=== PATIENT | male | born 1975 | race Caucasian/White ===

== ENCOUNTER → 2018-01-19 16:05 | Outpatient (CLI) | payer BC, SELFPAY | PROVIDERS: PCP Internal Medicine; Visit Provider Internal Medicine | DX: R68.89 Other general symptoms and signs (principal); J11.1 Influenza due to unidentified influenza virus with other respiratory manifestations | CPT/HCPCS: 87275; 87276 ==

== ENCOUNTER → 2019-12-28 15:01 | Outpatient (CLI) | payer BC, SELFPAY ==
--- NOTE | 2019-12-28 15:04 | CT_ITS ---
PROCEDURE: CT ABDOMEN PELVIS WO CON CLINICAL INDICATION: RENAL COLIC, RT FLANK PAIN COMPARISON: ABDPELO CT abdomen pelvis wo con from 10/31/2018 TECHNIQUE: Axial images obtained with sagittal and coronal reformats. All CT scans at the facility use one or more dose reduction, viz: automated exposure control, ma/kV adjustment per patient size (including targeted exams where dose is matched to indication, i.e. head), or iterative reconstruction technique. FINDINGS: LOWER THORAX: No acute finding. There are 2 faint nodular opacities in the left lung base at 3 mm each. The these are not significantly changed. ABDOMEN & PELVIS: There is a subtle 6 mm hypodensity in the right hepatic lobe nonspecific and not significantly changed. Gallbladder, spleen, adrenal glands, and pancreas have an unremarkable appearance. There are nonobstructing bilateral renal calculi. A cluster of stones measuring up to 7 mm is noted in the lower polar region of the left kidney and stones measuring up to 4 mm in the upper pole of the right kidney with multiple bilateral upper and lower pole renal calculi noted. No hydronephrosis. No ureteral calculi. Scattered small nodes are present in the celiac region. There is a small umbilical hernia which contains fat. No evidence of appendicitis or diverticulitis. No intestinal obstruction or free air. No acute bony finding. IMPRESSION: 1. Nonobstructing bilateral renal calculi. No ureteral calculi. 2. Other nonacute findings as described above Dictated by: Augusto Mccord MD 12/29/2019 12:19 Electronically signed by Augusto Mccord MD in [place] 12/29/2019 12:19
== END ==
PROVIDERS: PCP Internal Medicine; Visit Provider Internal Medicine
DX: N23 Unspecified renal colic (principal); R10.9 Unspecified abdominal pain
CPT/HCPCS: 74176

== ENCOUNTER → 2020-01-19 15:15 | Outpatient (CLI) | payer BC, SELFPAY ==
--- NOTE | 2020-01-19 15:18 | XR_ITS ---
PROCEDURE: XR KUB CLINICAL INDICATION: kidney stone COMPARISON: No exams were available for comparison FINDINGS: Gas pattern-The bowel gas pattern is unremarkable. No obvious obstruction. Calcifications-there are hyperdensities projecting over both renal beds consistent with nonobstructing calculi. Largest projects over lower pole of the left kidney and is approximately 8 millimeters. No organomegaly or abnormal soft tissue densities are apparent. Bones-No acute bony anomalies evident. There is degenerative disc disease L3-4. IMPRESSION: Bilateral nephrolithiasis. Dictated by: Luiz Davalos 01/19/2020 15:52 Electronically signed by Luiz Davalos in [place] 01/19/2020 15:52
== END ==
PROVIDERS: PCP Internal Medicine; Visit Provider Urology
DX: N20.0 Calculus of kidney (principal)
CPT/HCPCS: 74018

== ENCOUNTER 2020-05-22 18:08 | Emergency (ER) | payer BC, SELFPAY ==
[2020-05-22 18:09] VITALS: BP 153/98; PULSE 74; RESP 16; TEMP 37.1; O2SAT 16
--- NOTE | 2020-05-22 18:38 | HMH.EDABDPAI ---
ED Disposition Clinical Impression: Nephrolithiasis Disposition: Home, Self-Care Condition on Discharge: Good Instructions: DI for Acute Abdomen Prescriptions: Amlodipine Besylate [Amlodipine 10mg Tab] 10 mg PO DAILY #30 tab Transmission Status: Pending to [facility] Hydrocodone/Acetaminophen [Hydrocodone-Acetamin 10-300 mg] 1 each PO QID PRN 3 Days #12 tab PRN Reason: Breakthru Moderate Pain Prescription Printed Referrals: Anatoliy Evans [Primary Care Provider] - - Critical Care Critical Care Time: No Attestation: On 05/22/20, the high probability of a clinically significant, sudden or life threatening deterioration of the following system(s) required my full and direct attention, intervention and personal management. The time I documented below is in addition to time spent performing reported procedures but includes the following listed in this critical care notation. Medical Decision Making - Medical Records Medical records reviewed: Yes: I reviewed the patient's medical records. - Galileo Inquiry Pt receiving controlled substance: No Vital Signs: 05/22/20 18:09 Temperature 98.7 F Temperature Source Oral Pulse Rate [Left Radial] 74 Respiratory Rate 16 Blood Pressure [Right Arm] 153/98 H Blood Pressure Mean [Right Arm] 116 Blood Pressure Position [Right Arm] Sitting 02 Sat by Pulse Oximetry 16 L Oxygen Delivery Method Room Air - Lab Data Lab results reviewed: Yes: I reviewed the patient's lab results. Lab Results 05/22/20 18:20: WBC 8.9, RBC 4.65, Hgb 15.9, Hct 46.3, MCV 99.5 H, MCH 34.1 H, MCHC 34.3, RDW 12.8, Plt Count 192, MPV 9.2, Neut % (Auto) 53.5, Lymph % (Auto) 36.4, [place] % (Auto) 4.2, Eos % (Auto) 5.1, Baso % (Auto) 0.8, Neut # (Auto) 4.7, Lymph # (Auto) 3.2, [place] # (Auto) 0.4, Eos # (Auto) 0.5 H, Baso # (Auto) 0.1 05/22/20 18:20: Sodium 138, Potassium 4.3, Chloride 104, Carbon Dioxide 26, Anion Gap 12.3, BUN 12, Creatinine 1.10, Estimated Creat Clear 99, Estimated GFR 73, Est GFR ( Amer) 88, Glucose 161 H, Calcium 9.2, Total Bilirubin 0.5, AST 26, ALT 29, Alkaline Phosphatase 67, Total Protein 7.0, Albumin 4.1, Globulin 2.9, Albumin/Globulin Ratio 1.4 Result diagrams: 05/22/20 18:20 05/22/20 18:20 Orders (Tests/Meds): ED MEDICATIONS Generic Name Dose Route Start Last Admin Trade Name Freq PRN Reason Stop Dose Admin Sodium Chloride 1,000 mls @ 999 mls/hr 05/22/20 18:45 05/22/20 18:43 Sod Chlor 0.9% 1000ml Bag IV 05/22/20 19:45 999 mls/hr .Q1H1M BONNIE Administration Discontinued Medications Generic Name Dose Route Start Last Admin Trade Name Freq PRN Reason Stop Dose Admin Hydromorphone HCl 1 mg 05/22/20 18:41 05/22/20 18:25 Dilaudid 2mg/Ml Syringe IV 05/22/20 18:42 1 mg ONCE ONE Administration Ketorolac Tromethamine 30 mg 05/22/20 18:41 05/22/20 18:25 Toradol 30mg/Ml Vial IV 05/22/20 18:42 30 mg ONCE ONE Administration Ondansetron HCl 4 mg 05/22/20 18:41 05/22/20 18:25 Zofran 4mg/2ml Vial IV 05/22/20 18:42 4 mg ONCE ONE Administration ORDERS Category Date Time Status CT abdomen pelvis wo con Stat Cat Scan 05/22/20 18:40 Taken Urinalysis and Microscopic Stat Lab 05/22/20 18:40 Ordered Abdominal Pain HPI - General Chief Complaint: Abdominal Pain Stated Complaint: Possible Kidney stones Time Seen by Provider: 05/22/20 18:08 Source of Information: Patient - History of Present Illness MD complaint: flank pain Onset (ago): hour(s) Consistency: constant Location: LLQ, L flank Severity: severe Severity scale (1-10): 10 Quality: sharp Radiation: suprapubic Migration to: L flank Relieving factors: nothing Exacerbating factors: nothing Context: other (History of kidney stones straight kidney stones) - Related Data Home Medications Medication Instructions Recorded Confirmed Tamsulosin HCl [Flomax 0.4mg 0.4 mg PO BID 01/22/20 01/22/20 capsule] Previous Rx's Medicatio
--- NOTE | 2020-05-22 18:40 | CT_ITS ---
PROCEDURE: CT ABDOMEN PELVIS WO CON CLINICAL INDICATION: pain r/o stone COMPARISON: CT ABDOMEN PELVIS WO CON from 01/22/2020 TECHNIQUE: Axial images obtained with sagittal and coronal reformats. All CT scans at the facility use one or more dose reduction, viz: automated exposure control, ma/kV adjustment per patient size (including targeted exams where dose is matched to indication, i.e. head), or iterative reconstruction technique. FINDINGS: CT scan of the abdomen without contrast Lung bases are clear. There are few splenic and hepatic calcifications. The pancreas, adrenal glands, aorta, small and large bowel, appendix, soft tissues and the structures are unremarkable. Right kidney is remarkable for scattered punctate nonobstructive calcifications. There are few nonobstructing calculi throughout the left renal parenchyma of which largest is located within the lower pole measuring 8 millimeters. There is a 3 millimeter partially obstructive proximal left ureteral calculus with secondary mild caliectasis. CT scan of the pelvis without contrast: Sigmoid diverticulosis is noted. Prostate, center vesicles, bladder, soft tissues and bony structures are unremarkable.. IMPRESSION: Nonobstructive bilateral nephrocalcinosis, partially obstructive proximal left ureteral calculus measuring 3 millimeters Dictated by: Ulysses Romo 05/23/2020 09:06 Electronically signed by Ulysses Romo in [place] 05/23/2020 09:06
[2020-05-22 18:44] LABS: Basophils # 0.1 K/mm3 (0-0.2); Basophils % 0.8 % (0.1-2.0); Eosinophils # 0.5 K/mm3 (0.0-0.4); Eosinophils % 5.1 % (0.1-12.0); Hematocrit 46.3 % (42.0-52.0); Hemoglobin 15.9 g/dL (14.1-18.0); Lymphocytes # 3.2 K/mm3 (0.7-4.5); Lymphocytes % 36.4 % (10-50); Mean Corpuscular HGB Conc 34.3 g/dL (31.8-35.4); Mean Corpuscular Hemoglobin 34.1 pg (27.0-31.2); Mean Corpuscular Volume 99.5 fl (80-94); Mean Platelet Volume 9.2 fl (7.4-10.4); Monocytes # 0.4 K/mm3 (0.1-1.0); Monocytes % 4.2 % (1.7-9.3); Neutrophils # 4.7 K/mm3 (1.8-7.8); Neutrophils % 53.5 % (37.0-80.0); Platelet Count 192 K/mm3 (142-424); Red Blood Count 4.65 M/mm3 (4.60-6.20); Red Cell Distribution Width 12.8 % (11.5-17.5); White Blood Count 8.9 K/mm3 (4.8-10.8)
[2020-05-22 18:50] LABS: Chloride 104 mmol/L (98-107); Potassium 4.3 mmoL/L (3.5-5.1); Sodium 138 mmol/L (136-145)
[2020-05-22 18:52] LABS: Blood Urea Nitrogen 12 mg/dl (9-20); Creatinine Clearance Estimated 99 mL/min (50-200); Estimated Glomerular Filt Rate 73 ml/min (>60); GFR (African American) 88 ML/MIN (>60)
[2020-05-22 18:53] LABS: Alanine Aminotransferase 29 U/L (12-78); Albumin Level 4.1 g/dl (3.5-5.0); Albumin/Globulin Ratio 1.4 (1.1-1.8); Alkaline Phosphatase 67 U/L (38-126); Anion Gap 12.3 mEq/L (5-15); Aspartate Amino Transferase 26 U/L (17-59); Bilirubin,Total 0.5 mg/dl (0.2-1.3); Calcium 9.2 mg/dl (8.4-10.2); Carbon Dioxide 26 mmol/L (22.0-30.0); Globulin 2.9 g/dL (1.3-3.2); Glucose 161 mg/dl (74-100)
[2020-05-22 19:24] VITALS: BP 138/87; PULSE 57; RESP 18; O2SAT 98
[2020-05-22 20:04] VITALS: BP 130/72; PULSE 65; RESP 18; TEMP 36.8; O2SAT 98
== END 2020-05-22 20:07 | disposition home or self-care (01) ==
PROVIDERS: Emergency Provider Family Medicine; PCP Internal Medicine
DX: N20.0 Calculus of kidney (principal); J45.909 Unspecified asthma, uncomplicated; Z87.442 Personal history of urinary calculi; Z79.899 Other long term (current) drug therapy
CPT/HCPCS: 74176; 80053; 85025; 96365; 96375; 99283; J2405

== ENCOUNTER → 2020-05-31 11:17 | Outpatient (CLI) | payer BC, SELFPAY ==
--- NOTE | 2020-05-31 11:19 | XR_ITS ---
PROCEDURE: XR KUB CLINICAL INDICATION: kidney stone COMPARISON: CT ABDOMEN PELVIS WO CON from 05/22/2020 FINDINGS: There is bilateral nephrolithiasis. Multiple stones are present bilaterally measuring up to 7 mm in the lower pole on the left. The stones on the right are all measure approximately 1-2 mm. There are multiple pelvic calcifications which were possibly due to phleboliths. One cannot exclude the possibility of ureteral calculi. The IMPRESSION: Bilateral nephrolithiasis Dictated by: Augusto Mccord MD 05/31/2020 15:29 Electronically signed by Augusto Mccord MD in [place] 05/31/2020 15:29
== END ==
PROVIDERS: PCP Internal Medicine; Visit Provider Urology
DX: N20.0 Calculus of kidney (principal)
CPT/HCPCS: 74018

== ENCOUNTER 2020-06-02 07:36 | Emergency (ER) | payer BC, SELFPAY ==
[2020-06-02 07:36] VITALS: BP 149/63; PULSE 73; RESP 22; TEMP 36.6; O2SAT 98; BMI 25.8; BMI 26.5
[2020-06-02 08:05] LABS: Basophils # 0.1 K/mm3 (0-0.2); Basophils % 0.7 % (0.1-2.0); Eosinophils # 0.5 K/mm3 (0.0-0.4); Eosinophils % 4.4 % (0.1-12.0); Hematocrit 43.5 % (42.0-52.0); Hemoglobin 15.8 g/dL (14.1-18.0); Lymphocytes # 4.7 K/mm3 (0.7-4.5); Lymphocytes % 45.3 % (10-50); Mean Corpuscular HGB Conc 36.3 g/dL (31.8-35.4); Mean Corpuscular Hemoglobin 34.1 pg (27.0-31.2); Mean Corpuscular Volume 93.8 fl (80-94); Mean Platelet Volume 9.1 fl (7.4-10.4); Monocytes # 0.6 K/mm3 (0.1-1.0); Monocytes % 5.5 % (1.7-9.3); Neutrophils # 4.6 K/mm3 (1.8-7.8); Neutrophils % 44.1 % (37.0-80.0); Platelet Count 229 K/mm3 (142-424); Red Blood Count 4.64 M/mm3 (4.60-6.20); Red Cell Distribution Width 12.7 % (11.5-17.5); White Blood Count 10.3 K/mm3 (4.8-10.8)
[2020-06-02 08:06] LABS: Chloride 108 mmol/L (98-107); Potassium 4.3 mmoL/L (3.5-5.1); Sodium 139 mmol/L (136-145)
[2020-06-02 08:08] LABS: Blood Urea Nitrogen 20 mg/dl (9-20); Creatinine Clearance Estimated 102 mL/min (50-200); Estimated Glomerular Filt Rate 73 ml/min (>60); GFR (African American) 88 ML/MIN (>60)
[2020-06-02 08:09] LABS: Alanine Aminotransferase 24 U/L (12-78); Albumin Level 3.8 g/dl (3.5-5.0); Albumin/Globulin Ratio 1.3 (1.1-1.8); Alkaline Phosphatase 72 U/L (38-126); Anion Gap 10.3 mEq/L (5-15); Aspartate Amino Transferase 24 U/L (17-59); Bilirubin,Total 0.4 mg/dl (0.2-1.3); Calcium 8.8 mg/dl (8.4-10.2); Carbon Dioxide 25 mmol/L (22.0-30.0); Glucose 108 mg/dl (74-100); Total Protein,Serum 6.8 g/dl (6.3-8.2)
--- NOTE | 2020-06-02 08:28 | CT_ITS ---
PROCEDURE: CT ABDOMEN PELVIS WO CON CLINICAL INDICATION: r/o stone Left flank pain COMPARISON: CT ABDOMEN PELVIS WO CON from 05/22/2020 TECHNIQUE: Axial images obtained with sagittal and coronal reformats. All CT scans at the facility use one or more dose reduction, viz: automated exposure control, ma/kV adjustment per patient size (including targeted exams where dose is matched to indication, i.e. head), or iterative reconstruction technique. FINDINGS: LOWER THORAX: No acute finding ABDOMEN & PELVIS: The liver, gallbladder, spleen, adrenal glands, and pancreas have an unremarkable appearance. There are bilateral renal calculi present measuring up to 7 mm in the lower pole on the left. There is a 4 mm stone at the left ureterovesical junction with mild left hydronephrosis and hydroureter. No evidence of appendicitis. No intestinal obstruction or free air. There is a tiny umbilical hernia which contains fat. Degenerative changes lumbar spine. IMPRESSION: 1. 4 mm left ureterovesical junction stone with mild left-sided obstructive uropathy. 2. Bilateral nephrolithiasis Dictated by: Augusto Mccord MD 06/02/2020 09:16 Electronically signed by Augusto Mccord MD in [place] 06/02/2020 09:16
[2020-06-02 08:33] VITALS: BP 138/84; PULSE 68; RESP 16; O2SAT 98
--- NOTE | 2020-06-02 08:57 | PC.NURSE ---
Pt returned from rad
[2020-06-02 09:18] LABS: Appearance,Urine CLEAR (Clear); Bilirubin,Urine Negative (Negative); Blood, Urine 3+ (Negative); Color,Urine YELLOW (Yellow); Glucose,Urine (UA) Negative (Negative); Ketones,Urine Negative (Negative); Leukocyte Esterase,Urine Negative (Negative); Microscopic, Urine URINE MICROSCOPIC (MICROSCOPIC); Nitrate,Urine Negative (Negative); PH,Urine 5.5 (5.0-8.5); Protein,Urine Negative (Negative); Specific Gravity, Urine >= 1.030 (1.005-1.030); Urobilinogen,Urine 0.2 EU/dl (0.2)
[2020-06-02 09:23] LABS: RBC,Urine 20-50 #/hpf (0-3)
--- NOTE | 2020-06-02 10:08 | HMH.EDGENADL ---
ED Disposition Clinical Impression: Right ureteral calculus Disposition: Home, Self-Care Condition on Discharge: Good Instructions: DI for Acute Pain -- Adult Prescriptions: Oxycodone HCl/Acetaminophen [Percocet 10-325 mg Tablet] 1 tab PO Q6H PRN 3 Days #12 tab PRN Reason: Breakthru Severe Pain Prescription Printed Referrals: Anatoliy Evans [Primary Care Provider] - - Critical Care Critical Care Time: No Attestation: On 06/02/20, the high probability of a clinically significant, sudden or life threatening deterioration of the following system(s) required my full and direct attention, intervention and personal management. The time I documented below is in addition to time spent performing reported procedures but includes the following listed in this critical care notation. Medical Decision Making - Medical Records Medical records reviewed: Yes: I reviewed the patient's medical records. - Galileo Inquiry Pt receiving controlled substance: No Vital Signs: 06/02/20 07:36 06/02/20 08:33 Temperature 97.8 F Temperature Source Oral Pulse Rate [Left Radial] 73 68 Respiratory Rate 22 16 Blood Pressure [Right Arm] 149/63 H 138/84 Blood Pressure Mean [Right Arm] 91 102 Blood Pressure Position [Right Arm] Sitting Sitting 02 Sat by Pulse Oximetry 98 98 Oxygen Delivery Method Room Air - Lab Data Lab results reviewed: Yes: I reviewed the patient's lab results. Lab Results 06/02/20 07:45: WBC 10.3, RBC 4.64, Hgb 15.8, Hct 43.5, MCV 93.8, MCH 34.1 H, MCHC 36.3 H, RDW 12.7, Plt Count 229, MPV 9.1, Neut % (Auto) 44.1, Lymph % (Auto) 45.3, [place] % (Auto) 5.5, Eos % (Auto) 4.4, Baso % (Auto) 0.7, Neut # (Auto) 4.6, Lymph # (Auto) 4.7 H, [place] # (Auto) 0.6, Eos # (Auto) 0.5 H, Baso # (Auto) 0.1 06/02/20 07:45: Sodium 139, Potassium 4.3, Chloride 108 H, Carbon Dioxide 25, Anion Gap 10.3, BUN 20, Creatinine 1.10, Estimated Creat Clear 102, Estimated GFR 73, Est GFR ( Amer) 88, Glucose 108 H, Calcium 8.8, Total Bilirubin 0.4, AST 24, ALT 24, Alkaline Phosphatase 72, Total Protein 6.8, Albumin 3.8, Globulin 3.0, Albumin/Globulin Ratio 1.3 06/02/20 08:05: Urine Color Yellow, Urine Appearance Clear, Urine pH 5.5, Ur Specific [place] >= 1.030, Urine Protein Negative, Urine Glucose (UA) Negative, Urine Ketones Negative, Urine Blood 3+, Urine Nitrate Negative, Urine Bilirubin Negative, Urine Urobilinogen 0.2, Ur Leukocyte Esterase Negative, Urine RBC 20-50, Urine WBC 3-5, Ur Squamous Epith Cells 10-20, Urine Bacteria None Result diagrams: 06/02/20 07:45 06/02/20 07:45 Orders (Tests/Meds): ED MEDICATIONS Generic Name Dose Route Start Last Admin Trade Name Freq PRN Reason Stop Dose Admin Tamsulosin HCl 0.4 mg 06/02/20 21:00 06/02/20 09:00 Flomax 0.4mg Capsule PO 07/02/20 20:59 0.4 mg HS BONNIE Administration Discontinued Medications Generic Name Dose Route Start Last Admin Trade Name Freq PRN Reason Stop Dose Admin Hydromorphone HCl 1 mg 06/02/20 07:54 06/02/20 07:50 Dilaudid 2mg/Ml Syringe IV 06/02/20 07:55 1 mg ONCE ONE Administration Hydromorphone HCl 1 mg 06/02/20 09:00 06/02/20 09:00 Dilaudid 2mg/Ml Syringe IV 06/02/20 09:01 1 mg ONCE ONE Administration Sodium Chloride 1,000 mls @ 999 mls/hr 06/02/20 08:00 06/02/20 07:50 Sod Chlor 0.9% 1000ml Bag IV 06/02/20 09:00 999 mls/hr .Q1H1M BONNIE Administration Ketorolac Tromethamine 30 mg 06/02/20 07:53 06/02/20 07:50 Toradol 30mg/Ml Vial IV 06/02/20 07:54 30 mg ONCE ONE Administration Ondansetron HCl 4 mg 06/02/20 07:53 06/02/20 07:50 Zofran 4mg/2ml Vial IV 06/02/20 07:54 4 mg ONCE ONE Administration - CT Data CT Scan: Abdomen, Pelvis Time Received: 09:[address] Reviewed: Yes: I have viewed the radiologist's interpretation Preliminary Findings: Abnormal (Patient has a nonobstructing stone with mild hydronephrosis in the right ureter) General Adult HPI - General Chief complaint:
--- NOTE | 2020-06-02 10:31 | PC.NURSE ---
pt calling to drive home
[2020-06-02 10:40] VITALS: BP 140/88; PULSE 78; RESP 16; TEMP 36.6; O2SAT 98
== END 2020-06-02 10:43 | disposition home or self-care (01) ==
PROVIDERS: Family Medicine; Emergency Provider Emergency Medicine; PCP Internal Medicine
DX: N20.1 Calculus of ureter (principal); J45.909 Unspecified asthma, uncomplicated; F17.210 Nicotine dependence, cigarettes, uncomplicated
CPT/HCPCS: 74176; 80053; 81001; 85025; 96365; 96375; 96376; 99283; J2405

== ENCOUNTER → 2020-06-05 16:01 | Outpatient (CLI) | payer BC, SELFPAY ==
[2020-06-23 18:26] LABS: Specimen Type NOT PROVIDED
[2020-06-23 18:27] LABS: Composition SEE BELOW:; Size 3X3 mm
[2020-06-23 18:28] LABS: Photo TO FOLLOW
== END ==
PROVIDERS: Visit Provider Urology
DX: Z87.442 Personal history of urinary calculi (principal)
CPT/HCPCS: 82370

== ENCOUNTER 2021-03-14 12:38 | Emergency (ER) | payer BC, SELFPAY ==
[2021-03-14 12:38] VITALS: BP 147/94; PULSE 84; RESP 20; TEMP 36.5; O2SAT 98; BMI 26.5
[2021-03-14 12:54] LABS: Microscopic, Urine URINE MICROSCOPIC (MICROSCOPIC)
[2021-03-14 13:03] LABS: Appearance,Urine CLEAR (Clear); Bilirubin,Urine Negative (Negative); Blood, Urine 2+ (Negative); Color,Urine YELLOW (Yellow); Glucose,Urine (UA) Negative (Negative); Ketones,Urine Negative (Negative); Leukocyte Esterase,Urine Negative (Negative); Nitrate,Urine Negative (Negative); Protein,Urine TRACE (Negative); Specific Gravity, Urine >= 1.030 (1.005-1.030); Urobilinogen,Urine 0.2 EU/dl (0.2)
[2021-03-14 13:10] VITALS: BMI 26.5
[2021-03-14 13:13] LABS: Chloride 109 mmol/L (98-107)
[2021-03-14 13:14] VITALS: BP 142/79; PULSE 76; O2SAT 97
[2021-03-14 13:14] LABS: Potassium 4.1 mmoL/L (3.5-5.1); Sodium 139 mmol/L (136-145)
[2021-03-14 13:17] LABS: Anion Gap 10.1 mEq/L (5-15); Blood Urea Nitrogen 18 mg/dl (9-20); Calcium 9.6 mg/dl (8.4-10.2); Carbon Dioxide 24 mmol/L (22.0-30.0); Creatinine Clearance Estimated 111 mL/min (50-200); Estimated Glomerular Filt Rate 81 ml/min (>60); GFR (African American) 98 ML/MIN (>60); Glucose 108 mg/dl (74-100)
--- NOTE | 2021-03-14 13:26 | HMH.EDGENADL ---
ED Disposition Clinical Impression: Kidney stone Disposition: Home, Self-Care Condition on Discharge: Good Instructions: Kidney Stones -- Adult Prescriptions: Ketorolac Tromethamine [Toradol 10mg tablet] 10 mg PO Q6HP PRN 5 Days #20 tab MDD 40mg/day PRN Reason: Mild Pain Transmission Status: Pending to [facility] Ondansetron [Zofran 4mg ODT] 4 mg PO TIDP PRN #15 tab PRN Reason: Nausea Transmission Status: Pending to [facility] Referrals: Anatoliy Evans [Primary Care Provider] - - Critical Care Critical Care Time: No Attestation: On 03/14/21, the high probability of a clinically significant, sudden or life threatening deterioration of the following system(s) required my full and direct attention, intervention and personal management. The time I documented below is in addition to time spent performing reported procedures but includes the following listed in this critical care notation. Medical Decision Making - Galileo Inquiry Pt receiving controlled substance: No - Lab Data Lab Results 03/14/21 12:45: Urine Color Yellow, Urine Appearance Clear, Urine pH 6.0, Ur Specific [place] >= 1.030, Urine Protein Trace, Urine Glucose (UA) Negative, Urine Ketones Negative, Urine Blood 2+, Urine Nitrate Negative, Urine Bilirubin Negative, Urine Urobilinogen 0.2, Ur Leukocyte Esterase Negative, Urine RBC 5-10, Urine WBC 3-5, Ur Squamous Epith Cells 3-5, Urine Bacteria None 03/14/21 12:56: Sodium 139, Potassium 4.1, Chloride 109 H, Carbon Dioxide 24, Anion Gap 10.1, BUN 18, Creatinine 1.00, Estimated Creat Clear 111, Estimated GFR 81, Est GFR ( Amer) 98, Glucose 108 H, Calcium 9.6 Result diagrams: 03/14/21 12:56 Orders (Tests/Meds): ED MEDICATIONS Generic Name Dose Route Start Last Admin Trade Name Freq PRN Reason Stop Dose Admin Sodium Chloride 1,000 mls @ 999 mls/hr 03/14/21 13:00 03/14/21 13:09 Sod Chlor 0.9% 1000ml Bag IV 03/14/21 14:00 999 mls/hr .Q1H1M BONNIE Administration Discontinued Medications Generic Name Dose Route Start Last Admin Trade Name Freq PRN Reason Stop Dose Admin Ketorolac Tromethamine 30 mg 03/14/21 12:48 03/14/21 13:09 Ketorolac 30mg/Ml Vial IV 03/14/21 12:49 30 mg ONCE ONE Administration Morphine Sulfate 4 mg 03/14/21 12:48 03/14/21 13:09 Morphine 4mg/Ml Syringe IV 03/14/21 12:49 4 mg ONCE ONE Administration Ondansetron HCl 4 mg 03/14/21 12:48 03/14/21 13:02 Ondansetron 4mg Odt SL 03/14/21 12:49 Not Given ONCE ONE Ondansetron HCl 4 mg 03/14/21 13:11 03/14/21 13:12 Ondansetron 4mg/2ml Vial IV 03/14/21 13:12 4 mg ONCE ONE Administration Medical Decision Narrative: Patient presented with sudden onset severe right-sided pain consistent with kidney stone. History and exam consistent with kidney stone. I doubt AAA aortic dissection or other emergent issue. Given IV fluids and pain medicine and he was feeling much better. Bedside ultrasound confirmed mild hydronephrosis. Creatinine otherwise normal and no evidence of urinary tract infection. Pain was improved and able to be discharged with return precautions General Adult HPI - General Chief complaint: Abdominal Pain Stated complaint: possible kidney stone Time Seen by Provider: 03/14/21 12:40 - History of Present Illness HPI narrative: Presents with sudden onset right-sided abdominal pain radiating to right flank and right groin he says that he has had about 60 kidney stones and this feels like 1. The pain is sharp and severe in nature, colicky in nature. No fever no chills no dysuria no hematuria. Onset (ago): hour(s) (1) Severity: severe Quality: stabbing Consistency: intermittent - Related Data Home Medications Medication Instructions Recorded Confirmed Tamsulosin HCl [Flomax 0.4mg 0.4 mg PO BID 01/22/20 06/05/20 capsule] Previous Rx's Medication Instructions Recorded Tramadol HCl [Ultram 50mg 50 mg
[2021-03-14 13:30] VITALS: BP 129/78; PULSE 61; O2SAT 97
[2021-03-14 14:00] VITALS: BP 125/75; PULSE 71; O2SAT 98
[2021-03-14 14:31] VITALS: BP 137/90; PULSE 70; O2SAT 99
[2021-03-14 15:04] VITALS: BP 136/74; PULSE 78; RESP 16; TEMP 36.6; O2SAT 98
== END 2021-03-14 15:07 | disposition home or self-care (01) ==
PROVIDERS: Emergency Provider Emergency Medicine; PCP Internal Medicine
DX: N20.0 Calculus of kidney (principal); J45.909 Unspecified asthma, uncomplicated; F17.210 Nicotine dependence, cigarettes, uncomplicated
CPT/HCPCS: 80048; 81001; 96365; 96375; 99282; J2405

== ENCOUNTER 2021-10-02 11:01 | Emergency (ER) | payer BC, SELFPAY ==
[2021-10-02 11:02] VITALS: BP 133/93; PULSE 71; RESP 16; TEMP 36.6; O2SAT 100; BMI 25.8
[2021-10-02 11:10] VITALS: BP 133/93; PULSE 69; O2SAT 98
--- NOTE | 2021-10-02 11:17 | CT_ITS ---
PROCEDURE: CT ABDOMEN PELVIS WO CON CLINICAL INDICATION: R flank pain COMPARISON: CT CT ABDOMEN PELVIS WO CON from 06/02/2020 TECHNIQUE: Axial images obtained with sagittal and coronal reformats. All CT scans at the facility use one or more dose reduction, viz: automated exposure control, ma/kV adjustment per patient size (including targeted exams where dose is matched to indication, i.e. head), or iterative reconstruction technique. FINDINGS: LOWER THORAX: No acute finding. Stable small nodular opacities in the left lung base. ABDOMEN & PELVIS: There are least 3 small hepatic hypodensities in the right hepatic lobe. These are 7 mm or less and nonspecific possibly due to small cysts. The spleen, adrenal glands, and pancreas have an unremarkable appearance. No radiopaque gallstones apparent. There are numerous bilateral renal calculi measuring up to 3 mm on the right and 15 by 5 mm in the lower pole on the left. No hydronephrosis. No ureteral calculi apparent. No intestinal obstruction or free air. No evidence of appendicitis or diverticulitis. Nondistended fluid-filled loops of small bowel are present. There are few small mesenteric lymph nodes. There is minimal ectasia of the infrarenal portion of the abdominal aorta at 1.9 cm. There is a small umbilical hernia containing fat. There is a small right inguinal hernia containing fat. Small nodes are present in the inguinal region on both sides. There is grade 1 spondylitic spondylolisthesis of L5 on S1 with degenerative disc disease at that level. IMPRESSION: 1. No acute abdominal or pelvic findings. 2. Nonobstructing bilateral renal calculi. 3. Other nonacute findings as described above. Dictated by: Augusto Mccord MD 10/02/2021 12:17 Augusto Mccord MD in [place] 10/02/2021 12:17
[2021-10-02 11:31] LABS: Microscopic, Urine URINE MICROSCOPIC (MICROSCOPIC)
[2021-10-02 11:33] LABS: Basophils # 0.1 K/mm3 (0-0.2); Basophils % 0.8 % (0.1-2.0); Eosinophils # 0.3 K/mm3 (0.0-0.4); Eosinophils % 3.3 % (0.1-12.0); Hematocrit 46.1 % (42.0-52.0); Hemoglobin 15.5 g/dL (14.1-18.0); Lymphocytes # 2.5 K/mm3 (0.7-4.5); Lymphocytes % 30.9 % (10-50); Mean Corpuscular HGB Conc 33.7 g/dL (31.8-35.4); Mean Corpuscular Hemoglobin 33.1 pg (27.0-31.2); Mean Corpuscular Volume 98.2 fl (80-94); Mean Platelet Volume 9.6 fl (7.4-10.4); Monocytes # 0.4 K/mm3 (0.1-1.0); Monocytes % 4.7 % (1.7-9.3); Neutrophils # 4.8 K/mm3 (1.8-7.8); Neutrophils % 60.4 % (37.0-80.0); Platelet Count 202 K/mm3 (142-424); Red Blood Count 4.69 M/mm3 (4.60-6.20); Red Cell Distribution Width 12.4 % (11.5-17.5)
[2021-10-02 11:33] LABS: Appearance,Urine CLEAR (Clear); Bilirubin,Urine Negative (Negative); Blood, Urine Negative (Negative); Color,Urine YELLOW (Yellow); Glucose,Urine (UA) Negative (Negative); Ketones,Urine Negative (Negative); Leukocyte Esterase,Urine Negative (Negative); Nitrate,Urine Negative (Negative); PH,Urine 5.5 (5.0-8.5); Protein,Urine Negative (Negative); Specific Gravity, Urine >= 1.030 (1.005-1.030); Urobilinogen,Urine 0.2 EU/dl (0.2)
[2021-10-02 11:40] LABS: Chloride 107 mmol/L (98-107); Potassium 4.5 mmoL/L (3.5-5.1); Sodium 142 mmol/L (136-145)
[2021-10-02 11:43] LABS: Alanine Aminotransferase 25 U/L (12-78); Albumin Level 4.3 g/dl (3.5-5.0); Albumin/Globulin Ratio 1.3 (1.1-1.8); Alkaline Phosphatase 79 U/L (38-126); Anion Gap 12.5 mEq/L (5-15); Aspartate Amino Transferase 29 U/L (17-59); Bilirubin,Total 0.2 mg/dl (0.2-1.3); Blood Urea Nitrogen 12 mg/dl (9-20); Carbon Dioxide 27 mmol/L (22.0-30.0); Creatinine Clearance Estimated 120 mL/min (50-200); Estimated Glomerular Filt Rate 91 ml/min (>60); GFR (African American) 110 ML/MIN (>60); Globulin 3.3 g/dL (1.3-3.2); Total Protein,Serum 7.6 g/dl (6.3-8.2)
[2021-10-02 11:44] LABS: Calcium 9.4 mg/dl (8.4-10.2); Glucose 100 mg/dl (74-100)
--- NOTE | 2021-10-02 11:51 | PC.NURSE ---
pt in CT
--- NOTE | 2021-10-02 12:33 | PC.NURSE ---
pt laying on stretcher, resting, states no needs at this time.
[2021-10-02 12:34] VITALS: BP 119/75; PULSE 63; O2SAT 100
[2021-10-02 12:45] VITALS: BP 112/76; PULSE 59; O2SAT 99
--- NOTE | 2021-10-02 12:59 | HMH.EDGENADL ---
ED Disposition Clinical Impression: Right flank pain, Nephrolithiasis Disposition: Home, Self-Care Condition on Discharge: Good Instructions: DI for Kidney Stones Additional Instructions: Follow-up with Dr. New if symptoms return. Referrals: Anatoliy Evans [Primary Care Provider] - - Critical Care Critical Care Time: No Attestation: On 10/02/21, the high probability of a clinically significant, sudden or life threatening deterioration of the following system(s) required my full and direct attention, intervention and personal management. The time I documented below is in addition to time spent performing reported procedures but includes the following listed in this critical care notation. Medical Decision Making - Galileo Inquiry Pt receiving controlled substance: No Vital Signs: 10/02/21 11:02 Temperature 97.9 F Temperature Source Oral Pulse Rate [Right Radial] 71 Respiratory Rate 16 Blood Pressure [Right Arm] 133/93 H Blood Pressure Mean [Right Arm] 106 Blood Pressure Source [Right Arm] Automatic Cuff Blood Pressure Position [Right Arm] Sitting 02 Sat by Pulse Oximetry 100 Oxygen Delivery Method Room Air - Lab Data Lab Results 10/02/21 11:11: Urine Color Yellow, Urine Appearance Clear, Urine pH 5.5, Ur Specific [place] >= 1.030, Urine Protein Negative, Urine Glucose (UA) Negative, Urine Ketones Negative, Urine Blood Negative, Urine Nitrate Negative, Urine Bilirubin Negative, Urine Urobilinogen 0.2, Ur Leukocyte Esterase Negative, Urine RBC None, Urine WBC 3-5, Ur Squamous Epith Cells 3-5, Urine Bacteria None 10/02/21 11:24: WBC 8.0, RBC 4.69, Hgb 15.5, Hct 46.1, MCV 98.2 H, MCH 33.1 H, MCHC 33.7, RDW 12.4, Plt Count 202, MPV 9.6, Neut % (Auto) 60.4, Lymph % (Auto) 30.9, [place] % (Auto) 4.7, Eos % (Auto) 3.3, Baso % (Auto) 0.8, Neut # (Auto) 4.8, Lymph # (Auto) 2.5, [place] # (Auto) 0.4, Eos # (Auto) 0.3, Baso # (Auto) 0.1 10/02/21 11:24: Sodium 142, Potassium 4.5, Chloride 107, Carbon Dioxide 27, Anion Gap 12.5, BUN 12, Creatinine 0.90, Estimated Creat Clear 120, Estimated GFR 91, Est GFR ( Amer) 110, Glucose 100, Calcium 9.4, Total Bilirubin 0.2, AST 29, ALT 25, Alkaline Phosphatase 79, Total Protein 7.6, Albumin 4.3, Globulin 3.3 H, Albumin/Globulin Ratio 1.3 Result diagrams: 10/02/21 11:24 10/02/21 11:24 - CT Data CT Scan: Abdomen, Pelvis Time Received: 13:[address] Reviewed: Yes: I have viewed the radiologist's interpretation Findings Narrative: PROCEDURE: CT ABDOMEN PELVIS WO CON CLINICAL INDICATION: R flank pain COMPARISON: CT CT ABDOMEN PELVIS WO CON from 06/02/2020 TECHNIQUE: Axial images obtained with sagittal and coronal reformats. All CT scans at the facility use one or more dose reduction, viz: automated exposure control, ma/kV adjustment per patient size (including targeted exams where dose is matched to indication, i.e. head), or iterative reconstruction technique. FINDINGS: LOWER THORAX: No acute finding. Stable small nodular opacities in the left lung base. ABDOMEN & PELVIS: There are least 3 small hepatic hypodensities in the right hepatic lobe. These are 7 mm or less and nonspecific possibly due to small cysts. The spleen, adrenal glands, and pancreas have an unremarkable appearance. No radiopaque gallstones apparent. There are numerous bilateral renal calculi measuring up to 3 mm on the right and 15 by 5 mm in the lower pole on the left. No hydronephrosis. No ureteral calculi apparent. No intestinal obstruction or free air. No evidence of appendicitis or diverticulitis. Nondistended fluid-filled loops of small bowel are present. There are few small mesenteric lymph nodes. There is minimal ectasia of the infrarenal portion of the abdominal aorta at 1.9 cm. There is a small umbilical hernia containing fat. There is a small right inguinal hernia containing fat. Small nodes are present in the inguinal region on both sides. There i
[2021-10-02 13:13] VITALS: BP 112/76; PULSE 63; RESP 16; TEMP 36.7; O2SAT 100
== END 2021-10-02 13:18 | disposition home or self-care (01) ==
PROVIDERS: Emergency Provider Emergency Medicine; PCP Internal Medicine
DX: N20.0 Calculus of kidney (principal)
CPT/HCPCS: 74176; 80053; 81001; 85025; 99283

== ENCOUNTER → 2022-01-01 10:06 | Outpatient (CLI) | payer BC, SELFPAY ==
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
== END ==
LOC: RAD 10:08
PROVIDERS: PCP Internal Medicine; Visit Provider Internal Medicine
DX: M54.2 Cervicalgia (principal); V89.2XXA Person injured in unspecified motor-vehicle accident, traffic, initial encounter
CPT/HCPCS: 72050

== ENCOUNTER → 2022-02-11 15:27 | Outpatient (CLI) | payer BC, SELFPAY ==
--- NOTE | 2022-02-11 15:33 | XR_ITS ---
FINAL REPORT CLINICAL HISTORY: RIGHT HIP PAIN x 2 weeks..no trauma FINDINGS: Right hip with pelvis Three views were obtained. There is no acute fracture or dislocation. There is mild degenerative change of the right hip. There is no acute soft tissue abnormality. IMPRESSION: Mild right hip degenerative change. Reviewed, Interpreted and Dictated by Kenji Olivo III, MD Transcribed by Rich Pandya Authenticated by Kenji Olivo III, MD on 02/11/2022 04:55:06 PM [facility]
== END ==
LOC: RAD 15:28
PROVIDERS: PCP Internal Medicine; Visit Provider Internal Medicine
DX: M25.551 Pain in right hip (principal)
CPT/HCPCS: 73502

== ENCOUNTER → 2022-03-21 09:52 | Outpatient (CLI) | payer BC, SELFPAY ==
--- NOTE | 2022-03-21 09:56 | MR_ITS ---
FINAL REPORT CLINICAL HISTORY: rt hip pain x's 2 months. nki. pt states he is off work with his shoulders. has had back pain and is now having trouble walking. pain in hip joint and radiates down leg. COMPARISON: Plain film dated February 11, 2022 FINDINGS: Multiplanar MR imaging of the right hip was performed without contrast. There is no evidence of fracture or dislocation. There is avascular necrosis in the superior right femoral head measuring 2.9 cm transversely. There is mild flattening of the right femoral head. There is bone marrow edema in the femoral head and neck. There is avascular necrosis of the femoral head measuring 4.4 cm transversely. There is labral degeneration with an anterior superior tear. A moderate right hip joint effusion is seen. The tendons are intact. The musculature is intact. No soft tissue mass or cyst is identified. IMPRESSION: Avascular necrosis of the bilateral femoral heads. Bone marrow edema in the right femoral head neck. Right labral degeneration within anterior superior tear. Moderate right hip joint effusion. Reviewed, Interpreted and Dictated by Kenji Olivo III, MD Transcribed by Rich Pandya Authenticated by Kenji Olivo III, MD on 03/21/2022 01:14:[address] [facility]
== END ==
LOC: RAD 09:53
PROVIDERS: PCP Internal Medicine; Visit Provider Orthopaedic Surgery
DX: M25.551 Pain in right hip (principal)
CPT/HCPCS: 73721

== ENCOUNTER 2022-04-16 14:00 | Outpatient (RCR) | payer BC, SELFPAY ==
--- NOTE | 2022-03-12 15:39 | HMH.PTOPEV ---
PT Outpatient Evaluation Rehab PT Outpatient Evaluation Start: 03/12/22 15:04 Freq: Status: Active Protocol: Document 03/12/22 15:05 LOYDGUSTABO (Rec: 03/12/22 15:39 ERNESTINA [id number]) Electronically Signed By Reynaldo Chan PT 03/12/22 15:05 Outpatient Therapy Subjective History Subjective History This is the initial Physical Therapy evaluation for Cordell Armando. Pt is a 46 y/o male referred to PT for R hip pain. Pt is currently being seen for B RTC issues. Pt reports R hip pain began ~2-3 months ago w/ insidious onset. Pt does states he has had intermittent hip painsince high school, but pain would usually only last for a week then go away. Pt states now that when he walks he can have shooting pain into R thigh and sometimes down south to ankle. Pt does not report any burning, tingling, electricity like pain or numbness or tingling. Chief Complaint Pain,Stiff Symptom Type Throb,Sharp,Shooting Symptoms Relieved By Nothing Symptoms Aggravated By Standing,Physical Activity, Walking Prior Functional Limitations None Current Functional Limitations Housework,Driving,Sleeping, Standing,Sitting,Squatting, Recreation Activity,Walking, Stairs Symptom Description Constant but Variable Level of pain today (0-10) 3 Pain scale - at its best (0-10) 3 Pain scale - at its worst (0-10) 7 Hip/Knee Eval Gait Observation General Gait Pattern Observation Antalgic Gait Assistive Device Assistive Devices Straight Cane Palpation Tenderness right Knee Palpation Finding None/Normal Hip Palpation Findings Tenderness MMT Hip Flexion Strength Grade 4- Good- Hip Abduction Strength Grade 4- Good- Hip Adduction Strength Grade 4- Good- Hip External Rotation Strength Grade 4 Good Hip Internal Rotation Strength Grade 4 Good Knee Strength Reason Not Measured WFL ROM Hip Flexion w/Knee Flexed Active Range 45 w/ pain of Motion (degrees) Hip Flexion w/Knee Flexed Passive Range 90 w/ pain of Motion (degrees) Hip Flexion w/Knee Extended Passive 90 Range of Motion (degrees)
== END 2022-04-16 14:05 | disposition home or self-care (01) ==
LOC: PT 14:00
PROVIDERS: PCP Internal Medicine; Visit Provider Orthopaedic Surgery
DX: M25.551 Pain in right hip (principal)
CPT/HCPCS: 97110; 97163

== ENCOUNTER → 2022-05-05 15:38 | Outpatient (CLI) | payer BC, SELFPAY ==
[2022-05-05 16:34] LABS: Basophils # 0.2 K/mm3 (0-0.2); Basophils % 1.5 % (0.1-2.0); Eosinophils # 0.2 K/mm3 (0.0-0.4); Eosinophils % 1.6 % (0.1-12.0); Hemoglobin 16.7 g/dL (14.1-18.0); Lymphocytes # 2.7 K/mm3 (0.7-4.5); Lymphocytes % 27.4 % (10-50); Mean Corpuscular HGB Conc 34.1 g/dL (31.8-35.4); Mean Corpuscular Hemoglobin 32.9 pg (27.0-31.2); Mean Corpuscular Volume 96.4 fl (80-94); Mean Platelet Volume 8.6 fl (7.4-10.4); Monocytes # 0.6 K/mm3 (0.1-1.0); Neutrophils # 6.2 K/mm3 (1.8-7.8); Neutrophils % 63.5 % (37.0-80.0); Platelet Count 227 K/mm3 (142-424); Red Blood Count 5.09 M/mm3 (4.60-6.20); White Blood Count 9.8 K/mm3 (4.8-10.8)
[2022-05-05 16:43] LABS: Alanine Aminotransferase 32 U/L (12-78); Albumin Level 4.4 g/dl (3.5-5.0); Albumin/Globulin Ratio 1.2 (1.1-1.8); Alkaline Phosphatase 99 U/L (38-126); Anion Gap 9.4 mEq/L (5-15); Aspartate Amino Transferase 29 U/L (17-59); Bilirubin,Total 0.3 mg/dl (0.2-1.3); Blood Urea Nitrogen 13 mg/dl (9-20); Calcium 9.8 mg/dl (8.4-10.2); Carbon Dioxide 27 mmol/L (22.0-30.0); Chloride 106 mmol/L (98-107); Estimated Glomerular Filt Rate 80 ml/min (>60); GFR (African American) 97 ML/MIN (>60); Globulin 3.6 g/dL (1.3-3.2); Glucose 96 mg/dl (74-100); Potassium 4.4 mmoL/L (3.5-5.1); Sodium 138 mmol/L (136-145)
[2022-05-05 18:05] LABS: Erythrocyte Sedimentation Rate 13 mm/hr (0-15)
[2022-05-11 15:10] LABS: Lyme B. burgdorferi PCR Blood Negative (Negative)
== END ==
PROVIDERS: PCP Internal Medicine; Visit Provider Internal Medicine
DX: Z11.8 Encounter for screening for other infectious and parasitic diseases (principal)
CPT/HCPCS: 36415; 80053; 85025; 85651; 87476

== ENCOUNTER 2022-05-28 10:00 | Outpatient (RCR) | payer OTHER, SELFPAY | END 2022-05-28 10:05 | disposition home or self-care (01) | LOC: PT 10:00 | PROVIDERS: PCP Internal Medicine; Visit Provider Orthopaedic Surgery | DX: M25.511 Pain in right shoulder (principal); M25.512 Pain in left shoulder; M75.102 Unspecified rotator cuff tear or rupture of left shoulder, not specified as traumatic; M75.101 Unspecified rotator cuff tear or rupture of right shoulder, not specified as traumatic | CPT/HCPCS: 97010; 97014; 97110; 97163; 97164; G0283 ==

== ENCOUNTER → 2022-07-14 13:31 | Outpatient (CLI) | payer BC, SELFPAY ==
[2022-07-20 16:11] LABS: Lyme B. burgdorferi PCR Blood Negative (Negative)
== END ==
PROVIDERS: PCP Internal Medicine; Visit Provider Internal Medicine
DX: T63.481A Toxic effect of venom of other arthropod, accidental (unintentional), initial encounter (principal)
CPT/HCPCS: 87476

== ENCOUNTER 2022-10-04 04:12 | Emergency (ER) | payer BC, SELFPAY ==
[2022-10-04 04:13] VITALS: BP 183/99; PULSE 99; RESP 23; TEMP 36.9; O2SAT 98; BMI 25.8
--- NOTE | 2022-10-04 04:39 | CT_ITS ---
PROCEDURE INFORMATION: Exam: CT Abdomen And Pelvis Without Contrast Exam date and time: 10/04/2022 4:44 AM Age: 46 years old Clinical indication: Abdominal pain; Flank; Left; Additional info: Flank pain left side , HX of kidney stones TECHNIQUE: Imaging protocol: Computed tomography of the abdomen and pelvis without contrast. Radiation optimization: All CT scans at this facility use at least one of these dose optimization techniques: automated exposure control; mA and/or kV adjustment per patient size (includes targeted exams where dose is matched to clinical indication); or iterative reconstruction. COMPARISON: CT ABDOMEN PELVIS WO CON 10/02/2021 11:51 AM FINDINGS: Liver: Subcentimeter low-density lesions in the liver are too small to characterize, though statistically benign. Calcified hepatic granulomas. Gallbladder and bile ducts: Normal. No calcified stones. No ductal dilation. Pancreas: Normal. No ductal dilation. Spleen: Calcified splenic granulomas. Adrenal glands: Normal. No mass. Kidneys and ureters: Numerous small nonobstructing renal calculi identified measuring up to 3 mm on the right and 5 mm on the left. Mild left hydronephrosis secondary to a 1 cm calculus at the left UPJ. Stomach and bowel: Unremarkable. No obstruction. No mucosal thickening. Appendix: No evidence of appendicitis. Intraperitoneal space: Unremarkable. No free air. No significant fluid collection. Vasculature: Unremarkable. No abdominal aortic aneurysm. Lymph nodes: Unremarkable. No enlarged lymph nodes. Urinary bladder: Unremarkable as visualized. Reproductive: Unremarkable as visualized. Bones/joints: Right total hip arthroplasty. 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 Soft tissues: Unremarkable. IMPRESSION: Mild left hydronephrosis secondary to a 1 cm calculus at the left UPJ.
--- NOTE | 2022-10-04 04:44 | PC.NURSE ---
Order for toradol changed from IM to IV, dosing changed from 30mg to 15mg per MD order.
[2022-10-04 04:46] LABS: Microscopic, Urine URINE MICROSCOPIC (MICROSCOPIC)
--- NOTE | 2022-10-04 04:47 | PC.NURSE ---
pt going to scan at this time
[2022-10-04 04:48] LABS: Basophils # 0.2 K/mm3 (0-0.2); Basophils % 2.9 % (0.1-2.0); Eosinophils # 0.3 K/mm3 (0.0-0.4); Eosinophils % 3.3 % (0.1-12.0); Hemoglobin 15.1 g/dL (14.1-18.0); Lymphocytes # 4.7 K/mm3 (0.7-4.5); Lymphocytes % 61.2 % (10-50); Mean Corpuscular HGB Conc 32.2 g/dL (31.8-35.4); Mean Corpuscular Hemoglobin 30.9 pg (27.0-31.2); Mean Corpuscular Volume 95.9 fl (80-94); Mean Platelet Volume 9.5 fl (7.4-10.4); Monocytes # 0.4 K/mm3 (0.1-1.0); Monocytes % 5.6 % (1.7-9.3); Neutrophils # 2.1 K/mm3 (1.8-7.8); Platelet Count 210 K/mm3 (142-424); Red Cell Distribution Width 13.6 % (11.5-17.5); White Blood Count 7.7 K/mm3 (4.8-10.8)
[2022-10-04 04:48] LABS: Appearance,Urine SL CLOUDY (Clear); Bilirubin,Urine Negative (Negative); Blood, Urine 3+ (Negative); Color,Urine YELLOW (Yellow); Glucose,Urine (UA) Negative (Negative); Ketones,Urine Negative (Negative); Leukocyte Esterase,Urine Negative (Negative); Nitrate,Urine Negative (Negative); Protein,Urine Negative (Negative); Specific Gravity, Urine 1.025 (1.005-1.030); Urobilinogen,Urine 0.2 EU/dl (0.2)
[2022-10-04 04:49] LABS: Chloride 104 mmol/L (98-107); Potassium 4.3 mmoL/L (3.5-5.1); Sodium 142 mmol/L (136-145)
[2022-10-04 04:52] LABS: RBC,Urine 50-100 #/hpf (0-3)
[2022-10-04 04:52] LABS: Anion Gap 13.3 mEq/L (5-15); Blood Urea Nitrogen 10 mg/dl (9-20); Carbon Dioxide 29 mmol/L (22.0-30.0); Creatinine Clearance Estimated 118 mL/min (50-200); Estimated Glomerular Filt Rate 91 ml/min (>60); GFR (African American) 110 ML/MIN (>60); MANUAL DIFFERENTIAL MANUAL DIFFERENTIAL (MANUAL DIFF)
[2022-10-04 04:53] LABS: Calcium 9.3 mg/dl (8.4-10.2); Glucose 94 mg/dl (74-100)
--- NOTE | 2022-10-04 04:55 | PC.NURSE ---
pt back from scan at this time
[2022-10-04 04:58] LABS: Eosinophils % 1 % (0-3); Lymphocytes % 66 % (10-50); Monocytes % 5 % (2-9); Neutrophils % 26 % (42-76); Platelet Estimate Normal; RBC Morphology Normal; Total Cells Counted 100
--- NOTE | 2022-10-04 05:14 | HMH.EDGENADL ---
Discharge Plan Disposition Patient Disposition: Xfer Short-Term Hosp Condition: Fair Chief Complaint: PAIN Prescriptions Prescriptions: No Action tramadol 50 mg tablet 50 mg PO Q6 PRN (Reason: Breakthru Severe Pain) Qty: 30 0RF tamsulosin 0.4 MG capsule 0.4 mg PO BID amlodipine 10 MG tablet 10 mg PO DAILY Qty: 30 0RF ketorolac 10 MG tablet 10 mg PO Q6HP MDD 40mg/day PRN (Reason: Mild Pain) 5 Days Qty: 20 0RF Rx Instructions: Therapy initiated with IV/IM dose Referrals Follow up/Referrals: Anatoliy Evans MD [Primary Care Provider] - See instructions Clinical Impressions Clinical Impression: Calcium ureterolithiasis, Hydronephrosis, Intractable pain Discharge ED Provider: [facility] General Adult HPI General Chief complaint: PAIN Stated complaint: Pain left side & private area,nausea Time Seen by Provider: 10/04/22 04:33 Mode of Arrival: Family Vehicle Source of Information: Patient Limitations: No Limitations Description of Symptoms (Recalled from ER Triage Doc. by RN): Pt c/o L flank pain that radiates to his penis. States it awoke him from his sleep this early am. He reports a hx of kidney stones but states I usually pass them no problem . Pt also c/o nausea and vomting. Pt is restless and rocking on & off the bed. He denies any gross hematuria or urinary retention. History of Present Illness HPI narrative: 46yo M with past medical history of kidney stones presents to the emergency department secondary to left flank pain. Pain radiates to his groin. Symptoms began approximately 30 minutes prior to arrival and woke him from sleep. Reports having to have kidney stones removed secondary to inability to pass spontaneously in the past. Reports being in his usual state of health prior to being woken up in pain. No recent fever, nausea/vomiting/diarrhea. Nothing improves his pain prior to arrival. Related Data Home Medications Medication Instructions Recorded Confirmed tamsulosin 0.4 mg capsule 0.4 mg PO BID renal calculi 01/22/20 04/02/22 Previous Rx's Medication Instructions Recorded amlodipine 10 mg tablet 10 mg PO DAILY #30 tabs 05/22/20 ketorolac 10 mg tablet 10 mg PO Q6HP PRN Mild Pain 5 days 03/14/21 #20 tabs tramadol 50 mg tablet 50 mg PO Q6 PRN Breakthru Severe 04/02/22 Pain #30 tabs Allergies Allergy/AdvReac Type Severity Reaction Status Date / Time No Known Allergies Allergy Verified 04/02/22 13:27 PFSH PFSH Social History Smoking Status: Current every day smoker tobacco type: cigarettes packs per day: 0 alcohol intake: current substance use type: denies use current occupational status: other Travel in the last 8 weeks: None household members: other housing: other caffeine: No ROS Obtained: Yes Systems reviewed as appropriate & no additional complaints except as documented 10 point ROS negative except as above Genitourinary Male Genitourinary: Reports as per HPI Physical Exam General General appearance: alert and in no apparent distress Head Head exam: atraumatic Eye Eye exam: Present normal appearance and PERRL Chest Chest inspection: Present normal inspection and symmetric chest wall rise Respiratory Respiratory exam: Present normal lung sounds bilaterally and respiratory distress Cardiovascular Cardiovascular exam: Present regular rate and normal rhythm Abdominal Exam Abdominal exam: Present soft exam: Present other (Left CVAT) Back Exam Back exam: Present CVA tenderness (L) Neurological Exam Neurological exam: Present alert and oriented X3 Psychiatric Psychiatric exam: Present normal affect and normal mood Skin Skin exam: Present warm, dry and intact Medical Decision Making Medical Records Medical records reviewed: Yes I reviewed the patient's medical records. MR Comment: Prior CT scan Galileo Inquiry Pt receiving controlled substance: No Vital Signs:
--- NOTE | 2022-10-04 05:33 | PC.NURSE ---
ER Dr speaking with Dr Swan at this time pt is accepted to the [facility] at this time
--- NOTE | 2022-10-04 05:55 | PC.NURSE ---
Called [facility] for transport to at this time
[2022-10-04 06:19] VITALS: BP 140/82; PULSE 85; RESP 17; TEMP 36.8; O2SAT 98
== END 2022-10-04 06:20 | disposition short-term general hospital (02) ==
PROVIDERS: Emergency Provider Family Medicine; PCP Internal Medicine
DX: N13.2 Hydronephrosis with renal and ureteral calculous obstruction
CPT/HCPCS: 74176; 80048; 81001; 85007; 85025; 96374; 96375; 96376; 99284; J2405

== ENCOUNTER 2022-10-05 23:18 | Emergency (ER) | payer BC, SELFPAY ==
[2022-10-05 23:19] VITALS: BP 155/98; PULSE 103; RESP 22; TEMP 36.8; O2SAT 98; BMI 25.8
--- NOTE | 2022-10-05 23:59 | PC.NURSE ---
Patients requested MD see patient due to patients pain level. MD notified.
--- NOTE | 2022-10-06 00:27 | HMH.EDGENADL ---
Discharge Plan Disposition Patient Disposition: Home, Self-Care Condition: Good Chief Complaint: Abdominal Pain Prescriptions Prescriptions: No Action phenazopyridine [Pyridium] 100 mg Tablet 100 mg PO TID PRN (Reason: ureteral stent pain) oxycodone 5 mg tablet 5 mg PO Q4-6H PRN (Reason: post op hip pain) tamsulosin 0.4 MG capsule 0.4 mg PO BID Referrals Follow up/Referrals: Anatoliy Evans MD [Primary Care Provider] - See instructions Clinical Impressions Clinical Impression: Renal colic on left side Instructions Patient Instructions: DI for Acute Abdominal Pain Discharge ED Provider: [facility] General Adult HPI General Chief complaint: Abdominal Pain Stated complaint: Pain from kidney stone Time Seen by Provider: 10/05/22 23:36 Mode of Arrival: Family Vehicle Source of Information: Patient and Significant Other Limitations: No Limitations Description of Symptoms (Recalled from ER Triage Doc. by RN): Pt c/o L flank and radiating pain following his lithotripsy and stent placement to L ureter @ on 10/04. States he was d/c @ 1900 last night and has been having pain since. He was d/c with flomax and pyridium and reports these meds aren't working so I took 2 old pain pills from my hip surgery, I think hydronorco but it hasn't helped at all and I just can't take it anymore . He reports the stent has a string attached that he was instructed to pull out on Thursday (10/07). History of Present Illness HPI narrative: 46yo M presents to the emergency department secondary to pain from ureteral stent placement. Was evaluated in this emergency department on Thursday night and transferred to the [facility] for urologic intervention. States pain is now worse than when he had the kidney stone. Denies fever. States he was told to remove his stent on Thursday at home and there was no need for follow-up. Discharged home with Pyridium and Flomax. Related Data Home Medications Medication Instructions Recorded Confirmed tamsulosin 0.4 mg capsule 0.4 mg PO BID renal calculi 01/22/20 10/06/22 oxycodone 5 mg tablet 5 mg PO Q4-6H PRN post op hip pain 10/06/22 10/06/22 phenazopyridine 100 mg tablet 100 mg PO TID PRN ureteral stent 10/06/22 10/06/22 (Pyridium) pain Allergies Allergy/AdvReac Type Severity Reaction Status Date / Time No Known Allergies Allergy Verified 04/02/22 13:27 PFSH PFS Social History Smoking Status: Current every day smoker tobacco type: cigarettes packs per day: 0 alcohol intake: current substance use type: denies use current occupational status: other Travel in the last 8 weeks: None household members: other housing: other caffeine: No ROS Obtained: Yes Systems reviewed as appropriate & no additional complaints except as documented Physical Exam General General appearance: alert Comment: Acutely uncomfortable Head Head exam: atraumatic Eye Eye exam: Present normal appearance and PERRL Neck Neck exam: Present normal inspection and trachea midline Chest Chest inspection: Present normal inspection and symmetric chest wall rise Respiratory Respiratory exam: Present normal lung sounds bilaterally Cardiovascular Cardiovascular exam: Present regular rate Abdominal Exam Abdominal exam: Present soft and tenderness (Left-sided); Absent distention Extremities Exam Extremities exam: Present normal capillary refill; Absent tenderness or edema Neurological Exam Neurological exam: Present alert, oriented X3 and CN II-XII intact Psychiatric Psychiatric exam: Present normal affect and normal mood Skin Skin exam: Present warm and dry Medical Decision Making Galileo Inquiry Pt receiving controlled substance: No Vital Signs: 10/05/22 23:19 Temperature 98.2 F Temperature Source Oral Pulse Rate [Right] 103 H Respiratory Rate 22 Blood Pressure [Right Arm] 155/98 H Blood Pressure Mean [Right A
[2022-10-06 01:20] VITALS: BP 138/79; PULSE 75; RESP 19; TEMP 36.7; O2SAT 97
== END 2022-10-06 01:40 | disposition home or self-care (01) ==
PROVIDERS: Emergency Provider Family Medicine; PCP Internal Medicine
DX: R10.32 Left lower quadrant pain (principal); M25.559 Pain in unspecified hip; F17.210 Nicotine dependence, cigarettes, uncomplicated; Z79.1 Long term (current) use of non-steroidal anti-inflammatories (NSAID); Z79.899 Other long term (current) drug therapy; Z87.442 Personal history of urinary calculi
CPT/HCPCS: 96374; 96375; 99284; J2405

== ENCOUNTER 2022-10-07 07:49 | Emergency (ER) | payer BC, SELFPAY ==
[2022-10-07 07:49] VITALS: BP 147/90; PULSE 110; RESP 20; TEMP 36.3; O2SAT 100; BMI 25.8
--- NOTE | 2022-10-07 08:00 | PC.NURSE ---
DR. VALENZUELA AT BEDSIDE FOR EVALUATION
--- NOTE | 2022-10-07 08:02 | CT_ITS ---
FINAL REPORT TECHNIQUE: Axial images through the abdomen and pelvis were performed without contrast. This study was performed with techniques to keep radiation doses as low as reasonably achievable, (ALARA). Individualized dose reduction techniques using automated exposure control or adjustment of mA and/or kV according to the patient's size were employed. CLINICAL HISTORY: left flank pain, h/o stones FINDINGS: ABDOMEN: The lung bases are clear. The heart size is normal. Limited images of the liver are unremarkable. The spleen is normal. No adrenal mass is identified. The aorta is normal in caliber. There is no significant free fluid or adenopathy. There are multiple bilateral nonobstructing kidney stones. There is mild left hydronephrosis. The previously identified stone at the left UPJ is no longer identified. There is moderate left hydroureter to the level of the left UVJ. No definite stone is identified. There is stranding along the course of the left ureter. PELVIS: The appendix is not identified. The urinary bladder is unremarkable. There is no significant free fluid or adenopathy. There is streak artifact from right hip arthroplasty. There are bilateral pars defects at the L5 level. IMPRESSION: Moderate hydronephrosis and hydroureter to the level of the left UVJ which may be related to a recently passed stone. Multiple bilateral nonobstructing kidney stones. Reviewed, Interpreted and Dictated by Houston Coffey MD Transcribed by Guerline Jimenez Authenticated and [facility]
--- NOTE | 2022-10-07 08:05 | HMH.EDUROGM ---
Discharge Plan Disposition Patient Disposition: Home, Self-Care Condition: Good Prescriptions Prescriptions: New oxycodone-acetaminophen [Percocet] 5-325 mg tablet 1 tab PO Q6H PRN (Reason: pain) Qty: 10 0RF ondansetron 4 mg tablet,disintegrating 4 mg PO Q8H PRN (Reason: nausea and vomiting) 3 Days Qty: 10 0RF cefdinir 300 mg capsule 300 mg PO BID 10 Days Qty: 20 0RF No Action phenazopyridine [Pyridium] 100 mg Tablet 100 mg PO TID PRN (Reason: ureteral stent pain) oxycodone 5 mg tablet 5 mg PO Q4-6H PRN (Reason: post op hip pain) tamsulosin 0.4 MG capsule 0.4 mg PO BID Referrals Follow up/Referrals: Anatoliy Evans MD [Primary Care Provider] - See instructions Activity Restrictions/Add. Instructions Additional Instructions/Restrictions: Follow up Urology, return to ER for worse Clinical Impressions Clinical Impression: Renal colic on left side, Urinary tract infection Instructions Patient Instructions: DI for Urinary Tract Infection (UTI), DI for Urinary Tract Infection in Children Discharge ED Provider: Raj Hoover Male Urogenital HPI General Chief complaint: Urogenital-Male Stated complaint: possibly kidney stones Time Seen by Provider: 10/07/22 08:10 Mode of Arrival: Ambulatory Limitations: No Limitations Description of Symptoms (Recalled from ER Triage Doc. by RN): PT WITH C/O LEFT FLANK AND GROIN PAIN. HX OF KIDNEY STONES, RECENTLY TREATED WITH SURGERY AND STENT PLACEMENT. PT REMOVED STENT THIS AM, REPORTS MORE PAIN. History of Present Illness HPI Narrative: left flank pain, sim to prior stone, recent litho/stent/w/removal, worse today Onset (ago): hour(s) Duration: constant Quality: aching Relieving factors: none Exacerbating factors: none Reports nausea/vomiting; Denies urinary retention or fever Related Data Home Medications Medication Instructions Recorded Confirmed tamsulosin 0.4 mg capsule 0.4 mg PO BID renal calculi 01/22/20 10/06/22 oxycodone 5 mg tablet 5 mg PO Q4-6H PRN post op hip pain 10/06/22 10/06/22 phenazopyridine 100 mg tablet 100 mg PO TID PRN ureteral stent 10/06/22 10/06/22 (Pyridium) pain Previous Rx's Medication Instructions Recorded cefdinir 300 mg capsule 300 mg PO BID 10 days #20 caps 10/07/22 ondansetron 4 mg disintegrating 4 mg PO Q8H PRN nausea and 10/07/22 tablet vomiting 3 days #10 tabs oxycodone-acetaminophen 5 mg-325 1 tab PO Q6H PRN pain #10 tabs 10/07/22 mg tablet (Percocet) Allergies Allergy/AdvReac Type Severity Reaction Status Date / Time No Known Allergies Allergy Verified 04/02/22 13:27 PFSH PFS Medical History (Updated 10/07/22 @ 09:41 by Raj Hoover MD) Kidney stones Family History (Updated 10/07/22 @ 08:20 by Sandy Manzano RN) Other No significant family history Social History (Updated 10/07/22 @ 08:20 by Sandy Manzano RN) Smoking Status: Never smoker alcohol intake: current substance use type: denies use current occupational status: other Travel in the last 8 weeks: None household members: other housing: other caffeine: No ROS Obtained: Yes All systems reviewed & no additional complaints except as documented Physical Exam General General appearance: alert and in no apparent distress Respiratory Respiratory exam: Absent respiratory distress, wheezes or stridor Cardiovascular Cardiovascular exam: Present normal rhythm and normal heart sounds; Absent irregular rhythm Abdominal Exam Abdominal exam: Present soft; Absent tenderness or guarding Back Exam Back exam: Present normal inspection; Absent tenderness, CVA tenderness (R), CVA tenderness (L) or vertebral tenderness Neurological Exam Neurological exam: Present alert, oriented X3 and CN II-XII intact Skin Skin exam: Present warm, intact and normal color Medical Decision Making Galileo Inquiry Pt receiving controlled substance: Yes Galileo was queried for this patient: Yes Risks and
[2022-10-07 08:08] LABS: Microscopic, Urine URINE MICROSCOPIC (MICROSCOPIC)
[2022-10-07 08:12] LABS: Basophils # 0.1 K/mm3 (0-0.2); Eosinophils # 0.2 K/mm3 (0.0-0.4); Eosinophils % 1.5 % (0.1-12.0); Hematocrit 45.8 % (42.0-52.0); Hemoglobin 15.4 g/dL (14.1-18.0); Lymphocytes # 3.5 K/mm3 (0.7-4.5); Lymphocytes % 29.7 % (10-50); Mean Corpuscular HGB Conc 33.6 g/dL (31.8-35.4); Mean Corpuscular Hemoglobin 31.6 pg (27.0-31.2); Mean Corpuscular Volume 94.2 fl (80-94); Mean Platelet Volume 8.9 fl (7.4-10.4); Monocytes # 0.6 K/mm3 (0.1-1.0); Monocytes % 4.9 % (1.7-9.3); Neutrophils # 7.4 K/mm3 (1.8-7.8); Neutrophils % 62.9 % (37.0-80.0); Platelet Count 304 K/mm3 (142-424); Red Blood Count 4.87 M/mm3 (4.60-6.20); Red Cell Distribution Width 13.5 % (11.5-17.5); White Blood Count 11.8 K/mm3 (4.8-10.8)
--- NOTE | 2022-10-07 08:13 | PC.NURSE ---
PT MEDICATED PER EMAR AT THIS TIME
[2022-10-07 08:18] LABS: Appearance,Urine TURBID (Clear); Blood, Urine 3+ (Negative); Chloride 104 mmol/L (98-107); Color,Urine RED (Yellow); Glucose,Urine (UA) Negative (Negative); Ketones,Urine 1+ (Negative); Leukocyte Esterase,Urine 2+ (Negative); Nitrate,Urine POSITIVE (Negative); PH,Urine 6.5 (5.0-8.5); Potassium 4.4 mmoL/L (3.5-5.1); Protein,Urine 3+ (Negative); Sodium 143 mmol/L (136-145); Specific Gravity, Urine 1.025 (1.005-1.030)
--- NOTE | 2022-10-07 08:20 | PC.NURSE ---
PT TO CT AT THIS TIME VIA WC
[2022-10-07 08:21] LABS: Alanine Aminotransferase 25 U/L (12-78); Albumin Level 4.3 g/dl (3.5-5.0); Albumin/Globulin Ratio 1.3 (1.1-1.8); Alkaline Phosphatase 110 U/L (38-126); Anion Gap 13.4 mEq/L (5-15); Aspartate Amino Transferase 28 U/L (17-59); Bilirubin,Total 0.7 mg/dl (0.2-1.3); Bilirubin,Urine Negative (Negative); Blood Urea Nitrogen 12 mg/dl (9-20); Calcium 9.7 mg/dl (8.4-10.2); Carbon Dioxide 30 mmol/L (22.0-30.0); Creatinine Clearance Estimated 118 mL/min (50-200); Estimated Glomerular Filt Rate 91 ml/min (>60); GFR (African American) 110 ML/MIN (>60); Globulin 3.2 g/dL (1.3-3.2); Glucose 108 mg/dl (74-100); Total Protein,Serum 7.5 g/dl (6.3-8.2)
--- NOTE | 2022-10-07 08:26 | PC.NURSE ---
PT RETURNED FROM CT
[2022-10-07 08:27] LABS: Bacteria,Urine 1+ /lpf; RBC,Urine 20-50 #/hpf (0-3); Squamous Epithelial Cell,Urine Occasional #/hpf (0-5)
--- NOTE | 2022-10-07 08:39 | PC.NURSE ---
pt requesting pain medication, order received. pt medicated per emar
[2022-10-07 08:57] VITALS: BP 136/89; PULSE 85; RESP 18; O2SAT 98
--- NOTE | 2022-10-07 09:32 | PC.NURSE ---
dr. perla at bedside discussing poc with pt
[2022-10-07 09:52] VITALS: BP 120/69; PULSE 75; RESP 17; TEMP 36.6; O2SAT 98
== END 2022-10-07 09:55 | disposition home or self-care (01) ==
PROVIDERS: Emergency Provider Emergency Medicine; PCP Internal Medicine
DX: N39.0 Urinary tract infection, site not specified (principal); R11.2 Nausea with vomiting, unspecified; F17.210 Nicotine dependence, cigarettes, uncomplicated; Z79.51 Long term (current) use of inhaled steroids; Z79.899 Other long term (current) drug therapy; Z87.442 Personal history of urinary calculi
CPT/HCPCS: 74176; 80053; 81001; 85025; 87086; 96374; 96375; 99285; J2405

== ENCOUNTER 2022-10-08 09:52 | Emergency (ER) | payer BC, SELFPAY ==
[2022-10-08] VITALS (13 sets, daily range): BP systolic 117–188; BP diastolic 77–112; PULSE 62–94; RESP 16–20; TEMP 36.6; O2SAT 92–98; BMI 25.8
--- NOTE | 2022-10-08 10:14 | CT_ITS ---
FINAL REPORT TECHNIQUE: Axial images through the abdomen and pelvis were performed without contrast. This study was performed with techniques to keep radiation doses as low as reasonably achievable, (ALARA). Individualized dose reduction techniques using automated exposure control or adjustment of mA and/or kV according to the patient's size were employed. CLINICAL HISTORY: L flank pain FINDINGS: Abdomen: The lung bases are clear. The liver parenchyma is homogeneous. The gallbladder is present. There are small calcified granulomas in the spleen. The pancreas and adrenals are unremarkable. There are a multitude of nonobstructing bilateral renal stones. There is moderate left hydronephrosis and hydroureter. Pelvis: There is a large, 6 mm, obstructing stone at the left UVJ. The appendix is not visualized. There is no pelvic mass or inflammation. There is streak artifact from right hip arthroplasty. IMPRESSION: Obstructing 6 mm left UVJ stone with moderate left hydronephrosis. Nonobstructing bilateral renal stones. Reviewed, Interpreted and Dictated by Houston Coffey MD Transcribed by Rich Pandya Authenticated and . [facility]
--- NOTE | 2022-10-08 10:29 | HMH.EDGENADL ---
Discharge Plan Disposition Patient Disposition: Xfer Short-Term Hosp Condition: Fair Prescriptions Prescriptions: No Action phenazopyridine [Pyridium] 100 mg Tablet 100 mg PO TID PRN (Reason: ureteral stent pain) oxycodone 5 mg tablet 5 mg PO Q4-6H PRN (Reason: post op hip pain) oxycodone-acetaminophen [Percocet] 5-325 mg tablet 1 tab PO Q6H PRN (Reason: pain) Qty: 10 0RF ondansetron 4 mg tablet,disintegrating 4 mg PO Q8H PRN (Reason: nausea and vomiting) 3 Days Qty: 10 0RF cefdinir 300 mg capsule 300 mg PO BID 10 Days Qty: 20 0RF tamsulosin 0.4 MG capsule 0.4 mg PO BID Referrals Follow up/Referrals: Anatoliy Evans MD [Primary Care Provider] - See instructions Stand Alone Forms Stand Alone Forms: Transfer Record - ED Discharge ED Provider: Shanti Skinner General Adult HPI General Chief complaint: PAIN Stated complaint: Lower back and pelvic pain Time Seen by Provider: 10/08/22 10:02 Mode of Arrival: Ambulatory Source of Information: Patient Limitations: No Limitations Description of Symptoms (Recalled from ER Triage Doc. by RN): Pt c/o L flank pain radiating around to L lower abd and into testicles. Pt reports pain woke him up at approx 7 am this morning. Pt reports when he got up this morning he urinated without difficulty. Pt reports has tried takin his pain medication this morning but states has vomited it back up more than one this morning. Pt reports hx of recent renal stent r/t kidney stone. Pt reports stent was placed at . History of Present Illness HPI narrative: This patient is a 46-year-old male well-known to the emergency department with a history of recurrent kidney stones presented to the emergency department for evaluation of left flank pain radiating down to his left groin. He states that he feels just like a kidney stone. He woke up at 7:00 this morning with the symptoms. He is still able to urinate. He denies any fevers, chills, or other concerns. He does admit to vomiting. He rates his pain as severe and constant. Nothing makes it better or worse. He tried taking narcotic pain medications at home that were prescribed to him, however he states he was not able to keep them down. No other concerns noted at this time. Related Data Home Medications Medication Instructions Recorded Confirmed tamsulosin 0.4 mg capsule 0.4 mg PO BID renal calculi 01/22/20 10/06/22 oxycodone 5 mg tablet 5 mg PO Q4-6H PRN post op hip pain 10/06/22 10/06/22 phenazopyridine 100 mg tablet 100 mg PO TID PRN ureteral stent 10/06/22 10/06/22 (Pyridium) pain Previous Rx's Medication Instructions Recorded cefdinir 300 mg capsule 300 mg PO BID 10 days #20 caps 10/07/22 ondansetron 4 mg disintegrating 4 mg PO Q8H PRN nausea and 10/07/22 tablet vomiting 3 days #10 tabs oxycodone-acetaminophen 5 mg-325 1 tab PO Q6H PRN pain #10 tabs 10/07/22 mg tablet (Percocet) Allergies Allergy/AdvReac Type Severity Reaction Status Date / Time No Known Allergies Allergy Verified 04/02/22 13:27 [facility] Medical History Kidney stones Family History Other No significant family history Social History Smoking Status: Current every day smoker tobacco type: cigarettes packs per day: 0 alcohol intake: current substance use type: denies use current occupational status: other Travel in the last 8 weeks: None household members: other housing: other caffeine: No ROS Obtained: Yes All systems reviewed & no additional complaints except as documented 14 point review of systems obtained and negative except as mentioned in HPI. Physical Exam General General appearance: alert Comment: Audibly groaning and pacing around the room and pain. Head Head exam: atraumatic and normocephalic Eye Eye exam: Present katherine
[2022-10-08 10:44] LABS: Basophils # 0.1 K/mm3 (0-0.2); Basophils % 0.9 % (0.1-2.0); Eosinophils # 0.3 K/mm3 (0.0-0.4); Eosinophils % 2.3 % (0.1-12.0); Hematocrit 45.2 % (42.0-52.0); Hemoglobin 15.1 g/dL (14.1-18.0); Lymphocytes # 2.1 K/mm3 (0.7-4.5); Lymphocytes % 19.4 % (10-50); Mean Corpuscular HGB Conc 33.3 g/dL (31.8-35.4); Mean Corpuscular Hemoglobin 31.4 pg (27.0-31.2); Mean Corpuscular Volume 94.4 fl (80-94); Monocytes # 0.5 K/mm3 (0.1-1.0); Monocytes % 4.6 % (1.7-9.3); Neutrophils # 7.9 K/mm3 (1.8-7.8); Neutrophils % 72.8 % (37.0-80.0); Platelet Count 322 K/mm3 (142-424); Red Blood Count 4.79 M/mm3 (4.60-6.20); Red Cell Distribution Width 13.5 % (11.5-17.5); White Blood Count 10.8 K/mm3 (4.8-10.8)
--- NOTE | 2022-10-08 10:48 | PC.NURSE ---
PT RETURNED FROM CT
[2022-10-08 10:54] LABS: Alanine Aminotransferase 21 U/L (12-78); Albumin Level 4.3 g/dl (3.5-5.0); Albumin/Globulin Ratio 1.3 (1.1-1.8); Alkaline Phosphatase 118 U/L (38-126); Aspartate Amino Transferase 27 U/L (17-59); Bilirubin,Total 0.6 mg/dl (0.2-1.3); Blood Urea Nitrogen 14 mg/dl (9-20); Calcium 9.6 mg/dl (8.4-10.2); Carbon Dioxide 23 mmol/L (22.0-30.0); Chloride 108 mmol/L (98-107); Creatinine Clearance Estimated 97 mL/min (50-200); Estimated Glomerular Filt Rate 72 ml/min (>60); GFR (African American) 87 ML/MIN (>60); Globulin 3.2 g/dL (1.3-3.2); Glucose 143 mg/dl (74-100); Sodium 140 mmol/L (136-145); Total Protein,Serum 7.5 g/dl (6.3-8.2)
--- NOTE | 2022-10-08 11:01 | PC.NURSE ---
pt provided with urinal for sample
--- NOTE | 2022-10-08 11:02 | PC.NURSE ---
MD aware of pt BP. pt standing and will not sit for BP.
--- NOTE | 2022-10-08 11:30 | PC.NURSE ---
ER MD is aware, pt requesting additional pain medication. No new orders obtained from ER MD at this time.
[2022-10-08 11:33] LABS: Microscopic, Urine URINE MICROSCOPIC (MICROSCOPIC)
[2022-10-08 11:35] LABS: Appearance,Urine TURBID (Clear); Blood, Urine 3+ (Negative); Color,Urine DK YELLOW (Yellow); Glucose,Urine (UA) Negative (Negative); Ketones,Urine Negative (Negative); Leukocyte Esterase,Urine 1+ (Negative); Nitrate,Urine Negative (Negative); PH,Urine 5.5 (5.0-8.5); Protein,Urine 1+ (Negative); Specific Gravity, Urine >= 1.030 (1.005-1.030); Urobilinogen,Urine 0.2 EU/dl (0.2)
[2022-10-08 11:43] LABS: Bilirubin,Urine Negative (Negative)
[2022-10-08 11:50] LABS: Bacteria,Urine Trace /lpf; Squamous Epithelial Cell,Urine Occasional #/hpf (0-5)
--- NOTE | 2022-10-08 12:09 | PC.NURSE ---
called for the ER doctor to speak with someone about an obstructed kidney stone left side of 6mm
--- NOTE | 2022-10-08 12:09 | PC.NURSE ---
spoke with [facility] urology. states they will call back to ed
--- NOTE | 2022-10-08 12:30 | PC.NURSE ---
[facility] called back and spoke with the ER doctor and ended up refusing this pt.
--- NOTE | 2022-10-08 12:48 | PC.NURSE ---
called and talked to [facility] about pt. they did not have urology today called [facility] to speak with urology about pt. had urologist paged and called back and spoke with ER doctor and accepted and we needed to send a face sheet
--- NOTE | 2022-10-08 12:50 | PC.NURSE ---
PT ACCEPTED BY DR. NYE AT [facility], DR. BARNES AT BEDSIDE TO UPDATE PT ON POC
[2022-10-08 13:06] LABS: Coronavirus 19, PCR Not Detected (NotDetected); Influenza A, PCR Not Detected (NotDetected); Influenza B, PCR Not Detected (NotDetected)
--- NOTE | 2022-10-08 13:09 | PC.NURSE ---
waiting pulmonary nurse practitioner back from [facility] for unit assignment
--- NOTE | 2022-10-08 13:19 | PC.NURSE ---
updated pt on POC, pt states no needs at this time
--- NOTE | 2022-10-08 13:43 | PC.NURSE ---
spoke with cristian who states we are awaiting bed and would call with bed assignment when ready
--- NOTE | 2022-10-08 15:24 | PC.NURSE ---
contacted [facility] to check on status of bed assignment. States pt is assigned to room 125 on a med surg unit number for report is [phone]
--- NOTE | 2022-10-08 15:31 | PC.NURSE ---
report called to Jacquelin Hooks RN at [facility] at this time
--- NOTE | 2022-10-08 15:33 | PC.NURSE ---
notified [facility] transport
== END 2022-10-08 16:32 | disposition short-term general hospital (02) ==
PROVIDERS: Emergency Provider Emergency Medicine; PCP Internal Medicine
DX: N20.0 Calculus of kidney (principal)
CPT/HCPCS: 74176; 80053; 81001; 85025; 87086; 96365; 96375; 96376; 99284; C9803; J2405; U0003; U0005

== ENCOUNTER 2022-10-15 16:30 | Outpatient (RCR) | payer BC, SELFPAY | END 2022-10-15 16:35 | disposition home or self-care (01) | LOC: PT 16:30 | PROVIDERS: PCP Internal Medicine; Visit Provider Orthopaedic Surgery | DX: M25.551 Pain in right hip (principal); Z96.641 Presence of right artificial hip joint | CPT/HCPCS: 97010; 97014; 97110; 97112; 97140; 97163; 97164; G0283 ==

== ENCOUNTER → 2023-02-27 14:57 | Outpatient (CLI) | payer BC, SELFPAY ==
--- NOTE | 2023-02-27 15:01 | CT_ITS ---
FINAL REPORT TECHNIQUE: Thin section axial images were obtained from the lung bases to the pubic symphysis without IV contrast. Coronal reconstruction images were obtained from the axial data. Exam was performed using dose reduction technique. CLINICAL HISTORY: RT FLANK PAIN COMPARISON: 10/08/2022 FINDINGS: There is at stable subpleural less than 5 mm left lower lobe nodule seen on image 10. There are bilateral nonobstructing renal stones. There is an obstructing right UPJ stone measuring 3 mm with mild hydronephrosis. The previously seen distal left ureteral stone is not present on this study. The gallbladder is present. The remaining unenhanced solid abdominal organs are unremarkable. There is no evidence of small bowel obstruction. The appendix is normal. GI tract is without acute abnormality. There is no lymphadenopathy or ascites. No acute osseous abnormality is identified. IMPRESSION: Obstructing 3 mm right UPJ stone with mild hydronephrosis. Bilateral nonobstructing renal stones. Reviewed, Interpreted and Dictated by Kierra Callejas MD Transcribed by Juhi Brooke Authenticated and . [facility]
== END ==
PROVIDERS: PCP Internal Medicine; Visit Provider Internal Medicine
DX: R10.9 Unspecified abdominal pain (principal)
CPT/HCPCS: 74176

== ENCOUNTER 2023-02-27 20:43 | Emergency (ER) | payer BC, SELFPAY ==
[2023-02-27 20:47] VITALS: BP 142/89; PULSE 95; RESP 19; TEMP 36.7; O2SAT 99; BMI 25.8
[2023-02-27 21:01] LABS: Basophils # 0.2 K/mm3 (0-0.2); Basophils % 1.6 % (0.1-2.0); Eosinophils # 0.3 K/mm3 (0.0-0.4); Eosinophils % 2.5 % (0.1-12.0); Hemoglobin 15.5 g/dL (14.1-18.0); Lymphocytes % 42.4 % (10-50); Mean Corpuscular HGB Conc 32.3 g/dL (31.8-35.4); Mean Corpuscular Hemoglobin 31.3 pg (27.0-31.2); Mean Corpuscular Volume 96.9 fl (80-94); Mean Platelet Volume 9.4 fl (7.4-10.4); Monocytes # 0.7 K/mm3 (0.1-1.0); Monocytes % 6.1 % (1.7-9.3); Neutrophils # 5.5 K/mm3 (1.8-7.8); Neutrophils % 47.4 % (37.0-80.0); Platelet Count 307 K/mm3 (142-424); Red Blood Count 4.95 M/mm3 (4.60-6.20); Red Cell Distribution Width 13.1 % (11.5-17.5); White Blood Count 11.7 K/mm3 (4.8-10.8)
[2023-02-27 21:09] LABS: Chloride 108 mmol/L (98-107); Potassium 4.4 mmoL/L (3.5-5.1); Sodium 142 mmol/L (136-145)
[2023-02-27 21:11] LABS: Blood Urea Nitrogen 16 mg/dl (9-20)
[2023-02-27 21:12] LABS: Alanine Aminotransferase 34 U/L (12-78); Albumin Level 4.5 g/dl (3.5-5.0); Albumin/Globulin Ratio 1.4 (1.1-1.8); Alkaline Phosphatase 84 U/L (38-126); Anion Gap 12.4 mEq/L (5-15); Aspartate Amino Transferase 30 U/L (17-59); Bilirubin,Total 0.5 mg/dl (0.2-1.3); Calcium 9.5 mg/dl (8.4-10.2); Carbon Dioxide 26 mmol/L (22.0-30.0); Creatinine Clearance Estimated 96 mL/min (50-200); Estimated Glomerular Filt Rate 72 ml/min (>60); GFR (African American) 87 ML/MIN (>60); Globulin 3.2 g/dL (1.3-3.2); Glucose 105 mg/dl (74-100); Total Protein,Serum 7.7 g/dl (6.3-8.2)
--- NOTE | 2023-02-27 21:18 | HMH.EDUROGM ---
Discharge Plan Disposition Patient Disposition: Home, Self-Care Chief Complaint: Abdominal Pain Prescriptions Prescriptions: No Action phenazopyridine [Pyridium] 100 mg Tablet 100 mg PO TID PRN (Reason: ureteral stent pain) oxycodone-acetaminophen [Percocet] 5-325 mg tablet 1 tab PO Q6H PRN (Reason: pain) Qty: 10 0RF ondansetron 4 mg tablet,disintegrating 4 mg PO Q8H PRN (Reason: nausea and vomiting) 3 Days Qty: 10 0RF tamsulosin 0.4 MG capsule 0.4 mg PO BID Referrals Follow up/Referrals: Anatoliy Evans MD [Primary Care Provider] - See instructions Clinical Impressions Clinical Impression: Right ureteral calculus Instructions Patient Instructions: DI for Acute Abdominal Pain Discharge ED Provider: Ramses Roberts Urogenital HPI General Chief complaint: Abdominal Pain Stated complaint: possible kidney sriobnnes Time Seen by Provider: 02/27/23 21:19 Mode of Arrival: Family Vehicle Source of Information: Patient Limitations: No Limitations Description of Symptoms (Recalled from ER Triage Doc. by RN): 47 yo male presents with cc of right side flank pain similar to previous pain he has had when he's had renal calculi in the past. Onset of pain was earlier this date. Voiding, but slight discomfort. n/v/d History of Present Illness HPI Narrative: 47-year-old white Latin male presents with renal colic on the right side. He apparently had a CT earlier today that identified a stone on the right side. Reporting that the pain had been about 5 out of 10 most of the day but it intensified and he was unable to stand it at home. He was seen by his primary care provider earlier who prescribed Flomax which he has not had a chance to take as yet. The patient reports that he has not had numerous stones in his past medical history. He reports no known medical allergies. Related Data Home Medications Medication Instructions Recorded Confirmed tamsulosin 0.4 mg capsule 0.4 mg PO BID renal calculi 01/22/20 02/27/23 phenazopyridine 100 mg tablet 100 mg PO TID PRN ureteral stent 10/06/22 02/27/23 (Pyridium) pain Previous Rx's Medication Instructions Recorded ondansetron 4 mg disintegrating 4 mg PO Q8H PRN nausea and 10/07/22 tablet vomiting 3 days #10 tabs oxycodone-acetaminophen 5 mg-325 1 tab PO Q6H PRN pain #10 tabs 10/07/22 mg tablet (Percocet) Allergies Allergy/AdvReac Type Severity Reaction Status Date / Time No Known Allergies Allergy Verified 04/02/22 13:27 [facility] Disclaimer: The information contained in this section may have been updated after the patient was seen, as this information can be updated by other users. Medical History Kidney stones Family History Other No significant family history Social History Smoking Status: Unknown if ever smoked alcohol intake: current substance use type: denies use current occupational status: other Travel in the last 8 weeks: None household members: other housing: other caffeine: No ROS Obtained: Yes All systems reviewed & no additional complaints except as documented Physical Exam Narrative Physical exam: 47-year-old white male appearing stated age in moderate distress holding his right side and in constant movement with the pain. Normocephalic atraumatic. Pupils equal round reactive to light. Chest is clear to auscultation Heart regular rate and rhythm. He has right upper quadrant and right CVA tenderness to palpation and percussion. Extremities without cyanosis clubbing or edema. Neurologically he is intact. General General appearance: alert and in distress Respiratory Respiratory exam: Present normal lung sounds bilaterally Cardiovascular Cardiovascular exam: Present regular rate Abdominal Exam Abdominal exam: Present tenderne
[2023-02-27 21:51] VITALS: BP 132/74; PULSE 78; O2SAT 98
[2023-02-27 22:01] VITALS: BP 120/69; PULSE 91; O2SAT 97
[2023-02-27 22:30] VITALS: BP 117/81; PULSE 70; O2SAT 96
[2023-02-27 22:50] LABS: Microscopic, Urine URINE MICROSCOPIC (MICROSCOPIC)
[2023-02-27 22:56] LABS: Appearance,Urine CLEAR (Clear); Blood, Urine 3+ (Negative); Color,Urine YELLOW (Yellow); Glucose,Urine (UA) Negative (Negative); Ketones,Urine TRACE (Negative); Leukocyte Esterase,Urine Negative (Negative); Nitrate,Urine Negative (Negative); PH,Urine 5.5 (5.0-8.5); Protein,Urine Negative (Negative); Specific Gravity, Urine >= 1.030 (1.005-1.030); Urobilinogen,Urine 0.2 EU/dl (0.2)
[2023-02-27 23:00] LABS: Bilirubin,Urine 1+ (Negative)
[2023-02-27 23:11] LABS: RBC,Urine 20-50 #/hpf (0-3); WBC,Urine Occasional #/hpf (0-3)
[2023-02-27 23:20] VITALS: BP 141/70; PULSE 79; RESP 19; TEMP 36.8; O2SAT 98
== END 2023-02-27 23:22 | disposition home or self-care (01) ==
PROVIDERS: Emergency Provider Emergency Medicine; PCP Internal Medicine
DX: N20.1 Calculus of ureter (principal)
CPT/HCPCS: 80053; 81001; 85025; 96360; 96374; 96375; 99284; J2405

== ENCOUNTER 2023-07-23 15:27 | Emergency (ER) | payer BC, SELFPAY ==
[2023-07-23 15:28] VITALS: BP 140/78; PULSE 82; RESP 19; TEMP 36.8; O2SAT 98; BMI 25.8
--- NOTE | 2023-07-23 15:57 | CT_ITS ---
PROCEDURE INFORMATION: Exam: CT Abdomen And Pelvis Without Contrast Exam date and time: 07/23/2023 4:14 PM Age: 47 years old Clinical indication: Abdominal pain; Flank; Right; Prior surgery; Surgery date: 6+ months; Surgery type: Kidney stones; Additional info: R flank, multiple prior stones TECHNIQUE: Imaging protocol: Computed tomography of the abdomen and pelvis without contrast. Radiation optimization: All CT scans at this facility use at least one of these dose optimization techniques: automated exposure control; mA and/or kV adjustment per patient size (includes targeted exams where dose is matched to clinical indication); or iterative reconstruction. REPORTING DATA: Count of CT and Cardiac NM exams in prior 12 months: This patient has received 4 known [address]s and 0 known cardiac nuclear medicine studies in the 12 months prior to the current study. COMPARISON: CT ABDOMEN PELVIS WO CON 02/27/2023 3:01 PM FINDINGS: Coronary arteries: There is mild coronary atherosclerotic disease/calcification. Liver: There are calcifications in the liver which most likely reflect calcified granulomas. Gallbladder and bile ducts: Normal. No calcified stones. No ductal dilation. Pancreas: Normal. No ductal dilation. Spleen: There are multiple calcifications in the spleen most likely reflects small granulomas. Adrenal glands: Normal. No mass. Kidneys and ureters: There is mild right hydroureteronephrosis extending to the proximal ureter where there is a 6 mm calculus (image 60 series 3).. Stomach and bowel: Unremarkable. No obstruction. No mucosal thickening. Appendix: No evidence of appendicitis. Intraperitoneal space: Unremarkable. No free air. No significant fluid collection. Vasculature: There is atherosclerotic disease of the visualized aorta and its major branch vessels. Lymph nodes: Unremarkable. No enlarged lymph nodes. Urinary bladder: Unremarkable as visualized. Reproductive: Unremarkable as visualized. Bones/joints: Status post right total hip arthroplasty with associated streak artifact which limits evaluation of the pelvis. There is diffuse degenerative disease of the visualized osseous structures. Soft tissues: Unremarkable. IMPRESSION: There is mild right hydroureteronephrosis extending to the proximal ureter where there is a 6 mm calculus (image 60 series 3)..
--- NOTE | 2023-07-23 15:58 | HMH.EDGENADL ---
Discharge Plan Disposition Patient Disposition: Home, Self-Care Prescriptions Prescriptions: New ondansetron 4 mg tablet,disintegrating 4 mg PO Q8H 3 Days Qty: 9 0RF tamsulosin 0.4 mg capsule 0.4 mg PO DAILY Qty: 10 0RF oxycodone 5 mg tablet 5 mg PO TID PRN (Reason: pain) Qty: 12 0RF Rx Instructions: Pain refractory to Tylenol and ibuprofen No Action gabapentin 300 mg capsule 300 mg PO BID ketoconazole 2 % cream 1 applic topical DAILY PRN Referrals Follow up/Referrals: Anatoliy Evans MD [Primary Care Provider] - See instructions Activity Restrictions/Add. Instructions Additional Instructions/Restrictions: At this time is felt you are safe to be discharged home. New or worsening symptoms please do not hesitate to return the emergency department. Please take medications as prescribed. For pain control please take Tylenol 1000 mg every 6 hours, ibuprofen 800 mg every 6 hours. For breakthrough pain control please take your oxycodone as prescribed. Please call and schedule an appoint with urology as soon as you are able. Clinical Impressions Clinical Impression: Calculus, ureteral Discharge ED Provider: Dell Renteria General Adult HPI General Chief complaint: PAIN Stated complaint: back pain Time Seen by Provider: 07/23/23 15:51 History of Present Illness HPI narrative: Patient is a 47-year-old male with past medical history of multiple previous kidney stones, some of which requiring lithotripsy and stenting who presents emergency department for evaluation of right flank pain. Onset was acute, right-sided radiating to his groin from his back. Patient states this is consistent with all previous kidney stones. There is associated dysuria. Pain is severe in intensity. No other acute complaints at this time. Related Data Home Medications Medication Instructions Recorded Confirmed gabapentin 300 mg capsule 300 mg PO BID 07/23/23 07/23/23 ketoconazole 2 % topical cream 1 applic topical DAILY PRN 07/23/23 07/23/23 Previous Rx's Medication Instructions Recorded ondansetron 4 mg disintegrating 4 mg PO Q8H 3 days #9 tabs 07/23/23 tablet oxycodone 5 mg tablet 5 mg PO TID PRN pain #12 tabs 07/23/23 tamsulosin 0.4 mg capsule 0.4 mg PO DAILY #10 caps 07/23/23 Allergies Allergy/AdvReac Type Severity Reaction Status Date / Time No Known Allergies Allergy Verified 07/23/23 15:02 [facility] Disclaimer: The information contained in this section may have been updated after the patient was seen, as this information can be updated by other users. Medical History (Updated 07/23/23 @ 17:27 by Dell Renteria MD) Kidney stones Surgical History (Updated 07/23/23 @ 15:05 by Holly Ornelas LPN) S/P hip replacement Family History (Updated 07/23/23 @ 15:06 by Holly Ornelas LPN) Mother Hypertension Kidney stone Father Hypertension Other No significant family history Social History (Updated 07/23/23 @ 15:07 by Holly Ornelas LPN) Smoking Status: Current every day smoker tobacco type: cigarettes packs per day: 0 years smoked: 30 alcohol intake: current substance use type: denies use current occupational status: employed and other Travel in the last 8 weeks: None household members: other housing: other caffeine: No ROS Obtained: Yes Systems reviewed as appropriate & no additional complaints except as documented Physical Exam General General appearance: alert and in distress Head Head exam: atraumatic and normocephalic Eye Eye exam: Present PERRL and EOMI ENT ENT exam: Present mucous membranes moist Neck Neck exam: Present normal inspection Chest Chest inspection: Present normal inspection and symmetric chest wall rise Respiratory Respiratory exam: Present normal lung sounds bilaterally; Absent respiratory distress Cardiovascular Cardiovascular exam: Present regular rate and normal rhythm Abdominal Ex
[2023-07-23 16:09] LABS: Basophils # 0.1 K/mm3 (0-0.2); Basophils % 0.8 % (0.1-2.0); Eosinophils # 0.4 K/mm3 (0.0-0.4); Eosinophils % 3.9 % (0.1-12.0); Hematocrit 50.3 % (42.0-52.0); Hemoglobin 16.4 g/dL (14.1-18.0); Mean Corpuscular HGB Conc 32.6 g/dL (31.8-35.4); Mean Corpuscular Hemoglobin 32.1 pg (27.0-31.2); Mean Corpuscular Volume 98.3 fl (80-94); Mean Platelet Volume 9.5 fl (7.4-10.4); Monocytes # 0.6 K/mm3 (0.1-1.0); Monocytes % 5.6 % (1.7-9.3); Neutrophils # 5.9 K/mm3 (1.8-7.8); Neutrophils % 53.6 % (37.0-80.0); Platelet Count 229 K/mm3 (142-424); Red Blood Count 5.11 M/mm3 (4.60-6.20); Red Cell Distribution Width 12.9 % (11.5-17.5)
[2023-07-23 16:17] LABS: Microscopic, Urine URINE MICROSCOPIC (MICROSCOPIC)
[2023-07-23 16:19] VITALS: BMI 25.8
[2023-07-23 16:19] LABS: Chloride 106 mmol/L (98-107); Sodium 142 mmol/L (136-145)
[2023-07-23 16:20] LABS: Potassium 4.5 mmoL/L (3.5-5.1)
[2023-07-23 16:21] LABS: Appearance,Urine CLEAR (Clear); Bilirubin,Urine Negative (Negative); Blood, Urine 2+ (Negative); Color,Urine YELLOW (Yellow); Glucose,Urine (UA) TRACE (Negative); Ketones,Urine Negative (Negative); Leukocyte Esterase,Urine Negative (Negative); Nitrate,Urine Negative (Negative); PH,Urine 5.5 (5.0-8.5); Protein,Urine TRACE (Negative); Specific Gravity, Urine >= 1.030 (1.005-1.030); Urobilinogen,Urine 0.2 EU/dl (0.2)
[2023-07-23 16:22] LABS: Alanine Aminotransferase 40 U/L (12-78); Albumin Level 4.3 g/dl (3.5-5.0); Albumin/Globulin Ratio 1.2 (1.1-1.8); Alkaline Phosphatase 84 U/L (38-126); Anion Gap 14.5 mEq/L (5-15); Aspartate Amino Transferase 32 U/L (17-59); Bilirubin,Total 0.4 mg/dl (0.2-1.3); Blood Urea Nitrogen 13 mg/dl (9-20); Calcium 9.9 mg/dl (8.4-10.2); Carbon Dioxide 26 mmol/L (22.0-30.0); Creatinine Clearance Estimated 88 mL/min (50-200); Estimated Glomerular Filt Rate 65 ml/min (>60); GFR (African American) 79 ML/MIN (>60); Globulin 3.7 g/dL (1.3-3.2); Glucose 103 mg/dl (74-100)
[2023-07-23 16:35] LABS: Squamous Epithelial Cell,Urine Occasional #/hpf (0-5); WBC,Urine Occasional #/hpf (0-3)
[2023-07-23 17:34] VITALS: BP 138/78; PULSE 78; RESP 18; TEMP 36.8; O2SAT 98
== END 2023-07-23 17:41 | disposition home or self-care (01) ==
PROVIDERS: Emergency Provider Emergency Medicine; PCP Internal Medicine
DX: N13.0 Hydronephrosis with ureteropelvic junction obstruction (principal); R10.31 Right lower quadrant pain; F17.210 Nicotine dependence, cigarettes, uncomplicated
CPT/HCPCS: 74176; 80053; 81001; 85025; 96361; 96374; 96375; 99284; J2405

== ENCOUNTER 2023-07-23 22:20 | Emergency (ER) | payer BC, SELFPAY ==
[2023-07-23 22:32] VITALS: BP 133/90; PULSE 69; RESP 18; TEMP 36.5; O2SAT 98; BMI 25.8
--- NOTE | 2023-07-23 22:53 | PC.NURSE ---
pt is in pain bent over bed let nurses no of pts situation,call light at bs
--- NOTE | 2023-07-23 22:55 | PC.NURSE ---
discussed presentation and plan of care with dr toro. no new orders at this time
[2023-07-23 23:01] VITALS: BP 132/98; PULSE 66; RESP 18; O2SAT 98
--- NOTE | 2023-07-23 23:29 | HMH.EDGENADL ---
Discharge Plan Disposition Patient Disposition: Home, Self-Care Condition: Fair Prescriptions Prescriptions: No Action gabapentin 300 mg capsule 300 mg PO BID ketoconazole 2 % cream 1 applic topical DAILY PRN ondansetron 4 mg tablet,disintegrating 4 mg PO Q8H 3 Days Qty: 9 0RF tamsulosin 0.4 mg capsule 0.4 mg PO DAILY Qty: 10 0RF oxycodone 5 mg tablet 5 mg PO TID PRN (Reason: pain) Qty: 12 0RF Rx Instructions: Pain refractory to Tylenol and ibuprofen Referrals Follow up/Referrals: Anatoliy Evans MD [Primary Care Provider] - See instructions Activity Restrictions/Add. Instructions Additional Instructions/Restrictions: Continue to take medications as prescribed as needed for pain. Please follow-up with urology. Please return to the emergency department if you develop any new or worsening symptoms or become concerned for your health. Clinical Impressions Clinical Impression: Calculus, ureteral, Renal colic on right side Instructions Patient Instructions: DI for Acute Abdominal Pain Discharge ED Provider: Dilan Becker Adult [facility] General Chief complaint: Abdominal Pain Stated complaint: lower right side pain Time Seen by Provider: 07/23/23 23:22 Mode of Arrival: Family Vehicle Source of Information: Patient Limitations: No Limitations Description of Symptoms (Recalled from ER Triage Doc. by RN): 47 YO MALE PRESENTS WITH CC OF CONTINUED RIGHT FLANK PAIN RADIATING INTO STOMACH DESPITE TAKING HIS PRESCRIBED MEDS AT 8&9PM ORDERED. STATES HE TOOK ZOFRAN AT 7PM, 1 OXYCODONE AT 8, 1 OXYCODONE @ 9 AND 1 FLOMAX AT 9. states he is continuing to have urine History of Present Illness HPI narrative: 47-year-old male history of innumerable prior kidney stones presents with uncontrolled pain and nausea at home. Patient was seen in the ED earlier today and was noted to have a 6 mm proximal right ureteral stone with mild hydronephrosis without evidence of urinary infection. Patient was given medications with improvement in symptoms and was discharged with plan for trial of passage. He reports that he went home and had worsening symptoms and so returned. He does not currently have a urologist. He has had to have lithotripsy and stents in the past. Related Data Home Medications Medication Instructions Recorded Confirmed gabapentin 300 mg capsule 300 mg PO BID 07/23/23 07/23/23 ketoconazole 2 % topical cream 1 applic topical DAILY PRN 07/23/23 07/23/23 Previous Rx's Medication Instructions Recorded ondansetron 4 mg disintegrating 4 mg PO Q8H 3 days #9 tabs 07/23/23 tablet oxycodone 5 mg tablet 5 mg PO TID PRN pain #12 tabs 07/23/23 tamsulosin 0.4 mg capsule 0.4 mg PO DAILY #10 caps 07/23/23 Allergies Allergy/AdvReac Type Severity Reaction Status Date / Time No Known Allergies Allergy Verified 07/23/23 15:02 [facility] Disclaimer: The information contained in this section may have been updated after the patient was seen, as this information can be updated by other users. Medical History (Updated 07/24/23 @ 00:30 by Dilan Becker MD) Kidney stones Surgical History (Updated 07/23/23 @ 15:05 by Holly Ornelas LPN) S/P hip replacement Family History (Updated 07/23/23 @ 15:06 by Holly Ornelas LPN) Mother Hypertension Kidney stone Father Hypertension Other No significant family history Social History (Updated 07/23/23 @ 15:07 by Holly Ornelas LPN) Smoking Status: Unknown if ever smoked years smoked: 30 alcohol intake: current substance use type: denies use current occupational status: employed and other Travel in the last 8 weeks: None household members: other housing: other caffeine: No ROS Obtained: Yes All systems reviewed & no additional complaints except as documented Physical Exam General General appearance: alert and in distress Head Head exam: atraumatic and normocephalic Eye Ey
[2023-07-24 00:52] VITALS: BP 121/74; PULSE 64; RESP 18; TEMP 36.5; O2SAT 98
== END 2023-07-24 00:52 | disposition home or self-care (01) ==
PROVIDERS: Emergency Provider Emergency Medicine; PCP Internal Medicine
DX: N13.0 Hydronephrosis with ureteropelvic junction obstruction (principal)
CPT/HCPCS: 96361; 96374; 96375; 99284

== ENCOUNTER 2023-10-14 15:00 | Outpatient (RCR) | payer BC, SELFPAY | END 2023-10-14 16:10 | disposition home or self-care (01) | LOC: PT 15:00 | PROVIDERS: PCP Internal Medicine; Visit Provider Physician Assistant | DX: M51.36 Other intervertebral disc degeneration, lumbar region (principal); M48.061 Spinal stenosis, lumbar region without neurogenic claudication | CPT/HCPCS: 97010; 97014; 97110; 97163; 97164; 97530; G0283 ==

== ENCOUNTER 2024-01-06 22:26 | Emergency (ER) | payer BC, SELFPAY ==
[2024-01-06 22:35] VITALS: BP 155/114; PULSE 85; RESP 19; TEMP -5.5; TEMP 22; O2SAT 100; BMI 25.8
--- NOTE | 2024-01-06 22:37 | PC.NURSE ---
Urine sent at this time.
--- NOTE | 2024-01-06 22:47 | CT_ITS ---
PROCEDURE INFORMATION: Exam: CT Abdomen And Pelvis Without Contrast Exam date and time: 01/06/2024 10:56 PM Age: 48 years old Clinical indication: Abdominal pain; Additional info: Right flank pain TECHNIQUE: Imaging protocol: Computed tomography of the abdomen and pelvis without contrast. Radiation optimization: All CT scans at this facility use at least one of these dose optimization techniques: automated exposure control; mA and/or kV adjustment per patient size (includes targeted exams where dose is matched to clinical indication); or iterative reconstruction. COMPARISON: 1. CT ABDOMEN PELVIS WO CON 07/23/2023 4:[address] ABDOMEN PELVIS WO CON 02/27/2023 3:[address] ABDOMEN PELVIS WO CON 10/08/2022 11:36 AM FINDINGS: Liver: There are calcifications in the liver which most likely reflect calcified granulomas. Gallbladder and bile ducts: Normal. Pancreas: Normal. Spleen: There are multiple calcifications in the spleen most likely reflects small granulomas. Adrenal glands: The adrenal glands appear normal. Kidneys and ureters: Mild right hydroureteronephrosis extending to a 4 mm proximal ureteral calculus (image 59 series 3). There are nonobstructing bilateral intrarenal calculi. Stomach and bowel: The stomach, small bowel, and colon are well-distended and show no evidence of wall thickening, masses, or obstruction. Appendix: No evidence of appendicitis. Intraperitoneal space: Unremarkable. Vasculature: The abdominal aorta and its major branches appear normal without evidence of aneurysm or stenosis. There are pelvic phleboliths. Lymph nodes: No lymphadenopathy. Urinary bladder: Unremarkable as visualized. Reproductive: Unremarkable. Bones/joints: Status post right total hip arthroplasty with associated streak artifact which limits evaluation of the pelvis. Soft tissues: Unremarkable. IMPRESSION: Mild right hydroureteronephrosis extending to a 4 mm proximal ureteral calculus (image 59 series 3).
--- NOTE | 2024-01-06 22:48 | ED_ITS ---
Discharge Plan Disposition Patient Disposition: Home, Self-Care Prescriptions Prescriptions: New ondansetron HCl 4 mg tablet 4 mg PO Q8H PRN (Reason: nausea and vomiting) 5 Days Qty: 30 0RF tamsulosin 0.4 mg capsule 0.4 mg PO DAILY Qty: 30 0RF No Action gabapentin 300 mg capsule 300 mg PO BID ketoconazole 2 % cream 1 applic topical DAILY PRN ondansetron 4 mg tablet,disintegrating 4 mg PO Q8H 3 Days Qty: 9 0RF tamsulosin 0.4 mg capsule 0.4 mg PO DAILY Qty: 10 0RF oxycodone 5 mg tablet 5 mg PO TID PRN (Reason: pain) Qty: 12 0RF Rx Instructions: Pain refractory to Tylenol and ibuprofen Referrals Follow up/Referrals: Anatoliy Evans MD [Primary Care Provider] - See instructions Activity Restrictions/Add. Instructions Additional Instructions/Restrictions: Please follow-up with your primary care provider and with your urologist. Your kidney stone still has a ways to go, but it is small enough that it should pass on its own. Please return to the emergency department if you develop any new or worsening symptoms or become concerned for your health. I sent in a prescription for Flomax and for nausea medication. Please take this in addition to your pain medications at home. Clinical Impressions Clinical Impression: Calcium ureterolithiasis, Right flank pain Discharge ED Provider: Adonis Cage General Adult HPI <Adonis Cage MD - Last Filed: 01/06/24 22:49> General Chief complaint: PAIN Stated complaint: pos.Kidney Stone Time Seen by Provider: 01/06/24 22:43 Mode of Arrival: Family Vehicle Source of Information: Patient Limitations: No Limitations Description of Symptoms (Recalled from ER Triage Doc. 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 PMH: multiple renal calculi diagnosis, nephrolithiasis (multi). Last saw Dr Ortiz. Rates pain 03/09. Accompanied by sensitive testicles. Mild nausea with pain. History of Present Illness HPI narrative: Patient is a 48-year-old male has a history of multiple kidney stones in the past requiring lithotripsy and stents presents today with recurrent symptoms that he feels are similar to a kidney stone. Stated that this began earlier today several hours ago was initially 7 out of 10 has improved little bit to 4 out of 10 located in the right flank. Radiates down into his testicle. No fevers or chills or any other symptoms of an infection. Denies any symptoms out of the ordinary. Related Data Home Medications Medication Instructions Recorded Confirmed gabapentin 300 mg capsule 300 mg PO BID 07/23/23 07/23/23 ketoconazole 2 % topical cream 1 applic topical DAILY PRN 07/23/23 07/23/23 Previous Rx's Medication Instructions Recorded ondansetron 4 mg disintegrating 4 mg PO Q8H 3 days #9 tabs 07/23/23 tablet oxycodone 5 mg tablet 5 mg PO TID PRN pain #12 tabs 07/23/23 tamsulosin 0.4 mg capsule 0.4 mg PO DAILY #10 caps 07/23/23 ondansetron HCl 4 mg tablet 4 mg PO Q8H PRN nausea and 01/06/24 vomiting 5 days #30 tabs tamsulosin 0.4 mg capsule 0.4 mg PO DAILY #30 caps 01/06/24 Allergies Allergy/AdvReac Type Severity Reaction Status Date / Time No Known Allergies Allergy Verified 07/23/23 15:02 [facility] <Adonis Cage MD - Last Filed: 01/06/24 22:49> PFS Disclaimer: The information contained in this section may have been updated after the patient was seen, as this information can be updated by other users. Medical History (Updated 01/06/24 @ 23:30 by Dilan Becker MD) Kidney stones Surgical History (Updated 07/23/23 @ 15:05 by Holly Ornelas LPN) S/P hip replacement Family History (Updated 07/23/23 @ 15:06 by Holly Ornelas LPN) Mother Hypertension Kidney stone Father Hypertension Other No significant family history Social History (Updated 07/23/23 @ 15:07 by Holly Ornelas LPN) Smoking Status: Unknown if ever smoked years smoked: 30 alcohol intake: current substance use type: denies use current occupational status: employed and other Travel in the last 8 weeks: None household members: other housing: other caffeine: No <Adonis Cage MD - Last Filed: 01/06/24 22:49> ROS Obtained: Yes All systems reviewed & no additional complaints except as documented Physical Exam <Adonis Cage MD - Last Filed: 01/06/24 22:49> General General appearance: alert Respiratory Respiratory exam: Present normal lung sounds bilaterally Cardiovascular Cardiovascular exam: Present regular rate Abdominal Exam Abdominal exam: Present soft; Absent distention or tenderness Back Exam Back exam: Absent CVA tenderness (R) or CVA tenderness (L) Neurological Exam Neurological exam: Present alert and oriented X3 Medical Decision Making <Adonis Cage MD - Last Filed: 01/06/24 22:49> [place] Inquiry Pt receiving controlled substance: No Vital Signs: 01/06/24 22:35 Temperature 22 F L Temperature Source Oral Pulse Rate [Right Brachial] 85 Respiratory Rate 19 Blood Pressure [Right Arm] 155/114 H Blood Pressure Mean [Right Arm] 127 Blood Pressure Source [Right Arm] Automatic Cuff Blood Pressure Position [Right Arm] Sitting 02 Sat by Pulse Oximetry 100 Oxygen Delivery Method Room Air Lab Data Lab Results 01/06/24 22:35: WBC 12.1 H, RBC 4.92, Hgb 16.3, Hct 48.0, MCV 97.5 H, MCH 33.0 H , MCHC 33.9, RDW 12.8, Plt Count 203, MPV 9.1, Neut % (Auto) 49.0, Lymph % (Auto) 40.7, [place] % (Auto) 5.0, Eos % (Auto) 3.8, Baso % (Auto) 1.5, Neut # (Auto) 5.9, Lymph # (Auto) 4.9 H, [place] # (Auto) 0.6, Eos # (Auto) 0.5 H, Baso # (Auto) 0.2, Sodium 138, Potassium 4.2, Chloride 107, Carbon Dioxide 28, Anion Gap 7.2, BUN 18, Creatinine 1.30 H, Estimated Creat Clear 80, Estimated GFR 59, Est GFR ( Amer) 71, Glucose 82, Calcium 9.1, Total Bilirubin 0.4, AST 38, ALT 41, Alkaline Phosphatase 81, Total Protein 7.4, Albumin 4.3, Globulin 3.1, Albumin/Globulin Ratio 1.4, Urine Color Dark yellow, Urine Appearance Cloudy, Urine pH 5.5, Ur Specific [place] >= 1.030, Urine Protein Trace, Urine Glucose (UA) Negative, Urine Ketones Trace, Urine Blood 3+, Urine Nitrate Negative, Urine Bilirubin 1+ A, Urine Urobilinogen 1.0, Ur Leukocyte Esterase Negative, Urine RBC 10-20, Urine WBC None, Ur Squamous Epith Cells Occasional, Urine Bacteria None 01/06/24 22:35 01/06/24 22:35 Orders (Tests/Meds): ED MEDICATIONS Generic Name Dose Route Start Last Admin Trade Name Freq PRN Reason Stop Dose Admin Lactated Ringer's 1,000 mls @ 999 mls/hr 01/06/24 23:00 01/06/24 22:55 Lactated Ringer's 1000 Ml Bag IV 01/07/24 00:00 999 mls/hr .Q1H1M BONNIE Administration Discontinued Medications Generic Name Dose Route Start Last Admin Trade Name Freq PRN Reason Stop Dose Admin Morphine Sulfate 4 mg 01/06/24 22:47 01/06/24 22:55 Morphine 4mg/Ml Syringe IV 01/06/24 22:48 4 mg ONCE ONE Administration Ondansetron HCl 4 mg 01/06/24 22:47 01/06/24 22:55 Ondansetron 4mg/2ml Vial IV 01/06/24 22:48 4 mg ONCE ONE Administration ORDERS Category Date Time Status CT abdomen pelvis wo con Stat Cat Scan 01/06/24 22:47 Completed CBC w/Auto Diff [Complete Blood Count Auto Diff] Stat Lab 01/06/24 22:35 Completed CMP [Comprehensive Metabolic Panel] Stat Lab 01/06/24 22:35 Completed UA [Urinalysis and Microscopic] Stat Lab 01/06/24 22:35 Completed Medical Decision Narrative: Patient is a 48-year-old male presenting today with right flank pain. Differential includes nephrolithiasis with hydronephrosis, pyelonephritis, AAA, gastroenteritis etc. Will get a noncontrasted CT scan to further evaluate this. IV fluids Toradol morphine Zofran have been administered will reassess. Care will be transitioned to Dr. Becker at 11 PM. <Dilan Becker MD - Last Filed: 01/06/24 23:33> Vital Signs: 01/06/24 22:35 Temperature 22 F L Temperature Source Oral Pulse Rate [Right Brachial] 85 Respiratory Rate 19 Blood Pressure [Right Arm] 155/114 H Blood Pressure Mean [Right Arm] 127 Blood Pressure Source [Right Arm] Automatic Cuff Blood Pressure Position [Right Arm] Sitting 02 Sat by Pulse Oximetry 100 Oxygen Delivery Method Room Air Lab Data Lab Results 01/06/24 22:35: WBC 12.1 H, RBC 4.92, Hgb 16.3, Hct 48.0, MCV 97.5 H, MCH 33.0 H , MCHC 33.9, RDW 12.8, Plt Count 203, MPV 9.1, Neut % (Auto) 49.0, Lymph % (Auto) 40.7, [place] % (Auto) 5.0, Eos % (Auto) 3.8, Baso % (Auto) 1.5, Neut # (Auto) 5.9, Lymph # (Auto) 4.9 H, [place] # (Auto) 0.6, Eos # (Auto) 0.5 H, Baso # (Auto) 0.2, Sodium 138, Potassium 4.2, Chloride 107, Carbon Dioxide 28, Anion Gap 7.2, BUN 18, Creatinine 1.30 H, Estimated Creat Clear 80, Estimated GFR 59, Est GFR ( Amer) 71, Glucose 82, Calcium 9.1, Total Bilirubin 0.4, AST 38, ALT 41, Alkaline Phosphatase 81, Total Protein 7.4, Albumin 4.3, Globulin 3.1, Albumin/Globulin Ratio 1.4, Urine Color Dark yellow, Urine Appearance Cloudy, U rine pH 5.5, Ur Specific [place] >= 1.030, Urine Protein Trace, Urine Glucose (UA) Negative, Urine Ketones Trace, Urine Blood 3+, Urine Nitrate Negative, Urine Bilirubin 1+ A, Urine Urobilinogen 1.0, Ur Leukocyte Esterase Negative, Urine RBC 10-20, Urine WBC None, Ur Squamous Epith Cells Occasional, Urine Bacteria None Orders (Tests/Meds): ED MEDICATIONS Generic Name Dose Route Start Last Admin Trade Name Freq PRN Reason Stop Dose Admin Lactated Ringer's 1,000 mls @ 999 mls/hr 01/06/24 23:00 01/06/24 22:55 Lactated Ringer's 1000 Ml Bag IV 01/07/24 00:00 999 mls/hr .Q1H1M BONNIE Administration Discontinued Medications Generic Name Dose Route Start Last Admin Trade Name Freq PRN Reason Stop Dose Admin Morphine Sulfate 4 mg 01/06/24 22:47 01/06/24 22:55 Morphine 4mg/Ml Syringe IV 01/06/24 22:48 4 mg ONCE ONE Administration Ondansetron HCl 4 mg 01/06/24 22:47 01/06/24 22:55 Ondansetron 4mg/2ml Vial IV 01/06/24 22:48 4 mg ONCE ONE Administration ORDERS Category Date Time Status CT abdomen pelvis wo con Stat Cat Scan 01/06/24 22:47 Completed CBC w/Auto Diff [Complete Blood Count Auto Diff] Stat Lab 01/06/24 22:35 Completed CMP [Comprehensive Metabolic Panel] Stat Lab 01/06/24 22:35 Completed UA [Urinalysis and Microscopic] Stat Lab 01/06/24 22:35 Completed Medical Decision Narrative: Patient is a 48-year-old male presenting today with right flank pain. Differential includes nephrolithiasis with hydronephrosis, pyelonephritis, AAA, gastroenteritis etc. Will get a noncontrasted CT scan to further evaluate this. IV fluids Toradol morphine Zofran have been administered will reassess. Care will be transitioned to Dr. Becker at 11 PM. Eugenio GOLDEN: I assumed care of the patient at the time of handoff from the prior provider. On my interpretation of labs, his creatinine is 1.3, minimally up from prior. Urine shows no evidence of infection, does show microscopic hematuria. On my interpretation of his CT imaging, he has a small approximate 4 mm right-sided proximal ureteral stone with mild right-sided hydronephrosis. I had extensive discussion with patient regarding his presentation. He has had numerous kidney stones. Patient reports he thinks this 1 will pass on its own. He has a urolo gist and can call to schedule follow-up as needed. I informed him of his rising creatinine and instructed him to talk to his PCP. I sent a prescription for tamsulosin and Zofran. He has pain medications at home. Patient discharged in stable condition. Return precautions given. Critical Care <Adonis Cage MD - Last Filed: 01/06/24 22:49> Critical Care Time Critical Care Time: No
[2024-01-06 22:53] LABS: Microscopic, Urine URINE MICROSCOPIC (MICROSCOPIC)
[2024-01-06 22:54] LABS: Basophils # 0.2 K/mm3 (0-0.2); Basophils % 1.5 % (0.1-2.0); Eosinophils # 0.5 K/mm3 (0.0-0.4); Eosinophils % 3.8 % (0.1-12.0); Hemoglobin 16.3 g/dL (14.1-18.0); Lymphocytes # 4.9 K/mm3 (0.7-4.5); Lymphocytes % 40.7 % (10-50); Mean Corpuscular HGB Conc 33.9 g/dL (31.8-35.4); Mean Corpuscular Volume 97.5 fl (80-94); Mean Platelet Volume 9.1 fl (7.4-10.4); Monocytes # 0.6 K/mm3 (0.1-1.0); Neutrophils # 5.9 K/mm3 (1.8-7.8); Platelet Count 203 K/mm3 (142-424); Red Blood Count 4.92 M/mm3 (4.60-6.20); Red Cell Distribution Width 12.8 % (11.5-17.5); White Blood Count 12.1 K/mm3 (4.8-10.8)
[2024-01-06] MEDS: ONDANSETRON 4MG/2ML VIAL 4 MG IV (22:55)
[2024-01-06] MEDS: MORPHINE 4MG/ML SYRINGE 4 MG IV (22:55)
[2024-01-06] MEDS: LACTATED RINGERS 1000ML 1,000 ML 999 ML IV (22:55)
[2024-01-06 22:56] LABS: Blood, Urine 3+ (Negative); Chloride 107 mmol/L (98-107); Glucose,Urine (UA) Negative (Negative); Ketones,Urine TRACE (Negative); Leukocyte Esterase,Urine Negative (Negative); Nitrate,Urine Negative (Negative); PH,Urine 5.5 (5.0-8.5); Potassium 4.2 mmoL/L (3.5-5.1); Protein,Urine TRACE (Negative); Sodium 138 mmol/L (136-145); Specific Gravity, Urine >= 1.030 (1.005-1.030)
--- NOTE | 2024-01-06 22:56 | PC.NURSE ---
Patient transported to radiology.
[2024-01-06 22:58] LABS: Blood Urea Nitrogen 18 mg/dl (9-20); Creatinine Clearance Estimated 80 mL/min (50-200); Estimated Glomerular Filt Rate 59 ml/min (>60); GFR (African American) 71 ML/MIN (>60)
[2024-01-06 22:59] LABS: Alanine Aminotransferase 41 U/L (12-78); Albumin Level 4.3 g/dl (3.5-5.0); Albumin/Globulin Ratio 1.4 (1.1-1.8); Alkaline Phosphatase 81 U/L (38-126); Anion Gap 7.2 mEq/L (5-15); Aspartate Amino Transferase 38 U/L (17-59); Bilirubin,Total 0.4 mg/dl (0.2-1.3); Bilirubin,Urine 1+ (Negative); Calcium 9.1 mg/dl (8.4-10.2); Carbon Dioxide 28 mmol/L (22.0-30.0); Color,Urine Dark Yellow (Yellow); Globulin 3.1 g/dL (1.3-3.2); Glucose 82 mg/dl (74-100); Total Protein,Serum 7.4 g/dl (6.3-8.2)
[2024-01-06 23:00] LABS: Appearance,Urine Cloudy (Clear)
[2024-01-06 23:11] LABS: Squamous Epithelial Cell,Urine Occasional #/hpf (0-5)
[2024-01-06 23:31] VITALS: BP 145/95; PULSE 62; RESP 19; TEMP 36.8; O2SAT 98
== END 2024-01-06 23:38 | disposition home or self-care (01) ==
PROVIDERS: Emergency Provider Student in an Organized Health Care Education/Training Program; PCP Internal Medicine
DX: N13.2 Hydronephrosis with renal and ureteral calculous obstruction (principal); R10.9 Unspecified abdominal pain; R10.2 Pelvic and perineal pain; R11.0 Nausea
CPT/HCPCS: 74176; 80053; 81001; 85025; 96361; 96374; 96375; 99285; J2405

== ENCOUNTER 2024-02-10 15:25 | Emergency (ER) | payer BC, SELFPAY ==
[2024-02-10 15:32] VITALS: BP 150/105; PULSE 80; RESP 18; TEMP 36.8; O2SAT 98; BMI 25.8
--- NOTE | 2024-02-10 16:16 | PC.NURSE ---
blood work sent to lab. pt back out to lobby to wait on bed assignment.
[2024-02-10 16:30] LABS: Microscopic, Urine URINE MICROSCOPIC (MICROSCOPIC)
[2024-02-10 16:41] LABS: Basophils # 0.2 K/mm3 (0-0.2); Basophils % 1.6 % (0.1-2.0); Eosinophils # 0.5 K/mm3 (0.0-0.4); Hematocrit 47.3 % (42.0-52.0); Hemoglobin 15.7 g/dL (14.1-18.0); Lymphocytes % 39.7 % (10-50); Mean Corpuscular HGB Conc 33.3 g/dL (31.8-35.4); Mean Corpuscular Hemoglobin 33.9 pg (27.0-31.2); Mean Corpuscular Volume 101.9 fl (80-94); Mean Platelet Volume 9.7 fl (7.4-10.4); Monocytes # 0.6 K/mm3 (0.1-1.0); Monocytes % 5.8 % (1.7-9.3); Neutrophils # 4.8 K/mm3 (1.8-7.8); Neutrophils % 47.8 % (37.0-80.0); Platelet Count 198 K/mm3 (142-424); Red Blood Count 4.65 M/mm3 (4.60-6.20); Red Cell Distribution Width 13.1 % (11.5-17.5)
[2024-02-10 16:42] LABS: Alanine Aminotransferase 43 U/L (12-78); Albumin Level 4.4 g/dl (3.5-5.0); Albumin/Globulin Ratio 1.6 (1.1-1.8); Alkaline Phosphatase 84 U/L (38-126); Anion Gap 11.2 mEq/L (5-15); Aspartate Amino Transferase 36 U/L (17-59); Bilirubin,Total 0.3 mg/dl (0.2-1.3); Blood Urea Nitrogen 14 mg/dl (9-20); Calcium 9.2 mg/dl (8.4-10.2); Carbon Dioxide 26 mmol/L (22.0-30.0); Chloride 107 mmol/L (98-107); Creatinine Clearance Estimated 95 mL/min (50-200); Estimated Glomerular Filt Rate 71 ml/min (>60); GFR (African American) 86 ML/MIN (>60); Globulin 2.8 g/dL (1.3-3.2); Glucose 114 mg/dl (74-100); Lipase 111 U/L (23-300); Potassium 4.2 mmoL/L (3.5-5.1); Sodium 140 mmol/L (136-145); Total Protein,Serum 7.2 g/dl (6.3-8.2)
[2024-02-10 16:44] LABS: Appearance,Urine CLEAR (Clear); Blood, Urine Negative (Negative); Color,Urine YELLOW (Yellow); Glucose,Urine (UA) Negative (Negative); Ketones,Urine Negative (Negative); Leukocyte Esterase,Urine Negative (Negative); Nitrate,Urine Negative (Negative); PH,Urine 5.5 (5.0-8.5); Protein,Urine Negative (Negative); Specific Gravity, Urine >= 1.030 (1.005-1.030); Urobilinogen,Urine 0.2 EU/dl (0.2)
[2024-02-10 16:56] LABS: Bilirubin,Urine 1+ (Negative)
[2024-02-10 16:59] LABS: RBC,Urine Occasional #/hpf (0-3)
--- NOTE | 2024-02-10 17:40 | CT_ITS ---
PROCEDURE INFORMATION: Exam: CT Abdomen And Pelvis With Contrast Exam date and time: 02/10/2024 6:11 PM Age: 48 years old Clinical indication: Abdominal pain; Localized; Right lower quadrant (rlq); Additional info: Rlq abd pain TECHNIQUE: Imaging protocol: Computed tomography of the abdomen and pelvis with contrast. Radiation optimization: All CT scans at this facility use at least one of these dose optimization techniques: automated exposure control; mA and/or kV adjustment per patient size (includes targeted exams where dose is matched to clinical indication); or iterative reconstruction. Contrast material: ISOVUE; Contrast volume: 75 ml; Contrast route: IV; COMPARISON: CT ABDOMEN PELVIS WO CON 01/06/2024 10:56 PM FINDINGS: Liver: Suspected hepatic steatosis. No mass. Gallbladder and bile ducts: Contracted gallbladder. No calcified stones. No ductal dilation. Pancreas: Normal. No ductal dilation. Spleen: Punctate scattered calcifications. No splenomegaly. Adrenal glands: Normal. No mass. Kidneys and ureters: Bilateral nonobstructing nephrolithiasis with the largest stone measuring 3 mm. No hydronephrosis. Stomach and bowel: Fecalized terminal ileum. No obstruction. No mucosal thickening. Appendix: No evidence of appendicitis. Intraperitoneal space: Unremarkable. No free air. No significant fluid collection. Vasculature: Moderate atherosclerosis. No abdominal aortic aneurysm. Lymph nodes: Unremarkable. No enlarged lymph nodes. Urinary bladder: Unremarkable as visualized. Reproductive: Unremarkable as visualized. Bones/joints: Right hip arthroplasty. Degenerative changes. Stable grade 1 anterolisthesis L5 on S1, on the basis of bilateral L5 pars defects. No acute fracture. Soft tissues: Small yvzyb-[id number]-left fat containing inguinal hernias. IMPRESSION: 1. No acute findings. No evidence of acute appendicitis. 2. Bilateral nonobstructing nephrolithiasis. 3. Fecalized terminal ileum suggestive of delayed transit.
--- NOTE | 2024-02-10 17:42 | HMH.EDGENADL ---
Discharge Plan Disposition Patient Disposition: Home, Self-Care Chief Complaint: Abdominal Pain Prescriptions Prescriptions: No Action gabapentin 300 mg capsule 300 mg PO BID ketoconazole 2 % cream 1 applic topical DAILY PRN ondansetron 4 mg tablet,disintegrating 4 mg PO Q8H 3 Days Qty: 9 0RF tamsulosin 0.4 mg capsule 0.4 mg PO DAILY Qty: 10 0RF oxycodone 5 mg tablet 5 mg PO TID PRN (Reason: pain) Qty: 12 0RF Rx Instructions: Pain refractory to Tylenol and ibuprofen ondansetron HCl 4 mg tablet 4 mg PO Q8H PRN (Reason: nausea and vomiting) 5 Days Qty: 30 0RF tamsulosin 0.4 mg capsule 0.4 mg PO DAILY Qty: 30 0RF Referrals Follow up/Referrals: Anatoliy Evans MD [Primary Care Provider] - See instructions Activity Restrictions/Add. Instructions Additional Instructions/Restrictions: No emergent medical condition today to identify pain or cause of your right lower quadrant abdominal pain. There is a significant amount of stool in the right lower quadrant which may be the cause of your symptoms I recommend you take MiraLAX half a cap twice a day and escalate the dose as needed to have soft bowel movements daily and then stay on this dose for a few weeks. Return with any significant worsening to the emergency department or you may follow-up with primary care doctor. Clinical Impressions Clinical Impression: Abdominal pain, RLQ Instructions Patient Instructions: DI for Acute Abdominal Pain Discharge ED Provider: Adonis Cage General Adult HPI General Chief complaint: Abdominal Pain Stated complaint: pain in back and abdomin Time Seen by Provider: 02/10/24 17:36 Mode of Arrival: Ambulatory Source of Information: Patient Limitations: No Limitations Description of Symptoms (Recalled from ER Triage Doc. by RN): pt presents to ED c/o RLQ pain x 4 days that radiates to his low back. denies fever or n/v/d. reports hx of kidney stones. History of Present Illness HPI narrative: Patient is a 48-year-old male presented with right lower quadrant abdominal pain over the last several days worsening this point. Has a history of kidney stones but states it feels little bit different than kidney symptoms at the past. No fevers or chills. States that the right lower quadrant pain occasionally will radiate into his right testicle but there is no mass that he has felt and is no constant pain radiating into his right testicle. Right now he has no testicle pain. Still has appendix. No blood in his urine from historical standpoint Related Data Home Medications Medication Instructions Recorded Confirmed gabapentin 300 mg capsule 300 mg PO BID 07/23/23 07/23/23 ketoconazole 2 % topical cream 1 applic topical DAILY PRN 07/23/23 07/23/23 Previous Rx's Medication Instructions Recorded ondansetron 4 mg disintegrating 4 mg PO Q8H 3 days #9 tabs 07/23/23 tablet oxycodone 5 mg tablet 5 mg PO TID PRN pain #12 tabs 07/23/23 tamsulosin 0.4 mg capsule 0.4 mg PO DAILY #10 caps 07/23/23 ondansetron HCl 4 mg tablet 4 mg PO Q8H PRN nausea and 01/06/24 vomiting 5 days #30 tabs tamsulosin 0.4 mg capsule 0.4 mg PO DAILY #30 caps 01/06/24 Allergies Allergy/AdvReac Type Severity Reaction Status Date / Time No Known Allergies Allergy Verified 07/23/23 15:02 [facility] Disclaimer: The information contained in this section may have been updated after the patient was seen, as this information can be updated by other users. Medical History (Updated 02/10/24 @ 17:44 by Adonis Cage MD) Kidney stones Surgical History (Updated 07/23/23 @ 15:05 by Holly Ornelas LPN) S/P hip replacement Family History (Updated 07/23/23 @ 15:06 by Holly Ornelas LPN) Mother Hypertension Kidney stone Father Hypertension Other No significant family history Social History (Updated 07/23/23 @ 15:07 by Holly Ornelas LPN) Smoking Status: Current every day smoker tobacco type: cigarettes packs per day: 0 years smoked: 30 alcohol intake: current substance use type: denies use current occupational status: employed and other Travel in the last 8 weeks: None household members: other housing: other caffeine: No ROS Obtained: Yes All systems reviewed & no additional complaints except as documented Physical Exam General General appearance: alert Respiratory Respiratory exam: Present normal lung sounds bilaterally Cardiovascular Cardiovascular exam: Present regular rate Abdominal Exam Abdominal exam: Present soft and tenderness (Right lower quadrant tenderness palpation no rebound or guarding); Absent distention Neurological Exam Neurological exam: Present alert and oriented X3 Medical Decision Making [place] Inquiry Pt receiving controlled substance: No Vital Signs: 02/10/24 15:32 Temperature 98.3 F Temperature Source Oral Pulse Rate [Right Radial] 80 Respiratory Rate 18 Blood Pressure [Right Arm] 150/105 H Blood Pressure Mean [Right Arm] 120 Blood Pressure Source [Right Arm] Automatic Cuff Blood Pressure Position [Right Arm] Sitting 02 Sat by Pulse Oximetry 98 Oxygen Delivery Method Room Air Lab Data Lab results reviewed: Yes I reviewed the patient's lab results. Lab Results 02/10/24 16:13: WBC 10.0, RBC 4.65, Hgb 15.7, Hct 47.3, MCV 101.9 H, MCH 33.9 H, MCHC 33.3, RDW 13.1, Plt Count 198, MPV 9.7, Neut % (Auto) 47.8, Lymph % (Auto) 39.7, [place] % (Auto) 5.8, Eos % (Auto) 5.0, Baso % (Auto) 1.6, Neut # (Auto) 4.8, Lymph # (Auto) 4.0, [place] # (Auto) 0.6, Eos # (Auto) 0.5 H, Baso # (Auto) 0.2, Sodium 140, Potassium 4.2, Chloride 107, Carbon Dioxide 26, Anion Gap 11.2, BUN 14, Creatinine 1.10, Estimated Creat Clear 95, Estimated GFR 71, Est GFR ( Amer) 86, Glucose 114 H, Calcium 9.2, Total Bilirubin 0.3, AST 36, ALT 43, Alkaline Phosphatase 84, Total Protein 7.2, Albumin 4.4, Globulin 2.8, Albumin/Globulin Ratio 1.6, Lipase 111 02/10/24 16:17: Urine Color Yellow, Urine Appearance Clear, Urine pH 5.5, Ur Specific [place] >= 1.030, Urine Protein Negative, Urine Glucose (UA) Negative, Urine Ketones Negative, Urine Blood Negative, Urine Nitrate Negative, Urine Bilirubin 1+ A, Urine Urobilinogen 0.2, Ur Leukocyte Esterase Negative, Urine RBC Occasional, Urine WBC None, Ur Squamous Epith Cells None, Urine Bacteria None 02/10/24 16:13 02/10/24 16:13 Orders (Tests/Meds): ED MEDICATIONS Generic Name Dose Route Start Last Admin Trade Name Freq PRN Reason Stop Dose Admin Lactated Ringer's 1,000 mls @ 999 mls/hr 02/10/24 17:45 02/10/24 17:49 Lactated Ringer's 1000 Ml Bag IV 02/10/24 18:45 999 mls/hr .Q1H1M BONNIE Administration Sodium Chloride 10 ml 02/10/24 17:49 Sodium Chloride 0.9% 10ml Flush Syringe IV 03/11/24 17:48 NEEDED PRN Maintain IV Site Sodium Chloride 10 ml 02/10/24 18:19 02/10/24 18:20 Sodium Chloride 0.9% 10ml Syr (Rad Only) IV 03/11/24 18:18 10 ml NEEDED PRN Administration Maintain IV Site Discontinued Medications Generic Name Dose Route Start Last Admin Trade Name Freq PRN Reason Stop Dose Admin Iopamidol 75 ml 02/10/24 18:19 02/10/24 18:21 Iopamidol-370 (76%);100ml Bottle IV 02/10/24 18:20 75 ml ONCE ONE Administration Ketorolac Tromethamine 15 mg 02/10/24 17:40 02/10/24 17:49 Ketorolac 30mg/Ml Vial IV 02/10/24 17:41 15 mg ONCE ONE Administration Ondansetron HCl 4 mg 02/10/24 17:40 02/10/24 17:50 Ondansetron 4mg/2ml Vial IV 02/10/24 17:41 4 mg ONCE ONE Administration ORDERS Category Date Time Status CT abdomen pelvis w con Stat Cat Scan 02/10/24 17:40 Completed Complete Blood Count Auto Diff Stat Lab 02/10/24 16:13 Completed Comprehensive Metabolic Panel Stat Lab 02/10/24 16:13 Completed Lipase Stat Lab 02/10/24 16:13 Completed UA [Urinalysis and Microscopic] Stat Lab 02/10/24 16:17 Completed Medical Decision Narrative: 48-year-old with right lower quadrant abdominal pain differential includes appendicitis mesenteric adenitis bowel obstruction terminal ileitis kidney stone etc. Urinalysis was performed which I personally interpreted which shows no hematuria. Unlikely to be kidney stone at this point but we will get a contrasted CT scan particular to rule out appendicitis as stated above. Toradol Zofran and IV fluids have been administered will reassess. Reassessment 6:45 PM patient feeling better and has benign abdominal exam. CT scan performed to person interpreted shows no acute emergency there is fecalization of the terminal ileum in the right lower quadrant which may be the cause of his symptoms has been advised to take a stool softener for the next several weeks to see if this improves her symptoms. Specifically no evidence of any kidney stones that are obstructing appendicitis etc. No inflammatory condition identified. Return precautions emphasized he will follow-up with primary care doctor as needed. Critical Care Critical Care Time Critical Care Time: No
[2024-02-10] MEDS: KETOROLAC 30MG/ML VIAL 15 MG IV (17:49)
[2024-02-10] MEDS: LACTATED RINGERS 1000ML 1,000 ML 999 ML IV (17:49)
[2024-02-10] MEDS: ONDANSETRON 4MG/2ML VIAL 4 MG IV (17:50)
[2024-02-10] MEDS: SODIUM CHLORIDE 0.9% 10ML SYR (RAD ONLY) 10 ML IV (18:20)
[2024-02-10] MEDS: IOPAMIDOL-370 (76%);100ML BOTTLE 75 ML IV (18:21)
[2024-02-10 18:50] VITALS: BP 118/72; PULSE 78; RESP 18; TEMP 36.2; O2SAT 99
== END 2024-02-10 18:52 | disposition home or self-care (01) ==
PROVIDERS: Emergency Provider Student in an Organized Health Care Education/Training Program; PCP Internal Medicine
DX: R10.31 Right lower quadrant pain (principal); M54.50 Low back pain, unspecified; F17.210 Nicotine dependence, cigarettes, uncomplicated
CPT/HCPCS: 74177; 80053; 81001; 83690; 85025; 96361; 96374; 96375; 99285; J2405; Q9967

== ENCOUNTER 2024-07-07 05:21 | Emergency (ER) | payer BC, SELFPAY ==
[2024-07-07] VITALS (10 sets, daily range): BP systolic 116–168; BP diastolic 78–103; PULSE 59–90; RESP 16–19; TEMP 36.7; O2SAT 95–98; BMI 26.5
--- NOTE | 2024-07-07 05:38 | CT_ITS ---
FINAL REPORT TECHNIQUE: After the administration of intravenous contrast, axial images were obtained through the abdomen and pelvis by computed tomography. This study was performed with technique to keep radiation doses as low as reasonably achievable, (ALARA). Individualized dose reduction techniques using automated exposure control or adjustment of the MA and/or KV according to the patient's size were employed. CLINICAL HISTORY: R flank and RLQ pain, hx stones COMPARISON: 02/10/2024 FINDINGS: Abdomen: The lung bases are clear. There is mild fatty infiltration of the liver. A less than 1 cm cyst is seen in the posterior liver dome. There is mild, nonspecific gallbladder wall thickening. The spleen is unremarkable. The adrenals are normal. The pancreas is unremarkable. The kidneys enhance appropriately. There are small bilateral, nonobstructing renal stones measuring up to 4 mm. The aorta is normal in caliber. There is no free fluid or adenopathy. A small umbilical hernia is present containing fat. Pelvis: Patient is status post right hip arthroplasty. There are small inguinal hernias containing fat bilaterally. The appendix is normal. The urinary bladder is unremarkable. There is no free fluid or adenopathy. There are bilateral L5 pars defects. IMPRESSION: Bilateral, nonobstructing renal stones without hydronephrosis. Mild, nonspecific gallbladder wall thickening. Reviewed, Interpreted and Dictated by Kenji Olivo III, MD Transcribed by Micki Hathaway Authenticated and [facility]
--- NOTE | 2024-07-07 05:44 | HMH.EDGENADL ---
Discharge Plan Disposition Patient Disposition: Home, Self-Care Chief Complaint: Abdominal Pain Prescriptions Prescriptions: No Action ketoconazole 2 % cream 1 applic topical DAILY PRN promethazine 12.5 mg tablet 12.5 mg PO Q4-6H PRN (Reason: nausea and vomiting) Qty: 20 0RF tamsulosin 0.4 mg capsule 0.4 mg PO DAILY Qty: 30 2RF hydrocodone-acetaminophen 5-325 mg tablet 1 tab PO Q6H PRN (Reason: pain) Qty: 12 0RF tamsulosin 0.4 mg capsule 0.4 mg PO DAILY Qty: 10 0RF ondansetron HCl 4 mg tablet 4 mg PO Q8H PRN (Reason: nausea and vomiting) 5 Days Qty: 30 0RF Referrals Follow up/Referrals: Anatoliy Evans MD [Primary Care Provider] - See instructions Activity Restrictions/Add. Instructions Additional Instructions/Restrictions: Call your family doctor to establish care for this visit to the emergency department and schedule follow-up within 48 hours to ensure improvement. If you have any worsening of your condition or any other concerning signs or symptoms, return to the emergency department or your primary care doctor for further evaluation. Clinical Impressions Clinical Impression: Right flank pain Instructions Patient Instructions: DI for Acute Abdominal Pain Print Language Print Language: Frisian Discharge ED Provider: Jim White General Adult HPI <Ry Magana MD - Last Filed: 07/07/24 07:21> General Chief complaint: Abdominal Pain Stated complaint: pain lower R abd, vomiting, migraine Time Seen by Provider: 07/07/24 05:27 Mode of Arrival: Ambulatory Source of Information: Patient Limitations: No Limitations Description of Symptoms (Recalled from ER Triage Doc. by RN): Patient ambulatory to ED with complaints of rigt flank pain x 3-4 days, with n/v occuring this AM. He states that he has chronic hx of kidney stones, and that this specific pain feels like a kidnet stone. Denies fevers or blood in urine at this time. History of Present Illness HPI narrative: 48-year-old male with a history of multiple kidney stones including lithotripsy and stone removal presents to the ER for complaints of right flank pain for the last 3 to 4 days. Patient states his pain worsened and he had nausea and vomiting this morning. He also had a headache this morning which he thinks may have contributed to the nausea and vomiting. Patient states he takes a lot of ibuprofen and has also been taking occasional hydrocodone which was previously prescribed to him for kidney stones. Patient states his pain feels similar to kidney stone, but he is also having right lower quadrant pain, he commented about being worried about his appendix. Patient states he has had pain in that area before previously with an obstructed stone. Patient reportedly has seen Dr. Ortiz for urology in the past. He does report dysuria. No hematuria. He denies fevers, chest pain, shortness of breath, or other associated symptoms. Related Data Home Medications ?Medication ?Instructions ?Recorded ?Confirmed ketoconazole 2 % topical cream 1 applic topical DAILY PRN 07/23/23 06/08/24 Previous Rx's ?Medication ?Instructions ?Recorded tamsulosin 0.4 mg capsule 0.4 mg PO DAILY #10 caps 07/23/23 ondansetron HCl 4 mg tablet 4 mg PO Q8H PRN nausea and 01/06/24 vomiting 5 days #30 tabs hydrocodone 5 mg-acetaminophen 325 1 tab PO Q6H PRN pain #12 tabs 06/08/24 mg tablet promethazine 12.5 mg tablet 12.5 mg PO Q4-6H PRN nausea and 06/08/24 vomiting #20 tabs tamsulosin 0.4 mg capsule 0.4 mg PO DAILY #30 caps 06/08/24 Allergies Allergy/AdvReac Type Severity Reaction Status Date / Time No Known Allergies Allergy Verified 06/08/24 13:26 [facility] <Ry Magana MD - Last Filed: 07/07/24 07:21> [facility] Disclaimer: The information contained in this section may have been updated after the patient was seen, as this information can be updated by other users. Medical History Kidney stones Surgical History S/P hip replacement right Family History Mother Hypertension Kidney stone Father Hypertension Other No significant family history Social History Smoking Status: Current every day smoker tobacco type: cigarettes packs per day: 0 years smoked: 30 alcohol intake: current alcohol intake frequency: a few times a month substance use type: denies use current occupational status: employed and other Travel in the last 8 weeks: None household members: other housing: other caffeine: No <Ry Magana MD - Last Filed: 07/07/24 07:21> ROS Obtained: Yes All systems reviewed & no additional complaints except as documented Constitutional Constitutional: Denies chills, Denies fever(s), Denies headache(s) and Denies weakness Eyes Eyes: Denies change in vision ENT Ears, Nose, Mouth, and Throat: Denies dizziness, Denies headache(s), Denies nasal congestion and Denies sore throat Cardiovascular Cardiovascular: Denies chest pain, Denies dyspnea and Denies leg edema Respiratory Respiratory: Denies cough and Denies dyspnea Gastrointestinal Gastrointestingal: Reports abdominal pain, nausea and vomiting; Denies constipation or diarrhea Genitourinary Male Genitourinary: Denies difficulty urinating, Reports flank pain and Reports other (Reports dysuria, no hematuria) Musculoskeletal Musculoskeletal: Denies arthralgias, Denies myalgias, Denies numbness and Denies tingling Integumentary/Breasts Skin/Breast: Denies change in pigmentation Neurologic Neurologic: Denies dizziness, Denies headache(s), Denies numbness, Denies tingling and Denies weakness Physical Exam <Ry Magana MD - Last Filed: 07/07/24 07:21> General General appearance: alert and in no apparent distress Head Head exam: atraumatic and normocephalic Eye Eye exam: Present PERRL and EOMI ENT ENT exam: Present mucous membranes moist Neck Neck exam: Present normal inspection and full ROM Chest Chest inspection: Present symmetric chest wall rise Respiratory Respiratory exam: Present normal lung sounds bilaterally; Absent respiratory distress, wheezes or stridor Cardiovascular Cardiovascular exam: Present regular rate and normal rhythm Abdominal Exam Abdominal exam: Present soft and tenderness (Mild right lower quadrant); Absent distention, guarding or rebound Extremities Exam Extremities exam: Present full ROM Back Exam Back exam: Present CVA tenderness (R); Absent CVA tenderness (L) Neurological Exam Neurological exam: Present alert and oriented X3; Absent motor sensory deficit Psychiatric Psychiatric exam: Present normal affect and normal mood Skin Skin exam: Present warm and dry Medical Decision Making <Ry Magana MD - Last Filed: 07/07/24 07:21> Medical Records Medical records reviewed: Yes I reviewed the patient's medical records. MR Comment: Patient has been seen in our ER multiple times, most commonly for kidney stones, renal colic. Most recent urology note within our system is from [address] New for left ureteral calculus. [place] Inquiry Pt receiving controlled substance: No Vital Signs: 07/07/24 05:23 07/07/24 05:26 07/07/24 05:31 Temperature 98.1 F Temperature Source Oral Pulse Rate 90 80 Pulse Rate [Right] 83 Respiratory Rate 19 Blood Pressure 168/91 H 165/103 H Blood Pressure [Right Arm] 168/91 H Blood Pressure Mean [Right Arm] 116 Blood Pressure Source [Right Arm] Automatic Cuff Blood Pressure Position [Right Arm] Sitting 02 Sat by Pulse Oximetry 96 98 96 Oxygen Delivery Method Room Air 07/07/24 06:00 07/07/24 07:00 07/07/24 07:30 Temperature Temperature Source Pulse Rate 71 75 67 Pulse Rate [Right] Respiratory Rate Blood Pressure 116/78 142/94 H 132/92 H Blood Pressure [Right Arm] Blood Pressure Mean [Right Arm] Blood Pressure Source [Right Arm] Blood Pressure Position [Right Arm] 02 Sat by Pulse Oximetry 96 97 95 Oxygen Delivery Method 07/07/24 08:00 07/07/24 08:30 Temperature Temperature Source Pulse Rate 72 66 Pulse Rate [Right] Respiratory Rate Blood Pressure 129/90 126/95 H Blood Pressure [Right Arm] Blood Pressure Mean [Right Arm] Blood Pressure Source [Right Arm] Blood Pressure Position [Right Arm] 02 Sat by Pulse Oximetry 95 96 Oxygen Delivery Method Lab Data Lab Results 07/07/24 05:30: PT 10.0 L, INR 0.88 L 07/07/24 05:50: WBC 7.8, RBC 4.50 L, Hgb 14.8, Hct 44.7, MCV 99.3 H, MCH 32.9 H, MCHC 33.2, RDW 13.7, Plt Count 193, MPV 8.8, Neut % (Auto) 58.2, Lymph % (Auto) 31.0, Mason % (Auto) 4.8, Eos % (Auto) 4.7, Baso % (Auto) 1.2, Neut # (Auto) 4.5, Lymph # (Auto) 2.4, Mason # (Auto) 0.4, Eos # (Auto) 0.4, Baso # (Auto) 0.1, Sodium 138, Potassium 4.0, Chloride 113 H, Carbon Dioxide 23, Anion Gap 6.0, BUN 13, Creatinine 1.00, Estimated Creat Clear 107, Estimated GFR 80, Est GFR ( Amer) 97, Glucose 131 H, Calcium 8.3 L, Total Bilirubin 0.4, AST 30, ALT 43, Alkaline Phosphatase 78, Total Protein 6.4, Albumin 3.7, Globulin 2.7, Albumin/Globulin Ratio 1.4 07/07/24 06:13: Urine Color Yellow, Urine Appearance Clear, Urine pH 5.5, Ur Specific [place] >= 1.030, Urine Protein Negative, Urine Glucose (UA) Negative, Urine Ketones Negative, Urine Blood Negative, Urine Nitrate Negative, Urine Bilirubin Negative, Urine Urobilinogen 0.2, Ur Leukocyte Esterase Negative, Urine RBC Occasional, Urine WBC Occasional, Ur Squamous Epith Cells None, Urine Bacteria Trace, Urine Mucus 1+ 07/07/24 05:50 07/07/24 05:50 Orders (Tests/Meds): ED MEDICATIONS Discontinued Medications Generic Name Dose Route Start Last Admin Trade Name Minq PRN Reason Stop Dose Admin Acetaminophen 1,000 mg 07/07/24 06:48 07/07/24 06:50 Acetaminophen 500mg Tab PO 07/07/24 06:49 1,000 mg ONCE ONE Administration Lactated Ringer's 1,000 mls @ 999 mls/hr 07/07/24 05:38 07/07/24 05:49 Lactated Ringer's 1000 Ml Bag IV 07/07/24 06:38 999 mls/hr .Q1H1M ONE Administration Ibuprofen 600 mg 07/07/24 06:53 07/07/24 06:57 Ibuprofen 600 Mg Tablet PO 07/07/24 06:54 600 mg ONCE ONE Administration Iopamidol 75 ml 07/07/24 06:35 07/07/24 06:35 Iopamidol-370 (76%);100ml Bottle IV 07/07/24 06:36 75 ml ONCE ONE Administration Morphine Sulfate 4 mg 07/07/24 05:38 07/07/24 05:50 Morphine 4mg/Ml Syringe IV 07/07/24 05:39 4 mg ONCE ONE Administration Ondansetron HCl 4 mg 07/07/24 05:38 07/07/24 05:49 Ondansetron 4mg/2ml Vial IV 07/07/24 05:39 4 mg ONCE ONE Administration Sodium Chloride 10 ml 07/07/24 06:35 07/07/24 06:35 Sodium Chloride 0.9% 10ml Syr (Rad Only) IV 07/07/24 06:36 10 ml ONCE ONE Administration ORDERS Category Date Time Status CT abdomen pelvis w con Stat Cat Scan 07/07/24 05:38 Completed CBC w/Auto Diff [Complete Blood Count Auto Diff] Stat Lab 07/07/24 05:50 Completed CMP [Comprehensive Metabolic Panel] Stat Lab 07/07/24 05:50 Completed PT INR [Prothrombin Time INR] Stat Lab 07/07/24 05:30 Completed Urinalysis and Microscopic Stat Lab 07/07/24 06:13 Completed Medical Decision Narrative: In summary, this 48-year-old male presents to the emergency department today with right flank pain, right lower quadrant pain, dysuria, no hematuria. Comorbidities of current condition include history of multiple kidney and ureteral stones which increased risk of recurrence. On initial evaluation patient is hemodynamically stable, afebrile, tenderness to palpation of the right lower quadrant without rebound or guarding, right CVA tenderness present. Differential diagnosis includes but is not limited to nephrolithiasis, ureterolithiasis, hydronephrosis, kidney dysfunction, urinary tract infection, renal abscess, appendicitis, mesenteric adenitis. Based on these concerns, I ordered serum labs, urine studies, CT abdomen pelvis. Patient is receiving IV fluids, morphine, Zofran. Labs personally reviewed demonstrate no leukocytosis or anemia, good kidney function, UA negative for findings of infection, trace red blood cells present. CT abdomen pelvis personally interpreted does not demonstrate obvious hydronephrosis or large obstructing stone on my personal interpretation, final radiology read pending. On reassessment, patient continues to be stable but did request Tylenol, ibuprofen which has been administered. Patient handed off to Dr. White for continued management. <Jim White MD - Last Filed: 07/07/24 09:46> Vital Signs: 07/07/24 05:23 07/07/24 05:26 07/07/24 05:31 Temperature 98.1 F Temperature Source Oral Pulse Rate 90 80 Pulse Rate [Right] 83 Respiratory Rate 19 Blood Pressure 168/91 H 165/103 H Blood Pressure [Right Arm] 168/91 H Blood Pressure Mean [Right Arm] 116 Blood Pressure Source [Right Arm] Automatic Cuff Blood Pressure Position [Right Arm] Sitting 02 Sat by Pulse Oximetry 96 98 96 Oxygen Delivery Method Room Air 07/07/24 06:00 07/07/24 07:00 07/07/24 07:30 Temperature Temperature Source Pulse Rate 71 75 67 Pulse Rate [Right] Respiratory Rate Blood Pressure 116/78 142/94 H 132/92 H Blood Pressure [Right Arm] Blood Pressure Mean [Right Arm] Blood Pressure Source [Right Arm] Blood Pressure Position [Right Arm] 02 Sat by Pulse Oximetry 96 97 95 Oxygen Delivery Method 07/07/24 08:00 07/07/24 08:30 Temperature Temperature Source Pulse Rate 72 66 Pulse Rate [Right] Respiratory Rate Blood Pressure 129/90 126/95 H Blood Pressure [Right Arm] Blood Pressure Mean [Right Arm] Blood Pressure Source [Right Arm] Blood Pressure Position [Right Arm] 02 Sat by Pulse Oximetry 95 96 Oxygen Delivery Method Lab Data Lab Results 07/07/24 05:30: PT 10.0 L, INR 0.88 L 07/07/24 05:50: WBC 7.8, RBC 4.50 L, Hgb 14.8, Hct 44.7, MCV 99.3 H, MCH 32.9 H, MCHC 33.2, RDW 13.7, Plt Count 193, MPV 8.8, Neut % (Auto) 58.2, Lymph % (Auto) 31.0, Mason % (Auto) 4.8, Eos % (Auto) 4.7, Baso % (Auto) 1.2, Neut # (Auto) 4.5, Lymph # (Auto) 2.4, Mason # (Auto) 0.4, Eos # (Auto) 0.4, Baso # (Auto) 0.1, Sodium 138, Potassium 4.0, Chloride 113 H, Carbon Dioxide 23, Anion Gap 6.0, BUN 13, Creatinine 1.00, Estimated Creat Clear 107, Estimated GFR 80, Est GFR ( Amer) 97, Glucose 131 H, Calcium 8.3 L, Total Bilirubin 0.4, AST 30, ALT 43, Alkaline Phosphatase 78, Total Protein 6.4, Albumin 3.7, Globulin 2.7, Albumin/Globulin Ratio 1.4 07/07/24 06:13: Urine Color Yellow, Urine Appearance Clear, Urine pH 5.5, Ur Specific [place] >= 1.030, Urine Protein Negative, Urine Glucose (UA) Negative, Urine Ketones Negative, Urine Blood Negative, Urine Nitrate Negative, Urine Bilirubin Negative, Urine Urobilinogen 0.2, Ur Leukocyte Esterase Negative, Urine RBC Occasional, Urine WBC Occasional, Ur Squamous Epith Cells None, Urine Bacteria Trace, Urine Mucus 1+ Orders (Tests/Meds): ED MEDICATIONS Discontinued Medications Generic Name Dose Route Start Last Admin Trade Name Freq PRN Reason Stop Dose Admin Acetaminophen 1,000 mg 07/07/24 06:48 07/07/24 06:50 Acetaminophen 500mg Tab PO 07/07/24 06:49 1,000 mg ONCE ONE Administration Lactated Ringer's 1,000 mls @ 999 mls/hr 07/07/24 05:38 07/07/24 05:49 Lactated Ringer's 1000 Ml Bag IV 07/07/24 06:38 999 mls/hr .Q1H1M ONE Administration Ibuprofen 600 mg 07/07/24 06:53 07/07/24 06:57 Ibuprofen 600 Mg Tablet PO 07/07/24 06:54 600 mg ONCE ONE Administration Iopamidol 75 ml 07/07/24 06:35 07/07/24 06:35 Iopamidol-370 (76%);100ml Bottle IV 07/07/24 06:36 75 ml ONCE ONE Administration Morphine Sulfate 4 mg 07/07/24 05:38 07/07/24 05:50 Morphine 4mg/Ml Syringe IV 07/07/24 05:39 4 mg ONCE ONE Administration Ondansetron HCl 4 mg 07/07/24 05:38 07/07/24 05:49 Ondansetron 4mg/2ml Vial IV 07/07/24 05:39 4 mg ONCE ONE Administration Sodium Chloride 10 ml 07/07/24 06:35 07/07/24 06:35 Sodium Chloride 0.9% 10ml Syr (Rad Only) IV 07/07/24 06:36 10 ml ONCE ONE Administration ORDERS Category Date Time Status CT abdomen pelvis w con Stat Cat Scan 07/07/24 05:38 Completed CBC w/Auto Diff [Complete Blood Count Auto Diff] Stat Lab 07/07/24 05:50 Completed CMP [Comprehensive Metabolic Panel] Stat Lab 07/07/24 05:50 Completed PT INR [Prothrombin Time INR] Stat Lab 07/07/24 05:30 Completed Urinalysis and Microscopic Stat Lab 07/07/24 06:13 Completed Medical Decision Narrative: In summary, this 48-year-old male presents to the emergency department today with right flank pain, right lower quadrant pain, dysuria, no hematuria. Comorbidities of current condition include history of multiple kidney and ureteral stones which increased risk of recurrence. On initial evaluation patient is hemodynamically stable, afebrile, tenderness to palpation of the right lower quadrant without rebound or guarding, right CVA tenderness present. Differential diagnosis includes but is not limited to nephrolithiasis, ureterolithiasis, hydronephrosis, kidney dysfunction, urinary tract infection, renal abscess, appendicitis, mesenteric adenitis. Based on these concerns, I ordered serum labs, urine studies, CT abdomen pelvis. Patient is receiving IV fluids, morphine, Zofran. Labs personally reviewed demonstrate no leukocytosis or anemia, good kidney function, UA negative for findings of infection, trace red blood cells present. CT abdomen pelvis personally interpreted does not demonstrate obvious hydronephrosis or large obstructing stone on my personal interpretation, final radiology read pending. On reassessment, patient continues to be stable but did request Tylenol, ibuprofen which has been administered. Patient handed off to Dr. White for continued management. Christopher: I assumed primary responsibility for this patient after signout from previous physician. Independent interpretation of workup demonstrates no leukocytosis, normal CBC. Coags normal. Chemistry nonactionable, LFTs normal. Kidney function also normal, notably. UA without concern for UTI, no blood, nitrates, leukocyte Estrace, but trace squamous cells and bacteria. CT abdomen pelvis independently interpreted as well and demonstrates no acute intra-abdominal abnormality. On reevaluation, patient states that his headache and his pain are much better improved, no longer nauseated, feeling better.. Because patient at baseline without signs or symptoms of clinical decompensation, deemed appropriate for discharge. Results were relayed to patient who voiced understanding and were agreeable to outpatient management and follow up. I discussed my clinical impression with patient and answered all questions. At this time, the evidence for any other entities in the differential is insufficient to warrant any further testing or ED observation. This was explained as well. Advisory was given that persistent or worsening symptoms require further evaluation. I confirmed the understanding of this discussion. Critical Care <Ry Magana MD - Last Filed: 07/07/24 07:21> Critical Care Time Critical Care Time: No
[2024-07-07] MEDS: ONDANSETRON 4MG/2ML VIAL 4 MG IV (05:49)
[2024-07-07] MEDS: LACTATED RINGERS 1000ML 1,000 ML 999 ML IV (05:49)
[2024-07-07] MEDS: MORPHINE 4MG/ML SYRINGE 4 MG IV (05:50)
[2024-07-07 05:58] LABS: Basophils # 0.1 K/mm3 (0-0.2); Basophils % 1.2 % (0.1-2.0); Eosinophils # 0.4 K/mm3 (0.0-0.4); Eosinophils % 4.7 % (0.1-12.0); Hematocrit 44.7 % (42.0-52.0); Hemoglobin 14.8 g/dL (14.1-18.0); Lymphocytes # 2.4 K/mm3 (0.7-4.5); Mean Corpuscular HGB Conc 33.2 g/dL (31.8-35.4); Mean Corpuscular Hemoglobin 32.9 pg (27.0-31.2); Mean Corpuscular Volume 99.3 fl (80-94); Mean Platelet Volume 8.8 fl (7.4-10.4); Monocytes # 0.4 K/mm3 (0.1-1.0); Monocytes % 4.8 % (1.7-9.3); Neutrophils # 4.5 K/mm3 (1.8-7.8); Neutrophils % 58.2 % (37.0-80.0); Platelet Count 193 K/mm3 (142-424); Red Cell Distribution Width 13.7 % (11.5-17.5); White Blood Count 7.8 K/mm3 (4.8-10.8)
[2024-07-07 06:02] LABS: INR 0.88 (0.9-1.1)
[2024-07-07 06:07] LABS: Albumin Level 3.7 g/dl (3.5-5.0); Chloride 113 mmol/L (98-107); Sodium 138 mmol/L (136-145)
[2024-07-07 06:10] LABS: Alanine Aminotransferase 43 U/L (12-78); Albumin/Globulin Ratio 1.4 (1.1-1.8); Alkaline Phosphatase 78 U/L (38-126); Aspartate Amino Transferase 30 U/L (17-59); Bilirubin,Total 0.4 mg/dl (0.2-1.3); Blood Urea Nitrogen 13 mg/dl (9-20); Calcium 8.3 mg/dl (8.4-10.2); Carbon Dioxide 23 mmol/L (22.0-30.0); Creatinine Clearance Estimated 107 mL/min (50-200); Estimated Glomerular Filt Rate 80 ml/min (>60); GFR (African American) 97 ML/MIN (>60); Globulin 2.7 g/dL (1.3-3.2); Glucose 131 mg/dl (74-100); Total Protein,Serum 6.4 g/dl (6.3-8.2)
--- NOTE | 2024-07-07 06:12 | PC.NURSE ---
urine collected and sent to lab
[2024-07-07 06:14] LABS: Microscopic, Urine URINE MICROSCOPIC (MICROSCOPIC)
[2024-07-07 06:21] LABS: Appearance,Urine CLEAR (Clear); Bilirubin,Urine Negative (Negative); Blood, Urine Negative (Negative); Color,Urine YELLOW (Yellow); Glucose,Urine (UA) Negative (Negative); Ketones,Urine Negative (Negative); Leukocyte Esterase,Urine Negative (Negative); Nitrate,Urine Negative (Negative); PH,Urine 5.5 (5.0-8.5); Protein,Urine Negative (Negative); Specific Gravity, Urine >= 1.030 (1.005-1.030); Urobilinogen,Urine 0.2 EU/dl (0.2)
--- NOTE | 2024-07-07 06:31 | PC.NURSE ---
pt to CT
[2024-07-07] MEDS: SODIUM CHLORIDE 0.9% 10ML SYR (RAD ONLY) 10 ML IV (06:35)
[2024-07-07] MEDS: IOPAMIDOL-370 (76%);100ML BOTTLE 75 ML IV (06:35)
--- NOTE | 2024-07-07 06:37 | PC.NURSE ---
back from radiology
[2024-07-07] MEDS: ACETAMINOPHEN 500MG TAB 1000 MG PO (06:50)
[2024-07-07 06:55] LABS: Bacteria,Urine Trace /lpf; Mucus,Urine 1+ /lpf; RBC,Urine Occasional #/hpf (0-3); WBC,Urine Occasional #/hpf (0-3)
[2024-07-07] MEDS: IBUPROFEN 600 MG TABLET PO (06:57)
--- NOTE | 2024-07-07 07:12 | PC.NURSE ---
Santy Glasgow rounded on pt. No complaints or needs voiced. Call light within reach
--- NOTE | 2024-07-07 08:00 | PC.NURSE ---
rounded on pt, pt sleeping at this time
--- NOTE | 2024-07-07 09:48 | PC.NURSE ---
Rounded on pt. PT advised he was Confused about results Dr. cartagena back to bedside to update pt
== END 2024-07-07 10:01 | disposition home or self-care (01) ==
PROVIDERS: Emergency Medicine; Emergency Provider Emergency Medicine; PCP Internal Medicine
DX: R10.31 Right lower quadrant pain (principal); M54.59 Other low back pain; R11.2 Nausea with vomiting, unspecified; F17.210 Nicotine dependence, cigarettes, uncomplicated; Z87.442 Personal history of urinary calculi
CPT/HCPCS: 74177; 80053; 81001; 85025; 85610; 96361; 96374; 96375; 99285; J2270; J2405; J7120; Q9967

== ENCOUNTER 2024-07-16 14:25 | Emergency (ER) | payer BC, SELFPAY ==
[2024-07-16 14:33] VITALS: BP 156/116; PULSE 72; RESP 20; TEMP 37; O2SAT 99; BMI 26.5
--- NOTE | 2024-07-16 14:35 | HMH.EDGENADL ---
Discharge Plan Disposition Patient Disposition: Home, Self-Care Condition: Good Prescriptions Prescriptions: New ketorolac 10 mg tablet 10 mg PO Q8H 5 Days Qty: 15 0RF ondansetron 4 mg tablet,disintegrating 4 mg PO Q8H PRN (Reason: nausea and vomiting) 5 Days Qty: 14 0RF oxycodone 5 mg tablet 5 mg PO Q8H PRN (Reason: pain) Qty: 5 0RF tamsulosin 0.4 mg capsule 0.4 mg PO HS Qty: 14 0RF Discontinued tamsulosin 0.4 mg capsule 0.4 mg PO DAILY Qty: 30 2RF hydrocodone-acetaminophen 5-325 mg tablet 1 tab PO Q6H PRN (Reason: pain) Qty: 12 0RF tamsulosin 0.4 mg capsule 0.4 mg PO DAILY Qty: 10 0RF ondansetron HCl 4 mg tablet 4 mg PO Q8H PRN (Reason: nausea and vomiting) 5 Days Qty: 30 0RF No Action ketoconazole 2 % cream 1 applic topical DAILY PRN promethazine 12.5 mg tablet 12.5 mg PO Q4-6H PRN (Reason: nausea and vomiting) Qty: 20 0RF prednisone 20 mg tablet 40 mg PO DAILY 5 Days Qty: 10 0RF Referrals Follow up/Referrals: Anatoliy Evans MD [Primary Care Provider] - See instructions Activity Restrictions/Add. Instructions Additional Instructions/Restrictions: I have prescribed pain, nausea medication, Flomax for what I suspect at this time is pain due to kidney stone. Please follow-up with your primary care doctor. Please return with any new or worsening symptoms. Clinical Impressions Clinical Impression: Renal colic on right side Instructions Patient Instructions: DI for Kidney Stones Print Language Print Language: Hungarian Discharge ED Provider: Carlos Eduardo Phan General Adult HPI General Chief complaint: Urogenital-Male Stated complaint: abd pain side pain Time Seen by Provider: 07/16/24 14:34 History of Present Illness HPI narrative: The patient presents with a chief complaint of kidney stone issues, having passed approximately 130 stones in the past. He reports experiencing right flank pain throughout the day, which he suspects might have moved to the bladder. The patient denies any fevers or chills and states that the pain has not been severe enough to cause nausea. In the past, the patient's kidney stones have measured about 2-3 millimeters in size, with typically four to six stones present in each kidney. The patient has been under significant stress recently due to his parents' declining health and believes this may be contributing to the increased frequency of passing stones. He has a history of depression, which occurred nine years ago and lasted for six months. Please note that above description of symptoms, in this electronic medical record under categorization of recalled from ER triage doctor by RN are reflective of an initial nursing assessment, however, is not reflective of my full history and physical exam that was personally taken and clarified. Consequentially, this preceding description of symptoms, which may include the patient's categorized chief complaint in the EMR, do not reflect my personal clinical impression, and the ultimate description of history of present illness and patient stated complaints should be deferred to this section of the note. Unless stated otherwise or congruent with this section of the note, additional signs, symptoms, or incongruence should be interpreted as inaccurate with my clinical impression. Related Data Home Medications ?Medication ?Instructions ?Recorded ?Confirmed ketoconazole 2 % topical cream 1 applic topical DAILY PRN 07/23/23 06/08/24 Previous Rx's ?Medication ?Instructions ?Recorded promethazine 12.5 mg tablet 12.5 mg PO Q4-6H PRN nausea and 06/08/24 vomiting #20 tabs prednisone 20 mg tablet 40 mg (2 x 20 mg) PO DAILY 5 days 07/07/24 #10 tabs ketorolac 10 mg tablet 10 mg PO Q8H 5 days #15 tabs 07/16/24 ondansetron 4 mg disintegrating 4 mg PO Q8H PRN nausea and 07/16/24 tablet vomiting 5 days #14 tabs oxycodone 5 mg tablet 5 mg PO Q8H PRN pain #5 tabs 07/16/24 tamsulosin 0.4 mg capsule 0.4 mg PO HS #14 caps 07/16/24 Allergies Allergy/AdvReac Type Severity Reaction Status Date / Time No Known Allergies Allergy Verified 06/08/24 13:26 [facility] Disclaimer: The information contained in this section may have been updated after the patient was seen, as this information can be updated by other users. Medical History Kidney stones Surgical History S/P hip replacement right Family History Mother Hypertension Kidney stone Father Hypertension Other No significant family history Social History Smoking Status: Current every day smoker tobacco type: cigarettes packs per day: 0 years smoked: 30 alcohol intake: current alcohol intake frequency: a few times a month substance use type: denies use current occupational status: employed and other Travel in the last 8 weeks: None household members: other housing: other caffeine: No ROS Obtained: Yes other As per HPI Physical Exam General General appearance: alert and in no apparent distress Head Head exam: atraumatic and normocephalic Eye Eye exam: Present normal appearance Neck Neck exam: Present normal inspection Chest Chest inspection: Present normal inspection and symmetric chest wall rise Respiratory Respiratory exam: Present normal lung sounds bilaterally; Absent respiratory distress Cardiovascular Cardiovascular exam: Present regular rate and normal rhythm Abdominal Exam Abdominal exam: Present soft Comment: Right CVA tenderness to percussion. No abdominal tenderness to palpation. Neurological Exam Neurological exam: Present alert and oriented X3 Psychiatric Psychiatric exam: Present normal affect and normal mood Skin Skin exam: Present warm and dry Medical Decision Making Medical Records Medical records reviewed: Yes I reviewed the patient's medical records. [employer] Inquiry Pt receiving controlled substance: No Vital Signs: 07/16/24 14:33 07/16/24 15:00 07/16/24 15:22 Temperature 98.6 F Temperature Source Oral Pulse Rate 93 H 65 Pulse Rate [Left Radial] 72 Respiratory Rate 20 Blood Pressure 172/122 H 173/119 H Blood Pressure [Right Arm] 156/116 H Blood Pressure Mean [Right Arm] 129 02 Sat by Pulse Oximetry 99 99 97 Oxygen Delivery Method Room Air 07/16/24 15:43 Temperature 98.6 F Temperature Source Pulse Rate 63 Pulse Rate [Left Radial] Respiratory Rate 16 Blood Pressure 156/97 H Blood Pressure [Right Arm] Blood Pressure Mean [Right Arm] 02 Sat by Pulse Oximetry Oxygen Delivery Method Room Air Lab Data Lab Results 07/16/24 14:35: WBC 10.0, RBC 4.98, Hgb 16.6, Hct 50.8, MCV 102.1 H, MCH 33.3 H, MCHC 32.6, RDW 13.4, Plt Count 231, MPV 8.7, Neut % (Auto) 56.9, Lymph % (Auto) 33.1, Mclennan % (Auto) 5.5, Eos % (Auto) 3.5, Baso % (Auto) 1.0, Neut # (Auto) 5.7, Lymph # (Auto) 3.3, Mclennan # (Auto) 0.6, Eos # (Auto) 0.4, Baso # (Auto) 0.1, Sodium 141, Potassium 4.6, Chloride 111 H, Carbon Dioxide 22, Anion Gap 12.6, BUN 13, Creatinine 1.20, Estimated Creat Clear 89, Estimated GFR 65, Est GFR ( Amer) 78, Glucose 98, Calcium 9.2, Total Bilirubin 0.6, AST 26, ALT 38, Alkaline Phosphatase 82, Total Protein 7.9, Albumin 4.5, Globulin 3.4 H, Albumin/Globulin Ratio 1.3 07/16/24 14:54: Urine Color Yellow, Urine Appearance Clear, Urine pH 6.0, Ur Specific [place] >= 1.030, Urine Protein Negative, Urine Glucose (UA) Negative, Urine Ketones Negative, Urine Blood Negative, Urine Nitrate Negative, Urine Bilirubin Negative, Urine Urobilinogen 0.2, Ur Leukocyte Esterase Negative, Urine RBC None, Urine WBC Occasional, Ur Squamous Epith Cells Occasional, Urine Bacteria Trace 07/16/24 14:35 07/16/24 14:35 Orders (Tests/Meds): ED MEDICATIONS Discontinued Medications Generic Name Dose Route Start Last Admin Trade Name Freq PRN Reason Stop Dose Admin Lactated Ringer's 1,000 mls @ 999 mls/hr 07/16/24 14:48 07/16/24 14:54 Lactated Ringer's 1000 Ml Bag IV 07/16/24 15:48 999 mls/hr .Q1H1M ONE Administration Ketorolac Tromethamine 15 mg 07/16/24 14:48 07/16/24 14:54 Ketorolac 30mg/Ml Vial IV 07/16/24 14:49 15 mg ONCE ONE Administration Morphine Sulfate 4 mg 07/16/24 14:48 07/16/24 14:54 Morphine 4mg/Ml Syringe IV 07/16/24 14:49 4 mg ONCE ONE Administration Ondansetron HCl 4 mg 07/16/24 14:48 07/16/24 14:55 Ondansetron 4mg/2ml Vial IV 07/16/24 14:49 4 mg ONCE ONE Administration ORDERS Category Date Time Status CBC w/Auto Diff [Complete Blood Count Auto Diff] Stat Lab 07/16/24 14:35 Completed CMP [Comprehensive Metabolic Panel] Stat Lab 07/16/24 14:35 Completed Urinalysis and Microscopic Stat Lab 07/16/24 14:54 Completed Medical Decision Narrative: Patient with history and exam per above presenting for evaluation of right-sided flank pain, dysuria, with reported history of similar symptoms secondary to urolithiasis. Diagnoses considered include urolithiasis, acute kidney injury, pyelonephritis, ED workup and treatment included: ED MEDICATIONS Generic Name Dose Route Start Last Admin Trade Name Freq PRN Reason Stop Dose Admin Lactated Ringer's 1,000 mls @ 999 mls/hr 07/16/24 14:48 07/16/24 14:54 Lactated Ringer's 1000 Ml Bag IV 07/16/24 15:48 999 mls/hr .Q1H1M ONE Administration Discontinued Medications Generic Name Dose Route Start Last Admin Trade Name Freq PRN Reason Stop Dose Admin Ketorolac Tromethamine 15 mg 07/16/24 14:48 07/16/24 14:54 Ketorolac 30mg/Ml Vial IV 07/16/24 14:49 15 mg ONCE ONE Administration Morphine Sulfate 4 mg 07/16/24 14:48 07/16/24 14:54 Morphine 4mg/Ml Syringe IV 07/16/24 14:49 4 mg ONCE ONE Administration Ondansetron HCl 4 mg 07/16/24 14:48 07/16/24 14:55 Ondansetron 4mg/2ml Vial IV 07/16/24 14:49 4 mg ONCE ONE Administration ORDERS Category Date Time Status CBC w/Auto Diff [Complete Blood Count Auto Diff] Stat Lab 07/16/24 14:35 Completed CMP [Comprehensive Metabolic Panel] Stat Lab 07/16/24 14:35 Completed Urinalysis and Microscopic Stat Lab 07/16/24 14:54 Completed [id number] ultrasound performed revealing no evidence of hydronephrosis. Labs were independently interpreted by me, significant for no acute findings My clinical impression at this time is most consistent with urolithiasis, low likelihood of hydronephrosis or acute complication. I discussed my clinical impression with patient and answered all questions. At this time, the evidence for any other entities in the differential is insufficient to warrant any further testing or ED observation. This was explained to the patient. The patient was advised that persistent or worsening symptoms require further evaluation. I confirmed the patient's understanding of this discussion. Critical Care Critical Care Time Critical Care Time: No
[2024-07-16] MEDS: MORPHINE 4MG/ML SYRINGE 4 MG IV (14:54)
[2024-07-16] MEDS: KETOROLAC 30MG/ML VIAL 15 MG IV (14:54)
[2024-07-16] MEDS: LACTATED RINGERS 1000ML 1,000 ML 999 ML IV (14:54)
[2024-07-16] MEDS: ONDANSETRON 4MG/2ML VIAL 4 MG IV (14:55)
[2024-07-16 14:56] LABS: Microscopic, Urine URINE MICROSCOPIC (MICROSCOPIC)
[2024-07-16 14:58] LABS: Appearance,Urine CLEAR (Clear); Bilirubin,Urine Negative (Negative); Blood, Urine Negative (Negative); Color,Urine YELLOW (Yellow); Glucose,Urine (UA) Negative (Negative); Ketones,Urine Negative (Negative); Leukocyte Esterase,Urine Negative (Negative); Nitrate,Urine Negative (Negative); Protein,Urine Negative (Negative); Specific Gravity, Urine >= 1.030 (1.005-1.030); Urobilinogen,Urine 0.2 EU/dl (0.2)
[2024-07-16 15:00] VITALS: BP 172/122; PULSE 93; O2SAT 99
[2024-07-16 15:03] LABS: Albumin Level 4.5 g/dl (3.5-5.0); Chloride 111 mmol/L (98-107); Sodium 141 mmol/L (136-145)
[2024-07-16 15:04] LABS: Potassium 4.6 mmoL/L (3.5-5.1)
[2024-07-16 15:06] LABS: Bacteria,Urine Trace /lpf; Squamous Epithelial Cell,Urine Occasional #/hpf (0-5); WBC,Urine Occasional #/hpf (0-3)
[2024-07-16 15:06] LABS: Alanine Aminotransferase 38 U/L (12-78); Albumin/Globulin Ratio 1.3 (1.1-1.8); Anion Gap 12.6 mEq/L (5-15); Aspartate Amino Transferase 26 U/L (17-59); Basophils # 0.1 K/mm3 (0-0.2); Blood Urea Nitrogen 13 mg/dl (9-20); Carbon Dioxide 22 mmol/L (22.0-30.0); Creatinine Clearance Estimated 89 mL/min (50-200); Eosinophils # 0.4 K/mm3 (0.0-0.4); Eosinophils % 3.5 % (0.1-12.0); Estimated Glomerular Filt Rate 65 ml/min (>60); GFR (African American) 78 ML/MIN (>60); Globulin 3.4 g/dL (1.3-3.2); Hematocrit 50.8 % (42.0-52.0); Hemoglobin 16.6 g/dL (14.1-18.0); Lymphocytes # 3.3 K/mm3 (0.7-4.5); Lymphocytes % 33.1 % (10-50); Mean Corpuscular HGB Conc 32.6 g/dL (31.8-35.4); Mean Corpuscular Hemoglobin 33.3 pg (27.0-31.2); Mean Corpuscular Volume 102.1 fl (80-94); Mean Platelet Volume 8.7 fl (7.4-10.4); Monocytes # 0.6 K/mm3 (0.1-1.0); Monocytes % 5.5 % (1.7-9.3); Neutrophils # 5.7 K/mm3 (1.8-7.8); Neutrophils % 56.9 % (37.0-80.0); Platelet Count 231 K/mm3 (142-424); Red Blood Count 4.98 M/mm3 (4.60-6.20); Red Cell Distribution Width 13.4 % (11.5-17.5); Total Protein,Serum 7.9 g/dl (6.3-8.2)
[2024-07-16 15:07] LABS: Alkaline Phosphatase 82 U/L (38-126); Bilirubin,Total 0.6 mg/dl (0.2-1.3); Calcium 9.2 mg/dl (8.4-10.2); Glucose 98 mg/dl (74-100)
[2024-07-16 15:22] VITALS: BP 173/119; PULSE 65; O2SAT 97
[2024-07-16 15:43] VITALS: BP 156/97; PULSE 63; RESP 16; TEMP 37; O2SAT 97
== END 2024-07-16 15:44 | disposition home or self-care (01) ==
PROVIDERS: Emergency Provider Emergency Medicine; PCP Internal Medicine
DX: N23 Unspecified renal colic (principal); M54.59 Other low back pain; Z87.442 Personal history of urinary calculi
CPT/HCPCS: 80053; 81001; 85025; 96361; 96374; 96375; 99284; J1885; J2270; J2405; J7120

== ENCOUNTER 2025-02-13 23:59 | Inpatient (IN) | payer BC, SELFPAY ==
[2025-02-14] VITALS (33 sets, daily range): BP systolic 109–158; BP diastolic 69–106; PULSE 66–110; RESP 14–29; TEMP 36.5–37.1; O2SAT 93–99; BMI 26.5; BMI 28.0
--- NOTE | 2025-02-14 00:04 | ECG_ITS ---
APPROVED REPORT Exam: Resting ECG HR:77 bpm ECG Measurements Heart Rate 77 AXES MA 162 P 78 QRSd 97 QRS 78 QT 366 T 64 QTc 398 Conclusion STEMI ABNORMAL ECG UNCONFIRMED REPORT Electronically signed by : LEIGHANN KNIGHT, 02/14/2025 07:01:36
[2025-02-14] MEDS: NITROGLYCERIN 0.4MG SL TABLET 0.4 MG SL (00:15)
--- NOTE | 2025-02-14 00:15 | ED_ITS ---
Discharge Plan Disposition Patient Disposition: Admitted Clinical Impressions Clinical Impression: Cardiac arrest with ventricular fibrillation ST elevation (STEMI) myocardial infarction Qualifiers: Involved coronary artery: unspecified coronary artery Qualified Code(s): I21.3 - ST elevation (STEMI) myocardial infarction of unspecified site Discharge ED Provider: Dilan Becker General Adult HPI General Chief complaint: Chest Pain Stated complaint: high bp, chest, arm pain Time Seen by Provider: 02/14/25 00:05 History of Present Illness HPI narrative: 49-year-old male with history of kidney stones presents for chest pain. He initially presented just asking for his blood pressure to be checked. He eventually decided to check in and be evaluated. He reports the chest pain started about an hour prior to arrival. Centrally located, both arms and back. He reports he also did a lot of heavy lifting earlier today so he thought it could be from his exercise. Reports his pain is a 7 out of 10. Related Data Previous Rx's ?Medication ?Instructions ?Recorded ondansetron 4 mg disintegrating 4 mg PO Q8H PRN nausea and 07/16/24 tablet vomiting 5 days #14 tabs tamsulosin 0.4 mg capsule 0.4 mg PO HS #14 caps 07/16/24 oxycodone 5 mg tablet 5 mg PO Q6H PRN pain #14 tabs 07/18/24 Allergies Allergy/AdvReac Type Severity Reaction Status Date / Time No Known Allergies Allergy Verified 07/18/24 12:08 [facility] Disclaimer: The information contained in this section may have been updated after the patient was seen, as this information can be updated by other users. Medical History Kidney stones Surgical History S/P hip replacement right Family History Mother Hypertension Kidney stone Father Hypertension Other No significant family history Social History Smoking Status: Current every day smoker tobacco type: cigarettes packs per day: 0 years smoked: 30 alcohol intake: current alcohol intake frequency: a few times a month substance use type: denies use current occupational status: employed and other Travel in the last 8 weeks: None household members: other housing: other caffeine: No Other Medical History Have you received the Flu Vaccine for this season: No Have you received the Pneumonia Vaccine: No ROS Obtained: Yes All systems reviewed & no additional complaints except as documented Physical Exam General General appearance: alert and in distress Head Head exam: atraumatic and normocephalic Eye Eye exam: Present normal appearance, PERRL and EOMI ENT ENT exam: Present normal oropharynx and normal external ear exam Neck Neck exam: Present normal inspection and full ROM Chest Chest inspection: Present normal inspection and symmetric chest wall rise; Absent tenderness Respiratory Respiratory exam: Present normal lung sounds bilaterally; Absent respiratory distress Cardiovascular Cardiovascular exam: Present regular rate and normal rhythm Abdominal Exam Abdominal exam: Present soft; Absent distention, tenderness or guarding Extremities Exam Extremities exam: Present normal inspection; Absent edema or joint swelling Back Exam Back exam: Present normal inspection; Absent tenderness Neurological Exam Neurological exam: Present alert and oriented X3; Absent motor sensory deficit Psychiatric Psychiatric exam: Present normal affect and normal mood Skin Skin exam: Present warm, dry and normal color Lymphatic Lymphatic Findings: no adenopathy Medical Decision Making Medical Records Medical records reviewed: Yes I reviewed the patient's medical records. Screening: Per USPSTF and CDC recommendations, given the prevalence of disease in our region, it is our hospital?s policy to screen for HIV and viral Hepatitis for all patients aged 18 and over and those with ongoing risk factors. Galileo Inquiry Pt receiving controlled substance: No Galileo was queried for this patient: No Vital Signs: 02/14/25 00:13 02/14/25 00:14 02/14/25 00:15 Temperature Temperature Source Pulse Rate 82 104 H 95 H Pulse Rate [Radial] Respiratory Rate 29 H 20 22 Blood Pressure 139/94 H Blood Pressure [Right Arm] Blood Pressure Mean [Right Arm] Blood Pressure Position [Right Arm] 02 Sat by Pulse Oximetry 98 97 97 Oxygen Delivery Method Oxygen Flow Rate (LPM) 02/14/25 00:20 02/14/25 00:25 02/14/25 00:33 Temperature 98.1 F Temperature Source Oral Pulse Rate 66 Pulse Rate [Radial] 83 Respiratory Rate 19 20 25 H Blood Pressure 137/79 Blood Pressure [Right Arm] 143/106 H Blood Pressure Mean [Right Arm] 118 Blood Pressure Position [Right Arm] Sitting 02 Sat by Pulse Oximetry 99 99 Oxygen Delivery Method Room Air Oxygen Flow Rate (LPM) 02/14/25 01:02 Temperature Temperature Source Pulse Rate Pulse Rate [Radial] Respiratory Rate Blood Pressure Blood Pressure [Right Arm] Blood Pressure Mean [Right Arm] Blood Pressure Position [Right Arm] 02 Sat by Pulse Oximetry Oxygen Delivery Method Oxygen Flow Rate (LPM) 3 Lab Data Lab results reviewed: Yes I reviewed the patient's lab results. Lab Results 02/14/25 00:10: WBC 16.0 H, RBC 4.92, Hgb 16.1, Hct 45.2, MCV 91.9, MCH 32.7 H, MCHC 35.6 H, RDW 12.1, Plt Count 202, MPV 11.6 H, Neut % (Auto) 43.8, Lymph % (Auto) 45.9, Haskell % (Auto) 6.1, Eos % (Auto) 3.0, Baso % (Auto) 0.9, Neut # (Auto) 7.0, Lymph # (Auto) 7.3 H, Haskell # (Auto) 1.0, Eos # (Auto) 0.5 H, Baso # (Auto) 0.1, Total Counted 100, Neutrophils % (Manual) 46, Lymphocytes % (Manual) 49, Monocytes % (Manual) 2, Eosinophils % (Manual) 2, Basophils % (Manual) 1.0, Platelet Estimate Normal, Stomatocytes 1+, D-Dimer 0.34, Sodium 137, Potassium 3.8, Chloride 109 H, Carbon Dioxide 22, Anion Gap 9.8, BUN 10, Creatinine 1.00, Estimated Creat Clear 106, Estimated GFR 79, Est GFR ( Amer) 96, Glucose 106 H, Calcium 9.6, Total Bilirubin 0.3, AST 41, ALT 37, Alkaline Phosphatase 82, Troponin I < 0.01, Total Protein 7.4, Albumin 4.6, Globulin 2.8, Albumin/Globulin Ratio 1.6 02/14/25 01:12: WBC 12.6 H, RBC 4.71, Hgb 15.3, Hct 45.0, MCV 95.5 H, MCH 32.5 H , MCHC 34.0, RDW 12.1, Plt Count 172, MPV 11.7 H, Neut % (Auto) 45.8, Lymph % (Auto) 45.6, Haskell % (Auto) 3.8, Eos % (Auto) 3.5, Baso % (Auto) 0.8, Neut # (Auto) 5.8, Lymph # (Auto) 5.8 H, Haskell # (Auto) 0.5, Eos # (Auto) 0.4, Baso # (Auto) 0.1, Sodium 138, Potassium 3.1 L, Chloride 108 H, Carbon Dioxide 20 L, Anion Gap 13.1, BUN 10, Creatinine 1.10, Estimated Creat Clear 96, Estimated GFR 71, Est GFR ( Amer) 86, Glucose 162 H D, Calcium 8.9 02/14/25 01:12 02/14/25 01:12 Orders (Tests/Meds): ED MEDICATIONS Generic Name Dose Route Start Last Admin Trade Name Freq PRN Reason Stop Dose Admin Hydrocodone Bitart/Acetaminophen 1 tab 02/14/25 02:15 02/14/25 02:20 Hydrocodone 10mg/Apap 325mg Tab PO 02/14/25 02:16 1 tab ONCE ONE Administration Aspirin 81 mg 02/14/25 09:00 Aspirin Ec 81mg Tablet PO 03/16/25 08:59 DAILY BONNIE Atorvastatin Calcium 40 mg 02/14/25 21:00 Atorvastatin 40mg Tablet PO 03/16/25 20:59 HS BONNIE Fentanyl Citrate 50 mcg 02/14/25 01:02 02/14/25 02:01 Fentanyl 100mcg/2ml Vial IV 02/14/25 13:02 100 mcg Q3MINP PRN Administration Sedation Fentanyl Citrate 25 mcg 02/14/25 01:02 Fentanyl 100mcg/2ml Vial IV 02/14/25 13:02 Q3MINP PRN Sedation Flumazenil 0.2 mg 02/14/25 01:02 Flumazenil 0.1mg/Ml 5ml Vial IV 02/14/25 13:02 NEEDED PRN Sedation Heparin Sodium (Porcine) 10,000 unit 02/14/25 01:02 Heparin 1,000 Units/Ml 10ml Vial (Factory [facility]) IV 02/14/25 05:02 NEEDED PRN Emergency Box Breast Buffer Hydralazine HCl 20 mg 02/14/25 01:02 Hydralazine 20mg/Ml Vial IV 02/14/25 05:02 ONCE PRN sbp>160 Nitroglycerin/Dextrose 250 mls @ 1.5 mls/hr 02/14/25 00:30 02/14/25 00:37 Nitroglycerin 50mg/250ml D5w IV 03/16/25 00:29 15 mcg/min .Q24H BONNIE 4.5 mls/hr Titration Protocol 5 MCG/MIN Adenosine 180 mg/ Sodium 90 mls @ 453.141 mls/hr 02/14/25 01:02 Chloride IV 02/14/25 05:02 ONCE PRN fractional flow reserve 180 MCG/KG/MIN Adenosine 90 mg/ Sodium 90 mls @ 906.282 mls/hr 02/14/25 01:02 Chloride IV 02/14/25 05:02 ONCE PRN fractional flow reserve 180 MCG/KG/MIN Sodium Chloride 1,000 mls @ 25 mls/hr 02/14/25 01:15 02/14/25 02:02 Sod Chloride 0.9% 500ml Bag IV 02/15/25 01:02 25 mls/hr .Q25H BONNIE Administration Iopamidol 130 ml 02/14/25 02:09 02/14/25 02:10 Iopamidol-370 (76%);100ml Bottle IV 02/14/25 02:10 130 ml ONCE ONE Administration Labetalol HCl 20 mg 02/14/25 01:02 Labetalol 20mg/4ml Syringe IV 02/14/25 05:02 ONCE PRN sbp>160 Midazolam HCl 1 mg 02/14/25 01:02 Midazolam 2mg/2ml Vial IV 02/14/25 13:02 Q3MINP PRN Sedation Midazolam HCl 1 mg 02/14/25 01:02 02/14/25 02:01 Midazolam Hcl 1mg/Ml 5ml Vial IV 02/14/25 13:02 5 mg Q3MINP PRN Administration Sedation Miscellaneous 1 each 02/14/25 01:02 Consider Pt For Dual Antiplatelet Therapy At Discharge-Stent NOTAPPLIC 03/16/25 01:01 NEEDED PRN Reminder for s/p stent Miscellaneous 1 each 02/14/25 02:05 Consider Pt For Dual Antiplatelet Therapy At Discharge-Stent NOTAPPLIC 03/16/25 02:04 NEEDED PRN Reminder for s/p stent Morphine Sulfate 2 mg 02/14/25 02:04 Morphine 2mg/Ml Syringe IV 03/16/25 02:03 Q2HP PRN Severe Pain (7-10) Naloxone HCl 0.4 mg 02/14/25 01:02 Naloxone 0.4mg/Ml Vial IV 02/14/25 13:02 Q5MINP PRN Decreased Respirations Nitroglycerin 0.4 mg 02/14/25 00:14 02/14/25 00:15 Nitroglycerin 0.4mg Sl Tablet SL 02/15/25 00:14 0.4 mg Q5MINP PRN Administration Chest Pain Nitroglycerin 800 mcg 02/14/25 01:02 02/14/25 02:02 Nitroglycerin 800mcg/8ml Syr (Factory Expert) IA 02/14/25 05:02 800 mcg NEEDED PRN Administration Emergency Box Breast Buffer Nitroglycerin 0.4 mg 02/14/25 01:02 Nitroglycerin 0.4mg Sl Tablet SL 03/16/25 01:01 Q5MINP PRN Chest Pain Nitroglycerin 0.4 mg 02/14/25 02:05 Nitroglycerin 0.4mg Sl Tablet SL 03/16/25 02:04 Q5MINP PRN Chest Pain Ondansetron HCl 4 mg 02/14/25 02:04 Ondansetron 4mg/2ml Vial IV 03/16/25 02:03 Q6HP PRN Nausea Pantoprazole Sodium 40 mg 02/14/25 21:00 Pantoprazole 40mg Tablet PO 03/16/25 20:59 HS BNONIE Protamine Sulfate 50 mg 02/14/25 01:02 Protamine Sulfate 50mg/5ml Vial (Factory [facility]) IV 02/14/25 05:02 ONCE PRN act>200 Ticagrelor 90 mg 02/14/25 09:00 Ticagrelor 90mg Tablet PO 03/16/25 08:59 BID BONNIE Discontinued Medications Generic Name Dose Route Start Last Admin Trade Name Freq PRN Reason Stop Dose Admin Aspirin 324 mg 02/14/25 00:14 02/14/25 00:18 Aspirin 81mg Chewable Tablet PO 02/14/25 00:15 324 mg ONCE ONE Administration Diphenhydramine HCl 50 mg 02/14/25 01:02 02/14/25 02:03 Diphenhydramine 50mg/Ml Vial IV 02/14/25 01:03 50 mg ONCE ONE Administration Enoxaparin Sodium 85 mg 02/14/25 00:30 02/14/25 01:23 Enoxaparin 100mg/Ml Syringe 1 mg/kg (85 mg) 03/16/25 00:29 Not Given SUBCUT Q12H BONNIE Epinephrine HCl 1 mg 02/14/25 00:37 02/14/25 00:37 Epinephrine 0.1 Mg/Ml 10ml Syringe (Crash Cart) IV 02/14/25 00:38 1 mg ONCE ONE Administration Heparin Sodium (Porcine) 8,400 unit 02/14/25 00:58 02/14/25 01:02 Heparin Sodium 5,000 Unit/Ml Vial 100 unit/kg (8400 unit) 02/14/25 00:59 8,400 unit IV Administration ONCE ONE Heparin Sodium/Sodium Chloride 3,000 unit 02/14/25 01:02 02/14/25 02:03 Heparin 1,000 Units/500ml Ns (Factory Expert) IV 02/14/25 01:03 3,000 unit ONCE ONE Administration Amiodarone HCl 300 mg/ Sodium 31 mls @ 200 mls/hr 02/14/25 00:40 02/14/25 00:40 Chloride IV 02/14/25 00:49 200 mls/hr ONCE ONE Administration Lidocaine HCl 20 ml 02/14/25 01:02 02/14/25 02:01 Lidocaine 1% 10ml Mdv IJ 02/14/25 01:03 10 ml ONCE ONE Administration Lidocaine HCl 20 ml 02/14/25 01:02 Lidocaine 1% 5ml Pf Vial IJ 02/14/25 01:03 ONCE ONE Ticagrelor 180 mg 02/14/25 00:58 02/14/25 01:01 Ticagrelor 90mg Tablet PO 02/14/25 00:59 180 mg ONCE ONE Administration Verapamil HCl 2.5 mg 02/14/25 01:02 02/14/25 02:02 Verapamil 2.5mg/Ml 2ml Vial IV 02/14/25 01:03 2.5 mg ONCE ONE Administration ORDERS Category Date Time Status CXR --portable [XR chest portable] Stat Exams 02/14/25 00:50 Completed Basic Metabolic Panel AMLAB Lab 02/14/25 06:00 Ordered Basic Metabolic Panel Stat Lab 02/14/25 01:12 Completed Complete Blood Count Auto Diff AMLAB Lab 02/14/25 06:00 Ordered Complete Blood Count Auto Diff Stat Lab 02/14/25 00:10 Completed Complete Blood Count Auto Diff Stat Lab 02/14/25 01:12 Completed Comprehensive Metabolic Panel Stat Lab 02/14/25 00:10 Completed D-Dimer Routine Lab 02/14/25 00:10 Completed Troponin I Q3H Lab 02/14/25 03:15 Ordered Troponin I Q3H Lab 02/14/25 06:15 Ordered Troponin I Stat Lab 02/14/25 00:10 Completed ECG Request NEEDED Y 02/14/25 01:15 Ordered ECG Data Tracing #1: I reviewed this ECG and interpreted as documented below: sinus rhythm. ST elevations in lead V5 and V6 ECG initial impression date: 02/14/25 ECG initial impression time: 00:10 Tracing #2: I reviewed this ECG and interpreted as documented below: sinus rhythm. Previously noted ST elevations in V5 and V6 are significantly improved. These are dynamic changes in the setting of improvement in chest pain ECG initial impression date: 02/14/25 ECG initial impression time: 00:16 Tracing #3: I reviewed this ECG and interpreted as documented below: Sinus rhythm, inverted P waves, ST depressions in lead V3, V4 and V5 ECG initial impression date: 02/14/25 ECG initial impression time: 00:46 HEART Score History (anamnesis): Highly suspicious ECG: Significant ST-deviation Age: 45-65 years Risk factors: 1-2 risk factors Troponin: </= normal limit HEART Score: 6 Medical Decision Narrative: 49-year-old male with no reported cardiac history presents for chest pain starting 1 hour prior to arrival, radiated to the back, bilateral arms. History was obtained via interactive discussion with patient. On arrival, patient is afebrile, mildly hypertensive, moving all extremities spontaneously. Full physical exam performed and significant for uncomfortable appearing gentleman. Differential includes but is not limited to ACS, PE, musculoskeletal chest pain, acute aortic syndrome Initial EKG shows borderline ST elevation in V5 and elevation in V6. ST segment morphology is concave. He was given aspirin and nitro and his chest pain went from a 7/10 to 2/10. Repeat EKG taken a few minutes after the first EKG showed dynamic changes with improvement/resolution of ST elevation. I called and immediately spoke with our cash applications associate Dr. Maza who reviewed the EKGs. He recommends patient placed on a nitro drip, administering Lovenox and attempting to get the patient chest pain-free given improvement on EKG. Nitro drip was started and Lovenox was being prepared when patient's rhythm degenerated into ventricular fibrillation and loss of pulse. Chest compressions were initiated. Patient was defibrillated, given amio and epi. ROSC was obtained after 6 minutes with patient being alert and oriented. Repeat EKG shows ST depressions in lead V3 4 and 5, previously seen elevations are no longer present. I called and spoke with Dr. Maza who is going to take the patient to the [facility]. Patient was given Brilinta and heparin. The patient never received Lovenox. Chest x-ray was obtained and independently interpreted by me which shows no pneumothorax or opacity. Laboratories all returned after patient was already in the [facility]. On my independent interpretation, patient has mild leukocytosis, initial troponin is undetectably low, patient has mild hypokalemia. Given patient history, exam and workup, patient's presentation most likely represents STEMI with subsequent V-fib cardiac arrest. Patient was admitted to the [facility]. Procedures Risk/Benefits of Procedure(s) Were Explained: Yes Critical Care Critical Care Time Critical Care Time: Yes (Cardiac) Attestation: On 02/13/25, the high probability of a clinically significant, sudden or life threatening deterioration of the following system(s) required my full and direct attention, intervention and personal management. The time I documented below is in addition to time spent performing reported procedures but includes the following listed in this critical care notation. Total Time Total Critical Care Time: 65
--- NOTE | 2025-02-14 00:16 | ECG_ITS ---
APPROVED REPORT Exam: Resting ECG HR:79 bpm ECG Measurements Heart Rate 79 AXES TX 164 P 75 QRSd 95 QRS 78 QT 366 T 71 QTc 400 Conclusion SINUS RHYTHM WITH SINUS ARRHYTHMIA MODERATE ST DEPRESSION [0.05+ mV ST DEPRESSION] ABNORMAL ECG UNCONFIRMED REPORT ST elevation V6 Electronically signed by : LEIGHANN KNIGHT, 02/14/2025 06:59:34
[2025-02-14] MEDS: ASPIRIN 81MG CHEWABLE TABLET 324 MG PO (00:18)
[2025-02-14 00:22] LABS: Basophils # 0.1 K/mm3 (0-0.2); Basophils % 0.9 % (0.1-2.0); Eosinophils # 0.5 K/mm3 (0.0-0.4); Hematocrit 45.2 % (42.0-52.0); Hemoglobin 16.1 g/dL (14.1-18.0); Lymphocytes # 7.3 K/mm3 (0.7-4.5); Lymphocytes % 45.9 % (10-50); Mean Corpuscular HGB Conc 35.6 g/dL (31.8-35.4); Mean Corpuscular Hemoglobin 32.7 pg (27.0-31.2); Mean Corpuscular Volume 91.9 fl (80-94); Mean Platelet Volume 11.6 fl (7.4-10.4); Monocytes % 6.1 % (1.7-9.3); Neutrophils % 43.8 % (37.0-80.0); Platelet Count 202 K/mm3 (142-424); Red Blood Count 4.92 M/mm3 (4.60-6.20); Red Cell Distribution Width 12.1 % (11.5-17.5)
[2025-02-14] MEDS: NITROGLYCERIN IN 5 % DEXTROSE 250 ML 1.5 MG IV (00:26)
[2025-02-14 00:34] LABS: MANUAL DIFFERENTIAL MANUAL DIFFERENTIAL (MANUAL DIFF)
[2025-02-14] MEDS: EPINEPHrine 0.1 MG/ML 10ML SYRINGE (CRASH CART) 1 MG IV (00:37)
[2025-02-14 00:38] LABS: Albumin Level 4.6 g/dl (3.5-5.0); Chloride 109 mmol/L (98-107); Sodium 137 mmol/L (136-145)
[2025-02-14 00:39] LABS: Potassium 3.8 mmoL/L (3.5-5.1)
[2025-02-14] MEDS: AMIODARONE HCL IV (00:40)
[2025-02-14] MEDS: SODIUM CHLORIDE 0.9% IV (00:40)
[2025-02-14 00:41] LABS: Alanine Aminotransferase 37 U/L (12-78); Anion Gap 9.8 mEq/L (5-15); Aspartate Amino Transferase 41 U/L (17-59); Blood Urea Nitrogen 10 mg/dl (9-20); Carbon Dioxide 22 mmol/L (22.0-30.0); Creatinine Clearance Estimated 106 mL/min (50-200); Estimated Glomerular Filt Rate 79 ml/min (>60); GFR (African American) 96 ML/MIN (>60)
[2025-02-14 00:42] LABS: Albumin/Globulin Ratio 1.6 (1.1-1.8); Alkaline Phosphatase 82 U/L (38-126); Bilirubin,Total 0.3 mg/dl (0.2-1.3); Calcium 9.6 mg/dl (8.4-10.2); Globulin 2.8 g/dL (1.3-3.2); Glucose 106 mg/dl (74-100); Total Protein,Serum 7.4 g/dl (6.3-8.2)
--- NOTE | 2025-02-14 00:46 | ECG_ITS ---
APPROVED REPORT Exam: Resting ECG HR:89 bpm ECG Measurements Heart Rate 89 AXES IN 132 P -84 QRSd 81 QRS 66 QT 307 T 58 QTc 353 Conclusion JUNCTIONAL RHYTHM MODERATE ST DEPRESSION [0.05+ mV ST DEPRESSION] ABNORMAL ECG UNCONFIRMED REPORT Electronically signed by : LEIGHANN KNIGHT, 02/14/2025 06:58:26
--- NOTE | 2025-02-14 00:50 | XR_ITS ---
PROCEDURE INFORMATION: Exam: XR Chest Exam date and time: 02/14/2025 12:52 AM Age: 49 years old Clinical indication: Pain; Chest pressure; Additional info: Cp TECHNIQUE: Imaging protocol: Radiologic exam of the chest. Views: 1 view. COMPARISON: CR XR CHEST 2V 02/09/2020 12:16 PM FINDINGS: Lungs: Unremarkable. No consolidation. Pleural spaces: Unremarkable. No pleural effusion. No pneumothorax. Heart/Mediastinum: Unremarkable. No cardiomegaly. Bones/joints: Unremarkable. Other findings: Personal of right chest suboptimally evaluated secondary to overlying patchy. IMPRESSION: No acute findings.
[2025-02-14 00:54] LABS: Troponin I < 0.01 ng/ml (0.00-0.034)
[2025-02-14] MEDS: TICAGRELOR 90MG TABLET 180 MG PO (01:01)
--- NOTE | 2025-02-14 01:01 | IR_ITS ---
APPROVED REPORT Patient Location: Inpatient PROCEDURES Selective coronary angiogram Drug-eluting stent deployment in the proximal dominant right coronary artery Drug-eluting stent deployment to the first obtuse marginal artery off the circumflex artery INDICATION Acute inferolateral ST elevation myocardial infarction, Status postcardiac arrest, Coronary artery disease Informed consent was obtained prior to the procedure. COMPLICATIONS none Estimated Blood Loss: less than 10ml TECHNIQUE One percent lidocaine used to anesthetize the right anterior aspect of the wrist. The right radial artery was accessed via the Seldinger technique. A 6 [place] sheath was placed in the right radial artery. 2.5 mg of Verapamil, 800 mcg of nitroglycerin, 1mg Lidocaine were given through the arterial sheath. The 6 [place] JL 3 guide catheter was also used to perform selective coronary angiogram. Therapeutic heparin was administered in the emergency department and an additional 3000 units of heparin was administered in the Winter[place]. The guide catheter was used to intubate the right coronary artery followed by Choice PT extra-support wire. A 4 mm x 38 mm Frank frontier stent was deployed at 24 aristides reducing the severe stenosis to 0%. SONA-3 flow was present before and after the procedure. Following this the guide catheters placed in left main artery where a Choice PT extra-support wire was used to traverse the occlusion of the first obtuse marginal artery. A 2.5 x 22 mm [place] frontier stent was deployed at 24 aristides to reduce the 100% occlusion to 0%. SONA 0 flow was present down the obtuse marginal artery before the procedure with SONA-3 flow at the end of the procedure. At the end the procedure the apparatus was removed the sheath was removed hemostasis was achieved using TR banding patient was transferred to the postop putting in stable condition ANGIOGRAPHIC RESULTS The left main artery Normal The left anterior descending artery Has proximal and mid vessel 10 to 20% luminal irregularities The circumflex artery Is large and codominant and has proximal 30% stenosis with an occluded medium sized first obtuse marginal artery. There is an additional 40% stenosis distal to the first obtuse marginal artery and an additional 50% stenosis. The terminal obtuse marginal artery has additional proximal 40 and 50% stenosis The right coronary artery Is codominant and has a proximal concentric 80% stenosis with an additional mid vessel 30 to 40% stenosis distal 30 to 40% stenosis. The posterior descending artery has a mid vessel 60 to 70% stenosis The CASEY ventriculogram reveals Not performed The left ventricular end-diastolic pressure Not measured IMPRESSION Coronary artery disease as described above Successful stenting of a severely diseased right coronary artery severe disease reduced to 0% with 1 drug-eluting stent with persistent moderate to severe disease in a medium size posterior descending artery Successful stenting of an occluded first obtuse marginal artery 100% occlusion reduced to 0% with 1 drug-eluting stent Persistent moderate disease in the mid circumflex artery and terminal obtuse marginal artery as described above PLAN 1. Dual antiplatelet therapy 2. Cardiac rehabilitation 3. Avoidance of tobacco products 4. Supportive care 5. Telemetry for at least 48 hours 6. Echocardiogram in the morning 7. LDL less than 55 achieved with high intensity statin Electronically signed by : Anslemo Maza MD 02/14/2025 12:04:04
[2025-02-14] MEDS: HEPARIN SODIUM 5,000 UNIT/ML VIAL 8400 UNIT IV (01:02)
--- NOTE | 2025-02-14 01:12 | PC.NURSE ---
Dr. Becker was bedside doing a cardiac ultrasound. Pt went into VFib while Dr. Becker was bedside. CPR initiated immediately. Code Cart grabbed from Room 3 and pads placed. 0035 V-Fib Code initiated by Dr. Eugenio Murillo started compressions 0037- Pulse Check 0037- Epi administered 0037- Shock delivered Dr. Becker on compressions 003- Code Blue paged overhead Sandy on compressions 004 Amiodarone (300 mg) administered 004- Pulse return (ROSC) 004- moved to Room 3 0043- Adult Literacy Teacher activated 0046- EKG performed 0118- Pt to Adult Literacy Teacher w/ Zen (Harvest [employer]or) & Lidia RN (ER)
[2025-02-14 01:25] LABS: Basophils # 0.1 K/mm3 (0-0.2); Basophils % 0.8 % (0.1-2.0); Chloride 108 mmol/L (98-107); Eosinophils # 0.4 K/mm3 (0.0-0.4); Eosinophils % 3.5 % (0.1-12.0); Hemoglobin 15.3 g/dL (14.1-18.0); Lymphocytes # 5.8 K/mm3 (0.7-4.5); Lymphocytes % 45.6 % (10-50); Mean Corpuscular Hemoglobin 32.5 pg (27.0-31.2); Mean Corpuscular Volume 95.5 fl (80-94); Mean Platelet Volume 11.7 fl (7.4-10.4); Monocytes # 0.5 K/mm3 (0.1-1.0); Monocytes % 3.8 % (1.7-9.3); Neutrophils # 5.8 K/mm3 (1.8-7.8); Neutrophils % 45.8 % (37.0-80.0); Platelet Count 172 K/mm3 (142-424); Red Blood Count 4.71 M/mm3 (4.60-6.20); Red Cell Distribution Width 12.1 % (11.5-17.5); White Blood Count 12.6 K/mm3 (4.8-10.8)
[2025-02-14 01:26] LABS: Potassium 3.1 mmoL/L (3.5-5.1); Sodium 138 mmol/L (136-145)
[2025-02-14 01:27] LABS: Eosinophils % 2 % (0-3); Lymphocytes % 49 % (10-50); Monocytes % 2 % (2-9); Neutrophils % 46 % (42-76); Platelet Estimate Normal; Total Cells Counted 100
[2025-02-14 01:28] LABS: Stomatocytes 1+
[2025-02-14 01:29] LABS: Anion Gap 13.1 mEq/L (5-15); Blood Urea Nitrogen 10 mg/dl (9-20); Calcium 8.9 mg/dl (8.4-10.2); Carbon Dioxide 20 mmol/L (22.0-30.0); Creatinine Clearance Estimated 96 mL/min (50-200); Estimated Glomerular Filt Rate 71 ml/min (>60); GFR (African American) 86 ML/MIN (>60); Glucose 162 mg/dl (74-100)
[2025-02-14 01:37] LABS: D-Dimer 0.34 ug/mL (0.0-0.5)
[2025-02-14] MEDS: FENTANYL 100MCG/2ML VIAL 50 MCG IV (02:01)
[2025-02-14] MEDS: MIDAZOLAM HCL 1MG/ML 5ML VIAL 1 MG IV (02:01)
[2025-02-14] MEDS: LIDOCAINE 1% 10ML MDV 20 ML IJ (02:01)
[2025-02-14] MEDS: NITROGLYCERIN 800MCG/8ML SYR (CATH LAB) 800 MCG IA (02:02)
[2025-02-14] MEDS: VERAPAMIL 2.5MG/ML 2ML VIAL 2.5 MG IV (02:02)
[2025-02-14] MEDS: 0.9 % SODIUM CHLORIDE 500 ML 25 ML IV (02:02)
[2025-02-14] MEDS: HEPARIN 1,000 UNITS/500ML NS (CATH LAB) 3000 UNIT IV (02:03)
[2025-02-14] MEDS: diphenhydrAMINE 50MG/ML VIAL 50 MG IV (02:03)
[2025-02-14] MEDS: IOPAMIDOL-370 (76%);100ML BOTTLE 130 ML IV (02:10)
[2025-02-14] MEDS: HYDROCODONE 10MG/APAP 325MG TAB 1 TAB PO (02:20)
--- NOTE | 2025-02-14 02:30 | PC.NURSE ---
pt to ICU rm [phone] from medical lab director @ [phone]
[2025-02-14] MEDS: POTASSIUM CHLORIDE 20MEQ TAB 40 MEQ PO ×3 (04:14→10:33)
[2025-02-14 04:32] LABS: Troponin I 1.53 ng/ml (0.00-0.034)
--- NOTE | 2025-02-14 04:55 | PC.NURSE ---
Azam WHITE notified of critical troponin 1.53
--- NOTE | 2025-02-14 05:04 | PC.NURSE ---
offered patient pain medications r/t moaning when repositioning but states he doesn't want anything for pain at this time. patient denies chest pain similar to what brought him in the ED, but does acknowledge he has tenderness in his chest and shoulders from CPR. radial site has no drainage and 2+ pulses at all 4 limbs. RA. normotensive BP.
--- NOTE | 2025-02-14 05:06 | P.HP_ITS ---
<Statement entered by Cordell Finch MD - 02/14/25 18:14> Rounded on patient after nurse practitioner. Personally examined and interviewed patient. Agree with exam findings and care plan as documented. Discussed case with cardiology, continues to require inpatient management and observation for at least 48 hours. Will continue on telemetry. Can downgrade status this morning however. Repeat labs this morning showed white count of 14.8, likely reactive. Hemoglobin normal at 15.1. Kidney function normal with BUN 11, creatinine 1. No further arrhythmias overnight. Patient received 2 stents in his heart cath. Troponin was 4.88. Repeat CBC, CMP, magnesium ordered for the morning. Stable on room air. Continue dual antiplatelet therapy. Tolerating p.o. intake. Alert and oriented x 4. History of Present Illness *Admission Date: 02/14/25 *Reason for visit:: Myocardial infarction with cardiac arrest V-fib *History of present illness: This 49-year-old male long-term smoker. Began to have some chest pain today came to the emergency room feeling bad.. Per the emergency room doctors note 49-year-old male with history of kidney stones presents for chest pain. He initially presented just asking for his blood pressure to be checked. He eventually decided to check in and be evaluated. He reports the chest pain started about an hour prior to arrival. Centrally located, both arms and back. He reports he also did a lot of heavy lifting earlier today so he thought it could be from his exercise. Reports his pain is a 7 out of 10. ER note: While the patient was being worked up in the emergency room he went into V-fib. Was shocked once his CPR started patient's pulse returned. 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 Report I received he received 2 stents had an oblique that was totally blocked and a stenosis in the right main. Patient was stabilized and brought back to the ICU ER Note: .Patient was given Brilinta and heparin. The patient never received Lovenox. Chest x-ray was obtained and independently interpreted by me which shows no pneumothorax or opacity. Laboratories all returned after patient was already in the [facility]. On my independent interpretation, patient has mild leukocytosis, initial troponin is undetectably low, patient has mild hypokalemia. Presently patient is stable, we will continue to monitor overnight anticoagulation has been given in the [facility]. Awaiting electron beam photo mask maker return will then continue per his orders. Hopefully patient will be stable be able to transfer to floor. And when feeling secure to be able to instrument him going home starting cardiac rehabilitation. Extensive teaching done with both him and his of the need to both become non-smokers [facility] Disclaimer: The information contained in this section may have been updated after the patient was seen, as this information can be updated by other users. Medical History Kidney stones Surgical History S/P hip replacement Family History Mother Hypertension Kidney stone Father Hypertension Other No significant family history Social History Smoking Status: Current every day smoker tobacco type: cigarettes packs per day: 0 years smoked: 30 alcohol intake: current alcohol intake frequency: a few times a month substance use type: denies use current occupational status: employed and other Travel in the last 8 weeks: None household members: other housing: other caffeine: No Other Medical History Have you received the Flu Vaccine for this season: No Have you received the Pneumonia Vaccine: No Review of Systems Review of Systems Review of systems:: pertinent systems reviewed and negative unless documented below Constitutional Constitutional: Reports as per HPI and Reports body ache(s) Eyes Eyes: Reports as per HPI ENT Ears, Nose, Mouth, and Throat: Reports as per HPI *Cardiovascular Cardiovascular: Reports as per HPI, Reports chest pain and Reports dyspnea on exertion *Respiratory Respiratory: Reports as per HPI and Reports dyspnea on exertion *Gastrointestinal Gastrointestinal: Reports as per HPI Comments: Denies nausea or vomiting *Genitourinary Genitourinary: Reports as per HPI *Musculoskeletal Musculoskeletal: Reports as per HPI Integumentary/Breasts Skin/Breast: Reports as per HPI *Neurologic Neurologic: Reports as per HPI Psychiatric Psychiatric: Reports as per HPI Endocrine Endocrine: Reports as per HPI Hematologic/Lymphatic Hematologic/Lymphatic: Reports as per HPI Allergic/Immunologic Allergic/Immunologic: Reports as per HPI Meds Home Medications and Allergies Home Medications ?Medication ?Instructions ?Recorded ?Confirmed ?Type ondansetron 4 mg disintegrating 4 mg PO Q8H PRN nausea and 07/16/24 07/18/24 Rx tablet vomiting 5 days #14 tabs tamsulosin 0.4 mg capsule 0.4 mg PO HS #14 caps 07/16/24 07/18/24 Rx oxycodone 5 mg tablet 5 mg PO Q6H PRN pain #14 tabs 07/18/24 07/18/24 Rx New Prescriptions to Start Prescriptions: Allergies Allergy/AdvReac Type Severity Reaction Status Date / Time No Known Allergies Allergy Verified 07/18/24 12:08 Exam Data for Last 24 hours Vital signs and Labs for Last 24 Hours: Temp Pulse Resp BP Pulse Ox O2 Del Method O2 Flow Rate 98.2 F 98 H 16 128/79 95 Room Air 3 02/14/25 04:15 02/14/25 04:15 02/14/25 04:15 02/14/25 04:15 02/14/25 04:15 02/14/25 04:15 02/14/25 01:36 Laboratory Results - last 24 hr 02/14/25 00:10: WBC 16.0 H, RBC 4.92, Hgb 16.1, Hct 45.2, MCV 91.9, MCH 32.7 H, MCHC 35.6 H, RDW 12.1, Plt Count 202, MPV 11.6 H, Neut % (Auto) 43.8, Lymph % (Auto) 45.9, [place] % (Auto) 6.1, Eos % (Auto) 3.0, Baso % (Auto) 0.9, Neut # (Auto) 7.0, Lymph # (Auto) 7.3 H, [place] # (Auto) 1.0, Eos # (Auto) 0.5 H, Baso # (Auto) 0.1, Total Counted 100, Neutrophils % (Manual) 46, Lymphocytes % (Manual) 49, Monocytes % (Manual) 2, Eosinophils % (Manual) 2, Basophils % (Manual) 1.0, Platelet Estimate Normal, Stomatocytes 1+, D-Dimer 0.34, Sodium 137, Potassium 3.8, Chloride 109 H, Carbon Dioxide 22, Anion Gap 9.8, BUN 10, Creatinine 1.00, Estimated Creat Clear 106, Estimated GFR 79, Est GFR ( Amer) 96, Glucose 106 H, Calcium 9.6, Total Bilirubin 0.3, AST 41, ALT 37, Alkaline Phosphatase 82, Troponin I < 0.01, Total Protein 7.4, Albumin 4.6, Globulin 2.8, Albumin/Globulin Ratio 1.6 02/14/25 01:12: WBC 12.6 H, RBC 4.71, Hgb 15.3, Hct 45.0, MCV 95.5 H, MCH 32.5 H , MCHC 34.0, RDW 12.1, Plt Count 172, MPV 11.7 H, Neut % (Auto) 45.8, Lymph % (Auto) 45.6, [place] % (Auto) 3.8, Eos % (Auto) 3.5, Baso % (Auto) 0.8, Neut # (Auto) 5.8, Lymph # (Auto) 5.8 H, [place] # (Auto) 0.5, Eos # (Auto) 0.4, Baso # (Auto) 0.1, Sodium 138, Potassium 3.1 L, Chloride 108 H, Carbon Dioxide 20 L, Anion Gap 13.1, BUN 10, Creatinine 1.10, Estimated Creat Clear 96, Estimated GFR 71, Est GFR ( Amer) 86, Glucose 162 H D, Calcium 8.9 02/14/25 03:31: Troponin I 1.53 H I & O for Last 24 hours: Intake & Output 02/11/25 02/12/25 02/13/25 02/14/25 05:59 05:59 05:59 05:59 Intake Total 0.275 / 0.275 Balance 0.275 / 0.275 Weight 185 lb Radiology Reports for the Last 24 Hours: Chest x-ray no acute findings Constitutional Constitutional: severe distress, average body habitus and cooperative *Routine HEENT Exam Head: Present normocephalic and atraumatic Eye: Present EOMI and PERRL ENT: Present mucous membranes moist *Routine Neck Exam Neck: Present supple Routine Chest/Breast/Axilla Exam Comments: No signs of injury or pain *Routine Respiratory Exam Respiratory: Present CTA bilaterally, normal respiratory effort, able to speak in complete sentences and symmetric chest movement *Routine Cardiovascular Exam Cardiovascular: Present RRR, Normal S1 and Normal S2 Comments: Patient had minimal chest pain when going to [facility] *Routine Abdominal Exam Abdominal: Present soft and normoactive bowel sounds *Routine Rectal Exam Rectal:: deferred *Routine Genitalia Exam Genitalia:: deferred *Routine Extremities Exam Comments: No extremity abnormalities were found after the patient had coded paleness to both arms and legs that improved Routine Back/Spine/Pelvis Exam Back/Spine: Present full ROM Comments: No signs of back injury *Routine Skin Exam Skin: Present intact, pallor, warm and normal turgor *Routine Neurological Exam Neurological: Present alert, oriented X3, CN II-XII intact, vision grossly intact and hearing grossly intact Comments: Patient is relatively normal after coming back from the [facility] find no significant neurological deficits Routine Psychiatric Exam Psychiatric: Present normal affect, normal thought process, cooperative, good insight and good judgment Comments: In very good spirits actually making jokes after having all this done. H&P: Result Impressions Myocardial infarction with period of ventricular fib requiring defibrillation, Imaging and Cardiology [facility]: Additional comments: Report from [facility] 2 stents placed 1 in the right main 1 and a completely blocked obtuse artery, awaiting written report Assessment and Plan *Assessment and plan (1) Myocardial infarction complications: Status: Acute Category: Medical Code(s): I23.8 - Other current complications following acute myocardial infarction (2) Cardiac arrest with ventricular fibrillation: Status: Acute Category: Medical Code(s): I46.9 - Cardiac arrest, cause unspecified; I49.01 - Ventricular fibrillation (3) ST elevation (STEMI) myocardial infarction: Status: Acute Qualifiers: Involved coronary artery: unspecified coronary artery Qualified Code(s): I21.3 - ST elevation (STEMI) myocardial infarction of unspecified site Category: Medical Code(s): I21.3 - ST elevation (STEMI) myocardial infarction of unspecified site (4) Tobacco abuse: Status: Acute Category: Medical Code(s): Z72.0 - Tobacco use (5) CAD (coronary artery disease): Status: Acute Qualifiers: Coronary Disease-Associated Artery/Lesion type: unspecified vessel or lesion type [place] vs. transplanted heart: [place] heart Associated angina: with unstable angina Qualified Code(s): I25.110 - Atherosclerotic heart disease of [place] coronary artery with unstable angina pectoris Category: Medical Code(s): I25.10 - Atherosclerotic heart disease of [place] coronary artery without angina pectoris Plan 1. Patient has returned from the [facility]., Will be followed by cardiology in the morning presently being kept comfortable in the ICU monitored continuously. Will wait for cardiology's recommendations and orders to see when we can move the patient to the floor.. Would expect a period of cardiac rehabilitation
[2025-02-14 05:07] LABS: VBG Base Excess -3.9 mmol/L (-2.4-2.3); VBG HCO3 20.8 mmol/L (23-30); VBG Oxygen Saturation 97.3 % (50-70); VBG PCO2 33.5 mmol/L (35-51); VBG PH 7.41 mmol/L (7.31-7.41); VBG PO2 88.3 mmol/L (28-40); VBG Total CO2 21.8 mmol/L (23-27)
[2025-02-14 05:58] LABS: Basophils # 0.1 K/mm3 (0-0.2); Basophils % 0.3 % (0.1-2.0); Eosinophils % 0.1 % (0.1-12.0); Hematocrit 43.7 % (42.0-52.0); Hemoglobin 15.1 g/dL (14.1-18.0); Lymphocytes # 2.4 K/mm3 (0.7-4.5); Mean Corpuscular HGB Conc 34.6 g/dL (31.8-35.4); Mean Corpuscular Hemoglobin 32.1 pg (27.0-31.2); Mean Corpuscular Volume 92.8 fl (80-94); Mean Platelet Volume 11.6 fl (7.4-10.4); Monocytes # 1.2 K/mm3 (0.1-1.0); Neutrophils # 11.1 K/mm3 (1.8-7.8); Neutrophils % 75.2 % (37.0-80.0); Platelet Count 172 K/mm3 (142-424); Red Blood Count 4.71 M/mm3 (4.60-6.20); Red Cell Distribution Width 11.9 % (11.5-17.5); White Blood Count 14.8 K/mm3 (4.8-10.8)
[2025-02-14 06:38] LABS: Troponin I 4.88 ng/ml (0.00-0.034)
[2025-02-14 06:46] LABS: Alanine Aminotransferase 72 U/L (12-78); Albumin Level 4.2 g/dl (3.5-5.0); Albumin/Globulin Ratio 1.8 (1.1-1.8); Alkaline Phosphatase 66 U/L (38-126); Anion Gap 9.8 mEq/L (5-15); Aspartate Amino Transferase 79 U/L (17-59); Bilirubin,Total 0.6 mg/dl (0.2-1.3); Blood Urea Nitrogen 11 mg/dl (9-20); Calcium 9.3 mg/dl (8.4-10.2); Carbon Dioxide 22 mmol/L (22.0-30.0); Chloride 109 mmol/L (98-107); Chol/HDL Ratio 5.8 (1-3.5); Cholesterol 185 mg/dl (140-200); Creatinine Clearance Estimated 112 mL/min (50-200); Estimated Glomerular Filt Rate 79 ml/min (>60); GFR (African American) 96 ML/MIN (>60); Globulin 2.4 g/dL (1.3-3.2); Glucose 130 mg/dl (74-100); HDL Cholesterol 32 mg/dl (40-60); Magnesium 1.7 mg/dl (1.6-2.3); Potassium 4.8 mmoL/L (3.5-5.1); Sodium 136 mmol/L (136-145); Total Protein,Serum 6.6 g/dl (6.3-8.2); Triglycerides 302 mg/dl (30-150); VLDL Cholesterol 60 mg/dL (0-40)
--- NOTE | 2025-02-14 06:54 | ECG_ITS ---
APPROVED REPORT Exam: Resting ECG HR:81 bpm ECG Measurements Heart Rate 81 AXES WV 148 P 56 QRSd 86 QRS 54 QT 349 T 66 QTc 387 Conclusion SINUS RHYTHM NORMAL ECG UNCONFIRMED REPORT Electronically signed by : Ramsey Vizcaino MD 02/14/2025 08:54:47
[2025-02-14 06:57] LABS: Direct LDL Cholesterol 103.02 mg/dL (100-129)
[2025-02-14] MEDS: TICAGRELOR 90MG TABLET 90 MG PO ×2 (08:01→21:49)
[2025-02-14] MEDS: ASPIRIN EC 81MG TABLET 81 MG PO (08:01)
[2025-02-14 08:44] LABS: Hemoglobin A1C 5.7 % (4.0-6.0)
--- NOTE | 2025-02-14 08:59 | CA_ITS ---
APPROVED REPORT EXAM: Comprehensive 2D, Doppler, and color-flow Echocardiogram [employer] Operator: Ileana Roger CRT Ht: 5 ft 10 in Wt: 262lbs BSA: 2.34 BP: 128/79 mmHg Indications: Chest Pain, CAD, Hypertension/HDD, STEMI, SMOKER, Cardiac arrest w AF, stents 02/14/25 M-Mode Dimensions RVDd 2.01 cm (0.9-2.6) LA Diam 2.95 cm (1.9-4.0) LVDd 4.62 cm (3.5-5.7) LVDs 2.95 cm (3.5-5.7) IVSd 1.65 cm (0.6-1.1) PWd 0.87 cm (0.6-1.1) EF (Teich) 65.80% FS 36.10% EDV (Teich) 98.30 mL TAPSE 1.92 (<1.7) ESV (Teich) 33.60 mL LV Diastology E Decel Time 210 (160-240 msec) E/A Ratio 0.69 MED A' 8.70 cm/s LAT A' 12.40 cm/s Aortic Valve AI PHT 811.00 ms AO Peak GR. 9.20 mmHg Mitral Valve MV A Velocity 83.0 (40-130 cm/s) E/A Ratio 0.69 Pulmonary Valve PV Peak Velocity 143.0 (50-150 cm/s) Tricuspid Valve TR P. Velocity 241.00 cm/s RAP Estimate 10.00 mmHg RVSP 33.20 mmHg Left Ventricle The left ventricle is normal size. The left ventricular systolic function is normal. The left ventricular ejection fraction is within the normal range. There is increased LV wall thickness. There is normal LV segmental wall motion. The left ventricular diastolic function is normal. LVEF is 55%. Right Ventricle The right ventricle is normal size. The right ventricular systolic function is normal. Atria The left atrium size is normal. The right atrium size is normal. There is no Doppler evidence of interatrial shunt. Aortic Valve Aortic valve opens well. There is no aortic valvular stenosis. No aortic regurgitation is present. Mitral Valve The mitral valve is normal in structure. No evidence of mitral valve stenosis. Trace mitral regurgitation. Tricuspid Valve Tricuspid valve is grossly normal in structure and function. Trace tricuspid regurgitation. Pulmonic Valve The pulmonary valve is normal in structure. Trace pulmonic regurgitation. Great Vessels The aortic root is normal in size. IVC is normal in size and collapses >50% with inspiration. Pericardium There is no pericardial effusion. Other Information Study Quality: Adequate Conclusion Normal biventricular systolic function. No evidence of regional wall motion abnormalities. No significant valvular stenosis or regurgitation. Electronically signed by : Therese Hayden MD 02/14/2025 12:04:13
[2025-02-14] MEDS: METOPROLOL SUCCINATE XL 25MG TABLET 25 MG PO (10:32)
--- NOTE | 2025-02-14 13:50 | EXP.CARD.CON ---
History of Present Illness History of Present Illness Consult date: 02/14/25 Chief complaint: v-fib History of present illness: 49-year-old white male without known cardiovascular disease presented to the emergency room last night for blood pressure check. After returning from the bathroom patient reported feeling dizzy then had V-fib arrest. He had immediate CPR with chest compressions and defibrillation and was taken to the [facility] [facility] where he received stenting of his RCA and occluded first obtuse marginal artery. He has persistent disease in mid circumflex and PDA. Patient was transferred to the ICU in stable condition. This morning he reports mild chest soreness from chest compressions but otherwise feeling much better. 2D echo shows normal ejection fraction. He has not had any further ventricular ectopy noted on telemetry. [facility] Disclaimer: The information contained in this section may have been updated after the patient was seen, as this information can be updated by other users. Medical History Kidney stones Surgical History S/P hip replacement Family History Mother Hypertension Kidney stone Father Hypertension Other No significant family history Social History Smoking Status: Current every day smoker tobacco type: cigarettes packs per day: 0 years smoked: 30 alcohol intake: current alcohol intake frequency: a few times a month substance use type: denies use current occupational status: employed and other Travel in the last 8 weeks: None household members: other housing: other caffeine: No Review of Systems Constitutional Constitutional: Denies fatigue and Reports weakness Eyes Eyes: Denies loss of vision ENT Ears, Nose, Mouth, and Throat: Denies hearing loss *Cardiovascular Cardiovascular: Reports chest pain and Denies dyspnea *Respiratory Respiratory: Denies cough and Denies dyspnea *Gastrointestinal Gastrointestinal: Denies change in stool character, Denies nausea and Denies vomiting *Genitourinary Genitourinary: Denies difficulty urinating *Musculoskeletal Musculoskeletal: Denies muscle weakness Integumentary/Breasts Skin/Breast: Denies changing lesions *Neurologic Neurologic: Reports as per HPI, Denies loss of vision and Reports weakness Endocrine Endocrine: Denies fatigue Exam Data for Last 24 hours Vital signs and Labs for Last 24 Hours: Temp Pulse Resp BP Pulse Ox O2 Del Method O2 Flow Rate 98.6 F 81 19 158/86 H 96 Room Air 3 02/14/25 12:00 02/14/25 12:00 02/14/25 12:00 02/14/25 12:00 02/14/25 12:00 02/14/25 12:00 02/14/25 01:36 Laboratory Results - last 24 hr 02/14/25 00:10: WBC 16.0 H, RBC 4.92, Hgb 16.1, Hct 45.2, MCV 91.9, MCH 32.7 H, MCHC 35.6 H, RDW 12.1, Plt Count 202, MPV 11.6 H, Neut % (Auto) 43.8, Lymph % (Auto) 45.9, [place] % (Auto) 6.1, Eos % (Auto) 3.0, Baso % (Auto) 0.9, Neut # (Auto) 7.0, Lymph # (Auto) 7.3 H, [place] # (Auto) 1.0, Eos # (Auto) 0.5 H, Baso # (Auto) 0.1, Total Counted 100, Neutrophils % (Manual) 46, Lymphocytes % (Manual) 49, Monocytes % (Manual) 2, Eosinophils % (Manual) 2, Basophils % (Manual) 1.0, Platelet Estimate Normal, Stomatocytes 1+, D-Dimer 0.34, Sodium 137, Potassium 3.8, Chloride 109 H, Carbon Dioxide 22, Anion Gap 9.8, BUN 10, Creatinine 1.00, Estimated Creat Clear 106, Estimated GFR 79, Est GFR ( Amer) 96, Glucose 106 H, Calcium 9.6, Total Bilirubin 0.3, AST 41, ALT 37, Alkaline Phosphatase 82, Troponin I < 0.01, Total Protein 7.4, Albumin 4.6, Globulin 2.8, Albumin/Globulin Ratio 1.6 02/14/25 01:12: WBC 12.6 H, RBC 4.71, Hgb 15.3, Hct 45.0, MCV 95.5 H, MCH 32.5 H, MCHC 34.0, RDW 12.1, Plt Count 172, MPV 11.7 H, Neut % (Auto) 45.8, Lymph % (Auto) 45.6, [place] % (Auto) 3.8, Eos % (Auto) 3.5, Baso % (Auto) 0.8, Neut # (Auto) 5.8, Lymph # (Auto) 5.8 H, [place] # (Auto) 0.5, Eos # (Auto) 0.4, Baso # (Auto) 0.1, Sodium 138, Potassium 3.1 L, Chloride 108 H, Carbon Dioxide 20 L, Anion Gap 13.1, BUN 10, Creatinine 1.10, Estimated Creat Clear 96, Estimated GFR 71, Est GFR ( Amer) 86, Glucose 162 H D, Calcium 8.9 02/14/25 03:31: Troponin I 1.53 H 02/14/25 05:07: VBG pH 7.41, VBG pCO2 33.5 L, VBG pO2 88.3 H, VBG HCO3 20.8 L, VBG Total CO2 21.8 L, VBG O2 Saturation 97.3 H, VBG Base Excess -3.9 L, VBG Lactic Acid 2.0 02/14/25 05:35: WBC 14.8 H, RBC 4.71, Hgb 15.1, Hct 43.7, MCV 92.8, MCH 32.1 H, MCHC 34.6, RDW 11.9, Plt Count 172, MPV 11.6 H, Neut % (Auto) 75.2, Lymph % (Auto) 16.0, [place] % (Auto) 8.0, Eos % (Auto) 0.1, Baso % (Auto) 0.3, Neut # (Auto) 11.1 H, Lymph # (Auto) 2.4, [place] # (Auto) 1.2 H, Eos # (Auto) 0.0, Baso # (Auto) 0.1, Sodium 136, Potassium 4.8 D, Chloride 109 H, Carbon Dioxide 22, Anion Gap 9.8, BUN 11, Creatinine 1.00, Estimated Creat Clear 112, Estimated GFR 79, Est GFR ( Amer) 96, Glucose 130 H, Hemoglobin A1c 5.7, Calcium 9.3, Magnesium 1.7, Total Bilirubin 0.6, AST 79 H D, ALT 72 D, Alkaline Phosphatase 66, Troponin I 4.88 H, Total Protein 6.6, Albumin 4.2, Globulin 2.4, Albumin/Globulin Ratio 1.8, Triglycerides 302 H, Cholesterol 185, LDL Cholesterol Direct 103.02, VLDL Cholesterol 60 H, HDL Cholesterol 32 L, Cholesterol/HDL Ratio 5.8 H I & O for Last 24 hours: Intake & Output 02/11/25 02/12/25 02/13/25 02/14/25 23:59 23:59 23:59 23:59 Intake Total 730.275 / 730.275 Output Total 850 / 850 Balance -119.725 / -119.725 Weight 196 lb Constitutional Constitutional: no acute distress and cooperative *Routine HEENT Exam Eye: Present PERRL *Routine Respiratory Exam Respiratory: Present CTA bilaterally; Absent accessory muscle use, wheezes or crackles *Routine Cardiovascular Exam Cardiovascular: Present RRR, Normal S1 and Normal S2; Absent murmur, gallop or rubs Comments: Right radial cath site normal on inspection and palpation *Routine Abdominal Exam Abdominal: Present soft; Absent tenderness *Routine Extremities Exam Extremities: Present pulses intact; Absent cyanosis or edema *Routine Skin Exam Skin: Present intact; Absent erythema or wounds *Routine Neurological Exam Neurological: Present alert and oriented X3 Routine Psychiatric Exam Psychiatric: Present cooperative Meds Home Medications and Allergies Home Medications ?Medication ?Instructions ?Recorded ?Confirmed ?Type No Known Home Medications 02/14/25 02/14/25 History New Prescriptions to Start Prescriptions: Allergies Allergy/AdvReac Type Severity Reaction Status Date / Time No Known Allergies Allergy Verified 07/18/24 12:08 Assessment and Plan *Assessment and plan (1) ST elevation (STEMI) myocardial infarction: Status: Acute Qualifiers: Involved coronary artery: unspecified coronary artery Qualified Code(s): I21.3 - ST elevation (STEMI) myocardial infarction of unspecified site Category: Medical Code(s): I21.3 - ST elevation (STEMI) myocardial infarction of unspecified site (2) Cardiac arrest with ventricular fibrillation: Status: Acute Category: Medical Code(s): I46.9 - Cardiac arrest, cause unspecified; I49.01 - Ventricular fibrillation (3) Tobacco abuse: Status: Acute Category: Medical Code(s): Z72.0 - Tobacco use Plan Acute Inferolateral STEMI with V-fib arrest 02/14/25 - V-fib arrest in ED with immediate compressions/defibrillation - LHC - RCA and OM stented. Moderate persistant dz in LCX and PDA left to med management. - ECHO prelim - preserved EF - Cont DAPT, Statin, add BB - Cont telemetry monitoring for 48 hours - will request LifeVest x1 month Tob - recommend cessation Htn - add BB, ARB HLD - LDL 103 - add high dose statin
[2025-02-14] MEDS: IRBESARTAN 75MG TABLET 75 MG PO (15:14)
--- NOTE | 2025-02-14 17:32 | PC.NURSE ---
arrived to floor by bed from ICU
--- NOTE | 2025-02-14 17:47 | PC.NURSE ---
pt a&ox4. resting supine in bed. ambulated to br with standby assistance. threat monitoring analyst placed on the pt. tolerating ra with sats >90%. no needs at this time. call light within reach.
[2025-02-14] MEDS: PANTOPRAZOLE 40MG TABLET 40 MG PO (21:49)
[2025-02-14] MEDS: ATORVASTATIN 40MG TABLET 40 MG PO (21:49)
[2025-02-15] VITALS (7 sets, daily range): BP systolic 131–157; BP diastolic 74–96; PULSE 75–109; RESP 16–20; TEMP 36.7–37.8; O2SAT 96–98; BMI 26.8
--- NOTE | 2025-02-15 05:02 | PC.NURSE ---
V/s, ox4. No acute events to report. Plan of care ongoing.
[2025-02-15 07:00] LABS: Alanine Aminotransferase 63 U/L (12-78); Albumin Level 4.4 g/dl (3.5-5.0); Albumin/Globulin Ratio 1.5 (1.1-1.8); Alkaline Phosphatase 69 U/L (38-126); Anion Gap 10.6 mEq/L (5-15); Aspartate Amino Transferase 69 U/L (17-59); Bilirubin,Total 0.8 mg/dl (0.2-1.3); Blood Urea Nitrogen 14 mg/dl (9-20); Calcium 9.3 mg/dl (8.4-10.2); Carbon Dioxide 23 mmol/L (22.0-30.0); Chloride 107 mmol/L (98-107); Creatinine Clearance Estimated 98 mL/min (50-200); Estimated Glomerular Filt Rate 71 ml/min (>60); GFR (African American) 86 ML/MIN (>60); Globulin 2.9 g/dL (1.3-3.2); Glucose 107 mg/dl (74-100); Potassium 4.6 mmoL/L (3.5-5.1); Sodium 136 mmol/L (136-145); Total Protein,Serum 7.3 g/dl (6.3-8.2)
[2025-02-15 07:11] LABS: Basophils # 0.1 K/mm3 (0-0.2); Basophils % 0.6 % (0.1-2.0); Eosinophils # 0.4 K/mm3 (0.0-0.4); Eosinophils % 3.3 % (0.1-12.0); Hematocrit 47.9 % (42.0-52.0); Hemoglobin 16.6 g/dL (14.1-18.0); Lymphocytes # 3.9 K/mm3 (0.7-4.5); Lymphocytes % 34.4 % (10-50); Mean Corpuscular HGB Conc 34.7 g/dL (31.8-35.4); Mean Corpuscular Hemoglobin 32.1 pg (27.0-31.2); Mean Corpuscular Volume 92.6 fl (80-94); Mean Platelet Volume 11.7 fl (7.4-10.4); Monocytes # 0.9 K/mm3 (0.1-1.0); Monocytes % 7.9 % (1.7-9.3); Neutrophils # 6.1 K/mm3 (1.8-7.8); Neutrophils % 53.4 % (37.0-80.0); Platelet Count 187 K/mm3 (142-424); Red Blood Count 5.17 M/mm3 (4.60-6.20); Red Cell Distribution Width 12.1 % (11.5-17.5); White Blood Count 11.3 K/mm3 (4.8-10.8)
[2025-02-15] MEDS: TICAGRELOR 90MG TABLET 90 MG PO ×2 (09:00→20:21)
[2025-02-15] MEDS: ASPIRIN EC 81MG TABLET 81 MG PO (09:00)
[2025-02-15] MEDS: IRBESARTAN 75MG TABLET 75 MG PO (09:00)
[2025-02-15] MEDS: METOPROLOL SUCCINATE XL 25MG TABLET 25 MG PO (09:00)
[2025-02-15] MEDS: NICOTINE 21MG/24HR PATCH 21 MG TD (10:31)
--- NOTE | 2025-02-15 10:34 | P.PN_ITS ---
Subjective *Date: 02/15/25 *Time: 16:55 Interval history: No chest pain or events overnight. Stable on room air. Afebrile. Chest discomfort feeling somewhat better Medical Exam Vital signs and Labs for Last 24 Hours: Vital Signs Temp Pulse Pulse Resp BP BP Pulse Ox 02/15/25 09:00 02/15/25 08:00 109 H 97 02/15/25 08:00 90 02/15/25 08:00 98.1 F 107 H 18 140/85 96 02/15/25 06:08 02/15/25 05:00 02/15/25 04:00 75 02/15/25 03:00 02/15/25 01:00 02/15/25 00:00 80 02/15/25 00:00 100.0 F H 106 H 16 131/96 H 98 02/14/25 23:00 02/14/25 21:00 02/14/25 20:00 100 H 02/14/25 20:00 02/14/25 19:51 98.7 F 104 H 18 142/93 H 98 02/14/25 18:44 02/14/25 17:00 02/14/25 16:00 110 H 02/14/25 16:00 85 02/14/25 16:00 98.3 F 90 19 135/93 H 96 02/14/25 15:00 02/14/25 14:00 99 H 143/98 H 97 02/14/25 13:00 02/14/25 12:00 81 02/14/25 12:00 98.6 F 81 19 158/86 H 96 02/14/25 11:00 O2 Del Method 02/15/25 09:00 Room Air 02/15/25 08:00 Room Air 02/15/25 08:00 02/15/25 08:00 Room Air 02/15/25 06:08 Room Air 02/15/25 05:00 Room Air 02/15/25 04:00 02/15/25 03:00 Room Air 02/15/25 01:00 Room Air 02/15/25 00:00 02/15/25 00:00 Room Air 02/14/25 23:00 Room Air 02/14/25 21:00 Room Air 02/14/25 20:00 02/14/25 20:00 Room Air 02/14/25 19:51 Room Air 02/14/25 18:44 Room Air 02/14/25 17:00 Room Air 02/14/25 16:00 02/14/25 16:00 02/14/25 16:00 Room Air 02/14/25 15:00 Room Air 02/14/25 14:00 Room Air 02/14/25 13:00 Room Air 02/14/25 12:00 02/14/25 12:00 Room Air 02/14/25 11:00 Room Air Intake and Output 02/14/25 02/15/25 02/15/25 23:59 07:59 15:59 Intake Total 890 / 2040.275 0 / 480 480 / 480 Output Total 0 / 1225 0 / 0 Balance 890 / 815.275 0 / 480 480 / 480 Intake: Intake, Oral Amount 890 / 2030 0 / 480 480 / 480 Output: Output, Urine Amount 0 / 1225 0 / 0 Other: Number of Voids 2 1 Number of Unmeasured Voids 1 1 Weight 85.049 kg Patient Weight 02/15/25 23:59 Weight 85.049 kg Laboratory Results - last 24 hr 02/15/25 06:15: WBC 11.3 H, RBC 5.17, Hgb 16.6, Hct 47.9, MCV 92.6, MCH 32.1 H, MCHC 34.7, RDW 12.1, Plt Count 187, MPV 11.7 H, Neut % (Auto) 53.4, Lymph % (Auto) 34.4, [place] % (Auto) 7.9, Eos % (Auto) 3.3, Baso % (Auto) 0.6, Neut # (Auto) 6.1, Lymph # (Auto) 3.9, [place] # (Auto) 0.9, Eos # (Auto) 0.4, Baso # (Auto) 0.1, Sodium 136, Potassium 4.6, Chloride 107, Carbon Dioxide 23, Anion Gap 10.6, BUN 14 D, Creatinine 1.10, Estimated Creat Clear 98, Estimated GFR 71, Est GFR ( Amer) 86, Glucose 107 H, Calcium 9.3, Magnesium 2.0 D, Total Bilirubin 0.8, AST 69 H, ALT 63, Alkaline Phosphatase 69, Total Protein 7.3, Albumin 4.4, Globulin 2.9, Albumin/Globulin Ratio 1.5 I & O for Labs for Last 24 Hours: Intake & Output 02/12/25 02/13/25 02/14/25 02/15/25 23:59 23:59 23:59 23:59 Intake Total 2040.275 / 2040.275 480 / 480 Output Total 1225 / 1225 0 / 0 Balance 815.275 / 815.275 480 / 480 Weight 88.904 kg 85.049 kg Constitutional: Present no acute distress, average body habitus and cooperative Head: Present atraumatic and normocephalic ENT: Present normal exam Respiratory: Present normal respiratory effort; Absent rhonchi, stridor, wheezes or crackles Cardiac: Present Reg Rate and Rhythm Comment:: mild TTP in sternal region GI: Present soft and normal bowel sounds; Absent distention or tenderness Extremities: Present normal inspection and full ROM Skin: Present intact; Absent erythema Neuro: Present Grossly Intact, alert, awake, oriented x 3 and moves all extremities Assessment and Plan *Assessment and plan (1) Myocardial infarction complications: Status: Acute Category: Medical Code(s): I23.8 - Other current complications following acute myocardial infarction (2) Cardiac arrest with ventricular fibrillation: Status: Acute Category: Medical Code(s): I46.9 - Cardiac arrest, cause unspecified; I49.01 - Ventricular fibrillation (3) ST elevation (STEMI) myocardial infarction: Status: Acute Qualifiers: Involved coronary artery: unspecified coronary artery Qualified Code(s): I21.3 - ST elevation (STEMI) myocardial infarction of unspecified site Category: Medical Code(s): I21.3 - ST elevation (STEMI) myocardial infarction of unspecified site (4) Tobacco abuse: Status: Acute Category: Medical Code(s): Z72.0 - Tobacco use (5) CAD (coronary artery disease): Status: Acute Qualifiers: Associated angina: with unstable angina Coronary Disease-Associated Artery/Lesion type: unspecified vessel or lesion type [place] vs. transplanted heart: [place] heart Qualified Code(s): I25.110 - Atherosclerotic heart disease of [place] coronary artery with unstable angina pectoris Category: Medical Code(s): I25.10 - Atherosclerotic heart disease of [place] coronary artery without angina pectoris Plan 49-year-old male who presented with DE. Taken to the Construction Worker urgently, received 2 stents. Monitoring inpatient for 48 hours on telemetry. No events overnight. Continues to require inpatient management. Cardiology assisting with care. Problems addressed as follows CAD STEMI - Cardiology consulted, assisting with care. Discussed case today, continue statin, aspirin, Brilinta. Aspirin 81 mg daily, Brilinta 90 mg twice daily. Will continue metoprolol succinate 25 mg daily for tachycardia. Echo obtained, per review it appears normal with no wall motion abnormalities. Given his V-fib arrest however, will need LifeVest prior to discharge home. -Initiate irbesartan 75 mg daily for hypertension Tobacco use disorder: Encourage cessation. Nicotine patch during admission. Pantoprazole 40 mg nightly for GERD Congestion: Okay to use Afrin nose spray, Tylenol for fever Full code, anticipate discharge tomorrow.
--- NOTE | 2025-02-15 14:56 | P.PN_ITS ---
Subjective Subjective Date: 02/15/25 Time: 09:30 Interval history: No issues overnight. ST this morning 120s but he's been up walking around, thinks he is developing a kidney stone, and states he typically smokes 1ppd and not on nicotine here. Denies CP, SOA, palps - feeling good Exam Data for Last 24 hours Vital signs and Labs for Last 24 Hours: Temp Pulse Resp BP Pulse Ox O2 Del Method O2 Flow Rate 98.2 F 97 H 18 138/81 97 Room Air 3 02/15/25 11:56 02/15/25 11:56 02/15/25 11:56 02/15/25 11:56 02/15/25 11:56 02/15/25 13:00 02/14/25 01:36 Laboratory Results - last 24 hr 02/15/25 06:15: WBC 11.3 H, RBC 5.17, Hgb 16.6, Hct 47.9, MCV 92.6, MCH 32.1 H, MCHC 34.7, RDW 12.1, Plt Count 187, MPV 11.7 H, Neut % (Auto) 53.4, Lymph % (Auto) 34.4, [place] % (Auto) 7.9, Eos % (Auto) 3.3, Baso % (Auto) 0.6, Neut # (Au to) 6.1, Lymph # (Auto) 3.9, [place] # (Auto) 0.9, Eos # (Auto) 0.4, Baso # (Auto) 0.1, Sodium 136, Potassium 4.6, Chloride 107, Carbon Dioxide 23, Anion Gap 10.6, BUN 14 D, Creatinine 1.10, Estimated Creat Clear 98, Estimated GFR 71, Est GFR ( Amer) 86, Glucose 107 H, Calcium 9.3, Magnesium 2.0 D, Total Bilirubin 0.8, AST 69 H, ALT 63, Alkaline Phosphatase 69, Total Protein 7.3, Albumin 4.4, Globulin 2.9, Albumin/Globulin Ratio 1.5 I & O for Last 24 hours: Intake & Output 02/12/25 02/13/25 02/14/25 02/15/25 23:59 23:59 23:59 23:59 Intake Total 2040.275 / 2040.275 960 / 960 Output Total 1225 / 1225 0 / 0 Balance 815.275 / 815.275 960 / 960 Weight 196 lb 187 lb 8 oz Constitutional Constitutional: no acute distress and cooperative *Routine HEENT Exam Eye: Present PERRL *Routine Respiratory Exam Respiratory: Present CTA bilaterally; Absent accessory muscle use, wheezes or crackles *Routine Cardiovascular Exam Cardiovascular: Present RRR, Normal S1, Normal S2 and tachycardia; Absent murmur, gallop or rubs *Routine Abdominal Exam Abdominal: Present soft; Absent tenderness *Routine Extremities Exam Extremities: Present pulses intact; Absent cyanosis or edema *Routine Skin Exam Skin: Present intact; Absent erythema or wounds *Routine Neurological Exam Neurological: Present alert and oriented X3 Routine Psychiatric Exam Psychiatric: Present cooperative Progress Note: A&P Assessment and plan (1) Myocardial infarction complications: Status: Acute (2) Cardiac arrest with ventricular fibrillation: Status: Acute (3) ST elevation (STEMI) myocardial infarction: Status: Acute (4) Tobacco abuse: Status: Acute (5) CAD (coronary artery disease): Status: Acute Assessment and Plan Assessment and Plan for All Diagnoses:: Acute Inferolateral STEMI with V-fib arrest 02/14/25 - V-fib arrest in ED with immediate compressions/defibrillation - LHC - RCA and OM stented. Moderate persistant dz in LCX and PDA left to med management. - ECHO prelim - preserved EF - Cont DAPT, Statin, add BB - Cont telemetry monitoring for 48 hours - will request LifeVest x1 month Tob - recommend cessation Htn - add BB, ARB HLD - LDL 103 - add high dose statin Sinus Tachy - likely nicotine withdrawal - add transdermal nicotine - possible R-kidney stone per pt, declines analgesia - cont to monitor 02/15: CV stable, continue tele monitoring, hopeful for LifeVest placement and DC tomorrow.
[2025-02-15] MEDS: ACETAMINOPHEN 325MG TAB 650 MG PO (17:00)
[2025-02-15] MEDS: PANTOPRAZOLE 40MG TABLET 40 MG PO (20:21)
[2025-02-15] MEDS: ATORVASTATIN 40MG TABLET 40 MG PO (20:21)
[2025-02-15] MEDS: LIDOCAINE 5% TRANSDERMAL PATCH 1 EACH TP (21:42)
[2025-02-16] VITALS: PULSE 90
[2025-02-16 04:00] VITALS: PULSE 80; BMI 26.7
[2025-02-16 06:53] LABS: Basophils # 0.1 K/mm3 (0-0.2); Basophils % 0.7 % (0.1-2.0); Eosinophils # 0.4 K/mm3 (0.0-0.4); Eosinophils % 3.4 % (0.1-12.0); Hemoglobin 17.2 g/dL (14.1-18.0); Lymphocytes # 3.2 K/mm3 (0.7-4.5); Lymphocytes % 30.4 % (10-50); Mean Corpuscular HGB Conc 35.1 g/dL (31.8-35.4); Mean Corpuscular Hemoglobin 32.6 pg (27.0-31.2); Mean Platelet Volume 11.1 fl (7.4-10.4); Monocytes # 0.8 K/mm3 (0.1-1.0); Monocytes % 7.1 % (1.7-9.3); Neutrophils # 6.1 K/mm3 (1.8-7.8); Neutrophils % 58.1 % (37.0-80.0); Platelet Count 192 K/mm3 (142-424); Red Blood Count 5.27 M/mm3 (4.60-6.20); Red Cell Distribution Width 11.9 % (11.5-17.5); White Blood Count 10.5 K/mm3 (4.8-10.8)
[2025-02-16 07:12] LABS: Alanine Aminotransferase 49 U/L (12-78); Albumin Level 4.4 g/dl (3.5-5.0); Albumin/Globulin Ratio 1.5 (1.1-1.8); Alkaline Phosphatase 72 U/L (38-126); Anion Gap 11.5 mEq/L (5-15); Aspartate Amino Transferase 39 U/L (17-59); Bilirubin,Total 0.7 mg/dl (0.2-1.3); Blood Urea Nitrogen 21 mg/dl (9-20); Calcium 10.2 mg/dl (8.4-10.2); Carbon Dioxide 22 mmol/L (22.0-30.0); Chloride 108 mmol/L (98-107); Creatinine Clearance Estimated 107 mL/min (50-200); Estimated Glomerular Filt Rate 79 ml/min (>60); GFR (African American) 96 ML/MIN (>60); Glucose 110 mg/dl (74-100); Potassium 4.5 mmoL/L (3.5-5.1); Sodium 137 mmol/L (136-145); Total Protein,Serum 7.4 g/dl (6.3-8.2)
[2025-02-16 07:55] LABS: Magnesium 2.2 mg/dl (1.6-2.3)
[2025-02-16 08:00] VITALS: BP 120/93; PULSE 107; PULSE 95; RESP 18; TEMP 36.6; O2SAT 96
[2025-02-16] MEDS: ASPIRIN EC 81MG TABLET 81 MG PO (08:06)
[2025-02-16] MEDS: TICAGRELOR 90MG TABLET 90 MG PO (08:06)
[2025-02-16] MEDS: IRBESARTAN 75MG TABLET 75 MG PO (08:06)
[2025-02-16] MEDS: NICOTINE 21MG/24HR PATCH 21 MG TD (08:07)
[2025-02-16] MEDS: METOPROLOL SUCCINATE XL 25MG TABLET 25 MG PO (08:07)
--- NOTE | 2025-02-16 09:28 | P.DS_ITS ---
General Admission date:: 02/14/25 Discharge date: 02/16/25 HPI HPI HPI: This 49-year-old male long-term smoker. Began to have some chest pain today came to the emergency room feeling bad.. Per the emergency room doctors note 49-year-old male with history of kidney stones presents for chest pain. He initially presented just asking for his blood pressure to be checked. He eventually decided to check in and be evaluated. He reports the chest pain started about an hour prior to arrival. Centrally located, both arms and back. He reports he also did a lot of heavy lifting earlier today so he thought it could be from his exercise. Reports his pain is a 7 out of 10. ER note: While the patient was being worked up in the emergency room he went into V-fib. Was shocked once his CPR started patient's pulse returned. Emergency room physician was able to get a hold of our hand singer patient was taken to the Chief Solution Architect. Report I received he received 2 stents had an oblique that was totally blocked and a stenosis in the right main. Patient was stabilized and brought back to the ICU ER Note: .Patient was given Brilinta and heparin. The patient never received Lovenox. Chest x-ray was obtained and independently interpreted by me which shows no pneumothorax or opacity. Laboratories all returned after patient was already in the Chief Solution Architect. On my independent interpretation, patient has mild le ukocytosis, initial troponin is undetectably low, patient has mild hypokalemia. Presently patient is stable, we will continue to monitor overnight anticoagulation has been given in the Chief Solution Architect. Awaiting hand singer return will then continue per his orders. Hopefully patient will be stable be able to transfer to floor. And when feeling secure to be able to instrument him going home starting cardiac rehabilitation. Extensive teaching done with both him and his of the need to both become non-smokers Hospital Course Hospital Course Hospital Course: 49-year-old male who presented with MA and V-fib arrest. Underwent CPR with ROSC. Found to have STEMI. Taken to the Chief Solution Architect urgently, received 2 stents. Monitored for 48 hours on telemetry. No further events. Stable to discharge home with close outpatient follow-up. Cardiology assisting with care. Problems addressed as follows: CAD STEMI V-fib arrest -Patient presented in cardiac arrest. After CPR achieved ROSC. Taken to Chief Solution Architect was found to have 2 significant lesions. Stents were placed. Cardiology assisted with care during admission. Plan to continue statin, aspirin, Brilinta. Aspirin 81 mg daily, Brilinta 90 mg twice daily. Will continue metoprolol succinate 25 mg daily for tachycardia. Echo obtained, per review it appears normal with no wall motion abnormalities. Given his V-fib arrest however, recommended LifeVest. Insurance would not approve. Discharged home without LifeVest. Initiated on irbesartan 75 mg daily for hypertension. Tobacco use disorder: Encourage cessation. Nicotine patch during admission. Pantoprazole 40 mg nightly for GERD Congestion: Okay to use Afrin nose spray, Tylenol for fever Exam Data for Last 24 hours Vital signs and Labs for Last 24 Hours: Temp Pulse Resp BP Pulse Ox O2 Del Method O2 Flow Rate 98.1 F 80 17 146/74 H 96 Room Air 3 02/15/25 20:00 02/16/25 04:00 02/15/25 20:00 02/15/25 20:00 02/15/25 20:00 02/16/25 06:47 02/14/25 01:36 Laboratory Results - last 24 hr 02/16/25 06:15: WBC 10.5, RBC 5.27, Hgb 17.2, Hct 49.0, MCV 93.0, MCH 32.6 H, MCHC 35.1, RDW 11.9, Plt Count 192, MPV 11.1 H, Neut % (Auto) 58.1, Lymph % (Auto) 30.4, [place] % (Auto) 7.1, Eos % (Auto) 3.4, Baso % (Auto) 0.7, Neut # (Auto) 6.1, Lymph # (Auto) 3.2, [place] # (Auto) 0.8, Eos # (Auto) 0.4, Baso # (Auto) 0.1, Sodium 137, Potassium 4.5, Chloride 108 H, Carbon Dioxide 22, Anion Gap 11.5, BUN 21 H D, Creatinine 1.00, Estimated Creat Clear 107, Estimated GFR 79, Est GFR ( Amer) 96, Glucose 110 H, Calcium 10.2, Magnesium 2.2, Total Bilirubin 0.7, AST 39 D, ALT 49, Alkaline Phosphatase 72, Total Protein 7.4, Albumin 4.4, Globulin 3.0, Albumin/Globulin Ratio 1.5 I & O for Last 24 hours: Intake & Output 02/13/25 02/14/25 02/15/25 02/16/25 23:59 23:59 23:59 23:59 Intake Total 2040.275 / 2040.275 1440 / 1640 680 / 680 Output Total 1225 / 1225 0 / 0 Balance 815.275 / 596.593 6710 / 1640 680 / 680 Weight 88.904 kg 85.049 kg 84.731 kg Constitutional Constitutional: no acute distress *Routine HEENT Exam Head: Present normocephalic Eye: Present EOMI and PERRL ENT: Present mucous membranes moist *Routine Neck Exam Neck: Present supple; Absent lymphadenopathy *Routine Respiratory Exam Respiratory: Present CTA bilaterally; Absent rhonchi *Routine Cardiovascular Exam Cardiovascular: Present RRR *Routine Abdominal Exam Abdominal: Present soft and normoactive bowel sounds; Absent tenderness *Routine Rectal Exam Patient deferred: visual exam *Routine Exam Patient deferred: penile exam *Routine Extremities Exam Extremities: Absent cyanosis, clubbing or edema *Routine Skin Exam Skin: Present warm; Absent rash *Routine Neurological Exam Neurological: Present alert, oriented X3 and moving all extremities; Absent altered mental status Results Data Completed and Pending Labs on day of discharge: Labs from last 24 hours 02/16/25 06:15 WBC 10.5 RBC 5.27 Hgb 17.2 Hct 49.0 MCV 93.0 MCH 32.6 H MCHC 35.1 RDW 11.9 Plt Count 192 MPV 11.1 H Neut % (Auto) 58.1 Lymph % (Auto) 30.4 [place] % (Auto) 7.1 Eos % (Auto) 3.4 Baso % (Auto) 0.7 Neut # (Auto) 6.1 Lymph # (Auto) 3.2 [place] # (Auto) 0.8 Eos # (Auto) 0.4 Baso # (Auto) 0.1 Sodium 137 Potassium 4.5 Chloride 108 H Carbon Dioxide 22 Anion Gap 11.5 BUN 21 H D Creatinine 1.00 Estimated Creat Clear 107 Estimated GFR 79 Est GFR ( Amer) 96 Glucose 110 H Calcium 10.2 Magnesium 2.2 Total Bilirubin 0.7 AST 39 D ALT 49 Alkaline Phosphatase 72 Total Protein 7.4 Albumin 4.4 Globulin 3.0 Albumin/Globulin Ratio 1.5 DS: Diagnosis Discharge Diagnosis (1) Myocardial infarction complications: Status: Acute Code(s): I23.8 - Other current complications following acute myocardial infarction (2) Cardiac arrest with ventricular fibrillation: Status: Acute Code(s): I46.9 - Cardiac arrest, cause unspecified; I49.01 - Ventricular fibrillation (3) ST elevation (STEMI) myocardial infarction: Status: Acute Code(s): I21.3 - ST elevation (STEMI) myocardial infarction of unspecified site Qualifiers: Involved coronary artery: unspecified coronary artery Qualified Co de(s): I21.3 - ST elevation (STEMI) myocardial infarction of unspecified site (4) Tobacco abuse: Status: Acute Code(s): Z72.0 - Tobacco use (5) CAD (coronary artery disease): Status: Acute Code(s): I25.10 - Atherosclerotic heart disease of [place] coronary artery without angina pectoris Qualifiers: Associated angina: with unstable angina Coronary Disease-Associated Artery/Lesion type: unspecified vessel or lesion type [place] vs. transplanted heart: [place] heart Qualified Code(s): I25.110 - Atherosclerotic heart disease of [place] coronary artery with unstable angina pectoris Meds Home Medications and Allergies Home Medications ?Medication ?Instructions ?Recorded ?Confirmed ?Type aspirin 81 mg tablet,delayed 81 mg PO DAILY 30 days #30 tabs 02/16/25 Rx release atorvastatin 40 mg tablet 40 mg PO HS 30 days #30 tabs 02/16/25 Rx irbesartan 75 mg tablet 75 mg PO DAILY 30 days #30 tabs 02/16/25 Rx metoprolol succinate 25 mg 25 mg PO DAILY 30 days #30 tabs 02/16/25 Rx tablet,extended release 24 hr pantoprazole 40 mg tablet,delayed 40 mg PO HS 30 days #30 tabs 02/16/25 Rx release ticagrelor 90 mg tablet (Brilinta) 90 mg PO BID 30 days #60 tabs 02/16/25 Rx New Prescriptions to Start Prescriptions: aspirin Stef,Cordell atorvastatin Stef,C[place]ell irbesartan Stef,[place]ell metoprolol succinate Stef,C[place]ell pantoprazole Stef,Cordell ticagrelor [Brilinta] Cordell Finch Allergies Allergy/AdvReac Type Severity Reaction Status Date / Time No Known Allergies Allergy Verified 07/18/24 12:08 Discharge Plan Disposition Patient Disposition: Home, Self-Care Condition: Fair Discharge Order Discharge Orders: Discharge Order (Routine); Ordered 02/16/25 Ordered By: Cordell Finch Follow up Plan Follow up with: Duncan Morataya PA [Physician Paralegal] - 02/21/25 11:15 am Anatoliy Evans MD [Primary Care Provider] - 02/23/25 9:00 am Prescriptions/Medication Reconciliation: New atorvastatin 40 mg Tablet 40 mg PO HS 30 Days Qty: 30 0RF aspirin 81 mg Tablet,Delayed Release (Dr/Ec) 81 mg PO DAILY 30 Days Qty: 30 0RF pantoprazole 40 mg Tablet,Delayed Release (Dr/Ec) 40 mg PO HS 30 Days Qty: 30 0RF irbesartan 75 mg Tablet 75 mg PO DAILY 30 Days Qty: 30 0RF metoprolol succinate 25 mg Tablet Extended Release 24 Hr 25 mg PO DAILY 30 Days Qty: 30 0RF Brilinta 90 mg Tablet 90 mg PO BID 30 Days Qty: 60 0RF Other Ambulatory Orders: Complete Blood Count Auto Diff (Routine) Timeframe: 20250221 Facility: [facility] - Location: Laboratory Ordered By: Duncan Morataya Comprehensive Metabolic Panel (Routine) Timeframe: 20250221 Facility: [facility] - Location: Laboratory Ordered By: Duncan Morataya Problem Reconciliation Problems Reviewed?: Yes Patient Discharge Instructions ACTIVITY: Continue current activity DIET: continue same diet Patient Instructions: Heart Attack, Cardiac Catheterization, Surgical Site Infection, Cardiology Catheterization Patient / Family Discharge Instructions Print Language: Georgian Providers Primary Care Provider: Anatoliy Evans Admit Provider: Ramses Friedman Attending Provider: Ramses Friedman
--- NOTE | 2025-02-16 10:22 | PC.NURSE ---
pt being DC with all medications necessary for post stent placement. outpatient labs scheduled via [facility] for the pt's follow up. per Dr. Finch, no lifevest necessary for pt at this time.
--- NOTE | 2025-02-16 11:39 | P.PN_ITS ---
Subjective Subjective Date: 02/16/25 Time: 09:30 Interval history: No events overnight. Sinus tach improved with transdermal nicotine. Vital stable. LifeVest pending. Exam Data for Last 24 hours Vital signs and Labs for Last 24 Hours: Temp Pulse Resp BP Pulse Ox O2 Del Method O2 Flow Rate 97.9 F 95 H 18 120/93 H 96 Room Air 3 02/16/25 08:00 02/16/25 08:00 02/16/25 08:00 02/16/25 08:00 02/16/25 08:00 02/16/25 09:00 02/14/25 01:36 Laboratory Results - last 24 hr 02/16/25 06:15: WBC 10.5, RBC 5.27, Hgb 17.2, Hct 49.0, MCV 93.0, MCH 32.6 H, MCHC 35.1, RDW 11.9, Plt Count 192, MPV 11.1 H, Neut % (Auto) 58.1, Lymph % (Auto) 30.4, [place] % (Auto) 7.1, Eos % (Auto) 3.4, Baso % (Auto) 0.7, Neut # (Auto) 6.1, Lymph # (Auto) 3.2, [place] # (Auto) 0.8, Eos # (Auto) 0.4, Baso # (Auto) 0.1, Sodium 137, Potassium 4.5, Chloride 108 H, Carbon Dioxide 22, Anion Gap 11.5, BUN 21 H D, Creatinine 1.00, Estimated Creat Clear 107, Estimated GFR 79, Est GFR ( Amer) 96, Glucose 110 H, Calcium 10.2, Magnesium 2.2, Total Bilirubin 0.7, AST 39 D, ALT 49, Alkaline Phosphatase 72, Total Protein 7.4, Albumin 4.4, Globulin 3.0, Albumin/Globulin Ratio 1.5 I & O for Last 24 hours: Intake & Output 02/13/25 02/14/25 02/15/25 02/16/25 23:59 23:59 23:59 23:59 Intake Total 2040.275 / 2040.275 1440 / 1640 680 / 680 Output Total 1225 / 1225 0 / 0 Balance 815.275 / 637.907 3664 / 1640 680 / 680 Weight 196 lb 187 lb 8 oz 186 lb 12.8 oz Constitutional Constitutional: no acute distress and cooperative *Routine HEENT Exam Eye: Present PERRL *Routine Respiratory Exam Respiratory: Present CTA bilaterally; Absent accessory muscle use, wheezes or crackles *Routine Cardiovascular Exam Cardiovascular: Present RRR, Normal S1 and Normal S2; Absent murmur, gallop or rubs Comments: Right radial cath site normal on inspection and palpation *Routine Abdominal Exam Abdominal: Present soft; Absent tenderness *Routine Extremities Exam Extremities: Present pulses intact; Absent cyanosis or edema *Routine Skin Exam Skin: Present intact; Absent erythema or wounds *Routine Neurological Exam Neurological: Present alert and oriented X3 Routine Psychiatric Exam Psychiatric: Present cooperative Progress Note: A&P Assessment and plan (1) Myocardial infarction complications: Status: Acute (2) Cardiac arrest with ventricular fibrillation: Status: Acute (3) ST elevation (STEMI) myocardial infarction: Status: Acute (4) Tobacco abuse: Status: Acute (5) CAD (coronary artery disease): Status: Acute Assessment and Plan Assessment and Plan for All Diagnoses:: V-fib arrest with Acute Inferolateral STEMI 02/14/25 - V-fib arrest in ED with immediate compressions/defibrillation - [facility] following v-fib: RCA and OM stented. Moderate persistant dz in LCX and PDA left to med management. - ECHO shows preserved EF - Cont DAPT, Statin, BB, ARB - no further ectopy on telemetry x48h - will request LifeVest x1 month given presentation of v-fib arrest Tob - recommend cessation, pt agreeable and using nicotine transdermal Htn - cont BB, ARB - keep german BP log, goal 120s or less HLD - LDL 103 - cont high dose statin Sinus Tachy - likely nicotine withdrawal - add transdermal nicotine - possible R-kidney stone per pt, declines analgesia - cont to monitor - resolved with transdermal nicotine 02/16 CV Summary: CV Stable for DC Home after LifeVest placement. No lifting pushing or pulling with right wrist x 10 pounds for 5 days CV DC medication list: 1 aspirin 81 mg p.o. daily 2 Brilinta 90 mg 1 p.o. twice daily 3 atorvastatin 80 mg 1 p.o. nightly 4 Toprol-XL 25 mg 1 p.o. daily 5 irbesartan 75 mg 1 p.o. daily 6 transdermal nicotine taper patch starting at 21 mg CV FU: 1-2 weeks in our office Pt should remain off of work until follow up
--- NOTE | 2025-02-17 10:49 | SW/DCPLANNER ---
Spoke with patient on the phone. Patient stated that he is doing well. Patient stated that he was able to get his medicine picked up from [facility]. Patient stated that he is aware of his upcoming appointments. Patient stated that he is fxing to go and get fitted for his life vest. Patient stated that he has no concerns or questions at this time. Hazel Aguirre
== END 2025-02-16 10:45 | disposition home or self-care (01) | DRG 321 ==
LOC: ER 02-14 01:35 → ICU 02-14 01:53 → 2ND 02-14 16:11
PROVIDERS: Internal Medicine; Internal Medicine Adolescent Medicine; Nurse Practitioner Family; Admitting Provider Student in an Organized Health Care Education/Training Program; Emergency Provider Emergency Medicine; PCP Internal Medicine; Visit Provider Student in an Organized Health Care Education/Training Program
PROC: 027135Z Dilation of Coronary Artery, Two Arteries with Two Drug-eluting Intraluminal Devices, Percutaneous Approach (ICD-10-PCS; principal; 2025-02-14 01:00)
DX: I21.19 ST elevation (STEMI) myocardial infarction involving other coronary artery of inferior wall (principal); I46.2 Cardiac arrest due to underlying cardiac condition; I49.01 Ventricular fibrillation; I25.10 Atherosclerotic heart disease of native coronary artery without angina pectoris; F17.210 Nicotine dependence, cigarettes, uncomplicated; I10 Essential (primary) hypertension; I77.1 Stricture of artery; Z79.891 Long term (current) use of opiate analgesic; Z79.899 Other long term (current) drug therapy; E78.5 Hyperlipidemia, unspecified; Z87.442 Personal history of urinary calculi; Z84.1 Family history of disorders of kidney and ureter; Z82.49 Family history of ischemic heart disease and other diseases of the circulatory system; T65.224A Toxic effect of tobacco cigarettes, undetermined, initial encounter; R00.0 Tachycardia, unspecified; R09.81 Nasal congestion; K21.9 Gastro-esophageal reflux disease without esophagitis
CPT/HCPCS: 36415; 71045; 80048; 80053; 80061; 82803; 83036; 83735; 84484; 85007; 85025; 85378; 92929; 92941; 92950; 93005; 93306; 99152; 99153; 99291; C1725; C1760; C1769; C1874; C9601; C9606; J0171; J0282; J1200; J1644; J1650; J2250; J3010; Q9967

== ENCOUNTER 2025-02-21 10:30 | Outpatient (CLI) | payer BC, SELFPAY ==
[2025-02-21 11:01] LABS: Basophils # 0.1 K/mm3 (0-0.2); Basophils % 0.9 % (0.1-2.0); Eosinophils # 0.4 K/mm3 (0.0-0.4); Eosinophils % 3.9 % (0.1-12.0); Hematocrit 45.5 % (42.0-52.0); Hemoglobin 15.6 g/dL (14.1-18.0); Lymphocytes # 2.7 K/mm3 (0.7-4.5); Lymphocytes % 29.4 % (10-50); Mean Corpuscular HGB Conc 34.3 g/dL (31.8-35.4); Mean Corpuscular Hemoglobin 31.6 pg (27.0-31.2); Mean Corpuscular Volume 92.1 fl (80-94); Mean Platelet Volume 11.1 fl (7.4-10.4); Monocytes # 0.7 K/mm3 (0.1-1.0); Neutrophils # 5.2 K/mm3 (1.8-7.8); Neutrophils % 57.6 % (37.0-80.0); Platelet Count 211 K/mm3 (142-424); Red Blood Count 4.94 M/mm3 (4.60-6.20); Red Cell Distribution Width 11.8 % (11.5-17.5)
[2025-02-21 11:40] LABS: Alanine Aminotransferase 40 U/L (12-78); Albumin Level 4.6 g/dl (3.5-5.0); Albumin/Globulin Ratio 1.8 (1.1-1.8); Alkaline Phosphatase 72 U/L (38-126); Anion Gap 11.6 mEq/L (5-15); Aspartate Amino Transferase 28 U/L (17-59); Bilirubin,Total 0.8 mg/dl (0.2-1.3); Blood Urea Nitrogen 16 mg/dl (9-20); Calcium 9.9 mg/dl (8.4-10.2); Carbon Dioxide 26 mmol/L (22.0-30.0); Chloride 106 mmol/L (98-107); Estimated Glomerular Filt Rate 71 ml/min (>60); GFR (African American) 86 ML/MIN (>60); Globulin 2.5 g/dL (1.3-3.2); Glucose 102 mg/dl (74-100); Potassium 4.6 mmoL/L (3.5-5.1); Sodium 139 mmol/L (136-145); Total Protein,Serum 7.1 g/dl (6.3-8.2)
== END 2025-02-21 23:59 | disposition home or self-care (01) ==
LOC: LAB 10:32
PROVIDERS: PCP Internal Medicine; Visit Provider Physician Assistant
DX: I21.3 ST elevation (STEMI) myocardial infarction of unspecified site (principal); I46.2 Cardiac arrest due to underlying cardiac condition; E78.5 Hyperlipidemia, unspecified
CPT/HCPCS: 36415; 80053; 85025

== ENCOUNTER 2025-02-28 15:05 | Outpatient (RCR) | payer BC, SELFPAY | END 2025-05-18 10:00 | disposition home or self-care (01) | LOC: CR 15:05 | PROVIDERS: Visit Provider Physician Assistant | DX: I23.8 Other current complications following acute myocardial infarction (principal); I21.3 ST elevation (STEMI) myocardial infarction of unspecified site | CPT/HCPCS: 93798 ==

== ENCOUNTER 2025-03-27 07:05 | Outpatient (CLI) | payer BC, SELFPAY ==
--- NOTE | 2025-03-27 | US_ITS ---
FINAL REPORT TECHNIQUE: Ultrasound images of the kidneys were obtained. CLINICAL HISTORY: STONES -- LT SIDED BACK PAIN COMPARISON: None FINDINGS: RENAL ULTRASOUND Limited images of the liver parenchyma demonstrate normal echogenicity. The right kidney measures 11.5 cm in length. The left kidney measures 10.5 cm in length. The kidneys are of normal cortical echogenicity. No masses are identified. There are small hyperechoic foci in both kidneys probably due to small nonobstructing stones. There is questionable minimal left hydronephrosis. IMPRESSION: Small hyperechoic foci in both kidneys probably due to small nonobstructing stones. Questionable minimal left hydronephrosis. Reviewed, Interpreted and Dictated by Houston Coffey MD Transcribed by Ankita Mabry Authenticated and [facility]
--- NOTE | 2025-03-27 | US_ITS ---
FINAL REPORT CLINICAL HISTORY: .HX OF STONES FINDINGS: ULTRASOUND BLADDER WITH POST VOID RESIDUAL Bladder volumes were estimated based on 3 dimensional measurements, pre- and postvoid. Prevoid bladder volume: 115 mls Postvoid bladder volume: 10 mls Bilateral ureteral jets identified. No evidence of stones. IMPRESSION: Estimated bladder volumes as above with small postvoid residual . Reviewed, Interpreted and Dictated by Houston Coffey MD Transcribed by Juhi Brooke Authenticated and [facility]
--- OUTSIDE RECORDS SUMMARY | 2025-03-27 07:09 | XMS_ITS | Data Portability ---
Author Organization [place] [facility] Address [address] [facility] [address] [place] [address] Care Team Providers Care Pick Pulling Machine Tender Name Role Phone ANATOLIY KUO Primary Care Provider MAIKEL GRIMES Electrode Cleaner Assessment Encounter Date Assessment Date Assessment LastModified by Organization Details LastModified Time 11/25/2016 11/25/2016 Pt continues to lizeth rx well. Progression of scapular mm program shifting from isometric activation to CKC resisted motion. Noted gradual fatigue of periscapular mm but overall pt displays much improved scapular control and mm activation. Updates noted on flow sheet. Discussed possible RTW and participation in work conditioning. If the pt is to undergo work conditioning, I feel he is appropriate for RTW. If not, pt will need additional PT to address strength and endurance deficits. Will assess lizeth to rx next visit. Continue with POT progressing as lizeth. Pt to f/u with Dr. Cervantes 12/04/16. He is to stop by following this appt to discuss continuation of care and change in the POT [email or web address] Not available 11/25/2016 17:30:14 12/04/2016 12/04/2016 He will be directed towards work hardening, work conditioning, and physical therapy. He may return to work when he completes his work conditioning. CC: BYOM! Service Seven Sotomayor MD [id number] Not available 12/05/2016 12:57:17 06/24/2021 06/24/2021 Full use, follow-up as needed. At maximum medical improvement with no permanent partial impairment. [email or web address] Not available 06/24/2021 14:40:13 Plan of Treatment Reminders Order Date Submit Date Provider Last Modified By Organization Details Last Modified Time Details Appointments None recorded. Lab None recorded. Referral None recorded. Procedures None recorded. Surgeries None recorded. Imaging MRI, cervical spine, w/o contrast 2018 019 [email or web address] [facility] [place], [address] , [place], [address], 9 13:50:32 Medication Orders None recorded. Patient TargetsNo targets recorded. Patient Instructions Encounter Date Encounter Id Patient Instructions Last Modified By Organization Details Last Modified Time 12/04/2016 [id number] He has made a lot of progress. He has minimal low trap findings. He will be able to start and back into work conditioning and work hardening. [id number] Not available 12/05/2016 12:57:18 02/02/2019 [id number] work status report* [email or web address] Not available 02/09/2019 07:58:41 05/24/2021 [id number] I recommend he continue the DIP gutter splint and maintain motion at his MP and PIP joints. Continue yany-kke-osejyfs medicines as needed for pain. He is given work restrictions which are scanned into the chart. 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 He will follow-up in three weeks for repeat evaluation including x-rays out of the splint: AP, lateral, and oblique of the right ring finger. He is informed that the pain and swelling may persist for several weeks to a few months. [email or web address] Not available 05/24/2021 13:51:08 Reason for Referral None Reported. Results Created Date Observation Date Name Description Value Unit Range Abnormal Flag Note LastModifiedBy Organization Detail LastModifiedTime 03/03/2010/31/2018 CT, abdom en + pelvi s, w/o contr ast No observ ation record ed. [facility] [address], [place], [address], 03/03/2019 16:13:05 06/24/20 21 06/24/2021 XR, finge r(s) [facility] Vonnie me [address] [place] [address] Rebecca arevalo Name: SUBHA arevalo : 1974 Rebecca arevalo 8 Orderi ng Provid er: EDMUNDO ROMERO Y EXAM DATE: 2020 EXAM: XR RT FINGER (S) HISTOR Y: Follow up of fractu re. COMPAR SUKHWINDER: None FINDIN GS: There is a fractu re of the tuft of the distal phalan x of the right fourth finger . There is minima l displa cement . No other fractu re is seen. IMPRES MOISES: 1. There is a fractu re of the distal phalan x of the right fourth finger . Interp reted By: Woodrow lundberg MD Electr onical ly Signed By: Woodrow lundberg MD on 021 2:41 PM [id number] [facility] [place] [address] , [place], [address], 06/05/2022 03:50:21 Result Notes None recorded. Problems Name Problem SNOMED Code Status Onset Date Resolution Date Notes Provider Name and Address Organization Details Recorded Time Neck pain 01847849 Active 2015 From Automated Load;Provi olga lidia: Sathya Ng;Stat us: Active Not Available [facility] 6 09:31:19 Incoordin ation 094474479 Active 2015 From Automated Load;Provi olga lidia: Charleen Cervantes;Status : Active Not Available [facility] 7 06:08:12 Problem Notes None recorded. Procedures Surgical History Date Name Laterality Status Provider Name and Address Organization Details Recorded Time 6 PT Therapeutic Exercise completed PAMELA JAMES II, PT, DPT [address] [place], [address], [facility] 11/25/2016 13:40:12 6 PT Therapeutic Exercise completed PAMELA JAMES II, PT, DPT [address] [place], [address], [facility] 11/13/2016 13:40:59 Orthopedic Surgery completed Candi Divina [facility] 12/04/2016 14:16:09 [facility] 14:16:23 Imaging Results Imaging Date Name Status LastModified by Organiz ation Details LastModified Time 10/31/2018 CT, abdomen + pelvis, w/o contrast completed [place] [facility] [address], [place], [address], 03/03/2019 16:13:05 06/24/2021 XR, finger(s) completed [facility] [place] [address] , [place], [address], 06/05/2022 03:50:21 Procedure Notes None recorded. Medical Equipment None Reported. Allergies No known drug allergies Medications Name Sig Start Date Stop Date Status Note LastModified by Organization Details LastModified Time tramadol 50 mg tablet Take 1 tablet every 6 hours by oral route as needed. active Not Available Not Available No t Available ketorolac 10 mg tablet Take 1 tablet every 6 hours by oral route. active Not Available Not Available No t Available diflunisa l 500 mg tablet Two times a day 2015 active Duration: 20 days;Freq uency: bid;Medic ation Descripti on: diflunisa l; Dosage:1; Route:ora l; refills:2 ; Quantity: 40 tablet Not Available Not Available Not Available naproxen 500 mg tablet Take 1 tablet twice a day by oral route. active Not Available Not Available No t Available hydrocodo ne-acetam inophen 05/24 completed Medicatio n Descripti on: hydrocodo ne bitartrat e/acetami nophen; Route:ora l; refills:0 Not Available Not Available Not Available Aleve active Medicatio n Descripti on: naproxen; Route:ora l; refills:0 Not Available Not Available Not Available Vicks DayQuil 60 mg-30 mg-650 mg/30 mL oral solution active Medicatio n Descripti on: acetamino phen/dext romethorp peralta/PSE; Route:ora l; refills:0 Not Available Not Available Not Available Vitals Date Recorded Body height Body weight Body mass index (BMI) Provider Name and Address Organization Details Last Updated DateTime 12/04/2016 177.8 cm 13984.66 g 25.1 kg/m2 Candi Murcia [facility] 12/04/2016 14:14:41 Date Recorded Body height Body mass index (BMI) Body weight Systolic blood pressure Diastolic blood pressure Provider Name and Address Organization Details Last Updated DateTime 02/02/2019 177.8 cm 26.5 kg/m2 94636.59 g 156 mm[Hg] 88 mm[Hg] Nghia Du [facility] 9 15:56:07 Date Recorded Body height Body mass index (BMI) Body weight Provider Name and Address Organization Details Last Updated DateTime 05/24/2021 177.8 cm 26.5 kg/m2 99068.59 g Nona [facility] 05/24/2021 11:25:24 Date Recorded Body height Body mass index (BMI) Body weight Provider Name and Address Organization Details Last Updated DateTime 06/24/2021 177.8 cm 26.5 kg/m2 33722.59 g Nona [facility] 06/24/2021 14:34:13 Social History Question Answer Notes LastModified by Organizat ion Details LastModified Time Tobacco Smoking Status Current Every Day Smoker Candihaley Murcia [facility] 12/04/2016 14:16:01 What Was The Date Of Your Most Recent Tobacco Screening? 02/02/2019 Information n ot available 01/17/2020 Sex: Unknown Functional Status None recorded. Mental Status None recorded. Family History Relationship Description Onset Age of this Age Resolved Age Notes LastModified by Organization Details LastModified Time Unspecified Relation Asthma [email or web address] Not available 12/04/19 17 14:15:21 Unspecified Relation Coronary arterioscler osis [email or web address] Not available 2016 14:15:27 Unspecified Relation Migraine [email or web address] Not available 017 14:15:42 Unspecified Relation Arthritis [email or web address] Not available 2016 14:15:56 Son Diabetes mellitus [email or web address] Not available 2016 14:15:32 Medical History Condition Response Diabetes N Allergies/Hayfever Y Arthritis N Blood Thinners N Heart Conditions N Sleep Apnea N Anesthesia Complications N Asthma Y Pneumonia N Past Encounters Encounter ID Performer Location Encounter Start Date Encounter Closed Date Diagnosis/Indication Diagnosis SNOMED-CT Code Diagnosis ICD10 Code Diagnosis Note [id number] PAMELA JAMES II, PT, DPT PHYSICAL THERAPY / HAND THERAPY [facility] [place] [address] 11/12/2016 14:10:56 11/13/2016 16:47:25 Muscular incoordination 10055282 R27.8 Muscle weakness 86686722 M62.81 Pain of oulder region 96022106 M25.512 [id number] PAMELA JAMES II, PT, DPT PHYSICAL THERAPY / HAND THERAPY [facility] [place] [address] 11/25/2016 13:33:37 11/26/2016 08:25:23 Muscular incoordination 93208677 R27.8 Muscle weakness 52815935 M62.81 Pain of oulder region 86887788 M25.523 [id number] W MACHO CERVANTES MD [place] [address] 12/04/2016 14:06:22 12/04/2016 16:10:13 Scapulalgia 18851391 M89.8X1 [id number] BAO WEBSTER [place] [address] 02/02/2019 15:13:53 02/02/2019 16:21:09 Cervical radiculopathy 02474535 M54.12 Mr Armando has findings of acute exacerbati on of chronic cervical radiculopa thy. I recommend continued activity/w ork restrictio ns and MRI of the shoulder to evaluate for HNP. [id number] [place] [address] 05/24/2021 11:21:14 05/24/2021 11:55:19 Closed fracture of distal phalanx of finger 53787825 S62.664A Subungual hematoma 10232 9004 L60.8 right ring finger [id number] [facility] [place] [address] [place] [address] 06/24/2021 14:14:28 06/24/2021 14:40:29 Closed fracture of distal phalanx of finger 87231675 S62.664A Tuft fracture, 6 weeks out. Subungual hematoma 90779 9004 L60.8 right ring finger Health Concerns Section Related Observation LastModified by Organization Detai ls LastModified Time None Recorded Concern Status LastModified by Organization Details LastModified Time None Recorded Advance Directives Directive None Recorded Payers Encounter Date Sequence Insurance Name Policy Number Policy Ruelas Covered Member ID Ruelas Member ID Guarantor Name 11/25/2016 [facility] 12/04/2016 [facility] Jose Antonio Armando 02/02/2019 [facility] Jose Antonio Armando 05/24/2021 [facility] Jose Antonio Armando 06/24/2021 [facility] Jose Antonio Armando Notes Date Note Type Note Provider Name and Address Organization Details Recorded Time 11/25/2016 text/html Pt reports his shoulder has been doing well. Reports a mild inc in soreness with the holiday related activities but over all he feels he is doing well. Reports he continues to experience the aching type pain in the mid-scapular region. Reports no new complaints at this time. States his HEP is going well. PAMELA JAMES II, PT, DPT [address] [place], [address], [facility] 02/03/2017 12:37:49 12/04/2016 text/html He has been doin g very well in therapy. He has had improved strength and range of motion with minimal symptoms. Sanjay CERVANTES MD [address] [place], [address], [facility] 12/05/2016 13:49:49 02/02/2019 text/html Mr Armando presents today for evaluation of painful left shoulder. He has had chronic pain since August 2015. He reports pain in the neck, periscapular region and pain radiating down the arm. He denies anterolateral shoulder as area of discomfort. He denies weakness of the shoulder. He has had conservative treatment for his shoulder pain with prior treatment from Dr Cervantes. BAO WEBSTER MD [address] [place] [address], [phone], [facility] 02/06/2019 16:40:09 05/24/2021 text/html A 5-year-old whi te male who is here for evaluation of the right ring finger injury that happened on 05/13/2021. He was at work at [employer] and was using a wrench. 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 This caused immediate pain and swelling, as well as bruising. He had x-rays taken on 05/21/2021 which revealed a fracture. He was placed in a DIP gutter splint and referred here for additional evaluation and treatment. He denies previous similar injury. He reports pain as 4/10 with pain radiating into his forearm on the ulnar dorsal side of the hand and wrist. He is alternating between Toradol which she had at home, naproxen, ibuprofen, and Tylenol. I advised him to not take this three NSAIDs at the same time and he understands. Consult requested by: Workers Comp Primary Care Physician: Anatoliy Kuo Hand dominance: {{Right* Left ambid extrous}} Location: {{Right* Left Bilat eral}} {{RF# Hand Wrist El bow Other}} Pain level: {{0 1 2 3 4* 5 6 7 8 9 10}} /10 Date of injury:05/13/21 Duration: {{11# }} {{ day(s)* week(s) month(s) year(s)}} Recent Surgery: {{Yes No*}} Procedure: Date of surgery: Duration: {{ }} {{ day(s) week(s) m onth(s) year(s)}} In office procedure? {{Yes No*}} Previous upper extremity surgery? 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 {{Yes* No}} Is this injury associated with a Workers Compensation claim? {{Yes* No}} Patient arrived in: {{finger splint # cast splint surgi contreras dressing OTC brace}} Wad Lubricator Strength: right: left: Patient arrives after incident at work. He states that he was using a wrench and went to push the wrench down and missed the handle. Then slammed right RF down onto a piece of metal. He was seen by the doctors at [employer] for evaluation. JOSE ANTONIO GRIMALDO PA-C [address] [place] [address], [phone], [facility] 05/24/2021 15:03:21 06/24/2021 text/html Primary Care Physician: Anatoliy Kuo Hand dominance: {{Right* Left ambid extrous}} Location: {{Right* Left Bilat eral}} {{Hand Wrist Elbow Other RF#}} Pain level: {{0 1 2* 3 4 5 6 7 8 9 10}} /10 Date of injury:05/13/21 Duration: {{ 6#}} {{ day(s) week(s)* month(s) year(s)}} Recent Surgery: {{Yes No*}} Procedure: Date of surgery: Duration: {{}} {{ day(s) week(s) m onth(s) year(s)}} In office procedure? {{Yes No*}} Previous upper extremity surgery? 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 {{Yes* No}} Is this injury associated with a Workers Compensation claim? {{Yes* No}} Patient arrived in: {{cast splint surgi contreras dressing OTC brace}} Wad Lubricator Strength: right: left: Pt arrives for recheck of right RF. He states that he is doing alright, minimal pain. He states of more pain when he is in the splint. He states that his ROM is getting better. LAXMI DUMONT MD [address] [place] [address], [phone], [facility] 06/24/2021 14:40:24
--- OUTSIDE RECORDS SUMMARY | 2025-03-27 07:09 | XMS_ITS | Clinical Summary ---
Author Organization [facility] Address [address] [place] [address] Phone Care Team Providers Care Log Data Technician Name Role Phone Romulo GOLDEN, Tyler Loya Unavailable [phone] AYAAN GOLDEN, MARIE E Primary Care Provider [phone] Reason for Referral Date Encounter Description Provider Reason for Referral 06/21/24 Follow Up Brent Rivera MD Refe rral To Physician; Referral To Physician Reason for Visit and Chief Complaint The Chief Complaint is: s/p R KELSIE Problems Includes: Problems addressed during this encounter and other active Problems Current Visit Onset Date Resolved Date Provider Conditio n Status Lower Back Pain 08/12/2023 SUBHA SMITH PA-C Active Last Documented On 3 3:56PM ; [facility] Past Visits Onset Date Resolved Date Provider Condition Status Pain in the Left Hand Only 07/21/2023 Tyler Sebastian MD Active Last Documented On 3 4:02PM ; [facility] Joint Pain in the Right Hip 04/29/2022 Brent Rivera MD Active Last Documented On 2 8:32AM ; [facility] Joint Pain, Localized in Both Shoulders 01/04/2022 Mary Jasso PA-C Active Last Documented On 2 10:10AM ; [facility] Right Upper Back Pain Along Inner Edge of Shoulder Blade 08/11/2016 Seven Sotomayor MD Active Last Documented On 6 3:26PM ; [facility] Neck Pain 10/31/2015 Cricket Weber MD Active Last Documented On 5 1:03PM ; [facility] Plan of Treatment Instructions to patient Intervention and counseling on cessation of tobacco use Last Documented On 4 3:06PM ; [facility], [facility] Lose weight Last Documented On 4 3:06PM ; [facility] Assessments Includes: Assessments from this encounter Findings - Overweight - Last Documented On 06/24/2024 9:50AM ; [facility] 48 year old male status post right total hip arthroplasty performed on 06/23/2022. He appears well healed he has normal exam no pain with range of motion of his hip some light sensitivities over the skin but I have no restrictions on him he can return to work with full duties - Last Documented On 06/24/2024 9:50AM ; [facility] We did reinforce antibiotics prior to any dental procedures and 5 year follow up for routine x-rays - Last Documented On 06/24/2024 9:50AM ; [facility] Instructions Includes: Instructions from this encounter Instructions to patient Intervention and counseling on cessation of tobacco use Last Documented On 4 3:06PM ; [facility], [facility] Lose weight Last Documented On 4 3:06PM ; [facility] Medical Equipment - Implanted Devices Includes: Current Devices No Medical Equipment Recorded Medications Includes: Medications discussed during this encounter and other current Medications Current Medications (continue as prescribed) oxyCODONE HCl 5 MG Oral Tablet 07/18/2024 Provider: MARIE KUO MD Diagnosis: Last Documented On 4 3:07PM By Gail Piper ; [facility], [facility] Ondansetron 4 MG Oral Tablet Disintegrating 07/16/2024 Provider: Diagnosis: Last Documented On 4 3:07PM By Gail Piper ; [facility] Ketorolac Tromethamine 10 MG Oral Tablet 07/16/2024 Provider: Diagnosis: Last Documented On 4 3:07PM By Gail Piper ; [facility] HYDROcodone-Acetaminophen 5-325 MG Oral Tablet 023 Provider: MARIE KUO MD Diagnosis: Last Documented On 3 3:58PM By Stella Carrillo ; [facility], [facility] Cyclobenzaprine HCl 5 MG Oral Tablet 03/05/2022 Prov ider: MARIE KUO MD Diagnosis: Last Documented On 2 1:56PM By Sherice Gordon ; [facility], [facility] Tylenol 325 MG Oral Capsule 01/04/2022 Provider: Diagnosis: Last Documented On 2 10:24AM By Erin Duarte ; [facility] Past Medications on file Naproxen 500 MG Oral Tablet 03/11/2024 - 04/10/2024 Pr ovider: Tyler Sebastian MD Diagnosis: take one tablet twice a day prn following surger y Last Documented On 4 8:18AM By Dr. Sebastian ; [facility] Vitamin C 1000 MG Oral Tablet 03/11/2024 - 05/10/2024 Provider: Tyler mclaughlin MD Diagnosis: once a day take 1 tablet once daily post surgery Last Documented On 4 8:18AM By Dr. Sebastian ; [facility] Medrol 4 MG Oral Tablet Therapy Pack 01/21/2024 - 01/28/2024 Provider: Tyler mclaughlin MD Diagnosis: use as directed Last Documented On 4 2:41PM By Dr. Sebastian ; [facility] Gabapentin 300 MG Oral Capsule 06/29/2023 - 07/29/2023 Provider: Brent Nelson MD Diagnosis: 1 capsule, twice a day as needed Last Documented On 3 3:10PM By Brent Rivera ; [facility] Medications Administered Includes: Administered Medications from this encounter No Administered Medications Recorded Vital Signs Includes: Vital Signs from this encounter Vital Name 06/21/2024 03:37P Height (in) 70 Weight (lb) 191.8 Body Mass Index 27.5 Body Surface Area 2.1 Note: ab Last Documented: On 06/21/2024 3:37PM ; [facility], [facility] Results Includes: Results discussed during this encounter No Results Recorded For Specified Dates History of Present Illness Includes: History of Present Illness from this encounter HPI Subha Armando is a 48 year old male. - Allergy list reviewed - Problem list reviewed - Medication list reviewed - Medication list reviewed 10/17/22 - No previous treatment. - - Review of medications documented 48-year-old male status post a right total hip done in May of 2022 postoperatively he did seem to have some significant hypersensitivity about the right side of his thighs states it most that as gotten better and. He would like to return to work without restrictions they wanted to have a visit with us to discuss that Social History Description Last Updated Is a smoker 07/08/2022 Last Documented On 4 3:06PM ; [facility] Smoker 1 pack/day 07/08/2022 Last Documented On 4 3:06PM ; [facility] Alcohol use 01/14/2022 Last Documented On 4 3:06PM ; [facility] Caffeine use 01/14/2022 Last Documented On 4 3:06PM ; [facility] No recent change in diet 01/14/2022 Last Documented On 4 3:06PM ; [facility] Not exercising regularly 01/14/2022 Last Documented On 4 3:06PM ; [facility] Not using drugs 01/14/2022 Last Documented On 4 3:06PM ; [facility] Yes, current smoker. 01/14/2022 Last Documented On 4 3:06PM ; [facility] Current smoker 11/05/2015 Last Documented On 4 3:06PM ; [facility] No recent change in diet 11/05/2015 Last Documented On 4 3:06PM ; [facility] Smoking status : Current everyday smoker 11/05/2015 Last Documented On 4 3:06PM ; [facility] Tobacco use 11/05/2015 Last Documented On 4 3:06PM ; [facility] Procedures and Surgical History Includes: Procedures from this encounter Procedures Code Diagnosis Performing Provider Service Location Service Date PELVIS w/ 2-3 VIEW HIP (RIGHT) 18435 Unilateral primary osteoarthritis, right hip Brent Rivera MD [facility] 06/21/2024 Last Documented On 4 9:12AM ; [facility] intervention and 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 Last Documented On 4 3:06PM ; [facility] use of tobacco assessment performed 1000F Last Documented On 4 3:06PM ; [facility], [facility] review of medications documented 1160F Last Documented On 4 3:06PM ; [facility] follow-up visit in one month Last Documented On 4 3:06PM ; [facility] referral to physician Last Documented On 4 3:06PM ; [facility] referral to physician Last Documented On 4 3:06PM ; [facility] clinical consultation report Last Documented On 4 3:06PM ; [facility] Surgical History Last Updated History of History of Arthroscopy [facility] 201501/14/2022 Last Documented On 4 3:06PM ; [facility] Medical History Includes: Medical History addressed during this encounter Description Last Updated KIDNEY STONES 01/14/2022 Last Documented On 4 3:06PM ; [facility] History of asthma 01/14/2022 Last Documented On 4 3:06PM ; [facility] No recent immunization for flu 2 Last Documented On 4 3:06PM ; [facility] No recent immunization for pneumococcal pneumonia 01/14/2022 Last Documented On 4 3:06PM ; [facility] History of depression 11/05/2015 Last Documented On 4 3:06PM ; [facility] Family History Includes: Family History addressed during this encounter Description Last Updated Diabetes mellitus 01/31/2022 Last Documented On 4 3:06PM ; [facility] Family history of heart disease 02/01/20 Last Documented On 4 3:06PM ; [facility] Family history of rheumatoid arthritis 0 01/31/2022 Last Documented On 4 3:06PM ; [facility] No significant family history 01/14/2022 Last Documented On 4 3:06PM ; [facility] Maternal history of diabetes mellitus Last Documented On 4 3:06PM ; [facility] Maternal history of family history of he art disease 11/05/2015 Last Documented On 4 3:06PM ; [facility] Maternal history of rheumatoid arthritis 11/05/2015 Last Documented On 4 3:06PM ; [facility] Review of Systems Includes: Review of Systems from this encounter Systemic: Not feeling tired, no recent weight loss, and no recent weight gain. Head: No headache and no sinus pain. Eyes: No vision problems, no Cataracts, no Glasses/Contacts, and no Glaucoma. Otolaryngeal: No hearing loss and no tinnitus. Cardiovascular: No chest pain or discomfort, no palpitations, no Hypertension, and no High Cholesterol. Pulmonary: No daytime asthma symptoms and no chronic cough. No wheezing. Gastrointestinal: No heartburn and no abdominal pain. No Indigestion, no Peptic Ulcer, no GI Stomach Bleed, no Ulcers, and no Acid Reflux. Endocrine: No hot flashes, no muscle weakness, no Diabetes, no Hypothyroid, and no Hyperthyroid. Hematologic: No easy bleeding, no tendency for easy bruising, and no Anemia. Musculoskeletal: No Arthritis and no lower back pain. No soft tissue swelling and no localized joint pain. Neurological: No dizziness, no convulsions, and no numbness. Psychological: No anxiety, no emotional lability, no depression, and no insomnia. Not crying for no reason. Skin: No dry skin. No Ulcers, no Scars, and no rash. Allergic and Immunologic: No complaint of seasonal allergic reaction. Mental Status Includes: Mental Status from this encounter Description No anxiety Functional Status Includes: Functional Status from this encounter No Functional Status Recorded Physical Exam Includes: Physical Exam from this encounter Allergies Includes: Active Allergies No Known Allergies Encounters Encounter Provider Location Date Check-In Time Check-Out Time Diagnosis Follow Up Brent Rivera MD [facility] 4 2:59PM 4:05PM Overweight Insurance Includes: Active Insurance Policies Plan Name Member ID Group # Subscriber Relationship Effect amina Dates 1 - [facility] [id number] Subha Armando Self 11/30/2021 - Unknown Clinical Notes Includes: Clinical Notes from this encounter * Progress note Date Encounter Last Documented by 06/21/2024 Follow Up Last documented on 06/24/2024; 9:50 AM, Brent Rivera MD; [facility] Active Problems & Conditions - Joint Pain in the Right Hip - Joint Pain, Localized in Both Shoulders - Lower Back Pain - Neck Pain - Pain in the Left Hand Only - Right Upper Back Pain Along Inner Edge of Shoulder Blade Chief Complaint The Chief Complaint is: S/p R KELSIE. Referred Here Referred by self. History of Present Illness Subha Armando is a 48 year old male. - Allergy list reviewed - Problem list reviewed - Medication list reviewed - Medication list reviewed 10/17/22 - No previous treatment. - - Review of medications documented 48-year-old male status post a right total hip done in May of 2022 postoperatively he did seem to have some significant hypersensitivity about the right side of his thighs states it most that as gotten better and. He would like to return to work without restrictions they wanted to have a visit with us to discuss that Current Medication - Cyclobenzaprine HCl 5 MG Oral Tablet 10 days, 0 refills - HYDROcodone-Acetaminophen 5-325 MG Oral Tablet 10 days, 0 refills - Tylenol 325 MG Oral Capsule use as directed 0 days, 0 refills Past Medical/Surgical History Reported: Immunization History: No recent immunization for flu and not for pneumococcal pneumonia. Diagnoses: Asthma. Depression KIDNEY STONES. Surgical: - History of Arthroscopy LEFT SHOULDER 2016 Social History Yes, current smoker. Current diet: No recent change in diet. No recent change in diet. Caffeine use: Caffeine use. Tobacco use: Current smoker and smoker 1 pack/day. Is a smoker. Smoking status: Current everyday smoker. Alcohol: Alcohol use. Drug Use: Not using drugs. Habits: Not exercising regularly. Allergies - No Known Allergies Family History Heart disease No significant family history Diabetes mellitus Rheumatoid arthritis Maternal: Heart disease Diabetes mellitus Rheumatoid arthritis Review Of Systems Systemic: Not feeling tired, no recent weight loss, and no recent weight gain. Head: No headache and no sinus pain. Eyes: No vision problems, no Cataracts, no Glasses/Contacts, and no Glaucoma. Otolaryngeal: No hearing loss and no tinnitus. Cardiovascular: No chest pain or discomfort, no palpitations, no Hypertension, and no High Cholesterol. Pulmonary: No daytime asthma symptoms and no chronic cough. No wheezing. Gastrointestinal: No heartburn and no abdominal pain. No Indigestion, no Peptic Ulcer, no GI Stomach Bleed, no Ulcers, and no Acid Reflux. Endocrine: No hot flashes, no muscle weakness, no Diabetes, no Hypothyroid, and no Hyperthyroid. Hematologic: No easy bleeding, no tendency for easy bruising, and no Anemia. Musculoskeletal: No Arthritis and no lower back pain. No soft tissue swelling and no localized joint pain. Neurological: No dizziness, no convulsions, and no numbness. Psychological: No anxiety, no emotional lability, no depression, and no insomnia. Not crying for no reason. Skin: No dry skin. No Ulcers, no Scars, and no rash. Allergic and Immunologic: No complaint of seasonal allergic reaction. Physical Findings - Vitals taken 06/21/2024 03:37 pm ab Height 70 in Weight 191 lbs 12.8 oz Body Mass Index 27.5 kg/m2 Body Surface Area 2.1 m2 Right lower extremity: Incisions well-healed there is no signs of erythema and induration or infection pain-free range of motion of the hip Patient has 5 out of 5 motor strength in tib ant and gastroc sensory is intact to SPN TPN and tibial nerves a 2+ dorsalis pedis pulse No signs of DVT Tests X-rays performed today AP pelvis and AP lateral of the right hip show implant in good position no signs of loosening or osteolysis leg length and offset appear symmetric Assessment - Overweight 48 year old male status post right total hip arthroplasty performed on 06/23/2022. He appears well healed he has normal exam no pain with range of motion of his hip some light sensitivities over the skin but I have no restrictions on him he can return to work with full duties We did reinforce antibiotics prior to any dental procedures and 5 year follow up for routine x-rays Therapy - Clinical consultation report. - Intervention and counseling on cessation of tobacco use. - Follow-up visit in one month. - Referral to physician and to physician. Counseling/Education - Tobacco non-user - Use of tobacco assessment performed - Lose weight Notes This dictation was done with voice recognition software and may contain errors and omissions. Practice Management Use of tobacco assessment performed Review of medications documented. Care Team - MARIE KUO MD - MANAGER STRATEGIC
--- OUTSIDE RECORDS SUMMARY | 2025-03-27 07:09 | XMS_ITS ---
Care Plan - [facility], [facility] Created on: March 27, 2025 Tr Cordell : 1975 Sex: Male Author Organization [facility], [facility] Address [address] [place] [address] Phone Care Team Providers Care Cask Maker Name Role Phone Romulo GOLDEN, Tyler Loya Unavailable [phone] AYAAN GOLDEN, MARIE Mario Primary Care Provider [phone]
--- OUTSIDE RECORDS SUMMARY | 2025-03-27 07:09 | XMS_ITS | Clinical Summary ---
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 Phone Romulo GOLDEN, Tyler Loya Unavailable [phone] AYAAN GOLDEN, MARIE E Primary Care Provider [phone] Reason for Visit and Chief Complaint The Chief Complaint is: left hand pain Problems Includes: Problems addressed during this encounter and other active Problems Current Visit Onset Date Resolved Date Provider Conditio n Status Lower Back Pain 08/12/2023 SUBHA SMITH PA-C Active Last Documented On 3 3:56PM ; [facility] Past Visits Onset Date Resolved Date Provider Condition Status Pain in the Left Hand Only 07/21/2023 Tyler Sebastian MD Active Last Documented On 3 4:02PM ; [facility] Joint Pain in the Right Hip 04/29/2022 Brent Rivera MD Active Last Documented On 2 8:32AM ; [facility] Joint Pain, Localized in Both Shoulders 01/04/2022 Mary Jasso PA-C Active Last Documented On 2 10:10AM ; [facility] Right Upper Back Pain Along Inner Edge of Shoulder Blade 08/11/2016 Seven Sotomayor MD Active Last Documented On 6 3:26PM ; [facility] Neck Pain 10/31/2015 Cricket Weber MD Active Last Documented On 5 1:03PM ; [facility] Plan of Treatment 1. He will continue with daily scar massage until it's been 6 months from the day of surgery. 2. 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 3. He may use his left hand for all regular activity with no restrictions. 4. He is released from our care to follow up as needed. - Last Documented On 04/12/2024 3:47PM ; [facility] Instructions to patient Intervention and counseling on cessation of tobacco use Last Documented On 4 3:37PM ; [facility] Intervention and counseling on cessation of tobacco use Last Documented On 4 3:37PM ; [facility] Lose weight Last Documented On 4 3:37PM ; [facility] Assessments Includes: Assessments from this encounter Findings - Overweight - Last Documented On 04/12/2024 3:47PM ; [facility] s/p release left trigger thumb and release left long trigger finger - Last Documented On 04/12/2024 3:47PM ; [facility] Instructions Includes: Instructions from this encounter Instructions to patient Intervention and counseling on cessation of tobacco use Last Documented On 4 3:37PM ; [facility] Intervention and counseling on cessation of tobacco use Last Documented On 4 3:37PM ; [facility] Lose weight Last Documented On 4 3:37PM ; [facility] Medical Equipment - Implanted Devices Includes: Current Devices No Medical Equipment Recorded Medications Includes: Medications discussed during this encounter and other current Medications Current Medications (continue as prescribed) oxyCODONE HCl 5 MG Oral Tablet 07/18/2024 Provider: MARIE KUO MD Diagnosis: Last Documented On 4 3:07PM By Gail Piper ; [facility] Ondansetron 4 MG Oral Tablet Disintegrating 07/16/2024 Provider: Diagnosis: Last Documented On 4 3:07PM By Gail Piper ; [facility] Ketorolac Tromethamine 10 MG Oral Tablet 07/16/2024 Provider: Diagnosis: Last Documented On 4 3:07PM By Gail Piper ; [facility] HYDROcodone-Acetaminophen 5-325 MG Oral Tablet 023 Provider: MARIE KUO MD Diagnosis: Last Documented On 3 3:58PM By Stella Carrillo ; [facility] Cyclobenzaprine HCl 5 MG Oral Tablet 03/05/2022 Prov ider: MARIE KUO MD Diagnosis: Last Documented On 2 1:56PM By Sherice Gordon ; [facility] Tylenol 325 MG Oral Capsule 01/04/2022 Provider: Diagnosis: Last Documented On 2 10:24AM By Erin Duarte ; [facility] Past Medications on file Naproxen 500 MG Oral Tablet 03/11/2024 - 04/10/2024 Pr ovider: Tyler Sebastian MD Diagnosis: take one tablet twice a day prn following surger y Last Documented On 4 8:18AM By Dr. Sebastian ; [facility] Vitamin C 1000 MG Oral Tablet 03/11/2024 - 05/10/2024 Provider: Tyler mclaughlin MD Diagnosis: once a day take 1 tablet once daily post surgery Last Documented On 4 8:18AM By Dr. Sebastian ; [facility] Medrol 4 MG Oral Tablet Therapy Pack 01/21/2024 - 01/28/2024 Provider: Tyler mclaughlin MD Diagnosis: use as directed Last Documented On 4 2:41PM By Dr. Sebastian ; [facility] Gabapentin 300 MG Oral Capsule 06/29/2023 - 07/29/2023 Provider: Brent Nelson MD Diagnosis: 1 capsule, twice a day as needed Last Documented On 3 3:10PM By Brent Rivera ; [facility] Medications Administered Includes: Administered Medications from this encounter No Administered Medications Recorded Vital Signs Includes: Vital Signs from this encounter Vital Name 04/12/2024 03:37P Height (in) 70 Weight (lb) 180 Body Mass Index 25.8 Body Surface Area 2 Note: [facility] Last Documented: On 04/12/2024 3:37PM ; [facility] Results Includes: Results discussed during this encounter No Results Recorded For Specified Dates History of Present Illness Includes: History of Present Illness from this encounter HENRIQUE Armando is a 48 year old male. - Allergy list reviewed - Problem list reviewed - Medication list reviewed - - Review of medications documented Patient is a approximately one month status post release left trigger thumb and left long trigger finger. He is doing well overall and has no complaints. He denies any triggering since surgery. Social History Description Last Updated Is a smoker 07/08/2022 Last Documented On 4 3:36PM ; [facility] Smoker 1 pack/day 07/08/2022 Last Documented On 4 3:36PM ; [facility] Alcohol use 01/14/2022 Last Documented On 4 3:36PM ; [facility] Caffeine use 01/14/2022 Last Documented On 4 3:36PM ; [facility] No recent change in diet 01/14/2022 Last Documented On 4 3:36PM ; [facility] Not exercising regularly 01/14/2022 Last Documented On 4 3:36PM ; [facility] Not using drugs 01/14/2022 Last Documented On 4 3:36PM ; [facility] Yes, current smoker. 01/14/2022 Last Documented On 4 3:36PM ; [facility] Current smoker 11/05/2015 Last Documented On 4 3:36PM ; [facility] No recent change in diet 11/05/2015 Last Documented On 4 3:36PM ; [facility] Smoking status : Current everyday smoker 11/05/2015 Last Documented On 4 3:36PM ; [facility] Tobacco use 11/05/2015 Last Documented On 4 3:36PM ; [facility] Procedures and Surgical History Includes: Procedures from this encounter Procedures Code Diagnosis Performing Provider Service L ocation Service Date intervention and counseling on cessation of tobacco use 4000F Last Documented On 4 3:37PM ; [facility] use of tobacco assessment performed 1000F Last Documented On 4 3:37PM ; [facility] review of medications documented 1160F Last Documented On 4 3:37PM ; [facility] Surgical History Last Updated History of History of Arthroscopy LEFT Louise MURPHY 2016 01/14/2022 Last Documented On 4 3:36PM ; [facility] Medical History Includes: Medical History addressed during this encounter Description Last Updated KIDNEY STONES 01/14/2022 Last Documented On 4 3:36PM ; [facility] History of asthma 01/14/2022 Last Documented On 4 3:36PM ; [facility] No recent immunization for flu 2 Last Documented On 4 3:36PM ; [facility] No recent immunization for pneumococcal pneumonia 01/14/2022 Last Documented On 4 3:36PM ; [facility] History of depression 11/05/2015 Last Documented On 4 3:36PM ; [facility] Family History Includes: Family History addressed during this encounter Description Last Updated Diabetes mellitus 01/31/2022 Last Documented On 4 3:36PM ; [facility] Family history of heart disease 02/01/20 22 Last Documented On 4 3:36PM ; [facility] Family history of rheumatoid arthritis 0 01/31/2022 Last Documented On 4 3:36PM ; [facility] No significant family history 01/14/2022 Last Documented On 4 3:36PM ; [facility] Maternal history of diabetes mellitus Last Documented On 4 3:36PM ; [facility] Maternal history of family history of he art disease 11/05/2015 Last Documented On 4 3:36PM ; [facility] Maternal history of rheumatoid arthritis 11/05/2015 Last Documented On 4 3:36PM ; [facility] Review of Systems Includes: Review of Systems [...] Immunologic: No complaint of seasonal allergic reaction. Reviewed 04/12/24 Mental Status Includes: Mental Status from this encounter Description No anxiety Functional Status Includes: Functional Status from this encounter No Functional Status Recorded Physical Exam Includes: Physical Exam from this encounter Allergies Includes: Active Allergies No Known Allergies Encounters Encounter Provider Location Date Check-In Time Check-Out Time Diagnosis Post Op Daniella Brown APRN [facility] 4 3:26PM 3:44PM Overweight Insurance Includes: Active Insurance Policies Plan Name Member ID Group # Subscriber Relationship Effect amina Dates 1 - [facility] [id number] Subha Armando Self 11/30/2021 - Unknown Clinical Notes Includes: Clinical Notes from this encounter * Progress note Date Encounter Last Documented by 04/12/2024 Post Op Last documented on 04/12/2024; 3:47 PM, Daniella Brown APRN; [facility] Active Problems & Conditions - Joint Pain in the Right Hip - Joint Pain, Localized in Both Shoulders - Lower Back Pain - Neck Pain - Pain in the Left Hand Only - Right Upper Back Pain Along Inner Edge of Shoulder Blade Chief Complaint The Chief Complaint is: Left hand pain. Referred Here Referred by JOCELIN. History of Present Illness Subha Armando is a 48 year old male. - Allergy list reviewed - Problem list reviewed - Medication list reviewed - - Review of medications documented Patient is a approximately one month status post release left trigger thumb and left long trigger finger. He is doing well overall and has no complaints. He denies any triggering since surgery. Current Medication - Cyclobenzaprine HCl 5 MG Oral Tablet 10 days, 0 refills - HYDROcodone-Acetaminophen 5-325 MG Oral Tablet 10 days, 0 refills - Tylenol 325 MG Oral Capsule use as directed 0 days, 0 refills - Vitamin C 1000 MG Oral Tablet once a day take 1 tablet once daily post surgery, 60 days, 0 refills Past Medical/Surgical History Reported: [...] Immunologic: No complaint of seasonal allergic reaction. Reviewed 04/12/24 Physical Findings - Vitals taken 04/12/2024 03:37 pm kn Height 70 in Weight 180 lbs Body Mass Index 25.8 kg/m2 Body Surface Area 2 m2 The patient is awake alert oriented in time place and person. Is in no acute distress. Has normal mood and affect. Is neatly dressed. Has normal gait and station. Pupils are equal and react to light normally. Eyes move normally. Mucous membranes are moist. The patient has no trouble with speech. The patient is afebrile. On exam, the left hand is pink and warm with brisk cap refill. The scars in his palm are maturing nicely. He is able to make a tight fist. There is no crepitus or triggering. Assessment - Overweight s/p release left trigger thumb and release left long trigger finger Therapy - Intervention and counseling on cessation of tobacco use. Counseling/Education - Tobacco use - Use of tobacco assessment performed - Intervention and counseling on cessation of tobacco use - Lose weight Plan 1. He will continue with daily scar massage until it's been 6 months from the day of surgery. 2. 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 3. He may use his left hand for all regular activity with no restrictions. 4. He is released from our care to follow up as needed. Notes This dictation was done with voice recognition software and may contain errors and omissions. Practice Management Use of tobacco assessment performed Review of medications documented. Care Team - MARIE KUO MD - PRINTING TABLE WORKER
--- OUTSIDE RECORDS SUMMARY | 2025-03-27 07:09 | XMS_ITS | Data Portability ---
Author Organization [facility] [place] Address [address] [place] [address] Care Team Providers Care Picking Table Worker Name Role Phone MARIE KUO Primary Care Provider [phone] Assessment No assessment recorded. Plan of Treatment Reminders Order Date Submit Date Provider Last Modified By Organization Details Last Modified Time Details Appointments None record ed. Lab None record ed. Referral None record ed. Procedures None record ed. Surgeries None record ed. Imaging None record ed. Medication Orders None record ed. Patient TargetsNo targets recorded. Patient InstructionsNo instructions recorded. Reason for Referral None Reported. Results Created Date Observation Date Name Description Value Unit Range Abnormal Flag Note LastModifiedBy Organization Detail LastModifiedTime 07/24/2007/23/2023 CT, abdom en + pelvi s, w/o contr ast No observ ation record ed. [email or web address] [address] [place], [address], 07/27/2023 09:26:15 Result Notes None recorded. Procedures Surgical History Date Name Laterality Status Provider Name and Address Organization Details Recorded Time total replacement of hip completed Paige Cason [facility] [place] 07/28/2023 13:30:46 ureterorenoscopy with fragmentation and removal of calculus of kidney completed Paige Cason [facility] [place] 07/28/2023 13:31:11 arthroscopic repair of rotator cuff completed Paige Cason [facility] [place] 07/28/2023 13:31:25 Imaging Results Imaging Date Name Status LastModified by Organiz ation Details LastModified Time 07/23/2023 CT, abdomen + pelvis, w/o contrast completed [email or web address] [address] [place], [address], 07/27/2023 09:26:15 Procedure Notes None recorded. Medical Equipment None Reported. Allergies No known drug allergies Medications Name Sig Start Date Stop Date Status Note LastModified by Organization Details LastModified Time amoxicillin 500 mg capsule active Not Available Not Available Not Available hydrocodone 5 mg-acetamino phen 325 mg tablet active Not Available Not Available Not Available ondansetron HCl 4 mg tablet active Not Available Not Available Not Available tramadol 50 mg tablet TAKE 1 TABLET BY MOUTH EVERY 6 HOURS NEEDED FOR BREAKTHROUG H SEVERE PAIN active Not Available Not Available No t Available oxycodone-ac etaminophen 5 mg-325 mg tablet active Not Available Not Available Not Available tamsulosin 0.4 mg capsule active Not Available Not Available Not Available phenazopyrid ine 100 mg tablet active Not Available Not Available Not Available cephalexin 500 mg capsule active Not Available Not Available Not Available gabapentin 300 mg capsule active Not Available Not Available Not Available lisinopril 5 mg tablet active Not Available Not Available No t Available oxycodone 30 mg tablet active Not Available Not Available No t Available ketoconazole 2 % topical cream active Not Available Not Available Not Available ondansetron 4 mg disintegrati ng tablet active Not Available Not Available No t Available cefdinir 300 mg capsule active Not Available Not Available N ot Available oxycodone 5 mg tablet active Not Available Not Available No t Available Vitals Date Recorded Body height Body mass index (BMI) Body weight Body temperature Provider Name and Address Organization Details Last Updated DateTime 07/28/2023 177.8 cm 25.8 kg/m2 44182.63 g 97 [degF] Paige Hurst [facility] [place] 07/28/2023 13:24:32 Social History Question Answer Notes LastModified by Organizat ion Details LastModified Time Tobacco Smoking Status Current Every Day Sm[facility] [place] 07/28/2023 13:24:40 Do You Have An Advance Directive? No [email or web address] Information not available 07/28/2023 What Is Your Level Of Alcohol Consumption? Occasional [email or web address] Information not available 07/28/2023 Are You Blind Or Do You Have Difficulty Seeing? No Information not available 07/28/2023 What Was The Date Of Your Most Recent Tobacco Screening? 07/27/2023 [email or web address] Information not available 07/28/2023 Do You Or Have You Ever Used Smokeless Tobacco? [id number] [email or web address] Information not available 07/28/2023 How Much Tobacco Do You Smoke? 1 PPD [email or web address] Information not available 07/28/2023 Do You Feel Stressed (tense, Restless, Nervous, Or Anxious, Or Unable To Sleep At Night)? [id number] Information not available 07/28/2023 Do You Use Any Illicit Or Recreational Drugs? No [email or web address] Information not available 07/28/2023 How Many Years Have You Smoked Tobacco? 30 [email or web address] Information not available 07/28/2023 Sex: Unknown Functional Status Question Answer Note LastModified by Organization D etails LastModified Time What is your exercise level? None [email or web address] Information not available 07/28/2023 Mental Status None recorded. Family History Nothing Reported. Medical History Condition Response Kidney or Bladder Problems Y Past Encounters Encounter ID Performer Location Encounter Start Date Encounter Closed Date Diagnosis/Indication Diagnosis SNOMED-CT Code Diagnosis ICD10 Code Diagnosis Note [id number] Rui Suero M.D [facility] [address] [place] [phone] [id number] 07/28/2023 13:06:36 07/28/2023 13:52:15 Ureteric stone 25318286 N20.1 pt will call to decide about right ureterosco py laser lithotrips y.He will let me know. Otherwise, he will continue to try to pass his stone Health Concerns Section Related Observation LastModified by Organization Detai ls LastModified Time None Recorded Concern Status LastModified by Organization Details LastModified Time None Recorded Advance Directives Directive N: Payers Encounter Date Sequence Insurance Name Policy Number Policy Ruelas Covered Member ID Ruelas Member ID Guarantor Name 07/28/2023 1 CALI-SANTINO: JOHNNY [place] [employer] [id number] Cordell Armando [id number] Cordell Armando Notes Date Note Type Note Provider Name and Address Organization Details Recorded Time 07/28/2023 text/html pt is here for right prox stone ( 6mm). he was seen 07-23-23 with severe right flank pain. He went to the emergency room at [facility] He then returned to ER in te evening , he has a h/o stone in the past ( [place])he had ESWL and then ureteroscopy to remove fragmentshe is currently using flomax and percocetno blood in the urine Rui Suero M.D [address] [place] [address], [address], [place], [address], [place] - [facility] [place] [facility] [place] 07/28/2023 20:23:55
--- OUTSIDE RECORDS SUMMARY | 2025-03-27 07:09 | XMS_ITS | Clinical Summary ---
Author Organization [facility] Address [address] [place] [address] Phone Care Team Providers Care Lightout Examiner Name Role Phone Romulo GOLDEN, Tyler Loya Unavailable [phone] AYAAN GOLDEN, MARIE E Primary Care Provider [phone] Reason for Visit and Chief Complaint The Chief Complaint is: left hand pain Problems Includes: Problems addressed during this encounter and other active Problems Current Visit Onset Date Resolved Date Provider Conditio n Status Lower Back Pain 08/12/2023 SUBHA SMITH PA-C Active Last Documented On 3 3:56PM ; [facility] Past Visits Onset Date Resolved Date Provider Condition Status Pain in the Left Hand Only 07/21/2023 Tyler Sebastian MD Active Last Documented On 3 4:02PM ; [facility] Joint Pain in the Right Hip 04/29/2022 Brent Rivera MD Active Last Documented On 2 8:32AM ; [facility] Joint Pain, Localized in Both Shoulders 01/04/2022 Mary Jasso PA-C Active Last Documented On 2 10:10AM ; [facility] Right Upper Back Pain Along Inner Edge of Shoulder Blade 08/11/2016 Seven Sotomayor MD Active Last Documented On 6 3:26PM ; [facility] Neck Pain 10/31/2015 Cricket Weber MD Active Last Documented On 5 1:03PM ; [facility] Plan of Treatment 1. Patient is to be scheduled for a release of his left trigger thumb and left long trigger finger. 2. I discussed the condition and treatment options with the patient. We have covered all of the common complications associated with surgical treatment. The patient has had plenty of time to ask questions. Once all of his questions are answered he is ready to proceed with surgical treatment. 3. He will return to the office post-operatively for continued follow-up care. - Last Documented On 02/16/2024 3:42PM ; [facility] Instructions to patient Intervention and counseling on cessation of tobacco use Last Documented On 4 3:15PM ; [facility] Lose weight Last Documented On 4 3:15PM ; [facility] Assessments Includes: Assessments from this encounter Findings - Overweight - Last Documented On 02/16/2024 3:42PM ; [facility] 1. Left trigger thumb - Last Documented On 02/16/2024 3:42PM ; [facility] 2. Left long trigger finger - Last Documented On 02/16/2024 3:42PM ; [facility] Instructions Includes: Instructions from this encounter Instructions to patient Intervention and counseling on cessation of tobacco use Last Documented On 4 3:15PM ; [facility] Lose weight Last Documented On 4 3:15PM ; [facility] Medical Equipment - Implanted Devices Includes: Current Devices No Medical Equipment Recorded Medications Includes: Medications discussed during this encounter and other current Medications Current Medications (continue as prescribed) oxyCODONE HCl 5 MG Oral Tablet 07/18/2024 Provider: MARIE KUO MD Diagnosis: Last Documented On 4 3:07PM By Gail Piper ; [facility] Ondansetron 4 MG Oral Tablet Disintegrating 07/16/2024 Provider: Diagnosis: Last Documented On 4 3:07PM By Gail Piper ; [facility] Ketorolac Tromethamine 10 MG Oral Tablet 07/16/2024 Provider: Diagnosis: Last Documented On 4 3:07PM By Gail Piper ; [facility] HYDROcodone-Acetaminophen 5-325 MG Oral Tablet 023 Provider: MARIE KUO MD Diagnosis: Last Documented On 3 3:58PM By Stella Carrillo ; [facility] Cyclobenzaprine HCl 5 MG Oral Tablet 03/05/2022 Prov ider: MARIE KUO MD Diagnosis: Last Documented On 2 1:56PM By Sherice Gordon ; [facility] Tylenol 325 MG Oral Capsule 01/04/2022 Provider: Diagnosis: Last Documented On 2 10:24AM By Erin Duarte ; [facility] Past Medications on file Naproxen 500 MG Oral Tablet 03/11/2024 - 04/10/2024 Pr ovider: Tyler Sebastian MD Diagnosis: take one tablet twice a day prn following surger y Last Documented On 4 8:18AM By Dr. Sebastian ; [facility] Vitamin C 1000 MG Oral Tablet 03/11/2024 - 05/10/2024 Provider: Tyler mclaughlin MD Diagnosis: once a day take 1 tablet once daily post surgery Last Documented On 4 8:18AM By Dr. Sebastian ; [facility] Medrol 4 MG Oral Tablet Therapy Pack 01/21/2024 - 01/28/2024 Provider: Tyler mclaughlin MD Diagnosis: use as directed Last Documented On 4 2:41PM By Dr. Sebastian ; [facility] Gabapentin 300 MG Oral Capsule 06/29/2023 - 07/29/2023 Provider: Brent Nelson MD Diagnosis: 1 capsule, twice a day as needed Last Documented On 3 3:10PM By Brent Rivera ; [facility] Medications Administered Includes: Administered Medications from this encounter No Administered Medications Recorded Vital Signs Includes: Vital Signs from this encounter Vital Name 02/16/2024 03:15P Height (in) 70 Weight (lb) 180 Body Mass Index 25.8 Body Surface Area 2 Note: [facility] Last Documented: On 02/16/2024 3:15PM ; [facility] Results Includes: Results discussed during this encounter No Results Recorded For Specified Dates History of Present Illness Includes: History of Present Illness from this encounter HPI Subha Armando is a 48 year old male. - Allergy list reviewed - Problem list reviewed - Medication list reviewed Patient returns today stating that he is ready to schedule surgery. Social History Description Last Updated Is a smoker 07/08/2022 Last Documented On 4 3:15PM ; [facility] Smoker 1 pack/day 07/08/2022 Last Documented On 4 3:15PM ; [facility] Alcohol use 01/14/2022 Last Documented On 4 3:15PM ; [facility] Caffeine use 01/14/2022 Last Documented On 4 3:15PM ; [facility] No recent change in diet 01/14/2022 Last Documented On 4 3:15PM ; [facility] Not exercising regularly 01/14/2022 Last Documented On 4 3:15PM ; [facility] Not using drugs 01/14/2022 Last Documented On 4 3:15PM ; [facility] Yes, current smoker. 01/14/2022 Last Documented On 4 3:15PM ; [facility] Current smoker 11/05/2015 Last Documented On 4 3:15PM ; [facility] No recent change in diet 11/05/2015 Last Documented On 4 3:15PM ; [facility] Smoking status : Current everyday smoker 11/05/2015 Last Documented On 4 3:15PM ; [facility] Tobacco use 11/05/2015 Last Documented On 4 3:15PM ; [facility] Procedures and Surgical History Includes: Procedures from this encounter Procedures Code Diagnosis Performing Provider Service L ocation Service Date intervention and counseling on cessation of tobacco use 4000F Last Documented On 4 3:15PM ; [facility] use of tobacco assessment performed 1000F Last Documented On 4 3:15PM ; [facility] review of medications documented 1160F Last Documented On 4 3:15PM ; [facility] Surgical History Last Updated History of History of Arthroscopy LEFT Louise MURPHY 2016 01/14/2022 Last Documented On 4 3:15PM ; [facility] Medical History Includes: Medical History addressed during this encounter Description Last Updated KIDNEY STONES 01/14/2022 Last Documented On 4 3:15PM ; [facility] History of asthma 01/14/2022 Last Documented On 4 3:15PM ; [facility] No recent immunization for flu 2 Last Documented On 4 3:15PM ; [facility] No recent immunization for pneumococcal pneumonia 01/14/2022 Last Documented On 4 3:15PM ; [facility] History of depression 11/05/2015 Last Documented On 4 3:15PM ; [facility] Family History Includes: Family History addressed during this encounter Description Last Updated Diabetes mellitus 01/31/2022 Last Documented On 4 3:15PM ; [facility] Family history of heart disease 02/01/20 22 Last Documented On 4 3:15PM ; [facility] Family history of rheumatoid arthritis 0 01/31/2022 Last Documented On 4 3:15PM ; [facility] No significant family history 01/14/2022 Last Documented On 4 3:15PM ; [facility] Maternal history of diabetes mellitus Last Documented On 4 3:15PM ; [facility] Maternal history of family history of he art disease 11/05/2015 Last Documented On 4 3:15PM ; [facility] Maternal history of rheumatoid arthritis 11/05/2015 Last Documented On 4 3:15PM ; [facility] Review of Systems Includes: Review of [...] and no abdominal pain. No Indigestion, no Acid Reflux, no Peptic Ulcer, no GI Stomach Bleed, and no Ulcers. Endocrine: No hot flashes, no muscle weakness, [...] No complaint of seasonal allergic reaction. Reviewed 02/16/24 Mental Status Includes: Mental Status from this encounter Description No anxiety Functional Status Includes: Functional Status from this encounter No Functional Status Recorded Physical Exam Includes: Physical Exam from this encounter Allergies Includes: Active Allergies No Known Allergies Encounters Encounter Provider Location Date Check-In Time Check-Out Time Diagnosis Follow Up Daniella Brown APRN [facility] 4 3:02PM 3:46PM Overweight Insurance Includes: Active Insurance Policies Plan Name Member ID Group # Subscriber Relationship Effect amina Dates 1 - [facility] [id number] Subha Armando Self 11/30/2021 - Unknown Clinical Notes Includes: Clinical Notes from this encounter * Progress note Date Encounter Last Documented by 02/16/2024 Follow Up Last documented on 02/16/2024; 3:42 PM, Daniella Brown APRN; [facility] Active Problems & Conditions - Joint Pain [...] Problem list reviewed - Medication list reviewed Patient returns today stating that he is ready to schedule surgery. Current Medication - Cyclobenzaprine HCl 5 [...] and no abdominal pain. No Indigestion, no Acid Reflux, no Peptic Ulcer, no GI Stomach Bleed, and no Ulcers. Endocrine: No hot flashes, no muscle weakness, [...] No complaint of seasonal allergic reaction. Reviewed 02/16/24 Physical Findings - Vitals taken 02/16/2024 03:15 pm knc Height 70 in Weight 180 lbs Body [...] pink and warm with brisk cap refill. He is tender to palpation over the left thumb and left long finger A! pulleys. There is crepitus and active triggering. Assessment - Overweight 1. Left trigger thumb 2. Left long trigger finger Therapy - Intervention and counseling on cessation of tobacco use. Counseling/Education - Lose weight Plan 1. Patient is to be scheduled for a release of his left trigger thumb and left long trigger finger. 2. I discussed the condition and treatment options with the patient. We have covered all of the common complications associated with surgical treatment. The patient has had plenty of time to ask questions. Once all of his questions are answered he is ready to proceed with surgical treatment. 3. He will return to the office post-operatively for continued follow-up care. Notes This dictation was done with voice recognition software and may contain errors and omissions. Practice Management Use of tobacco assessment performed Review of medications documented. Care Team - MARIE KUO MD - WELT BEATER
--- OUTSIDE RECORDS SUMMARY | 2025-03-27 07:09 | XMS_ITS | Clinical Summary ---
Author Organization [facility] Address [address] [place] [address] Phone Care Team Providers Care Clarification Operator Name Role Phone Romulo GOLDEN, Tyler Loya Unavailable [phone] AYAAN GOLDEN, MARIE E Primary Care Provider [phone] Reason for Visit and Chief Complaint [facility] Problems Includes: Problems addressed during this encounter and other active Problems All Visits Onset Date Resolved Date Provider Condition S tatus Lower Back Pain 08/12/2023 SUBHA SMITH PA-C Active Last Documented On 3 3:56PM ; [facility] Pain in the Left Hand Only 07/21/2023 Tyler Sebastian MD Active Last Documented On 3 4:02PM ; [facility] Joint Pain in the Right Hip 04/29/2022 Brent Rivera MD Active Last Documented On 2 8:32AM ; [facility] Joint Pain, Localized in Both Shoulders 01/04/2022 Mary Jasso PA-C Active Last Documented On 2 10:10AM ; [facility] Right Upper Back Pain Along Inner Edge of Shoulder Blade 08/11/2016 Seven Sotomayor MD Active Last Documented On 6 3:26PM ; [facility] Neck Pain 10/31/2015 Cricket Weber MD Active Last Documented On 5 1:03PM ; [facility] Plan of Treatment No Plan of Treatment Recorded Assessments Includes: Assessments from this encounter No Assessments Recorded Medical Equipment - Implanted Devices Includes: Current Devices No Medical Equipment Recorded Medications Includes: Medications discussed during this encounter and other current Medications Current Medications (continue as prescribed) oxyCODONE HCl 5 MG Oral Tablet 07/18/2024 Provider: MARIE KUO MD Diagnosis: Last Documented On 4 3:07PM By Gail Piper ; [facility] Ondansetron 4 MG Oral Tablet Disintegrating 07/16/2024 Provider: Diagnosis: Last Documented On 4 3:07PM By Gail Piper ; [facility] Ketorolac Tromethamine 10 MG Oral Tablet 07/16/2024 Provider: Diagnosis: Last Documented On 4 3:07PM By Gail Piper ; [facility] HYDROcodone-Acetaminophen 5-325 MG Oral Tablet 023 Provider: MARIE KUO MD Diagnosis: Last Documented On 3 3:58PM By Stella Carrillo ; [facility] Cyclobenzaprine HCl 5 MG Oral Tablet 03/05/2022 Prov ider: MARIE KUO MD Diagnosis: Last Documented On 2 1:56PM By Sherice Gordon ; [facility] Tylenol 325 MG Oral Capsule 01/04/2022 Provider: Diagnosis: Last Documented On 2 10:24AM By Erin Duarte ; [facility] Medications Administered Includes: Administered Medications from this encounter No Administered Medications Recorded Results Includes: Results discussed during this encounter No Results Recorded For Specified Dates History of Present Illness Includes: History of Present Illness from this encounter No History of Present Illness Recorded Social History No Social History Recorded - Smoking Status Unknown Medical History Includes: Medical History addressed during this encounter No Medical History Recorded Family History Includes: Family History addressed during this encounter No Family History Recorded Review of Systems Includes: Review of Systems from this encounter No Review of Systems Recorded Mental Status Includes: Mental Status from this encounter No Mental Status Recorded Functional Status Includes: Functional Status from this encounter No Functional Status Recorded Physical Exam Includes: Physical Exam from this encounter No Physical Exam Recorded Allergies Includes: Active Allergies No Known Allergies Encounters Encounter Provider Location Date Check-In Time Check-Out Time Diagnosis [facility] Tyler Sebastian MD Surgery 4 8:29AM 11:59PM Insurance Includes: Active Insurance Policies Plan Name Member ID Group # Subscriber Relationship Effect amina Dates 1 - [facility] [id number] Subha Armando Self 11/30/2021 - Unknown Clinical Notes Includes: Clinical Notes from this encounter No Clinical Notes Recorded
--- OUTSIDE RECORDS SUMMARY | 2025-03-27 07:10 | XMS_ITS | Clinical Summary ---
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 Name Role Phone Romulo GOLDEN, Tyler KUO MD, MARIE E Primary Care Provider [phone] Reason for Referral Date Encounter Description Provider Reason for Referral 08/31/24 Follow Up Blayne Carmichael PA-C Refer ral To Physician - SEE PCP FOR BP Reason for Visit and Chief Complaint The Chief Complaint is: Bilateral shoulder pain Problems Includes: Problems addressed during this [...] Active Last Documented On 5 1:03PM ; [facility], [facility] Plan of Treatment Instructions to patient Intervention and counseling on cessation of tobacco use Last Documented On 4 3:07PM ; [facility] Lose weight Last Documented On 4 3:07PM ; [facility] Assessments Includes: Assessments from this encounter No Assessments Recorded Instructions Includes: Instructions from this encounter Instructions to patient Intervention and counseling on cessation of tobacco use Last Documented On 4 3:07PM ; [facility] Lose weight Last Documented On 4 3:07PM ; [facility], [facility] Medical Equipment - Implanted Devices Includes: Current Devices No Medical Equipment Recorded Medications Includes: Medications discussed during this encounter and other current Medications Current Medications (continue as prescribed) oxyCODONE HCl 5 MG Oral Tablet 07/18/2024 Provider: MARIE KUO MD Diagnosis: Last Documented On 4 3:07PM By Gail Piper ; [facility], [facility] Ondansetron 4 MG Oral Tablet Disintegrating 07/16/2024 Provider: Diagnosis: Last Documented On 4 3:07PM By Gail Piper ; [facility], [facility] Ketorolac Tromethamine 10 MG Oral Tablet 07/16/2024 Provider: Diagnosis: Last Documented On 4 3:07PM By Gail Piper ; [facility], [facility] HYDROcodone-Acetaminophen 5-325 MG Oral Tablet 023 Provider: MARIE KUO MD Diagnosis: Last Documented On 3 3:58PM By Stella Carrillo ; [facility], [facility] Cyclobenzaprine HCl 5 MG Oral Tablet 03/05/2022 Prov ider: MARIE KUO MD Diagnosis: Last Documented On 2 1:56PM By Sherice Gordon ; [facility], [facility] Tylenol 325 MG Oral Capsule 01/04/2022 Provider: Diagnosis: Last Documented On 2 10:24AM By Erin Duarte ; [facility], [facility] Past Medications on file Naproxen 500 MG Oral Tablet 03/11/2024 - 04/10/2024 Pr ovider: Tyler Sebastian MD Diagnosis: take one tablet twice a day prn following surger y Last Documented On 4 8:18AM By Dr. Sebastian ; [facility], [facility] Vitamin C 1000 MG Oral Tablet 03/11/2024 - 05/10/2024 Provider: Tyler mclaughlin MD Diagnosis: once a day take 1 tablet once daily post surgery Last Documented On 4 8:18AM By Dr. Sebastian ; [facility], [facility] Medrol 4 MG Oral Tablet Therapy Pack 01/21/2024 - 01/28/2024 Provider: Tyler mclaughlin MD Diagnosis: use as directed Last Documented On 4 2:41PM By Dr. Sebastian ; [facility], [facility] Gabapentin 300 MG Oral Capsule 06/29/2023 - 07/29/2023 Provider: Brent Nelson MD Diagnosis: 1 capsule, twice a day as needed Last Documented On 3 3:10PM By Brent Rivera ; [facility], [facility] Medications Administered Includes: Administered Medications from this encounter No Administered Medications Recorded Vital Signs Includes: Vital Signs from this encounter Vital Name 08/31/2024 03:07P Height (in) 70 Weight (lb) 189 Body Mass Index 27.1 Body Surface Area 2 Note: cg Last Documented: On 08/31/2024 3:07PM ; [facility], [facility] Results Includes: Results discussed during this encounter No Results Recorded For Specified Dates History of Present Illness Includes: History of Present Illness from this encounter HENRIQUE Armando is a 48 year old male. - Allergy list reviewed - Problem list reviewed - Medication reconciliation performed - Medication list reviewed Patient is seen today for bilateral shoulder pain. He states his shoulder pain has improved. He would like to increase his restrictions at this point in time for his work. He feels like he can do almost the job below shoulder height. He states any activities above shoulder height needs to be limited in some fashion Physical exam Bilateral shoulder Patient is awake and alert. Well groomed and nourished. No acute distress. Normal gait and station. Appropriate mood and affect. patient shows full motion without pain. Normal strength. No instability. No skin changes. No bony deformities or joint effusion. Normal sensation +2 radial pulse Assessment Bilateral shoulder pain Bilateral rotator cuff tendinopathy Plan Patient continue with his range of motion and physical therapy exercises he has been done to do in the past. We can return to work with limited or occasional activities above shoulder height with no more than 10 lb. We will follow up with us on as- needed basis Social History Description Last Updated Is a smoker 07/08/2022 Last Documented On 4 3:07PM ; [facility], [facility] Smoker 1 pack/day 07/08/2022 Last Documented On 4 3:07PM ; [facility] Alcohol use 01/14/2022 Last Documented On 4 3:07PM ; [facility], [facility] Caffeine use 01/14/2022 Last Documented On 4 3:07PM ; [facility], [facility] No recent change in diet 01/14/2022 Last Documented On 4 3:07PM ; [facility], [facility] Not exercising regularly 01/14/2022 Last Documented On 4 3:07PM ; [facility], [facility] Not using drugs 01/14/2022 Last Documented On 4 3:07PM ; [facility] Yes, current smoker. 01/14/2022 Last Documented On 4 3:07PM ; [facility], [facility] Current smoker 11/05/2015 Last Documented On 4 3:07PM ; [facility], [facility] No recent change in diet 11/05/2015 Last Documented On 4 3:07PM ; [facility], [facility] Smoking status : Current everyday smoker 11/05/2015 Last Documented On 4 3:07PM ; [facility], [facility] Tobacco use 11/05/2015 Last Documented On 4 3:07PM ; [facility], [facility] Procedures and Surgical History Includes: Procedures from this encounter Procedures Code Diagnosis Performing Provider Service L ocation Service Date intervention and counseling on cessation of tobacco use 4000F Last Documented On 4 3:07PM ; [facility], [facility] use of tobacco assessment performed 1000F Last Documented On 4 3:07PM ; [facility], [facility] no influenza immunization patient refuse d Last Documented On 4 3:07PM ; [facility] follow-up visit in one month with PCP fo r elevated BP Last Documented On 4 3:07PM ; [facility] referral to physician SEE PCP FOR BP Last Documented On 4 3:07PM ; [facility] was performed 26606 Last Documented On 4 3:07PM ; [facility] an MRI was performed 43173 Last Documented On 4 3:07PM ; [facility], [facility] Surgical History Last Updated History of History of Arthroscopy LEFT S [facility] 201501/14/2022 Last Documented On 4 3:07PM ; [facility] Medical History Includes: Medical History addressed during this encounter Description Last Updated KIDNEY STONES 01/14/2022 Last Documented On 4 3:07PM ; [facility], [facility] History of asthma 01/14/2022 Last Documented On 4 3:07PM ; [facility] No recent immunization for flu 2 Last Documented On 4 3:07PM ; [facility] No recent immunization for pneumococcal pneumonia 01/14/2022 Last Documented On 4 3:07PM ; [facility] History of depression 11/05/2015 Last Documented On 4 3:07PM ; [facility] Family History Includes: Family History addressed during this encounter Description Last Updated Diabetes mellitus 01/31/2022 Last Documented On 4 3:07PM ; [facility] Family history of heart disease 02/01/20 Last Documented On 4 3:07PM ; [facility] Family history of rheumatoid arthritis 0 01/31/2022 Last Documented On 4 3:07PM ; [facility] No significant family history 01/14/2022 Last Documented On 4 3:07PM ; [facility] Maternal history of diabetes mellitus Last Documented On 4 3:07PM ; [facility] Maternal history of family history of he art disease 11/05/2015 Last Documented On 4 3:07PM ; [facility] Maternal history of rheumatoid arthritis 11/05/2015 Last Documented On 4 3:07PM ; [facility] Review of Systems Includes: Review of Systems from this encounter Systemic: Not feeling tired, no recent weight loss, and no recent weight gain. Head: Headache and sinus pain. Eyes: Vision problems. No Cataracts, no Glasses/Contacts, and no Glaucoma. Otolaryngeal: No hearing loss and no tinnitus. Cardiovascular: No chest pain or discomfort, no palpitations, no Hypertension, and no High Cholesterol. Pulmonary: Daytime asthma symptoms. No chronic cough. Wheezing. Gastrointestinal: No heartburn and no abdominal pain. No Indigestion, no Peptic Ulcer, no GI Stomach Bleed, no Ulcers, and no Acid Reflux. Endocrine: No hot flashes. Muscle weakness. No Diabetes, no Hypothyroid, and no Hyperthyroid. Hematologic: No easy bleeding, no tendency for easy bruising, and no Anemia. Musculoskeletal: No Arthritis and no lower back pain. No soft tissue swelling. Pain localized to one or more joints. Neurological: No dizziness, no convulsions, and no numbness. Psychological: No anxiety, no emotional lability, no depression, and no insomnia. Not crying for no reason. Skin: No dry skin. No Ulcers, no Scars, and no rash. Allergic and Immunologic: Complaint of seasonal allergic reaction. Mental Status Includes: Mental Status from this encounter Description No anxiety Functional Status Includes: Functional Status from this encounter No Functional Status Recorded Physical Exam Includes: Physical Exam from this encounter Allergies Includes: Active Allergies No Known Allergies Encounters Encounter Provider Location Date Check-In Time Check-Out Time Diagnosis Follow Up Blayne Carmichael PA-C [facility] 4 2:54PM 3:29PM Insurance Includes: Active Insurance Policies Plan Name Member ID Group # Subscriber Relationship Effect amina Dates 1 - [facility] [id number] Subha Armando Self 11/30/2021 - Unknown Clinical Notes Includes: Clinical Notes from this encounter * Progress note Date Encounter Last Documented by 08/31/2024 Follow Up Last documented on 08/31/2024; 3:43 PM, Blayne Carmichael PA-C; [facility], [facility] Active Problems & Conditions - Joint Pain in the Right Hip - Joint Pain, Localized in Both Shoulders - Lower Back Pain - Neck Pain - Pain in the Left Hand Only - Right Upper Back Pain Along Inner Edge of Shoulder Blade Chief Complaint The Chief Complaint is: Bilateral shoulder pain. Referred Here Referred by DOV. History of Present Illness Subha Armando is a 48 year old male. - Allergy list reviewed - Problem list reviewed - Medication reconciliation performed - Medication list reviewed Patient is seen today for bilateral shoulder pain. He states his shoulder pain has improved. He would like to increase his restrictions at this point in time for his work. He feels like he can do almost the job below shoulder height. He states any activities above shoulder height needs to be limited in some fashion Physical exam Bilateral shoulder Patient is awake and alert. Well groomed and nourished. No acute distress. Normal gait and station. Appropriate mood and affect. patient shows full motion without pain. Normal strength. No instability. No skin changes. No bony deformities or joint effusion. Normal sensation +2 radial pulse Assessment Bilateral shoulder pain Bilateral rotator cuff tendinopathy Plan Patient continue with his range of motion and physical therapy exercises he has been done to do in the past. We can return to work with limited or occasional activities above shoulder height with no more than 10 lb. We will follow up with us on as- needed basis Current Medication - Cyclobenzaprine HCl 5 MG Oral Tablet 10 days, 0 refills - HYDROcodone-Acetaminophen 5-325 MG Oral Tablet 10 days, 0 refills - Ketorolac Tromethamine 10 MG Oral Tablet 5 days, 0 refills - Ondansetron 4 MG Oral Tablet Disintegrating 3 days, 0 refills - oxyCODONE HCl 5 MG Oral Tablet 4 days, 0 refills - Tylenol 325 MG [...] loss, and no recent weight gain. Head: Headache and sinus pain. Eyes: Vision problems. No Cataracts, no Glasses/Contacts, and no Glaucoma. Otolaryngeal: No hearing loss and no tinnitus. Cardiovascular: No chest pain or discomfort, no palpitations, no Hypertension, and no High Cholesterol. Pulmonary: Daytime asthma symptoms. No chronic cough. Wheezing. Gastrointestinal: No heartburn and no abdominal pain. No Indigestion, no Peptic Ulcer, no GI Stomach Bleed, no Ulcers, and no Acid Reflux. Endocrine: No hot flashes. Muscle weakness. No Diabetes, no Hypothyroid, and no Hyperthyroid. Hematologic: No easy bleeding, no tendency for easy bruising, and no Anemia. Musculoskeletal: No Arthritis and no lower back pain. No soft tissue swelling. Pain localized to one or more joints. Neurological: No dizziness, no convulsions, and no numbness. Psychological: No anxiety, no emotional lability, no depression, and no insomnia. Not crying for no reason. Skin: No dry skin. No Ulcers, no Scars, and no rash. Allergic and Immunologic: Complaint of seasonal allergic reaction. Physical Findings - Vitals taken 08/31/2024 03:07 pm cg Height 70 in Weight 189 lbs Body Mass Index 27.1 kg/m2 Body Surface Area 2 m2 Standard Measurements: - Patient was overweight. Previous Tests Imaging: X-Ray: An X-ray was performed. MRI Scan: An MRI was performed. Therapy - Intervention and counseling on cessation of tobacco use. - Follow-up visit in one month with PCP for elevated BP. - Referral to physician SEE PCP FOR BP. Counseling/Education - Lose weight Notes This dictation was done with voice recognition software and may contain errors and omissions. Practice Management Use of tobacco assessment performed; No influenza immunization patient refused. Care Team - MARIE KUO MD - SATELLITE INSTALLER
--- OUTSIDE RECORDS SUMMARY | 2025-03-27 07:10 | XMS_ITS ---
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 Name Role Phone Romulo GOLDEN, Tyler Loya Unavailable [phone] AYAAN GOLDEN, MARIE E Primary Care Provider [phone] Reason for Referral Date Encounter Description Provider Reason for Referral 08/31/24 Follow Up Blayne Carmichael PA-C Refer ral To Physician - SEE PCP FOR BP 06/21/24 Follow Up Brent Rivera MD Refe rral To Physician; Referral To Physician 06/29/23 Follow Up Brent Rivera MD Refe rral To Physician; Referral To Physician 10/20/22 Follow Up Seven Sotomayor MD Refe rral To Physician - SEE PCP FOR BP 10/17/22 Follow Up Brent Rivera MD Refe rral To Physician 09/09/22 Post Op Tracey Talbot PA-C Referral To Physician 08/12/22 Post Op Brent Rivera MD Refe rral To Physician 05/28/22 WC FOLLOW UP/EST Mary Jasso PA-C Referral To Physician - SEE PCP FOR BP; Referral To Physician 03/14/22 WC FOLLOW UP/EST Mary Jasso PA-C Referral To Physician - SEE PCP FOR BP 01/31/22 WC FOLLOW UP/EST Seven Sotomayor MD Referral To Physician - SEE PCP FOR BP 01/14/22 WC FOLLOW UP/EST Mary Jasso PA-C Referral To Physician - SEE PCP FOR BP 01/04/22 WC NEW PATIENT Mary Jasso PA-C Re ferral To Physician - SEE PCP FOR BP Problems Includes: Active, inactive, and resolved Problems All Visits Onset Date Resolved Date Provider Condition S tatus Lower Back Pain 08/12/2023 SUBHA SMITH PA-C Active Last Documented On 3 3:56PM ; [facility] Pain in the Left Hand Only 07/21/2023 Tyler Sebastian MD Active Last Documented On 3 4:02PM ; [facility] Joint Pain in the Right Hip 04/29/2022 Brent Rivera MD Active Last Documented On 2 8:32AM ; [facility] Joint Pain, Localized in Both Shoulders 01/04/2022 Mary Wei Jasso PA-C Active Last Documented On 2 10:10AM ; [facility] Right Upper Back Pain Along Inner Edge of Shoulder Blade 08/11/2016 Seven Sotomayor MD Active Last Documented On 6 3:26PM ; [facility] Neck Pain 10/31/2015 Cricket Weber MD Active Last Documented On 5 1:03PM ; [facility], [facility] Plan of Treatment Pending Tests Order Diagnosis Results Due Ordering P rovider Radiology - MRI MRI Shoulder 01/28/22 Mary Jasso PA-C Last Documented On 2 9:17AM ; [facility], [facility] Radiology - MRI MRI Lumbar Spine Low back pain, unspecified 08/26/23 SUBHA SMITH PA-C Last Documented On 3 3:56PM ; [facility], [facility] Referrals To Diagnosis Consult with Orthopedic Note: 2nd opinion with dr. Marielle dillard scapular sprain Last Documented On 6 11:54AM ; [facility] Consult with Orthopedic SUBHA SMITH PA-C Note: IHR per KD for L side radiculapothy07/21/23 @ 3:00pm Last Documented On 3 10:57AM ; [facility], [facility] Consult with Orthopedic Doc Nicole MD Note: IHR per KD for L middl e trigger finger07/23/23 @ 2:45pm Last Documented On 3 10:57AM ; [facility] Consult with Orthopedic Overweig ht Note: IHR per KD for L side radiculopathy9.13.23 @ 1:30p Last Documented On 3 12:23PM ; [facility] 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 [employer] Note: per JF ref to Rhuem[facility]y for consult Last Documented On 4 9:21AM ; [facility] Instructions to patient Intervention and counseling on cessation of tobacco use Last Documented On 4 3:07PM ; [facility] Lose weight Last Documented On 4 3:07PM ; [facility] Intervention and counseling on cessation of tobacco use Last Documented On 4 3:06PM ; [facility] Lose weight Last Documented On 4 3:06PM ; [facility] Intervention and counseling on cessation of tobacco use Last Documented On 4 3:37PM ; [facility] Intervention and counseling on cessation of tobacco use Last Documented On 4 3:37PM ; [facility] Lose weight Last Documented On 4 3:37PM ; [facility] Intervention and counseling on cessation of tobacco use Last Documented On 4 3:15PM ; [facility] Lose weight Last Documented On 4 3:15PM ; [facility] Intervention and counseling on cessation of tobacco use Last Documented On 4 1:09PM ; [facility] Lose weight Last Documented On 4 1:09PM ; [facility] Intervention and counseling on cessation of tobacco use Last Documented On 4 10:00AM ; [facility] Lose weight Last Documented On 4 9:52AM ; [facility] Intervention and counseling on cessation of tobacco use Last Documented On 3 2:40PM ; [facility] Lose weight Last Documented On 3 2:40PM ; [facility] Intervention and counseling on cessation of tobacco use Last Documented On 3 1:24PM ; [facility] Lose weight Last Documented On 3 1:24PM ; [facility] Intervention and counseling on cessation of tobacco use Last Documented On 3 4:03PM ; [facility] Lose weight Last Documented On 3 4:03PM ; [facility] Intervention and counseling on cessation of tobacco use Last Documented On 3 2:29PM ; [facility] Lose weight Last Documented On 3 2:29PM ; [facility] Intervention and counseling on cessation of tobacco use Last Documented On 2 8:37AM ; [facility] Lose weight Last Documented On 2 8:37AM ; [facility] Intervention and counseling on cessation of tobacco use Last Documented On 2 9:55AM ; [facility] Lose weight Last Documented On 2 9:55AM ; [facility] Intervention and counseling on cessation of tobacco use Last Documented On 2 3:45PM ; [facility] Lose weight Last Documented On 2 3:44PM ; [facility] Lose weight Last Documented On 2 3:55PM ; [facility] Lose weight Last Documented On 2 10:33AM ; [facility] Intervention and counseling on cessation of tobacco use Last Documented On 2 2:04PM ; [facility] Lose weight Last Documented On 2 2:04PM ; [facility] Lose weight Last Documented On 2 8:27AM ; [facility] Intervention and counseling on cessation of tobacco use Last Documented On 2 1:52PM ; [facility] Lose weight Last Documented On 2 1:52PM ; [facility] Intervention and counseling on cessation of tobacco use Last Documented On 2 10:30AM ; [facility] Lose weight Last Documented On 2 10:30AM ; [facility] Intervention and counseling on cessation of tobacco use Last Documented On 2 10:13AM ; [facility] Lose weight Last Documented On 2 10:13AM ; [facility] Intervention and counseling on cessation of tobacco use Last Documented On 2 10:55AM ; [facility] Lose weight Last Documented On 2 10:55AM ; [facility] Instructions for patient Last Documented On 6 3:26PM ; [facility] Instructions for patient Last Documented On 6 3:30PM ; [facility] Instructions for patient Last Documented On 6 10:03AM ; [facility] Intervention and counseling on cessation of tobacco use Last Documented On 6 10:03AM ; [facility] Instructions for patient Last Documented On 6 2:24PM ; [facility] Intervention and counseling on cessation of tobacco use Last Documented On 6 2:24PM ; [facility] Instructions for patient Last Documented On 6 1:56PM ; [facility] Intervention and counseling on cessation of tobacco use Last Documented On 6 1:56PM ; [facility] Instructions for patient see pcp for bp Last Documented On 6 1:04PM ; [facility] Intervention and counseling on cessation of tobacco use Last Documented On 6 1:04PM ; [facility] Instructions for patient see pcp for bp Last Documented On 6 1:58PM ; [facility] Intervention and counseling on cessation of tobacco use Last Documented On 6 1:58PM ; [facility] Instructions for patient see pcp for bp Last Documented On 6 2:22PM ; [facility] Intervention and counseling on cessation of tobacco use Last Documented On 6 2:22PM ; [facility] Instructions for patient see pcp for bp Last Documented On 6 2:43PM ; [facility] Intervention and counseling on cessation of tobacco use Last Documented On 6 2:43PM ; [facility] Instructions for patient see pcp for bp Last Documented On 5 5:09PM ; [facility] Intervention and counseling on cessation of tobacco use Last Documented On 5 5:08PM ; [facility] Intervention and counseling on cessation of tobacco use Last Documented On 5 1:22PM ; [facility] Education and Decision Aids were provided during visit for: Health seminar on smoking ce ssation Last Documented On 6 3:26PM ; [facility] Health seminar on smoking ce ssation Last Documented On 6 3:30PM ; [facility] Health seminar on smoking ce ssation Last Documented On 6 10:03AM ; [facility] Health seminar on smoking ce ssation Last Documented On 6 2:24PM ; [facility] Health seminar on smoking ce ssation Last Documented On 6 1:56PM ; [facility] Health seminar on smoking ce ssation Last Documented On 6 1:04PM ; [facility] Health seminar on smoking ce ssation Last Documented On 6 1:58PM ; [facility] Health seminar on smoking ce ssation Last Documented On 6 2:22PM ; [facility] Health seminar on smoking ce ssation Last Documented On 6 2:43PM ; [facility] Health seminar on smoking ce ssation Last Documented On 5 5:08PM ; [facility] Health seminar on smoking ce ssation Last Documented On 5 1:22PM ; [facility] Assessments Includes: Assessments for all patient encounters Findings Encounter Date Overweight Follow Up with Brent Lyons MD 06/21/2024 Last Documented On 4 9:50AM ; [facility] Overweight Post Op with Daniella LOMAX RN 04/12/2024 Last Documented On 4 3:47PM ; [facility] Overweight Follow Up with Daniella Brown APRN 02/16/2024 Last Documented On 4 3:42PM ; [facility] Overweight Follow Up with Tyler Novak to 01/21/2024 Last Documented On 4 11:33AM ; [facility] Overweight Follow Up with Tyler Novak to 12/24/2023 Last Documented On 4 9:08AM ; [facility] Overweight Follow Up with SUBHA Donato 09/22/2023 Last Documented On 3 4:13PM ; [facility] Overweight IN HOUSE REFERRAL with SUBHA PATEL PA-C 08/12/2023 Last Documented On 3 3:57PM ; [facility] Overweight IN HOUSE REFERRAL with Tyler Sebastian MD 07/21/2023 Last Documented On 3 4:05PM ; [facility] Overweight Follow Up with Brent Lyons MD 06/29/2023 Last Documented On 3 10:57AM ; [facility] Instructions Includes: Instructions for all patient encounters Instructions to patient Intervention and counseling on cessation of tobacco use Last Documented On 4 3:07PM ; [facility] Lose weight Last Documented On 4 3:07PM ; [facility] Intervention and counseling on cessation of tobacco use Last Documented On 4 3:06PM ; [facility] Lose weight Last Documented On 4 3:06PM ; [facility] Intervention and counseling on cessation of tobacco use Last Documented On 4 3:37PM ; [facility] Intervention and counseling on cessation of tobacco use Last Documented On 4 3:37PM ; [facility] Lose weight Last Documented On 4 3:37PM ; [facility] Intervention and counseling on cessation of tobacco use Last Documented On 4 3:15PM ; [facility] Lose weight Last Documented On 4 3:15PM ; [facility] Intervention and counseling on cessation of tobacco use Last Documented On 4 1:09PM ; [facility] Lose weight Last Documented On 4 1:09PM ; [facility] Intervention and counseling on cessation of tobacco use Last Documented On 4 10:00AM ; [facility] Lose weight Last Documented On 4 9:52AM ; [facility] Intervention and counseling on cessation of tobacco use Last Documented On 3 2:40PM ; [facility] Lose weight Last Documented On 3 2:40PM ; [facility] Intervention and counseling on cessation of tobacco use Last Documented On 3 1:24PM ; [facility] Lose weight Last Documented On 3 1:24PM ; [facility] Intervention and counseling on cessation of tobacco use Last Documented On 3 4:03PM ; [facility] Lose weight Last Documented On 3 4:03PM ; [facility] Intervention and counseling on cessation of tobacco use Last Documented On 3 2:29PM ; [facility] Lose weight Last Documented On 3 2:29PM ; [facility] Intervention and counseling on cessation of tobacco use Last Documented On 2 8:37AM ; [facility] Lose weight Last Documented On 2 8:37AM ; [facility] Intervention and counseling on cessation of tobacco use Last Documented On 2 9:55AM ; [facility] Lose weight Last Documented On 2 9:55AM ; [facility] Intervention and counseling on cessation of tobacco use Last Documented On 2 3:45PM ; [facility] Lose weight Last Documented On 2 3:44PM ; [facility] Lose weight Last Documented On 2 3:55PM ; [facility] Lose weight Last Documented On 2 10:33AM ; [facility] Intervention and counseling on cessation of tobacco use Last Documented On 2 2:04PM ; [facility] Lose weight Last Documented On 2 2:04PM ; [facility] Lose weight Last Documented On 2 8:27AM ; [facility] Intervention and counseling on cessation of tobacco use Last Documented On 2 1:52PM ; [facility] Lose weight Last Documented On 2 1:52PM ; [facility] Intervention and counseling on cessation of tobacco use Last Documented On 2 10:30AM ; [facility] Lose weight Last Documented On 2 10:30AM ; [facility] Intervention and counseling on cessation of tobacco use Last Documented On 2 10:13AM ; [facility] Lose weight Last Documented On 2 10:13AM ; [facility] Intervention and counseling on cessation of tobacco use Last Documented On 2 10:55AM ; [facility] Lose weight Last Documented On 2 10:55AM ; [facility] Instructions for patient Last Documented On 6 3:26PM ; [facility] Instructions for patient Last Documented On 6 3:30PM ; [facility] Instructions for patient Last Documented On 6 10:03AM ; [facility] Intervention and counseling on cessation of tobacco use Last Documented On 6 10:03AM ; [facility] Instructions for patient Last Documented On 6 2:24PM ; [facility] Intervention and counseling on cessation of tobacco use Last Documented On 6 2:24PM ; [facility] Instructions for patient Last Documented On 6 1:56PM ; [facility] Intervention and counseling on cessation of tobacco use Last Documented On 6 1:56PM ; [facility] Instructions for patient see pcp for bp Last Documented On 6 1:04PM ; [facility] Intervention and counseling on cessation of tobacco use Last Documented On 6 1:04PM ; [facility] Instructions for patient see pcp for bp Last Documented On 6 1:58PM ; [facility] Intervention and counseling on cessation of tobacco use Last Documented On 6 1:58PM ; [facility] Instructions for patient see pcp for bp Last Documented On 6 2:22PM ; [facility] Intervention and counseling on cessation of tobacco use Last Documented On 6 2:22PM ; [facility] Instructions for patient see pcp for bp Last Documented On 6 2:43PM ; [facility] Intervention and counseling on cessation of tobacco use Last Documented On 6 2:43PM ; [facility] Instructions for patient see pcp for bp Last Documented On 5 5:09PM ; [facility] Intervention and counseling on cessation of tobacco use Last Documented On 5 5:08PM ; [facility] Intervention and counseling on cessation of tobacco use Last Documented On 5 1:22PM ; [facility] Education and Decision Aids were provided during visit for: Health seminar on smoking ce ssation Last Documented On 6 3:26PM ; [facility] Health seminar on smoking ce ssation Last Documented On 6 3:30PM ; [facility] Health seminar on smoking ce ssation Last Documented On 6 10:03AM ; [facility] Health seminar on smoking ce ssation Last Documented On 6 2:24PM ; [facility] Health seminar on smoking ce ssation Last Documented On 6 1:56PM ; [facility] Health seminar on smoking ce ssation Last Documented On 6 1:04PM ; [facility] Health seminar on smoking ce ssation Last Documented On 6 1:58PM ; [facility] Health seminar on smoking ce ssation Last Documented On 6 2:22PM ; [facility] Health seminar on smoking ce ssation Last Documented On 6 2:43PM ; [facility] Health seminar on smoking ce ssation Last Documented On 5 5:08PM ; [facility] Health seminar on smoking ce ssation Last Documented On 5 1:22PM ; [facility] Medical Equipment - Implanted Devices Includes: Current and historical Devices No Medical Equipment Recorded Medications Includes: Current and historical Medications Current Medications (continue as prescribed) oxyCODONE HCl 5 MG Oral Tablet 07/18/2024 Provider: MARIE KUO MD Diagnosis: Last Documented On 4 3:07PM By Gail Piper ; [facility] Ondansetron 4 MG Oral Tablet Disintegrating 07/16/2024 Provider: Diagnosis: Last Documented On 4 3:07PM By Gail Piper ; [facility] Ketorolac Tromethamine 10 MG Oral Tablet 07/16/2024 Provider: Diagnosis: Last Documented On 4 3:07PM By Gail Piper ; [facility] HYDROcodone-Acetaminophen 5-325 MG Oral Tablet 023 Provider: MARIE KUO MD Diagnosis: Last Documented On 3 3:58PM By Stella Carrillo ; [facility] Cyclobenzaprine HCl 5 MG Oral Tablet 03/05/2022 Prov ider: MARIE KUO MD Diagnosis: Last Documented On 2 1:56PM By Sherice Gordon ; [facility] Tylenol 325 MG Oral Capsule 01/04/2022 Provider: Diagnosis: Last Documented On 2 10:24AM By Erin Duarte ; [facility] Past Medications on file Naproxen 500 MG Oral Tablet 03/11/2024 - 04/10/2024 Pr ovider: Tyler Sebastian MD Diagnosis: take one tablet twice a day prn following surger y Last Documented On 4 8:18AM By Dr. Sebastian ; [facility] Vitamin C 1000 MG Oral Tablet 03/11/2024 - 05/10/2024 Provider: Tyler mclaughlin MD Diagnosis: once a day take 1 tablet once daily post surgery Last Documented On 4 8:18AM By Dr. Sebastian ; [facility] Medrol 4 MG Oral Tablet Therapy Pack 01/21/2024 - 01/28/2024 Provider: Tyler mclaughlin MD Diagnosis: use as directed Last Documented On 4 2:41PM By Dr. Sebastian ; [facility] Gabapentin 300 MG Oral Capsule 06/29/2023 - 07/29/2023 Provider: Brent Nelson MD Diagnosis: 1 capsule, twice a day as needed Last Documented On 3 3:10PM By Brent Rivera ; [facility] oxyCODONE HCl 5 MG Oral Tablet 09/12/2022 - 06/29/2023 Provider: Brent Nelson MD Diagnosis: Take 1 tablet by mouth every 4-6hrs for moderate pain Last Documented On 3 2:28PM By Sonia Garcia ; [facility] traMADol HCl 50 MG Oral Tablet 09/12/2022 - 06/29/2023 Provider: Brent Nelson MD Diagnosis: 2 tablets every 6 hours for break through pain Last Documented On 3 2:28PM By Sonia Garcia ; [facility] Pregabalin 75 MG Oral Capsule 09/09/2022 - 06/29/2023 Provider: Brent Nelson MD Diagnosis: 1-2 tabs daily as needed Last Documented On 3 2:28PM By Sonia Garcia ; [facility] oxyCODONE HCl 5 MG Oral Tablet 08/11/2022 - 06/29/2023 Provider: Brent Nelson MD Diagnosis: Take 1 tablet by mouth every 4-6hrs for moderate pain Last Documented On 3 2:28PM By Sonia Garcia ; [facility] traMADol HCl 50 MG Oral Tablet 08/11/2022 - 06/29/2023 Provider: Brent Nelson MD Diagnosis: 2 tablets every 6 hours for break through pain Last Documented On 3 2:28PM By Sonia Garcia ; [facility] oxyCODONE HCl 5 MG Oral Tablet 07/14/2022 - 06/29/2023 Provider: Brent Nelson MD Diagnosis: Take 1 tablet by mouth every 4-6hrs for moderate pain Last Documented On 3 2:28PM By Sonia Garcia ; [facility] traMADol HCl 50 MG Oral Tablet 07/14/2022 - 06/29/2023 Provider: Brent Nelson MD Diagnosis: 2 tablets every 6 hours for break through pain Last Documented On 3 2:28PM By Sonia Garcia ; [facility] Gabapentin 300 MG Oral Capsule 07/08/2022 - 06/29/2023 Provider: Brent Nelson MD Diagnosis: Take 1 capsule by mouth at bedtime Last Documented On 3 2:28PM By Sonia Garcia ; [facility] Amoxicillin 500 MG Oral Tablet 07/04/2022 - 06/29/2023 Provider: Brent Nelson MD Diagnosis: Take 4 Capsules by mouth 1 hour before procedure Last Documented On 3 2:28PM By Sonia Garcia ; [facility], [facility] Aspirin EC 81 MG Oral Tablet Delayed Release 06/20/2022 - 06/29/2023 Provider: Brent Rivera MD Diagnosis: Take 1 tablet by mouth every 12 hours for 42 days post op Last Documented On 3 2:28PM By Sonia Garcia ; [facility] Acetaminophen 500 MG Oral Tablet 06/20/2022 - 06/29/2023 Provider: Brent Nelson MD Diagnosis: Take 2 tablets by mouth every 8 hours Last Documented On 3 2:28PM By Sonia Garcia ; [facility] oxyCODONE HCl 5 MG Oral Tablet 06/20/2022 - 06/29/2023 Provider: Brent Nelson MD Diagnosis: Take 1 tablet by mouth every 4-6hrs for moderate pain Last Documented On 3 2:27PM By Sonia Garcia ; [facility] Vitamin D3 50 MCG (1999) Oral Tablet 06/20/2022 - 06/29/2023 Provider: Brent Nelson MD Diagnosis: Take 1 tablet by mouth daily Last Documented On 3 2:27PM By Sonia Garcia ; [facility] Ondansetron HCl 4 MG Oral Tablet 06/20/2022 - 06/29/2023 Provider: Brent Nelson MD Diagnosis: 1 po q 6h prn nausea Last Documented On 3 2:27PM By Sonia Garcia ; [facility] Colace 100 MG Oral Capsule 06/20/2022 - 06/29/2023 Pro vider: Brent Rivera MD Diagnosis: Take 1-2 capsules daily as needed Last Documented On 3 2:28PM By Sonia Garcia ; [facility] traMADol HCl 50 MG Oral Tablet 06/20/2022 - 06/29/2023 Provider: Brent Nelson MD Diagnosis: 2 tablets every 6 hours for break through pain Last Documented On 3 2:27PM By Sonia Garcia ; [facility], [facility] Meloxicam 15 MG Oral Tablet 06/20/2022 - 06/29/2023 Pr ovider: Brent Rivera MD Diagnosis: once a day Last Documented On 3 2:27PM By Sonia Garcia ; [facility], [facility] Cefadroxil 500 MG Oral Capsule 06/20/2022 - 06/29/2023 Provider: Brent Nelson MD Diagnosis: Take 1 capsule by mouth every 12 hours for 7 day s Last Documented On 3 2:27PM By Sonia Garcia ; [facility] Vitamin D3 50 MCG (1999) Oral Tablet 06/09/2022 - 06/29/2023 Provider: Anjelica PAGAN Diagnosis: once a day Last Documented On 3 2:27PM By Sonia Garcia ; [facility] Meloxicam 7.5 MG Oral Tablet 04/29/2022 - 06/05/2022 Provider: Brent Nelson MD Diagnosis: once a day Take 1 tablet by mouth daily Last Documented On 2 10:05AM By Farheen Belle ; [facility], [facility] HYDROcodone-Acetaminophen 5- 325 MG Oral Tablet 03/05/2022 - 06/29/2023 Provider: MARIE KUO MD Diagnosis: Last Documented On 3 2:37PM By Sonia Garcia ; [facility], [facility] Meloxicam 15 MG Oral Tablet 01/04/2022 - 03/14/2022 Pr ovider: Mary Jasso PA-C Diagnosis: Last Documented On 2 1:56PM By Sherice Gordon ; [facility], [facility] Mobic 15 MG Oral Tablet 01/04/2022 - 06/29/2023 Provid er: Mary Jasso PA-C Diagnosis: once a day Last Documented On 3 2:27PM By Sonia Garcia ; [facility], [facility] Ibuprofen 200 MG Oral Capsule 01/04/2022 - 022 Provider: Diagnosis: Last Documented On 2 10:20AM By Erika Urena ; [facility], [facility] Cyclobenzaprine HCl 5 MG Ora l Tablet 01/01/2022 - 03/14/2022 Provider: MARIE King Diagnosis: Last Documented On 2 1:56PM By Sherice Gordon ; [facility], [facility] methylPREDNISolone 4 MG Oral Tablet Therapy Pack 12/10/2021 - 03/14/2022 Provider: Norma Vargas MD Diagnosis: Last Documented On 2 1:56PM By Sherice Gordon ; [facility], [facility] Skelaxin 800 MG Tablet 08/11/2016 - 06/29/2023 Provider: Seven Sotomayor MD Diagnosis: Strain of musc/t end the rotator cuff of left shoulder, subs three times a day Last Documented On 3 2:27PM By Sonia Garcia ; [facility], [facility] TraMADol HCl 50 MG Tablet 08/11/2016 - 06/29/2023 Provider: Seven Sotomayor MD Diagnosis: Strain of musc/t end the rotator cuff of left shoulder, subs 1 every 6 hours prn pain Last Documented On 3 2:26PM By Sonia Garcia ; [facility] Naprosyn 500 MG Tablet 07/22/2016 - 06/29/2023 Provide r: Srinivas Conway MD Diagnosis: twice a day Last Documented On 3 2:26PM By Sonia Garcia ; [facility] [place] 5-325 MG Tablet 05/05/2016 - 06/29/2023 Provider: Seven holly MD Diagnosis: Strain of musc/t end the rotator cuff of left shoulder, init 1 po q 6 to 8 hrs prn pain Last Documented On 3 2:27PM By Sonia Garcia ; [facility] [place] 5-325 MG Tablet 03/24/2016 - 06/29/2023 Provider: Seven holly MD Diagnosis: Strain of musc/t end the rotator cuff of left shoulder, init 1 po q 6 to 8 hrs prn pain Last Documented On 3 2:26PM By Sonia Garcia ; [facility] [place] 5-325 MG Tablet 02/08/2016 - 06/29/2023 Provider : Seven Sotomayor MD Diagnosis: 1 po q 6 to 8 hrs prn pain Last Documented On 3 2:27PM By Sonia Garcia ; [facility] [place] 5-325 MG Tablet 01/11/2016 - 06/29/2023 Provider: Seven holly MD Diagnosis: Strain of musc/t end the rotator cuff of left shoulder, subs 1-2 po q 4-6h prn pain Last Documented On 3 2:27PM By Sonia Garcia ; [facility] [place] 5-325 MG Tablet 01/02/2016 - 06/29/2023 Provider: Seven holly MD Diagnosis: Strain of musc/t end the rotator cuff of left shoulder, subs 1-2 po q 4-6h prn pain Last Documented On 3 2:26PM By Sonia Garcia ; [facility] [place] 5-325 MG Tablet 12/03/2015 - 06/29/2023 Provider: Seven holly MD Diagnosis: Sprain of left r otator cuff capsule, initial encounter 1-2 po q 4-6h prn pain Last Documented On 3 2:26PM By Sonia Garcia ; [facility], [facility] Hydrocodone-Acetaminophen 10-325 MG Tablet 10/31/2015 - 01/11/2016 Provider: Diagnosis: Last Documented On 6 2:22PM By Denise Boyd ; [facility], [facility] Diclofenac Sodium 75 MG Tablet, enteric coated 1 01/01/2015 - 01/04/2022 Provider: Diagnosis: Last Documented On 2 10:23AM By Erin Duarte ; [facility], [facility] Cyclobenzaprine HCl 10 MG Tablet 10/31/2015 - 01/04/20 Provider: Diagnosis: Last Documented On 2 10:23AM By Erin Duarte ; [facility], [facility] Medications Administered Includes: Administered Medications in patient's chart No Administered Medications Recorded Vital Signs Includes: Vital Signs from 03/27/2024 through 03/27/2025 Vital Name 08/31/2024 03:07P 06/21/2024 03:37P 04/12 03:37P Height (in) 70 70 70 Weight (lb) 189 191.8 180 Body Mass Index 27.1 27.5 25.8 Body Surface Area 2 2.1 2 Note: [facility] Last Documented: On 08/31/2024 3:07PM ; [facility] On 06/21/2024 3:37PM ; [facility] On 04/12/2024 3:37PM ; [facility], [facility] Results Includes: Results from 03/27/2024 through 03/27/2025 No Results Recorded For Specified Dates History of Present Illness History of Present Illness not supported for this document type No History of Present Illness Recorded Social History Description Last Updated Is a smoker 07/08/2022 Last Documented On 2 2:48PM ; [facility], [facility] Smoker 1 pack/day 07/08/2022 Last Documented On 2 2:48PM ; [facility] Alcohol use 01/14/2022 Last Documented On 2 10:50AM ; [facility] Caffeine use 01/14/2022 Last Documented On 2 10:50AM ; [facility], [facility] No recent change in diet 01/14/2022 Last Documented On 2 10:50AM ; [facility], [facility] Not exercising regularly 01/14/2022 Last Documented On 2 10:50AM ; [facility] Not using drugs 01/14/2022 Last Documented On 2 10:50AM ; [facility] Yes, current smoker. 01/14/2022 Last Documented On 2 10:50AM ; [facility] Current smoker 11/05/2015 Last Documented On 5 8:45AM ; [facility] No recent change in diet 11/05/2015 Last Documented On 5 8:45AM ; [facility] Smoking status : Current everyday smoker 11/05/2015 Last Documented On 5 8:45AM ; [facility], [facility] Tobacco use 11/05/2015 Last Documented On 5 8:45AM ; [facility], [facility] Procedures and Surgical History Includes: Procedures from 03/27/2024 through 03/27/2025 Procedures Code Diagnosis Performing Provider Service Location Service Date PELVIS w/ 2-3 VIEW HIP (RIGHT) 31212 Unilateral primary osteoarthritis, right hip Brent Rivera MD [facility] 06/21/2024 Last Documented On 4 9:12AM ; [facility], [facility] THERAPEUTIC EXERCISES (Occupational therapy) 22839 Trigger thumb, left thumb, Trigger finger, left middle finger Bernard Angle OT [facility] 04/22/2024 Last Documented On 4 9:54AM ; [facility], [facility] MANUAL THERAPY (Occupational therapy) [id number] Trigger thumb, left thumb, Trigger finger, left middle finger Bernard Angle OT [facility] 04/22/2024 Last Documented On 4 9:54AM ; [facility], [facility] THERAPEUTIC ACTIVITIES (Occupational therapy) 69330 Trigger thumb, left thumb, Trigger finger, left middle finger Bernard Angle OT [facility] 04/22/2024 Last Documented On 4 9:54AM ; [facility], [facility] MANUAL THERAPY (Occupational therapy) 63182 Trigger thumb, left thumb, Trigger finger, left middle finger Nadiya Green OT [facility] 04/11/2024 Last Documented On 4 10:57AM ; [facility], [facility] THERAPEUTIC EXERCISES (Occupational therapy) 58691 Trigger thumb, left thumb, Trigger finger, left middle finger Nadiya Green OT [facility] 04/11/2024 Last Documented On 4 10:57AM ; [facility], [facility] NEUROMUSCULAR REEDUCATION (Occupational therapy) 54919 Trigger thumb, left thumb, Trigger finger, left middle finger Nadiya Green OT [facility] 04/11/2024 Last Documented On 4 10:57AM ; [facility], [facility] THERAPEUTIC ACTIVITIES (Occupational therapy) 68754 Trigger thumb, left thumb, Trigger finger, left middle finger Nadiya Green OT [facility] 04/11/2024 Last Documented On 4 10:57AM ; [facility], [facility] THERAPEUTIC EXERCISES (Occupational therapy) 12505 Trigger thumb, left thumb, Trigger finger, left middle finger Tricia Brown OT [facility] 04/07/2024 Last Documented On 4 9:33AM ; [facility], [facility] NEUROMUSCULAR REEDUCATION (Occupational therapy) 84609 Trigger thumb, left thumb, Trigger finger, left middle finger Tricia Brown OT [facility] 04/07/2024 Last Documented On 4 9:33AM ; [facility], [facility] MANUAL THERAPY (Occupational therapy) 20542 Trigger thumb, left thumb, Trigger finger, left middle finger Tricia Brown OT [facility] 04/07/2024 Last Documented On 4 9:33AM ; [facility], [facility] ACTIVE WOUND CARE/20 CM OR < (Occupational therapy) 33777 Trigger thumb, left thumb, Trigger finger, left middle finger Tricia Brown OT [facility] 04/07/2024 Last Documented On 4 9:33AM ; [facility], [facility] ACTIVE WOUND CARE/20 CM OR < (Occupational therapy) 75715 Trigger thumb, left thumb, Trigger finger, left middle finger Nadiya Green OT [facility] 03/31/2024 Last Documented On 4 9:32AM ; [facility], [facility] NEUROMUSCULAR REEDUCATION (Occupational therapy) 57617 Trigger thumb, left thumb, Trigger finger, left middle finger Nadiya Green OT [facility] 03/31/2024 Last Documented On 4 9:32AM ; [facility], [facility] THERAPEUTIC EXERCISES (Occupational therapy) 30971 Trigger thumb, left thumb, Trigger finger, left middle finger Nadiya Green OT [facility] 03/31/2024 Last Documented On 4 9:32AM ; [facility], [facility] NEUROMUSCULAR REEDUCATION (Occupational therapy) 99326 Trigger thumb, left thumb, Trigger finger, left middle finger Tricia Brown OT [facility] 03/29/2024 Last Documented On 4 9:31AM ; [facility], [facility] THERAPEUTIC EXERCISES (Occupational therapy) 38505 Trigger thumb, left thumb, Trigger finger, left middle finger Tricia Brown OT [facility] 03/29/2024 Last Documented On 4 9:31AM ; [facility], [facility] OT Eval - Low Complexity (Occupational therapy) 37041 Trigger thumb, left thumb, Trigger finger, left middle finger Tricia Brown OT [facility] 03/29/2024 Last Documented On 4 9:31AM ; [facility], [facility] ACTIVE WOUND CARE/20 CM OR < (Occupational therapy) 36853 Trigger thumb, left thumb, Trigger finger, left middle finger Tricia Brown OT [facility] 03/29/2024 Last Documented On 4 9:31AM ; [facility], [facility] Surgical History Last Updated History of History of Arthroscopy LEFT S HOULDER 2016 01/14/2022 Last Documented On 2 10:50AM ; [facility], [facility] Medical History Includes: Medical History in patient's chart Description Last Updated KIDNEY STONES 01/14/2022 Last Documented On 2 10:50AM ; [facility], [facility] History of asthma 01/14/2022 Last Documented On 2 10:50AM ; [facility], [facility] No recent immunization for flu 2 Last Documented On 2 10:50AM ; [facility], [facility] No recent immunization for pneumococcal pneumonia 01/14/2022 Last Documented On 2 10:50AM ; [facility], [facility] History of depression 11/05/2015 Last Documented On 5 8:45AM ; [facility], [facility] Family History Includes: Family History in patient's chart Description Last Updated Diabetes mellitus 01/31/2022 Last Documented On 2 9:01AM ; [facility], [facility] Family history of heart disease 02/01/20 Last Documented On 2 9:01AM ; [facility], [facility] Family history of rheumatoid arthritis 0 01/31/2022 Last Documented On 2 9:01AM ; [facility], [facility] No significant family history 01/14/2022 Last Documented On 2 10:50AM ; [facility], [facility] Maternal history of diabetes mellitus Last Documented On 5 8:45AM ; [facility] Maternal history of family history of he art disease 11/05/2015 Last Documented On 5 8:45AM ; [facility], [facility] Maternal history of rheumatoid arthritis 11/05/2015 Last Documented On 5 8:45AM ; [facility], [facility] Review of Systems Review of Systems not supported for this document type No Review of Systems Recorded Mental Status Description No anxiety Functional Status No Functional Status Recorded Physical Exam Physical Exam not supported for this document type No Physical Exam Recorded Immunizations Includes: Immunizations in patient's chart Vaccine Dose # Date Site Reaction(s) Status Source Influenza 1 05/28/2022 Complete (Refused - Patient objection) [facility] Last Documented On 2 2:07PM ; [facility] PCV (Pneumovax 23) 1 05/28/2022 Complete (Refused - Patient objection) [facility] Last Documented On 2 2:07PM ; [facility] Td 1 05/28/2022 Complete (Refused - Patient objection) [facility] Last Documented On 2 2:07PM ; [facility] Allergies Includes: Active, inactive, and resolved Allergies No Known Allergies Encounters Includes: Encounters from 03/27/2024 through 03/27/2025 Encounter Provider Location Date Check-In Time Check-Out Time Diagnosis Follow Up Blayne Carmichael PA-C [facility] 08/31/20 2:54PM 3:29PM Follow Up Brent Rivera MD [facility] 06/21/20 2:59PM 4:05PM Overweight Post Op Daniella Monica Brown APRN [facility] 04/12/20 3:26PM 3:44PM Overweight Insurance Includes: Active Insurance Policies Plan Name Member ID Group # Subscriber Relationship Effect amina Dates 1 - [facility] [id number] Subha Armando Self 11/30/2021 - Unknown Clinical Notes Includes: Signed Clinical Notes starting from 11/13/2022 * Progress note Date Encounter Last Documented by 08/31/2024 Follow Up Last documented on 08/31/2024; 3:43 PM, Blayne Carmichael PA-C; [facility] Active Problems & Conditions - Joint Pain [...] Care Team - MARIE KUO MD - [employer] * Progress note Date Encounter Last Documented by 06/21/2024 Follow Up Last documented on 06/24/2024; 9:50 AM, Brent Rivera MD; [facility], [facility] Active Problems & Conditions - Joint Pain [...] Care Team - MARIE KUO MD - [employer] * Progress note Date Encounter Last Documented by 04/12/2024 Post Op Last documented on 04/12/2024; 3:47 PM, Daniella Brown APRN; [facility], [facility] Active Problems & Conditions - Joint Pain [...] Findings - Vitals taken 04/12/2024 03:37 pm [facility] Height 70 in Weight 180 lbs Body [...] is provided with Theraputty to facilitate 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 3. He may use his left hand for all regular activity with no restrictions. 4. He is released from our care to follow up as needed. Notes This dictation was done with voice recognition software and may contain errors and omissions. Practice Management Use of tobacco assessment performed Review of medications documented. Care Team - MARIE KUO MD - [employer]
== END 2025-03-27 23:59 | disposition home or self-care (01) ==
PROVIDERS: PCP Internal Medicine; Visit Provider Internal Medicine
DX: N23 Unspecified renal colic (principal)
CPT/HCPCS: 76770; 76857

== ENCOUNTER 2025-03-28 15:15 | Outpatient (CLI) | payer BC, SELFPAY ==
--- OUTSIDE RECORDS SUMMARY | 2025-03-28 15:17 | XMS_ITS | Clinical Summary ---
Author Organization [facility] Address [address] [place] [address] Phone Care Team Providers Care Medication Reconciliation Technician Name Role Phone Romulo GOLDEN, Tyler Loya Unavailable [phone] AYAAN GOLDEN, MARIE E Primary Care Provider [phone] Reason for Visit and Chief Complaint The Chief Complaint is: left hand pain Problems Includes: Problems addressed during this encounter and other active Problems Current Visit Onset Date Resolved Date Provider Conditio n Status Lower Back Pain 08/12/2023 SUBHA SMITH PA-C Active Last Documented On 3 3:56PM ; [facility] Past Visits Onset Date Resolved Date Provider Condition Status Pain in the Left Hand Only 07/21/2023 Tyler Sebastian MD Active Last Documented On 3 4:02PM ; [facility] Joint Pain in the Right Hip 04/29/2022 Brent Rivera MD Active Last Documented On 2 8:32AM ; [facility] Joint Pain, Localized in [...] Active Last Documented On 5 1:03PM ; [facility] Plan of Treatment 1. He will continue with daily scar massage until it's been 6 months from the day of surgery. 2. 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 3. He may use his left [...] 3:07PM By Gail Piper ; [facility] Ondansetron 4 MG Oral Tablet Disintegrating 07/16/2024 Provider: Diagnosis: Last Documented On 4 3:07PM By Gail Piper ; [facility], [facility] Ketorolac Tromethamine 10 MG Oral Tablet 07/16/2024 Provider: Diagnosis: Last Documented On 4 3:07PM By Gail Piper ; [facility] HYDROcodone-Acetaminophen 5-325 MG Oral Tablet 023 Provider: MARIE KUO MD Diagnosis: Last Documented On 3 3:58PM By Stella Carrillo ; [facility], [facility] Cyclobenzaprine HCl 5 MG Oral Tablet 03/05/2022 Prov ider: MARIE KUO MD Diagnosis: Last Documented On 2 1:56PM By Sherice Gordon ; [facility], [facility] Tylenol 325 MG Oral Capsule 01/04/2022 Provider: Diagnosis: Last Documented On 2 10:24AM By Erin Duarte ; [facility], [facility] Past Medications on file Naproxen 500 MG Oral Tablet 03/11/2024 - 04/10/2024 Pr ovider: Tyler Sebastian MD Diagnosis: take one tablet twice a day prn following surger y Last Documented On 4 8:18AM By Dr. Sebastian ; [facility], [facility] Vitamin C 1000 MG Oral Tablet 03/11/2024 - 05/10/2024 Provider: Tyler mclaughlin MD Diagnosis: once a day take 1 tablet once daily post surgery Last Documented On 4 8:18AM By Dr. Sebastian ; [facility], [facility] Medrol 4 MG Oral Tablet Therapy Pack 01/21/2024 - 01/28/2024 Provider: Tyler mclaughlin MD Diagnosis: use as directed Last Documented On 4 2:41PM By Dr. Sebastian ; [facility], [facility] Gabapentin 300 MG Oral Capsule 06/29/2023 - 07/29/2023 Provider: Brent Nelson MD Diagnosis: 1 capsule, twice a day as needed Last Documented On 3 3:10PM By Brent Rivera ; [facility], [facility] Medications Administered Includes: Administered Medications from this encounter No Administered Medications Recorded Vital Signs Includes: Vital Signs from this encounter Vital Name 04/12/2024 03:37P Height (in) 70 Weight (lb) 180 Body Mass Index 25.8 Body Surface Area 2 Note: [facility] Last Documented: On 04/12/2024 3:37PM ; [facility], [facility] Results Includes: Results discussed during this [...] 07/08/2022 Last Documented On 4 3:36PM ; [facility] Smoker 1 pack/day 07/08/2022 Last Documented On 4 3:36PM ; [facility] Alcohol use 01/14/2022 Last Documented On 4 3:36PM ; [facility] Caffeine use 01/14/2022 Last Documented On 4 3:36PM ; [facility] No recent change in diet 01/14/2022 Last Documented On 4 3:36PM ; [facility] Not exercising regularly 01/14/2022 Last Documented On 4 3:36PM ; [facility] Not using drugs 01/14/2022 Last Documented On 4 3:36PM ; [facility] Yes, current smoker. 01/14/2022 Last Documented On 4 3:36PM ; [facility] Current smoker 11/05/2015 Last Documented On 4 3:36PM ; [facility] No recent change in diet 11/05/2015 Last Documented On 4 3:36PM ; [facility] Smoking status : Current everyday smoker 11/05/2015 Last Documented On 4 3:36PM ; [facility] Tobacco use 11/05/2015 Last [...] 1000F Last Documented On 4 3:37PM ; [facility], [facility] review of medications documented 1160F Last Documented On 4 3:37PM ; [facility], [facility] Surgical History Last Updated History of History of Arthroscopy LEFT Louise MURPHY 2016 01/14/2022 Last Documented On 4 3:36PM ; [facility], [facility] Medical History Includes: Medical History addressed during this encounter Description Last Updated KIDNEY STONES 01/14/2022 Last Documented On 4 3:36PM ; [facility], [facility] History of asthma 01/14/2022 Last Documented On 4 3:36PM ; [facility], [facility] No recent immunization for flu 2 Last Documented On 4 3:36PM ; [facility], [facility] No recent immunization for pneumococcal pneumonia 01/14/2022 Last Documented On 4 3:36PM ; [facility], [facility] History of depression 11/05/2015 Last Documented On 4 3:36PM ; [facility], [facility] Family History Includes: Family History addressed during this encounter Description Last Updated Diabetes mellitus 01/31/2022 Last Documented On 4 3:36PM ; [facility], [facility] Family history of heart disease 02/01/20 22 Last Documented On 4 3:36PM ; [facility], [facility] Family history of rheumatoid arthritis 0 01/31/2022 Last Documented On 4 3:36PM ; [facility], [facility] No significant family history 01/14/2022 Last Documented On 4 3:36PM ; [facility], [facility] Maternal history of diabetes mellitus Last Documented On 4 3:36PM ; [facility], [facility] Maternal history of family history of he art disease 11/05/2015 Last Documented On 4 3:36PM ; [facility], [facility] Maternal history of rheumatoid arthritis 11/05/2015 Last Documented On 4 3:36PM ; [facility], [facility] Review of Systems Includes: Review of Systems [...] Time Diagnosis Post Op Daniella Brown APRN [facility] 4 3:26PM 3:44PM Overweight Insurance Includes: Active Insurance Policies Plan Name Member ID Group # Subscriber Relationship Effect amina Dates 1 - [facility] [id number] Subha Armando Self 11/30/2021 - Unknown Clinical Notes Includes: Clinical Notes from this encounter * Progress note Date Encounter Last Documented by 04/12/2024 Post Op Last documented on 04/12/2024; 3:47 PM, Daniella Brown APRN; [facility], [facility] Active Problems & Conditions - Joint [...] is provided with Theraputty to facilitate his weigher production strength. 3. He may use his left hand for all regular activity with no restrictions. 4. He is released from our care to follow up as needed. Notes This dictation was done with voice recognition software and may contain errors and omissions. Practice Management Use of tobacco assessment performed Review of medications documented. Care Team - MARIE KUO MD - FORESTRY ADVISER
--- OUTSIDE RECORDS SUMMARY | 2025-03-28 15:17 | XMS_ITS | Data Portability ---
Author Organization [facility] Address [address] [place] [address] Care Team Providers Care Mica Miner Blasting Name Role Phone MARIE KUO Primary Care Provider Assessment No assessment recorded. Plan of Treatment [...] ast No observ ation record ed. [email or web address] [address] [place], [address], 07/27/2023 09:26:15 Result Notes None recorded. Procedures Surgical History Date Name Laterality Status Provider Name and Address Organization Details Recorded Time total replacement of hip completed Paige Cason [facility] [place] 07/28/2023 13:30:46 ureterorenoscopy with fragmentation and removal of calculus of kidney completed Paige Cason [facility] [place] 07/28/2023 13:31:11 arthroscopic repair of rotator cuff completed Paige Cason [facility] [place] 07/28/2023 13:31:25 Imaging Results Imaging Date Name Status LastModified by Organiz ation Details LastModified Time 07/23/2023 CT, abdomen + pelvis, w/o contrast completed [email or web address] [address] [place], [address], 07/27/2023 09:26:15 Procedure Notes None recorded. Medical [...] Updated DateTime 07/28/2023 177.8 cm 25.8 kg/m2 60084.63 g 97 [degF] Paige Hurst [facility] & [place] 07/28/2023 13:24:32 Social History Question Answer Notes LastModified by Organizat ion Details LastModified Time Tobacco Smoking Status Current Every Day Sm[facility] [place] 07/28/2023 13:24:40 Do You Have An Advance Directive? No [email or web address] Information not available 07/28/2023 What Is Your Level Of Alcohol Consumption? Occasional [email or web address] Information not available 07/28/2023 Are You Blind Or Do You Have Difficulty Seeing? No [email or web address] Information not available 07/28/2023 What Was The Date Of Your Most Recent Tobacco Screening? 07/27/2023 [email or web address] Information not available 07/28/2023 Do You Or Have You Ever Used Smokeless Tobacco? [id number] [email or web address] Information not available 07/28/2023 How Much Tobacco Do You Smoke? 1 PPD [email or web address] Information not available 07/28/2023 Do You Feel Stressed (tense, Restless, Nervous, Or Anxious, Or Unable To Sleep At Night)? [id number] [id number] Information not available 07/28/2023 Do You Use Any Illicit Or Recreational Drugs? No Information not available 07/28/2023 How Many Years Have You Smoked Tobacco? 30 [email or web address] Information not available 07/28/2023 Sex: Unknown Functional Status Question Answer Note LastModified by Organization D etails LastModified Time What is your exercise level? None [email or web address] Information not available 07/28/2023 Mental Status None recorded. Family History Nothing Reported. Medical History Condition Response Kidney or Bladder Problems Y Past Encounters Encounter ID Performer Location Encounter Start Date Encounter Closed Date Diagnosis/Indication Diagnosis SNOMED-CT Code Diagnosis ICD10 Code Diagnosis Note [id number] Rui Suero M.D [facility] [address] [place] [address] [phone] 07/28/2023 13:06:36 07/28/2023 13:52:15 Ureteric stone 41956327 N20.1 pt will call to decide about [...] Name 07/28/2023 1 CALI-SANTINO: JOHNNY [employer] [id number] Cordell Armando [id number] Cordell Armando Notes Date Note Type Note Provider Name and Address Organization Details Recorded Time 07/28/2023 text/html pt is here for right prox stone ( 6mm). he was seen 07-23-23 with severe right flank pain. He went to the emergency room at [facility] He then returned to ER in te evening , he has a h/o stone in the past ( [place])he had ESWL and then ureteroscopy to remove fragmentshe is currently using flomax and percocetno blood in the urine Rui Suero M.D [address] [place] [address], [address], [place], [address], [place] - [facility] - [place] & [place] 07/28/2023 20:23:55
--- OUTSIDE RECORDS SUMMARY | 2025-03-28 15:18 | XMS_ITS | Clinical Summary ---
Author Organization [facility] Address [address] [place] [address] Phone Care Team Providers Care Account Officer Name Role Phone Romulo GOLEDN, Tyler KUO MD, MARIE E Primary Care Provider [phone] Reason for Referral Date Encounter Description Provider [...] Active Last Documented On 5 1:03PM ; [facility] Plan of Treatment Instructions to patient Intervention and counseling on cessation of tobacco use Last Documented On 4 3:07PM ; [facility] Lose weight Last Documented On 4 3:07PM ; [facility] Assessments Includes: Assessments from this encounter No Assessments Recorded Instructions Includes: Instructions from this encounter Instructions to patient Intervention and counseling on cessation of tobacco use Last Documented On 4 3:07PM ; [facility] Lose weight Last Documented On 4 3:07PM ; [facility], [facility] Medical Equipment - Implanted Devices Includes: Current Devices No Medical Equipment Recorded Medications Includes: Medications discussed during this encounter and other current Medications Current Medications (continue as prescribed) oxyCODONE HCl 5 MG Oral Tablet 07/18/2024 Provider: MARIE KUO MD Diagnosis: Last Documented On 4 3:07PM By Gail Piper ; [facility] Ondansetron 4 MG Oral Tablet Disintegrating 07/16/2024 Provider: Diagnosis: Last Documented On 4 3:07PM By Gail Piper ; [facility] Ketorolac Tromethamine 10 MG Oral Tablet 07/16/2024 Provider: Diagnosis: Last Documented On 4 3:07PM By Gail Piper ; [facility], [facility] HYDROcodone-Acetaminophen 5-325 MG Oral Tablet 023 Provider: MARIE KUO MD Diagnosis: Last Documented On 3 3:58PM By Stella Carrillo ; [facility], [facility] Cyclobenzaprine HCl 5 MG Oral Tablet 03/05/2022 Prov ider: MARIE KUO MD Diagnosis: Last Documented On 2 1:56PM By Sherice Gordon ; [facility], [facility] Tylenol 325 MG Oral Capsule 01/04/2022 Provider: Diagnosis: Last Documented On 2 10:24AM By Erin Duarte ; [facility] Past Medications on file Naproxen 500 MG Oral Tablet 03/11/2024 - 04/10/2024 Pr ovider: Tyler Sebastian MD Diagnosis: take one tablet twice a day prn following surger y Last Documented On 4 8:18AM By Dr. Sebastian ; [facility], [facility] Vitamin C 1000 MG Oral Tablet 03/11/2024 - 05/10/2024 Provider: Tyler mclaughlin MD Diagnosis: once a day take 1 tablet once daily post surgery Last Documented On 4 8:18AM By Dr. Sebastian ; [facility], [facility] Medrol 4 MG Oral Tablet Therapy Pack 01/21/2024 - 01/28/2024 Provider: Tyler mclaughlin MD Diagnosis: use as directed Last Documented On 4 2:41PM By Dr. Sebastian ; [facility], [facility] Gabapentin 300 MG Oral Capsule 06/29/2023 - 07/29/2023 Provider: Brent Nelson MD Diagnosis: 1 capsule, twice a day as needed Last Documented On 3 3:10PM By Brent Rivera ; [facility], [facility] Medications Administered Includes: Administered Medications from this encounter No Administered Medications Recorded Vital Signs Includes: Vital Signs from this encounter Vital Name 08/31/2024 03:07P Height (in) 70 Weight (lb) 189 Body Mass Index 27.1 Body Surface Area 2 Note: cg Last Documented: On 08/31/2024 3:07PM ; [facility], [facility] Results Includes: Results discussed [...] 07/08/2022 Last Documented On 4 3:07PM ; [facility], [facility] Smoker 1 pack/day 07/08/2022 Last Documented On 4 3:07PM ; [facility] Alcohol use 01/14/2022 Last Documented On 4 3:07PM ; [facility] Caffeine use 01/14/2022 Last Documented On 4 3:07PM ; [facility] No recent change in diet 01/14/2022 Last Documented On 4 3:07PM ; [facility], [facility] Not exercising regularly 01/14/2022 Last Documented On 4 3:07PM ; [facility] Not using drugs 01/14/2022 Last Documented On 4 3:07PM ; [facility] Yes, current smoker. 01/14/2022 Last Documented On 4 3:07PM ; [facility] Current smoker 11/05/2015 Last Documented On 4 3:07PM ; [facility], [facility] No recent change in diet 11/05/2015 Last Documented On 4 3:07PM ; [facility], [facility] Smoking status : Current everyday smoker 11/05/2015 Last Documented On 4 3:07PM ; [facility] Tobacco use 11/05/2015 Last Documented On 4 3:07PM ; [facility] Procedures and Surgical History Includes: Procedures from this encounter Procedures Code Diagnosis Performing Provider Service L ocation Service Date intervention and counseling on cessation of tobacco use 4000F Last Documented On 4 3:07PM ; [facility] use of tobacco assessment performed 1000F Last Documented On 4 3:07PM ; [facility], [facility] no influenza immunization patient refuse d Last Documented On 4 3:07PM ; [facility] follow-up visit in one month with PCP fo r elevated BP Last Documented On 4 3:07PM ; [facility] referral to physician SEE PCP FOR BP Last Documented On 4 3:07PM ; [facility] [id number] Last Documented On 4 3:07PM ; [facility] an MRI was performed [id number] Last Documented On 4 3:07PM ; [facility], [facility] Surgical History Last Updated History of History of Arthroscopy LEFT S [facility] 201501/14/2022 Last Documented On 4 3:07PM ; [facility] Medical History Includes: Medical History addressed during this encounter Description Last Updated KIDNEY STONES 01/14/2022 Last Documented On 4 3:07PM ; [facility] History of asthma 01/14/2022 Last Documented On 4 3:07PM ; [facility] No recent immunization for flu 2 Last Documented On 4 3:07PM ; [facility] No recent immunization for pneumococcal pneumonia 01/14/2022 Last Documented On 4 3:07PM ; [facility] History of depression 11/05/2015 Last Documented On 4 3:07PM ; [facility] Family History Includes: Family History addressed during this encounter Description Last Updated Diabetes mellitus 01/31/2022 Last Documented On 4 3:07PM ; [facility] Family history of heart disease 02/01/20 Last Documented On 4 3:07PM ; [facility] Family history of rheumatoid arthritis 0 01/31/2022 Last Documented On 4 3:07PM ; [facility] No significant family history 01/14/2022 Last Documented On 4 3:07PM ; [facility] Maternal history of diabetes mellitus Last Documented On 4 3:07PM ; [facility] Maternal history of family history of he art disease 11/05/2015 Last Documented On 4 3:07PM ; [facility] Maternal history of rheumatoid arthritis 11/05/2015 Last Documented On 4 3:07PM ; [facility] Review of Systems Includes: Review [...] Time Diagnosis Follow Up Blayne Carmichael PA-C [facility] 4 2:54PM 3:29PM Insurance Includes: Active Insurance Policies Plan Name Member ID Group # Subscriber Relationship Effect amina Dates 1 - [facility] [id number] Subha Armando Self 11/30/2021 - Unknown Clinical Notes Includes: Clinical Notes from this encounter * Progress note Date Encounter Last Documented by 08/31/2024 Follow Up Last documented on 08/31/2024; 3:43 PM, Blayne Carmichael PA-C; [facility] Active Problems [...] Care Team - MARIE KUO MD - PAINTER AND DECORATOR
--- OUTSIDE RECORDS SUMMARY | 2025-03-28 15:18 | XMS_ITS ---
Care Plan - [facility] Created on: March 28, 2025 Cordell Armando : 1975 Sex: Male Author Organization [facility] Address [address] [place] [address] Phone Care Team Providers Care Golf Cart Assembler Name Role Phone Romulo GOLDEN, Tyler Loya Unavailable [phone] AYAAN GOLDEN, MARIE Mario Primary Care Provider [phone]
--- OUTSIDE RECORDS SUMMARY | 2025-03-28 15:18 | XMS_ITS | Clinical Summary ---
Author Organization [facility] Address [address] [place] [address] Phone Care Team Providers Care Agronomy Location Manager Name Role Phone Romulo GOLDEN, Tyler Loya Unavailable [phone] AYAAN GOLDEN, MARIE E Primary Care Provider [phone] Reason for Visit and Chief Complaint The Chief Complaint is: left hand pain Problems Includes: Problems addressed during this encounter and other active Problems Current Visit Onset Date Resolved Date Provider Conditio n Status Lower Back Pain 08/12/2023 SUBHA SMITH PA-C Active Last Documented On 3 3:56PM ; [facility] Past Visits Onset Date Resolved Date Provider Condition Status Pain in the Left Hand Only 07/21/2023 Tyler Sebastian MD Active Last Documented On 3 4:02PM ; [facility] Joint Pain in the Right Hip 04/29/2022 Brent Rivera MD Active Last Documented On 2 8:32AM ; [facility] Joint Pain, Localized in Both Shoulders 01/04/2022 Mary Jasso PA-C Active Last Documented On 2 10:10AM ; [facility] Right Upper Back Pain Along Inner Edge of Shoulder Blade 08/11/2016 Seven Sotomayor MD Active Last Documented On 6 3:26PM ; [facility] Neck Pain 10/31/2015 Cricket Weber MD Active Last Documented On 5 1:03PM ; [facility] Plan of Treatment 1. Patient [...] Last Documented On 02/16/2024 3:42PM ; [facility] Instructions to patient Intervention and counseling on cessation of tobacco use Last Documented On 4 3:15PM ; [facility] Lose weight Last Documented On 4 3:15PM ; [facility], [facility] Assessments Includes: Assessments from this encounter Findings - Overweight - Last Documented On 02/16/2024 3:42PM ; [facility] 1. Left trigger thumb - Last Documented On 02/16/2024 3:42PM ; [facility] 2. Left long trigger finger - Last Documented On 02/16/2024 3:42PM ; [facility] Instructions Includes: Instructions from this encounter Instructions to patient Intervention and counseling on cessation of tobacco use Last Documented On 4 3:15PM ; [facility] Lose weight Last Documented On 4 3:15PM ; [facility] Medical Equipment - Implanted Devices Includes: Current Devices No Medical Equipment Recorded Medications Includes: Medications discussed during this encounter and other current Medications Current Medications (continue as prescribed) oxyCODONE HCl 5 MG Oral Tablet 07/18/2024 Provider: MARIE KUO MD Diagnosis: Last Documented On 4 3:07PM By Gail Piper ; [facility] Ondansetron 4 MG Oral Tablet Disintegrating 07/16/2024 Provider: Diagnosis: Last Documented On 4 3:07PM By Gail Piper ; [facility] Ketorolac Tromethamine 10 MG Oral Tablet 07/16/2024 Provider: Diagnosis: Last Documented On 4 3:07PM By Gail Piper ; [facility] HYDROcodone-Acetaminophen 5-325 MG Oral Tablet 023 Provider: MARIE KUO MD Diagnosis: Last Documented On 3 3:58PM By Stella Carrillo ; [facility], [facility] Cyclobenzaprine HCl 5 MG Oral Tablet 03/05/2022 Prov ider: MARIE KUO MD Diagnosis: Last Documented On 2 1:56PM By Sherice Gordon ; [facility], [facility] Tylenol 325 MG Oral Capsule 01/04/2022 Provider: Diagnosis: Last Documented On 2 10:24AM By Erin Duarte ; [facility], [facility] Past Medications on file Naproxen 500 MG Oral Tablet 03/11/2024 - 04/10/2024 Pr ovider: Tyler Sebastian MD Diagnosis: take one tablet twice a day prn following surger y Last Documented On 4 8:18AM By Dr. Sebastian ; [facility], [facility] Vitamin C 1000 MG Oral Tablet 03/11/2024 - 05/10/2024 Provider: Tyler mclaughlin MD Diagnosis: once a day take 1 tablet once daily post surgery Last Documented On 4 8:18AM By Dr. Sebastian ; [facility], [facility] Medrol 4 MG Oral Tablet Therapy Pack 01/21/2024 - 01/28/2024 Provider: Tyler mclaughlin MD Diagnosis: use as directed Last Documented On 4 2:41PM By Dr. Sebastian ; [facility], [facility] Gabapentin 300 MG Oral Capsule 06/29/2023 - 07/29/2023 Provider: Brent Nelson MD Diagnosis: 1 capsule, twice a day as needed Last Documented On 3 3:10PM By Brent Rivera ; [facility], [facility] Medications Administered Includes: Administered Medications from this encounter No Administered Medications Recorded Vital Signs Includes: Vital Signs from this encounter Vital Name 02/16/2024 03:15P Height (in) 70 Weight (lb) 180 Body Mass Index 25.8 Body Surface Area 2 Note: [facility] Last Documented: On 02/16/2024 3:15PM ; [facility], [facility] Results Includes: Results discussed during [...] 01/14/2022 Last Documented On 4 3:15PM ; [facility] Yes, current smoker. 01/14/2022 Last Documented On 4 3:15PM ; [facility] Current smoker 11/05/2015 Last Documented On 4 3:15PM ; [facility] No recent change in diet 11/05/2015 Last Documented On 4 3:15PM ; [facility] Smoking status : Current everyday smoker 11/05/2015 Last Documented On 4 3:15PM ; [facility] Tobacco use 11/05/2015 Last Documented On 4 3:15PM ; [facility] Procedures and Surgical History [...] 01/14/2022 Last Documented On 4 3:15PM ; [facility], [facility] Medical History Includes: Medical History addressed during this encounter Description Last Updated KIDNEY STONES 01/14/2022 Last Documented On 4 3:15PM ; [facility], [facility] History of asthma 01/14/2022 Last Documented On 4 3:15PM ; [facility], [facility] No recent immunization for flu 2 Last Documented On 4 3:15PM ; [facility], [facility] No recent immunization for pneumococcal pneumonia 01/14/2022 Last Documented On 4 3:15PM ; [facility], [facility] History of depression 11/05/2015 Last Documented On 4 3:15PM ; [facility], [facility] Family History Includes: Family History addressed during this encounter Description Last Updated Diabetes mellitus 01/31/2022 Last Documented On 4 3:15PM ; [facility], [facility] Family history of heart disease 02/01/20 22 Last Documented On 4 3:15PM ; [facility], [facility] Family history of rheumatoid arthritis 0 01/31/2022 Last Documented On 4 3:15PM ; [facility], [facility] No significant family history 01/14/2022 Last Documented On 4 3:15PM ; [facility], [facility] Maternal history of diabetes mellitus Last Documented On 4 3:15PM ; [facility], [facility] Maternal history of family history of he art disease 11/05/2015 Last Documented On 4 3:15PM ; [facility], [facility] Maternal history of rheumatoid arthritis 11/05/2015 Last Documented On 4 3:15PM ; [facility], [facility] Review of Systems Includes: Review of [...] Time Diagnosis Follow Up Daniella Brown APRN [facility] 4 3:02PM 3:46PM Overweight Insurance Includes: Active Insurance Policies Plan Name Member ID Group # Subscriber Relationship Effect amina Dates 1 - [facility] [id number] Subha Armando Self 11/30/2021 - Unknown Clinical Notes Includes: Clinical Notes from this encounter * Progress note Date Encounter Last Documented by 02/16/2024 Follow Up Last documented on 02/16/2024; 3:42 PM, Daniella Brown APRN; [facility], [facility] Active Problems & Conditions - [...] Care Team - MARIE KUO MD - TURBINE INSPECTOR
--- OUTSIDE RECORDS SUMMARY | 2025-03-28 15:18 | XMS_ITS | Clinical Summary ---
Author Organization [facility] Address [address] [place] [address] Phone Care Team Providers Care Railroad Commissioner Name Role Phone Romulo GOLDEN, Tyler Loya Unavailable [phone] AYAAN GOLDEN, MARIE E Primary Care Provider [phone] Reason for Visit and Chief Complaint [facility] Problems Includes: Problems addressed during this encounter and other active Problems All Visits Onset Date Resolved Date Provider Condition S tatus Lower Back Pain 08/12/2023 SUBHA SMITH PA-C Active Last Documented On 3 3:56PM ; [facility] Pain in the Left Hand Only 07/21/2023 Tyler Sebastian MD Active Last Documented On 3 4:02PM ; [facility] Joint Pain in the Right Hip 04/29/2022 Brent Rivera MD Active Last Documented On 2 8:32AM ; [facility] Joint Pain, Localized in Both Shoulders 01/04/2022 Mary Jasso PA-C Active Last Documented On 2 10:10AM ; [facility] Right Upper Back Pain Along Inner Edge of Shoulder Blade 08/11/2016 Seven Sotomayor MD Active Last Documented On 6 3:26PM ; [facility] Neck Pain 10/31/2015 Cricket Weber MD Active Last Documented On 5 1:03PM ; [facility] Plan of Treatment No Plan [...] On 4 3:07PM By Gail Piper ; [facility] Ondansetron 4 MG Oral Tablet Disintegrating 07/16/2024 Provider: Diagnosis: Last Documented On 4 3:07PM By Gail Piper ; [facility] Ketorolac Tromethamine 10 MG Oral Tablet 07/16/2024 Provider: Diagnosis: Last Documented On 4 3:07PM By Gail Piper ; [facility] HYDROcodone-Acetaminophen 5-325 MG Oral Tablet 023 Provider: MARIE KUO MD Diagnosis: Last Documented On 3 3:58PM By Stella Carrillo ; [facility] Cyclobenzaprine HCl 5 MG Oral Tablet 03/05/2022 Prov ider: MARIE KUO MD Diagnosis: Last Documented On 2 1:56PM By Sherice Gordon ; [facility] Tylenol 325 MG Oral Capsule 01/04/2022 Provider: Diagnosis: Last Documented On 2 10:24AM By Erin Duarte ; [facility] Medications Administered Includes: Administered Medications from [...] Location Date Check-In Time Check-Out Time Diagnosis Psych[facility] Outpatient Surgery Suites Tyler Sebastian MD Surgery 4 8:29AM 11:59PM Insurance Includes: Active Insurance Policies Plan Name Member ID Group # Subscriber Relationship Effect amina Dates 1 - [facility] [id number] Subha Amrando Self 11/30/2021 - Unknown Clinical Notes Includes: Clinical Notes from this encounter No Clinical Notes Recorded
--- OUTSIDE RECORDS SUMMARY | 2025-03-28 15:18 | XMS_ITS ---
Author Organization [facility] Address [address] [place] [address] Phone Care Team Providers Care Machine Hand Name Role Phone Romulo GOLDEN, Tyler Loya Unavailable [phone] AYAAN GOLDEN, MARIE E Primary Care Provider [phone] Reason for Referral Date Encounter Description Provider [...] Active Last Documented On 3 3:56PM ; [facility] Pain in the Left Hand Only 07/21/2023 Tyler Sebastian MD Active Last Documented On 3 4:02PM ; [facility] Joint Pain in the Right Hip 04/29/2022 Brent Rivera MD Active Last Documented On 2 8:32AM ; [facility] Joint Pain, Localized in Both Shoulders 01/04/2022 Mary Wei Jasso PA-C Active Last Documented On 2 10:10AM ; [facility] Right Upper Back Pain Along Inner Edge of Shoulder Blade 08/11/2016 Seven Sotomayor MD Active Last Documented On 6 3:26PM ; [facility] Neck Pain 10/31/2015 Cricket Weber MD Active Last Documented On 5 1:03PM ; [facility] Plan of Treatment Pending Tests Order Diagnosis Results Due Ordering P rovider Radiology - MRI MRI Shoulder 01/28/22 Mary Jasso PA-C Last Documented On 2 9:17AM ; [facility] Radiology - MRI MRI Lumbar Spine Low back pain, unspecified 08/26/23 SUBHA SMITH PA-C Last Documented On 3 3:56PM ; [facility] Referrals To Diagnosis Consult with Orthopedic Note: 2nd opinion with dr. Marielle dillard scapular sprain Last Documented On 6 11:54AM ; [facility] Consult with Orthopedic SUBHA SMITH PA-C Note: IHR per KD for L side radiculapothy07/21/23 @ 3:00pm Last Documented On 3 10:57AM ; [facility] Consult with Orthopedic Doc Nicole MD Note: IHR per KD for L middl e trigger finger07/23/23 @ 2:45pm Last Documented On 3 10:57AM ; [facility] Consult with Orthopedic Overweig ht Note: IHR per KD for L side radiculopathy9.13.23 @ 1:30p Last Documented On 3 12:23PM ; [facility] Consult with Foreign Banknote Teller Note: per JF ref to Rhuemato logy [...] ssation Last Documented On 6 2:22PM ; [facility] Health seminar on smoking ce ssation Last Documented On 6 2:43PM ; [facility] Health seminar on smoking ce ssation Last Documented On 5 5:08PM ; [facility] Health seminar on smoking ce ssation Last Documented On 5 1:22PM ; [facility] Medical Equipment - Implanted Devices Includes: Current and historical Devices No Medical Equipment Recorded Medications Includes: Current and historical Medications Current Medications (continue as prescribed) oxyCODONE HCl 5 MG Oral Tablet 07/18/2024 Provider: MARIE KUO MD Diagnosis: Last Documented On 4 3:07PM By Gail Piper ; [facility] Ondansetron 4 MG Oral Tablet Disintegrating 07/16/2024 Provider: Diagnosis: Last Documented On 4 3:07PM By Gail Piper ; [facility] Ketorolac Tromethamine 10 MG Oral Tablet 07/16/2024 Provider: Diagnosis: Last Documented On 4 3:07PM By Gail Piper ; [facility] HYDROcodone-Acetaminophen 5-325 MG Oral Tablet 023 Provider: MARIE KUO MD Diagnosis: Last Documented On 3 3:58PM By Stella Carrillo ; [facility] Cyclobenzaprine HCl 5 MG Oral Tablet 03/05/2022 Prov ider: MARIE KUO MD Diagnosis: Last Documented On 2 1:56PM By Sherice Gordon ; [facility] Tylenol 325 MG Oral Capsule 01/04/2022 Provider: Diagnosis: Last Documented On 2 10:24AM By Erin Duarte ; [facility] Past Medications on file Naproxen [...] On 4 8:18AM By Dr. Sebastian ; [facility] Medrol 4 MG Oral Tablet Therapy Pack 01/21/2024 - 01/28/2024 Provider: Tyler mclaughlin MD Diagnosis: use as directed Last Documented On 4 2:41PM By Dr. Sebastian ; [facility] Gabapentin 300 MG Oral Capsule 06/29/2023 - 07/29/2023 Provider: Brent Nelson MD Diagnosis: 1 capsule, twice a day as needed Last Documented On 3 3:10PM By Brent Rivera ; [facility] oxyCODONE HCl 5 MG Oral Tablet 09/12/2022 - 06/29/2023 Provider: Brent Nelson MD Diagnosis: Take 1 tablet by mouth every 4-6hrs for moderate pain Last Documented On 3 2:28PM By Sonia Garcia ; [facility] traMADol HCl 50 MG Oral Tablet 09/12/2022 - 06/29/2023 Provider: Brent Nelson MD Diagnosis: 2 tablets every 6 hours for break through pain Last Documented On 3 2:28PM By Sonia Garcia ; [facility] Pregabalin 75 MG Oral Capsule 09/09/2022 - 06/29/2023 Provider: Brent Nelson MD Diagnosis: 1-2 tabs daily as needed Last Documented On 3 2:28PM By Sonia Garcia ; [facility] oxyCODONE HCl 5 MG Oral Tablet 08/11/2022 - 06/29/2023 Provider: Brent Nelson MD Diagnosis: Take 1 tablet by mouth every 4-6hrs for moderate pain Last Documented On 3 2:28PM By Sonia Garcia ; [facility] traMADol HCl 50 MG Oral Tablet 08/11/2022 - 06/29/2023 Provider: Brent Nelson MD Diagnosis: 2 tablets every 6 hours for break through pain Last Documented On 3 2:28PM By Sonia Garcia ; [facility] oxyCODONE HCl 5 MG Oral Tablet 07/14/2022 - 06/29/2023 Provider: Brent Nelson MD Diagnosis: Take 1 tablet by mouth every 4-6hrs for moderate pain Last Documented On 3 2:28PM By Sonia Garcia ; [facility] traMADol HCl 50 MG Oral Tablet 07/14/2022 - 06/29/2023 Provider: Brent Nelson MD Diagnosis: 2 tablets every 6 hours for break through pain Last Documented On 3 2:28PM By Sonia Garcia ; [facility], [facility] Gabapentin 300 MG Oral Capsule 07/08/2022 - 06/29/2023 Provider: Brent Nelson MD Diagnosis: Take 1 capsule by mouth at bedtime Last Documented On 3 2:28PM By Sonia Garcia ; [facility] Amoxicillin 500 MG Oral Tablet 07/04/2022 - 06/29/2023 Provider: Brent Nelson MD Diagnosis: Take 4 Capsules by mouth 1 hour before procedure Last Documented On 3 2:28PM By Sonia Garcia ; [facility] Aspirin EC 81 MG Oral Tablet Delayed Release 06/20/2022 - 06/29/2023 Provider: Brent Rivera MD Diagnosis: Take 1 tablet by mouth every 12 hours for 42 days post op Last Documented On 3 2:28PM By Sonia Garcia ; [facility] Acetaminophen 500 MG Oral Tablet 06/20/2022 - 06/29/2023 Provider: Brent Nelson MD Diagnosis: Take 2 tablets by mouth every 8 hours Last Documented On 3 2:28PM By Sonia Garcia ; [facility] oxyCODONE HCl 5 MG Oral Tablet 06/20/2022 [...] On 3 2:27PM By Sonia Garcia ; [facility] Ondansetron HCl 4 MG Oral Tablet 06/20/2022 - 06/29/2023 Provider: Brent Nelson MD Diagnosis: 1 po q 6h prn nausea Last Documented On 3 2:27PM By Sonia Garcia ; [facility] Colace 100 MG Oral Capsule 06/20/2022 - 06/29/2023 Pro vider: Brent Rivera MD Diagnosis: Take 1-2 capsules daily as needed Last Documented On 3 2:28PM By Sonia Garcia ; [facility] traMADol HCl 50 MG Oral Tablet 06/20/2022 - 06/29/2023 Provider: Brent Nelson MD Diagnosis: 2 tablets every 6 hours for break through pain Last Documented On 3 2:27PM By Sonia Garcia ; [facility] Meloxicam 15 MG Oral Tablet 06/20/2022 - 06/29/2023 Pr ovider: Brent Rivera MD Diagnosis: once a day Last Documented On 3 2:27PM By Sonia Garcia ; [facility] Cefadroxil 500 MG Oral Capsule 06/20/2022 - 06/29/2023 Provider: Brent Nelson MD Diagnosis: Take 1 capsule by mouth every 12 hours for 7 day s Last Documented On 3 2:27PM By Sonia Garcia ; [facility] Vitamin D3 50 MCG (1999) Oral Tablet 06/09/2022 - 06/29/2023 Provider: Anjelica PAGAN Diagnosis: once a day Last Documented On 3 2:27PM By Sonia Garcia ; [facility] Meloxicam 7.5 MG Oral Tablet 04/29/2022 - 06/05/2022 Provider: Brent Nelson MD Diagnosis: once a day Take 1 tablet by mouth daily Last Documented On 2 10:05AM By Farheen Belle ; [facility] HYDROcodone-Acetaminophen 5- 325 MG Oral Tablet 03/05/2022 - 06/29/2023 Provider: MARIE KUO MD Diagnosis: Last Documented On 3 2:37PM By Sonia Garcia ; [facility] Meloxicam 15 MG Oral Tablet 01/04/2022 - 03/14/2022 Pr ovider: Mary Jasso PA-C Diagnosis: Last Documented On 2 1:56PM By Sherice Gordon ; [facility] Mobic 15 MG Oral Tablet 01/04/2022 - 06/29/2023 Provid er: Mary Jasso PA-C Diagnosis: once a day Last Documented On 3 2:27PM By Sonia Garcia ; [facility] Ibuprofen 200 MG Oral Capsule 01/04/2022 - 022 Provider: Diagnosis: Last Documented On 2 10:20AM By Erika Urena ; [facility] Cyclobenzaprine HCl 5 MG Ora l Tablet 01/01/2022 - 03/14/2022 Provider: MARIE King Diagnosis: Last Documented On 2 1:56PM By Sherice Gordon ; [facility] methylPREDNISolone 4 MG Oral Tablet Therapy Pack 12/10/2021 - 03/14/2022 Provider: Norma Vargas MD Diagnosis: Last Documented On 2 1:56PM By Sherice Gordon ; [facility] Skelaxin 800 MG Tablet 08/11/2016 - 06/29/2023 Provider: Seven Sotomayor MD Diagnosis: Strain of musc/t end the rotator cuff of left shoulder, subs three times a day Last Documented On 3 2:27PM By Sonia Garcia ; [facility] TraMADol HCl 50 MG Tablet 08/11/2016 - 06/29/2023 Provider: Seven Sotomayor MD Diagnosis: Strain of musc/t end the rotator cuff of left shoulder, subs 1 every 6 hours prn pain Last Documented On 3 2:26PM By Sonia Garcia ; [facility] Naprosyn 500 MG Tablet 07/22/2016 - 06/29/2023 Provide r: Srinivas Conway MD Diagnosis: twice a day Last Documented On 3 2:26PM By Sonia Garcia ; [facility] [place] 5-325 MG Tablet 05/05/2016 - 06/29/2023 Provider: Seven holly MD Diagnosis: Strain of musc/t end the rotator cuff of left shoulder, init 1 po q 6 to 8 hrs prn pain Last Documented On 3 2:27PM By Sonia Garcia ; [facility] [place] 5-325 MG Tablet 03/24/2016 - 06/29/2023 Provider: Seven holly MD Diagnosis: Strain of musc/t end the rotator cuff of left shoulder, init 1 po q 6 to 8 hrs prn pain Last Documented On 3 2:26PM By Sonia Garcia ; [facility] [place] 5-325 MG Tablet 02/08/2016 - 06/29/2023 Provider : Seven Sotomayor MD Diagnosis: 1 po q 6 to 8 hrs prn pain Last Documented On 3 2:27PM By Sonia Garcia ; [facility] [place] 5-325 MG Tablet 01/11/2016 - 06/29/2023 Provider: Seven holly MD Diagnosis: Strain of musc/t end the rotator cuff of left shoulder, subs 1-2 po q 4-6h prn pain Last Documented On 3 2:27PM By Sonia Garcia ; [facility] [place] 5-325 MG Tablet 01/02/2016 - 06/29/2023 Provider: Seven holly MD Diagnosis: Strain of musc/t end the rotator cuff of left shoulder, subs 1-2 po q 4-6h prn pain Last Documented On 3 2:26PM By Sonia Garcia ; [facility] [place] 5-325 MG Tablet 12/03/2015 - 06/29/2023 Provider: Seven holly MD Diagnosis: Sprain of left r otator cuff capsule, initial encounter 1-2 po q 4-6h prn pain Last Documented On 3 2:26PM By Sonia Garcia ; [facility] Hydrocodone-Acetaminophen 10-325 MG Tablet 10/31/2015 - 01/11/2016 Provider: Diagnosis: Last Documented On 6 2:22PM By Denise Boyd ; [facility] Diclofenac Sodium 75 MG Tablet, enteric coated 1 01/01/2015 - 01/04/2022 Provider: Diagnosis: Last Documented On 2 10:23AM By Erin Duarte ; [facility], [facility] Cyclobenzaprine HCl 10 MG Tablet 10/31/2015 - 01/04/20 Provider: Diagnosis: Last Documented On 2 10:23AM By Erin Duarte ; [facility] Medications Administered Includes: Administered Medications in patient's chart No Administered Medications Recorded Vital Signs Includes: Vital Signs from 03/28/2024 through 03/28/2025 Vital Name 08/31/2024 03:07P 06/21/2024 03:37P 04/12 03:37P Height (in) 70 70 70 Weight (lb) 189 191.8 180 Body Mass Index 27.1 27.5 25.8 Body Surface Area 2 2.1 2 Note: [facility] Last Documented: On 08/31/2024 3:07PM ; [facility] On 06/21/2024 3:37PM ; [facility] On 04/12/2024 3:37PM ; [facility] Results Includes: Results from 03/28/2024 through 03/28/2025 No Results Recorded For Specified Dates History of Present Illness History of Present Illness not supported for this document type No History of Present Illness Recorded Social History Description Last Updated Is a smoker 07/08/2022 Last Documented On 2 2:48PM ; [facility] Smoker 1 pack/day 07/08/2022 Last Documented On 2 2:48PM ; [facility] Alcohol use 01/14/2022 Last Documented On 2 10:50AM ; [facility] Caffeine use 01/14/2022 Last Documented On 2 10:50AM ; [facility] No recent change in diet 01/14/2022 Last Documented On 2 10:50AM ; [facility] Not exercising regularly 01/14/2022 Last Documented On 2 10:50AM ; [facility] Not using drugs 01/14/2022 Last Documented On 2 10:50AM ; [facility] Yes, current smoker. 01/14/2022 Last Documented On 2 10:50AM ; [facility] Current smoker 11/05/2015 Last Documented On 5 8:45AM ; [facility] No recent change in diet 11/05/2015 Last Documented On 5 8:45AM ; [facility] Smoking status : Current everyday smoker 11/05/2015 Last Documented On 5 8:45AM ; [facility] Tobacco use 11/05/2015 Last Documented On 5 8:45AM ; [facility] Procedures and Surgical History Includes: Procedures from 03/28/2024 through 03/28/2025 Procedures Code Diagnosis Performing Provider Service Location Service Date PELVIS w/ 2-3 VIEW HIP (RIGHT) 91238 Unilateral primary osteoarthritis, right hip Brent Rivera MD [facility] 06/21/2024 Last Documented On 4 9:12AM ; [facility] THERAPEUTIC EXERCISES (Occupational therapy) 30837 Trigger thumb, left thumb, Trigger finger, left middle finger Bernard Angle OT [facility] 04/22/2024 Last Documented On 4 9:54AM ; [facility] MANUAL THERAPY (Occupational therapy) 88167 Trigger thumb, left thumb, Trigger finger, left middle finger Bernard Angle OT [facility] 04/22/2024 Last Documented On 4 9:54AM ; [facility] THERAPEUTIC ACTIVITIES (Occupational therapy) 66456 Trigger thumb, left thumb, Trigger finger, left middle finger Bernard Angle OT [facility] 04/22/2024 Last Documented On 4 9:54AM ; [facility] MANUAL THERAPY (Occupational therapy) 04238 Trigger thumb, left thumb, Trigger finger, left middle finger Nadiya Green [facility] 04/11/2024 Last Documented On 4 10:57AM ; [facility] THERAPEUTIC EXERCISES (Occupational therapy) 14133 Trigger thumb, left thumb, Trigger finger, left middle finger Nadiya Green [facility] 04/11/2024 Last Documented On 4 10:57AM ; [facility] NEUROMUSCULAR REEDUCATION (Occupational therapy) 88305 Trigger thumb, left thumb, Trigger finger, left middle finger Nadiya Green OT [facility] 04/11/2024 Last Documented On 4 10:57AM ; [facility] THERAPEUTIC ACTIVITIES (Occupational therapy) 60224 Trigger thumb, left thumb, Trigger finger, left middle finger Nadiya Green OT [facility] 04/11/2024 Last Documented On 4 10:57AM ; [facility] THERAPEUTIC EXERCISES (Occupational therapy) 25013 Trigger thumb, left thumb, Trigger finger, left middle finger Tricia Brown OT [facility] 04/07/2024 Last Documented On 4 9:33AM ; [facility] NEUROMUSCULAR REEDUCATION (Occupational therapy) 60789 Trigger thumb, left thumb, Trigger finger, left middle finger Tricia Brown OT [facility] 04/07/2024 Last Documented On 4 9:33AM ; [facility] MANUAL THERAPY (Occupational therapy) 23578 Trigger thumb, left thumb, Trigger finger, left middle finger Tricia Brown OT [facility] 04/07/2024 Last Documented On 4 9:33AM ; [facility] ACTIVE WOUND CARE/20 CM OR < (Occupational therapy) 15655 Trigger thumb, left thumb, Trigger finger, left middle finger Tricia Brown OT [facility] 04/07/2024 Last Documented On 4 9:33AM ; [facility] ACTIVE WOUND CARE/20 CM OR < (Occupational therapy) 21496 Trigger thumb, left thumb, Trigger finger, left middle finger Nadiya Green OT [facility] 03/31/2024 Last Documented On 4 9:32AM ; [facility] NEUROMUSCULAR REEDUCATION (Occupational therapy) 40965 Trigger thumb, left thumb, Trigger finger, left middle finger Nadiya Green OT [facility] 03/31/2024 Last Documented On 4 9:32AM ; [facility] THERAPEUTIC EXERCISES (Occupational therapy) 38059 Trigger thumb, left thumb, Trigger finger, left middle finger Nadiya Green OT [facility] 03/31/2024 Last Documented On 4 9:32AM ; [facility] NEUROMUSCULAR REEDUCATION (Occupational therapy) 45357 Trigger thumb, left thumb, Trigger finger, left middle finger Tricia Brown OT [facility] 03/29/2024 Last Documented On 4 9:31AM ; [facility] THERAPEUTIC EXERCISES (Occupational therapy) 25603 Trigger thumb, left thumb, Trigger finger, left middle finger Tricia Brown OT [facility] 03/29/2024 Last Documented On 4 9:31AM ; [facility] OT Eval - Low Complexity (Occupational therapy) 11928 Trigger thumb, left thumb, Trigger finger, left middle finger Tricia Brown OT [facility] 03/29/2024 Last Documented On 4 9:31AM ; [facility] ACTIVE WOUND CARE/20 CM OR < (Occupational therapy) 14128 Trigger thumb, left thumb, Trigger finger, left middle finger Tricia Brown OT [facility] 03/29/2024 Last Documented On 4 9:31AM ; [facility] Surgical History Last Updated History of History of Arthroscopy LEFT S HOULDER 2016 01/14/2022 Last Documented On 2 10:50AM ; [facility] Medical History Includes: Medical History in patient's chart Description Last Updated KIDNEY STONES 01/14/2022 Last Documented On 2 10:50AM ; [facility] History of asthma 01/14/2022 Last Documented On 2 10:50AM ; [facility] No recent immunization for flu 2 Last Documented On 2 10:50AM ; [facility] No recent immunization for pneumococcal pneumonia 01/14/2022 Last Documented On 2 10:50AM ; [facility] History of depression 11/05/2015 Last Documented On 5 8:45AM ; [facility] Family History Includes: Family History in patient's chart Description Last Updated Diabetes mellitus 01/31/2022 Last Documented On 2 9:01AM ; [facility] Family history of heart disease 02/01/20 Last Documented On 2 9:01AM ; [facility] Family history of rheumatoid arthritis 0 01/31/2022 Last Documented On 2 9:01AM ; [facility] No significant family history 01/14/2022 Last Documented On 2 10:50AM ; [facility] Maternal history of diabetes mellitus Last Documented On 5 8:45AM ; [facility] Maternal history of family history of he art disease 11/05/2015 Last Documented On 5 8:45AM ; [facility], [facility] Maternal history of rheumatoid arthritis 11/05/2015 Last Documented On 5 8:45AM ; [facility] Review of Systems Review of Systems not [...] 05/28/2022 Complete (Refused - Patient objection) [facility] Last Documented On 2 2:07PM ; [facility] (Pneumovax 23) 1 05/28/2022 Complete (Refused - Patient objection) [facility] Last Documented On 2 2:07PM ; [facility] Td 1 05/28/2022 Complete (Refused - Patient objection) [facility] Last Documented On 2 2:07PM ; [facility] Allergies Includes: Active, inactive, and resolved Allergies No Known Allergies Encounters Includes: Encounters from 03/28/2024 through 03/28/2025 Encounter Provider Location Date Check-In Time Check-Out Time Diagnosis Follow Up Blayne Carmichael PA-C [facility] 08/31/20 2:54PM 3:29PM Follow Up Brent Rivera MD [facility] 06/21/20 2:59PM 4:05PM Overweight Post Op Daniella Monica Brown APRN [facility] 04/12/20 3:26PM 3:44PM Overweight Insurance Includes: Active Insurance Policies Plan Name Member ID Group # Subscriber Relationship Effect amina Dates 1 - [facility] [id number] Subha Armando Self 11/30/2021 - Unknown Clinical Notes Includes: Signed Clinical Notes starting from 11/13/2022 * Progress note Date Encounter Last Documented by 08/31/2024 Follow Up Last documented on 08/31/2024; 3:43 PM, Blayne Carmichael PA-C; [facility] Active Problems & Conditions - Joint Pain in the Right Hip - Joint Pain, Localized in Both Shoulders - Lower Back Pain - Neck Pain - Pain in the Left Hand Only - Right Upper Back Pain Along Inner Edge of Shoulder Blade Chief Complaint The Chief Complaint is: Bilateral shoulder pain. Referred Here Referred by DOV. History of Present Illness Subah Armando is a 48 year old male. [...] Care Team - MARIE KUO MD - COLLECTIONS SPECIALIST * Progress note Date Encounter Last Documented by 06/21/2024 Follow Up Last documented on 06/24/2024; 9:50 AM, Brent Rivera MD; [facility], [facility] Active Problems & Conditions - [...] Care Team - MARIE KUO MD - COLLECTIONS SPECIALIST * Progress note Date Encounter Last Documented by 04/12/2024 Post Op Last documented on 04/12/2024; 3:47 PM, Daniella Brown APRN; [facility], [facility] Active Problems & Conditions - [...] Findings - Vitals taken 04/12/2024 03:37 pm [facility] Height 70 in Weight 180 lbs Body [...] 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 3. He may use his left hand for all regular activity with no restrictions. 4. He is released from our care to follow up as needed. Notes This dictation was done with voice recognition software and may contain errors and omissions. Practice Management Use of tobacco assessment performed Review of medications documented. Care Team - MARIE KUO MD - COLLECTIONS SPECIALIST
--- OUTSIDE RECORDS SUMMARY | 2025-03-28 15:18 | XMS_ITS | Clinical Summary ---
Author Organization [facility] Address [address] [place] [address] Phone Care Team Providers Care Sales Representative [employer] Name Role Phone Romulo GOLDEN, Tyler Loya Unavailable [phone] AYAAN GOLDEN, MARIE E Primary Care Provider [phone] Reason for Referral Date Encounter Description Provider [...] On 5 1:03PM ; [facility], [facility] Plan of Treatment Instructions to patient Intervention and counseling on cessation of tobacco use Last Documented On 4 3:06PM ; [facility], [facility] Lose weight Last Documented On 4 3:06PM ; [facility], [facility] Assessments Includes: Assessments from this encounter Findings - Overweight - Last Documented On 06/24/2024 9:50AM ; [facility], [facility] 48 year old male status post right total hip arthroplasty performed on 06/23/2022. He appears well healed he has normal exam no pain with range of motion of his hip some light sensitivities over the skin but I have no restrictions on him he can return to work with full duties - Last Documented On 06/24/2024 9:50AM ; [facility], [facility] We did reinforce antibiotics prior to any dental procedures and 5 year follow up for routine x-rays - Last Documented On 06/24/2024 9:50AM ; [facility], [facility] Instructions Includes: Instructions from this encounter Instructions to patient Intervention and counseling on cessation of tobacco use Last Documented On 4 3:06PM ; [facility], [facility] Lose weight Last Documented On 4 3:06PM ; [facility], [facility] Medical Equipment - Implanted Devices Includes: Current Devices No Medical Equipment Recorded Medications Includes: Medications discussed during this encounter and other current Medications Current Medications (continue as prescribed) oxyCODONE HCl 5 MG Oral Tablet 07/18/2024 Provider: MARIE KUO MD Diagnosis: Last Documented On 4 3:07PM By Gail Piper ; [facility], [facility] Ondansetron 4 MG Oral Tablet Disintegrating 07/16/2024 Provider: Diagnosis: Last Documented On 4 3:07PM By Gail Piper ; [facility], [facility] Ketorolac Tromethamine 10 MG Oral Tablet 07/16/2024 Provider: Diagnosis: Last Documented On 4 3:07PM By Gail Piper ; [facility], [facility] HYDROcodone-Acetaminophen 5-325 MG Oral Tablet 023 Provider: MARIE KUO MD Diagnosis: Last Documented On 3 3:58PM By Stella Carrillo ; [facility], [facility] Cyclobenzaprine HCl 5 MG Oral Tablet 03/05/2022 Prov ider: MARIE KUO MD Diagnosis: Last Documented On 2 1:56PM By Sherice Gordon ; [facility], [facility] Tylenol 325 MG Oral Capsule 01/04/2022 Provider: Diagnosis: Last Documented On 2 10:24AM By Erin Duarte ; [facility], [facility] Past Medications on file Naproxen 500 MG Oral Tablet 03/11/2024 - 04/10/2024 Pr ovider: Tyler Sebastian MD Diagnosis: take one tablet twice a day prn following surger y Last Documented On 4 8:18AM By Dr. Sebastian ; [facility], [facility] Vitamin C 1000 MG Oral Tablet 03/11/2024 - 05/10/2024 Provider: Tyler mclaughlin MD Diagnosis: once a day take 1 tablet once daily post surgery Last Documented On 4 8:18AM By Dr. Sebastian ; [facility], [facility] Medrol 4 MG Oral Tablet Therapy Pack 01/21/2024 - 01/28/2024 Provider: Tyler mclaughlin MD Diagnosis: use as directed Last Documented On 4 2:41PM By Dr. Sebastian ; [facility], [facility] Gabapentin 300 MG Oral Capsule 06/29/2023 - 07/29/2023 Provider: Brent Nelson MD Diagnosis: 1 capsule, twice a day as needed Last Documented On 3 3:10PM By Brent Rivera ; [facility], [facility] Medications Administered Includes: Administered Medications from this encounter No Administered Medications Recorded Vital Signs Includes: Vital Signs from this encounter Vital Name 06/21/2024 03:37P Height (in) 70 Weight (lb) 191.8 Body Mass Index 27.5 Body Surface Area 2.1 Note: ab Last Documented: On 06/21/2024 3:37PM ; [facility], [facility] Results Includes: Results discussed during [...] 07/08/2022 Last Documented On 4 3:06PM ; [facility] Smoker 1 pack/day 07/08/2022 Last Documented On 4 3:06PM ; [facility] Alcohol use 01/14/2022 Last Documented On 4 3:06PM ; [facility] Caffeine use 01/14/2022 Last Documented On 4 3:06PM ; [facility] No recent change in diet 01/14/2022 Last Documented On 4 3:06PM ; [facility], [facility] Not exercising regularly 01/14/2022 Last Documented On 4 3:06PM ; [facility] Not using drugs 01/14/2022 Last Documented On 4 3:06PM ; [facility] Yes, current smoker. 01/14/2022 Last Documented On 4 3:06PM ; [facility] Current smoker 11/05/2015 Last Documented On 4 3:06PM ; [facility] No recent change in diet 11/05/2015 Last Documented On 4 3:06PM ; [facility] Smoking status : Current everyday smoker 11/05/2015 Last Documented On 4 3:06PM ; [facility] Tobacco use 11/05/2015 Last Documented On 4 3:06PM ; [facility] Procedures and Surgical History Includes: Procedures from this encounter Procedures Code Diagnosis Performing Provider Service Location Service Date PELVIS w/ 2-3 VIEW HIP (RIGHT) 84649 Unilateral primary osteoarthritis, right hip Brent Rivera MD [facility] 06/21/2024 Last Documented On 4 9:12AM ; [facility], [facility] intervention and counseling on cessation of toba account executive healthcare use 4000F Last Documented On 4 3:06PM ; [facility], [facility] use of tobacco assessment performed 1000F Last Documented On 4 3:06PM ; [facility], [facility] review of medications documented 1160F Last Documented On 4 3:06PM ; [facility], [facility] follow-up visit in one month Last Documented On 4 3:06PM ; [facility] referral to physician Last Documented On 4 3:06PM ; [facility] referral to physician Last Documented On 4 3:06PM ; [facility] clinical consultation report Last Documented On 4 3:06PM ; [facility] Surgical History Last Updated History of History [facility]22 Last Documented On 4 3:06PM ; [facility], [facility] Medical History Includes: Medical History addressed during this encounter Description Last Updated KIDNEY STONES 01/14/2022 Last Documented On 4 3:06PM ; [facility] History of asthma 01/14/2022 Last Documented On 4 3:06PM ; [facility] No recent immunization for flu 2 Last Documented On 4 3:06PM ; [facility] No recent immunization for pneumococcal pneumonia 01/14/2022 Last Documented On 4 3:06PM ; [facility] History of depression 11/05/2015 Last Documented On 4 3:06PM ; [facility] Family History Includes: Family History addressed during this encounter Description Last Updated Diabetes mellitus 01/31/2022 Last Documented On 4 3:06PM ; [facility] Family history of heart disease 02/01/20 Last Documented On 4 3:06PM ; [facility] Family history of rheumatoid arthritis 0 01/31/2022 Last Documented On 4 3:06PM ; [facility] No significant family history 01/14/2022 Last Documented On 4 3:06PM ; [facility] Maternal history of diabetes mellitus Last Documented On 4 3:06PM ; [facility] Maternal history of family history of he art disease 11/05/2015 Last Documented On 4 3:06PM ; [facility] Maternal history of rheumatoid arthritis 11/05/2015 Last Documented On 4 3:06PM ; [facility] Review of Systems Includes: Review of [...] Time Diagnosis Follow Up Brent Rivera MD [facility] 4 2:59PM 4:05PM Overweight Insurance Includes: Active Insurance Policies Plan Name Member ID Group # Subscriber Relationship Effect amina Dates 1 - [facility] [id number] Subha Armando Self 11/30/2021 - Unknown Clinical Notes Includes: Clinical Notes from this encounter * Progress note Date Encounter Last Documented by 06/21/2024 Follow Up Last documented on 06/24/2024; 9:50 AM, Brent Rivera MD; [facility], [facility] Active Problems & Conditions - [...] Care Team - MARIE KUO MD - BLASTING WORKER
--- NOTE | 2025-03-28 15:30 | CT_ITS ---
FINAL REPORT TECHNIQUE: Axial images through the abdomen and pelvis were performed without contrast. Coronal and sagittal reformatted images were obtained. This study was performed with techniques to keep radiation doses as low as reasonably achievable, (ALARA). Individualized dose reduction techniques using automated exposure control or adjustment of mA and/or kV according to the patient's size were employed. CLINICAL HISTORY: Bilateral flank pain, possible hydro on u/s COMPARISON: 07/07/2024 FINDINGS: Abdomen: The lung bases are clear. There is fatty infiltration of the liver. The gallbladder is present. There are calcified granulomas in the spleen. The pancreas and adrenals appear unremarkable. There are a multitude of small nonobstructing stones in the renal collecting systems bilaterally. These individual stones measure up to 4 mm. There is no evidence of hydronephrosis. Pelvis: The urinary bladder is unremarkable. The appendix is unremarkable. There is no pelvic mass or inflammation. Streak artifact is seen arising from the right hip prosthesis. There are advanced changes of degenerative disc disease at L5-S1. There is high-grade bilateral neural foraminal narrowing. In addition, there appears to be bilateral pars defects at L5. IMPRESSION: Multiple bilateral nonobstructing renal stones measuring up to 4 mm without evidence of hydronephrosis. Advanced degenerative changes L5-S1 with bilateral pars defects and high-grade bilateral neural foraminal. Reviewed, Interpreted and Dictated by Houston Coffey MD Transcribed by Ankita Mabry Authenticated and . [facility]
== END 2025-03-28 23:59 | disposition home or self-care (01) ==
LOC: RAD 15:16
PROVIDERS: PCP Internal Medicine; Visit Provider Internal Medicine
DX: N20.0 Calculus of kidney (principal)
CPT/HCPCS: 74176

== ENCOUNTER 2025-04-09 17:26 | Emergency (ER) | payer BC, SELFPAY ==
--- NOTE | 2025-04-09 17:31 | ECG_ITS ---
APPROVED REPORT Exam: Resting ECG HR:79 bpm ECG Measurements Heart Rate 79 AXES OR 120 P 78 QRSd 99 QRS 77 QT 385 T 79 QTc 420 Conclusion SINUS RHYTHM NORMAL ECG UNCONFIRMED REPORT Electronically signed by : LEIGHANN KNIGHT, 04/11/2025 01:46:03
[2025-04-09 17:36] VITALS: BP 154/91; PULSE 79; RESP 22; TEMP 37.1; O2SAT 100; BMI 26.5
--- OUTSIDE RECORDS SUMMARY | 2025-04-09 17:38 | XMS_ITS | Data Portability ---
Author Organization [facility] [place] Address [address] [place] [address] Care Team Providers Care Phonograph Needle Tip Maker Name Role Phone MARIE KUO Primary Care [...] ast No observ ation record ed. [email or web address] [address] [place], [address], 07/27/2023 09:26:15 Result Notes None recorded. Procedures Surgical History Date Name Laterality Status Provider Name and Address Organization Details Recorded Time total replacement of hip completed Paige Cason [facility] [place] 07/28/2023 13:30:46 ureterorenoscopy with fragmentation and removal of calculus of kidney completed Paige Cason [facility] [place] 07/28/2023 13:31:11 arthroscopic repair of rotator cuff completed Paige Cason [facility] [place] 07/28/2023 13:31:25 Imaging Results Imaging Date Name Status LastModified by Organiz ation Details LastModified Time 07/23/2023 CT, abdomen + pelvis, w/o contrast completed [email or web address] [address] [place], [address], 07/27/2023 09:26:15 Procedure Notes None recorded. Medical [...] Updated DateTime 07/28/2023 177.8 cm 25.8 kg/m2 62544.63 g 97 [degF] Paige Hurst [facility] [place] 07/28/2023 13:24:32 Social History Question Answer Notes LastModified by Organizat ion Details LastModified Time Tobacco Smoking Status Current Every Day [facility] [place] 07/28/2023 13:24:40 Do You Have An Advance Directive? No [email or web address] Information not available 07/28/2023 What Is Your Level Of Alcohol Consumption? Occasional [email or web address] Information not available 07/28/2023 Are You Blind Or Do You Have Difficulty Seeing? No Information not available 07/28/2023 What Was The Date Of Your Most Recent Tobacco Screening? 07/27/2023 [email or web address] Information not available 07/28/2023 Do You Or Have You Ever Used Smokeless Tobacco? [id number] [email or web address] Information not available 07/28/2023 How Much Tobacco Do You Smoke? 1 PPD [email or web address] Information not available 07/28/2023 Do You Feel Stressed (tense, Restless, Nervous, Or Anxious, Or Unable To Sleep At Night)? [id number] [email or web address] Information not available 07/28/2023 Do You Use Any Illicit Or Recreational Drugs? No [email or web address] Information not available 07/28/2023 How Many Years Have You Smoked Tobacco? 30 [email or web address] Information not available 07/28/2023 Sex: Unknown Functional Status Question Answer Note LastModified by Organization D etails LastModified Time What is your exercise level? None [email or web address] Information not available 07/28/2023 Mental Status None recorded. Family History Nothing Reported. Medical History Condition Response Kidney or Bladder Problems Y Past Encounters Encounter ID Performer Location Encounter Start Date Encounter Closed Date Diagnosis/Indication Diagnosis SNOMED-CT Code Diagnosis ICD10 Code Diagnosis Note [id number] Rui Suero M.D [facility] [address] [place] [phone] [id number] 07/28/2023 13:06:36 07/28/2023 13:52:15 Ureteric stone 35279200 N20.1 pt will call to decide about right ureterosco py laser lithotrips y.He will let me know. Otherwise, he will continue to try to pass his stone Health Concerns Section Related Observation LastModified by Organization Detai ls LastModified Time None Recorded Concern Status LastModified by Organization Details LastModified Time None Recorded Advance Directives Directive N: Payers Insurance Date Sequence Insurance Name Policy Number Policy Ruelas Covered Member ID Ruelas Member ID Guarantor Name 07/28/2023 1 BCPOWER-SANTINO: JOHNNY LEIVA OF [employer] [id number] Cordell Armando [id number] Cordell Armando Notes Date Note Type Note Provider Name and Address Organization Details Recorded Time 07/28/2023 text/html pt is here for right prox stone ( 6mm). he was seen 07-23-23 with severe right flank pain. He went to the emergency room at [facility].. He then returned to ER in te evening , he has a h/o stone in the past ( [place])he had ESWL and then ureteroscopy to remove fragmentshe is currently using flomax and percocetno blood in the urine Rui Suero M.D [address] [place] [address], [address], [place], [address], [place] - [facility] - [place] & [place] 07/28/2023 20:23:55
--- OUTSIDE RECORDS SUMMARY | 2025-04-09 17:38 | XMS_ITS | Data Portability ---
Author Organization [place] [facility], [facility] Address [address] [facility] [address] [place] [address] Care Team Providers Care Medical Coding Technician Name Role Phone ANATOLIY KUO Primary Care Provider [phone] MAIKEL GRIMES Bar And Filler Assembler Assessment Encounter Date Assessment Date Assessment LastModified [...] when he completes his work conditioning. CC: [employer] Seven Sotomayor MD [id number] Not available 12/05/2016 12:57:17 06/24/2021 06/24/2021 [...] spine, w/o contrast 2018 [id number] [email or web address] Not available 9 13:50:32 Medication Orders None recorded. Patient TargetsNo targets recorded. Patient Instructions Encounter Date Encounter Id Patient Instructions Last Modified By Organization Details Last Modified Time 12/04/2016 [id number] He has made a lot of progress. He has minimal low trap findings. He will be able to start and back into work conditioning and work hardening. [id number] Not available 12/05/2016 12:57:18 02/02/2019 [id number] work status report* [email or web address] Not available 02/09/2019 07:58:41 05/24/2021 [id number] I recommend he continue the DIP gutter splint and maintain motion at his MP and PIP joints. Continue [id number] medicines as needed for pain. He is given work restrictions which are scanned into the chart. 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 [facility] [address], [place], [id number], 03/03/2019 16:13:05 06/24/20 21 06/24/2021 XR, finge r(s) Lauri [place] [facility] Vonnie de [address] [place] [place] [address] Rebecca arevalo Name: SUBHA arevalo : 1974 [...] lundberg MD on 021 2:41 PM [id number] [facility] [address] , [place], [address], 06/05/2022 03:50:21 Result Notes None recorded. Problems Name Problem SNOMED Code Status Onset Date Resolution Date Notes Provider Name and Address Organization Details Recorded Time Neck pain 95766364 Active 2015 From Automated Load;Provi olga lidia: Sathya Ng;Stat us: Active Not Available [facility] 6 09:31:19 Incoordin ation 258865064 Active 2015 From Automated Load;Provi olga lidia: Charleen Cervantes;Status : Active Not Available [facility] 7 06:08:12 Problem Notes None recorded. Procedures Surgical History Date Name Laterality Status Provider Name and Address Organization Details Recorded Time 6 PT Therapeutic Exercise completed PAMELA JAMES II, PT, DPT [address] [place], [address], [facility] 11/25/2016 13:40:12 6 PT Therapeutic Exercise completed PAMELA JAMES II, PT, DPT [address] [place], [address], [facility] 11/13/2016 13:40:59 Orthopedic Surgery completed Candi [facility] 12/04/2016 14:16:09 Abdominal Surgery completed Candi Murcia [facility] 12/04/2016 14:16:23 Imaging Results Imaging Date Name Status LastModified by Organiz ation Details LastModified Time 10/31/2018 CT, abdomen + pelvis, w/o contrast completed [facility] [address], [place], [address], 03/03/2019 16:13:05 06/24/2021 XR, finger(s) completed [facility] [address] , [place], [address], 06/05/2022 03:50:21 Procedure Notes None recorded. Medical [...] Details Last Updated DateTime 12/04/2016 177.8 cm 63626.66 g 25.1 kg/m2 Candi Murcia [facility] 12/04/2016 14:14:41 Date Recorded Body height Body mass index (BMI) Body weight Systolic blood pressure Diastolic blood pressure Provider Name and Address Organization Details Last Updated DateTime 02/02/2019 177.8 cm 26.5 kg/m2 82101.59 g 156 mm[Hg] 88 mm[Hg] Nghia Du [facility] 9 15:56:07 Date Recorded Body height Body mass index (BMI) Body weight Provider Name and Address Organization Details Last Updated DateTime 05/24/2021 177.8 cm 26.5 kg/m2 99127.59 g [facility] 05/24/2021 11:25:24 Date Recorded Body height Body mass index (BMI) Body weight Provider Name and Address Organization Details Last Updated DateTime 06/24/2021 177.8 cm 26.5 kg/m2 78486.59 g [facility] 06/24/2021 14:34:13 Social History Question Answer Notes LastModified by Organizat ion Details LastModified Time Tobacco Smoking Status Current Every Day Smoker [facility] 12/04/2016 14:16:01 What Was The Date Of [...] available 2016 14:15:32 Medical History Condition Response Allergies/Hayfever Y Diabetes N Blood Thinners N Arthritis N Heart Conditions N Sleep Apnea N Anesthesia Complications N Asthma Y Pneumonia N Past Encounters Encounter ID Performer Location Encounter Start Date Encounter Closed Date Diagnosis/Indication Diagnosis SNOMED-CT Code Diagnosis ICD10 Code Diagnosis Note [id number] PAMELA JAMES II, PT, DPT PHYSICAL THERAPY / [facility] [place] [address] 11/12/2016 14:10:56 11/13/2016 16:47:25 Muscular incoordination 28739950 R27.8 Muscle weakness 54724138 M62.81 Pain of ould region 64630799 M25.512 [id number] PAMELA JAMES II, PT, DPT PHYSICAL THERAPY / HAND THERAPY [facility] [place] [address] 11/25/2016 13:33:37 11/26/2016 08:25:23 Muscular incoordination 23705135 R27.8 Muscle weakness 12315436 M62.81 Pain of oulder region 29644326 M25.213 [id number] W MACHO CERVANTES MD [facility] [place] [address] 12/04/2016 14:06:22 12/04/2016 16:10:13 Scapulalgia 02473099 M89.8X1 [id number] BAO WEBSTER [facility] [address] 02/02/2019 15:13:53 02/02/2019 16:21:09 Cervical radiculopathy 97410359 M54.12 Mr Armando has findings of acute exacerbati on of chronic cervical radiculopa thy. I recommend continued activity/w ork restrictio ns and MRI of the shoulder to evaluate for HNP. [id number] JOSE ANTONIO GRIMALDO PA-C [facility] [place] [address] 05/24/2021 11:21:14 05/24/2021 11:55:19 Closed fracture of distal phalanx of finger 53031671 S62.664A Subungual hematoma 61667 9004 L60.8 right ring finger [id number] LAXMI DUMONT MD ORTHOPEDI [facility] [place] [address] [address] 06/24/2021 14:14:28 06/24/2021 14:40:29 Closed fracture of distal phalanx of finger 17952451 S62.664A Tuft fracture, 6 weeks out. Subungual hematoma 78471 9004 L60.8 right ring finger Health Concerns Section Related Observation LastModified by Organization Detai ls LastModified Time None Recorded Concern Status LastModified by Organization Details LastModified Time None Recorded Advance Directives Directive None Recorded Payers Insurance Date Sequence Insurance Name Policy Number Policy Ruelas Covered Member ID Ruelas Member ID Guarantor Name 10/24/2020 [facility] [place] 01/28/2019 [facility] Jose Antonio Armando 05/24/2021 [facility] Jose Antonio Armando Notes Date Note Type [...] going well. PAMELA JAMES II, PT, DPT [address] [place] [address], [phone], [facility] 02/03/2017 12:37:49 12/04/2016 text/html He has been doin g very well in therapy. He has had improved strength and range of motion with minimal symptoms. Sanjay CERVANTES MD [address] [place] [address], [phone], [facility] 12/05/2016 13:49:49 02/02/2019 text/html Mr Armando [...] treatment from Dr Cervantes. BAO WEBSTER MD [address] [place] [address] [place], [address], [facility] 02/06/2019 16:40:09 05/24/2021 text/html A 5-year-old whi te male who is here for evaluation of the right ring finger injury that happened on 05/13/2021. He was at work at [employer] and was using a wrench. 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 {{Yes* No}} Is this injury associated with a Workers Compensation claim? {{Yes* No}} Patient arrived in: {{finger splint # cast splint surgi contreras dressing OTC brace}} Plaster Model And Mold Maker Strength: right: left: Patient arrives after incident at work. He states that he was using a wrench and went to push the wrench down and missed the handle. Then slammed right RF down onto a piece of metal. He was seen by the doctors at [employer] for evaluation. 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 {{Yes* No}} Is this injury associated with a Workers Compensation claim? {{Yes* No}} Patient arrived in: {{cast splint surgi contreras dressing OTC brace}} Plaster Model And Mold Maker Strength: right: left: Pt arrives for recheck of right RF. He states that he is doing alright, minimal pain. He states of more pain when he is in the splint. He states that his ROM is getting better. LAXMI DUMONT MD [address] [place] [address], [phone], [facility] 06/24/2021 14:40:24
[2025-04-09 17:42] VITALS: BP 139/93; PULSE 73; RESP 9; O2SAT 99
--- NOTE | 2025-04-09 17:59 | HMH.EDGENADL ---
Discharge Plan Disposition Patient Disposition: Home, Self-Care Chief Complaint: Recheck/Abnormal Lab/Rx Prescriptions Prescriptions: No Action hydroxyzine HCl 25 mg tablet 25 mg PO HS Qty: 60 0RF Rx Instructions: one or two tablets QHS nicotine 21-14-7 mg/24 hr patch, TD daily, sequential 1 patch transdermal Q24H Qty: 56 0RF Rx Instructions: Start with the 21 mg Nicotine Patch for 14 Days 14 mg patch for 14 days 7 mg patch for 7 days Brilinta 90 mg tablet 90 mg PO BID Qty: 60 11RF atorvastatin 40 mg tablet 40 mg PO HS Qty: 30 5RF irbesartan 75 mg tablet 75 mg PO DAILY Qty: 30 5RF metoprolol succinate 25 mg tablet extended release 24 hr 25 mg PO DAILY Qty: 30 5RF pantoprazole 40 mg tablet,delayed release (DR/EC) 40 mg PO HS Qty: 30 5RF cyclobenzaprine 5 mg tablet 5 mg PO TID PRN (Reason: muscle spasm) Qty: 30 0RF hydrocodone-acetaminophen 5-325 mg tablet 1 tab PO Q4-6H PRN (Reason: pain) Qty: 10 0RF aspirin 81 mg tablet,delayed release (DR/EC) 81 mg PO DAILY 30 Days Qty: 30 2RF Referrals Follow up/Referrals: Anatoliy Evans MD [Primary Care Provider] - See instructions Activity Restrictions/Add. Instructions Additional Instructions/Restrictions: Call your family doctor to establish care for this visit to the emergency department and schedule follow-up within 48 hours to ensure improvement. If you have any worsening of your condition or any other concerning signs or symptoms, return to the emergency department or your primary care doctor for further evaluation. Clinical Impressions Clinical Impression: Panic attack Print Language Print Language: Maori Discharge ED Provider: Jim White General Adult HPI General Chief complaint: Recheck/Abnormal Lab/Rx Stated complaint: HBP Time Seen by Provider: 04/09/25 17:31 Mode of Arrival: Ambulatory Source of Information: Patient Description of Symptoms (Recalled from ER Triage Doc. by RN): pt reports increased anxiety and PTSD from a previous hospital experience. he was sitting on the porch when he felt one flutter in his heart. he states it lasted less than a second. denies any CP with it. immediately came to the hospital. pt is visibly anxious and skaken up. History of Present Illness HPI narrative: Please note that above description of symptoms, in this electronic medical record under categorization of recalled from ER triage doctor by RN are reflective of an initial nursing assessment, however, is not reflective of my full history and physical exam that was personally taken and clarified. Consequentially, this preceding description of symptoms, which may include the patient's categorized chief complaint in the EMR, do not reflect my personal clinical impression, and the ultimate description of history of present illness and patient stated complaints should be deferred to this section of the note. Unless stated otherwise or congruent with this section of the note, additional signs, symptoms, or incongruence should be interpreted as inaccurate with my clinical impression. Related Data Previous Rx's ?Medication ?Instructions ?Recorded aspirin 81 mg tablet,delayed 81 mg PO DAILY 30 days #30 tabs 03/15/25 release hydrocodone 5 mg-acetaminophen 325 1 tab PO Q4-6H PRN pain #10 tabs 03/22/25 mg tablet atorvastatin 40 mg tablet 40 mg PO HS #30 tabs 03/23/25 hydroxyzine HCl 25 mg tablet 25 mg PO HS #60 tabs 03/23/25 irbesartan 75 mg tablet 75 mg PO DAILY #30 tabs 03/23/25 metoprolol succinate 25 mg 25 mg PO DAILY #30 tabs 03/23/25 tablet,extended release 24 hr nicotine 1 patch transdermal Q24H #56 03/23/25 21mg/24hr-14mg/24hr-7mg/24hr daily patches transderm patches,sequentl pantoprazole 40 mg tablet,delayed 40 mg PO HS #30 tabs 03/23/25 release ticagrelor 90 mg tablet (Brilinta) 90 mg PO BID #60 tabs 03/23/25 cyclobenzaprine 5 mg tablet 5 mg PO TID PRN muscle spasm #30 03/27/25 tabs Allergies Allergy/AdvReac Type Severity Reaction Status Date / Time No Known Allergies Allergy Verified 03/27/25 14:00 [facility] Disclaimer: The information contained in this section may have been updated after the patient was seen, as this information can be updated by other users. Medical History Calculus, ureteral Renal colic on left side Kidney stones Surgical History S/P hip replacement right Family History Mother Hypertension Kidney stone Father Hypertension Other No significant family history Social History Smoking Status: Current every day smoker tobacco type: cigarettes packs per day: 0 years smoked: 30 alcohol intake: current alcohol intake frequency: a few times a month substance use type: denies use current occupational status: employed and other Travel in the last 8 weeks?: None household members: other housing: other caffeine: No Have you lived/traveled outside US in past 30 days?: No Contact w/someone who lives/traveled outside US past 30 days?: No Exposure to someone with infectious disease in past 14 days?: No Do you have a fever (greater than 100.4 F or 38 C)?: No Have you tested positive for COVID-19?: No Exposed to someone with COVID-19 in past 14 days?: No Do you have a sore throat?: No Do you have a cough?: No Do you have any weakness?: No Do you have any diarrhea?: No Are you experiencing any unusual bleeding?: No Do you have any muscle aches/pain?: No Do you have any abdominal pain?: No Are you experiencing loss of taste or smell?: No Other Medical History Have you received the Flu Vaccine for this season: No Have you received the Pneumonia Vaccine: No ROS Obtained: Yes All systems reviewed & no additional complaints except as documented Physical Exam General General appearance: alert and anxious Comment: Patient with bilateral upper extremity tremors, left greater than right and right lower extremity tremor/tic. Head Head exam: atraumatic and normocephalic Eye Eye exam: Present normal appearance, PERRL and EOMI Neck Neck exam: Present normal inspection, full ROM and trachea midline Respiratory Respiratory exam: Present normal lung sounds bilaterally; Absent respiratory distress, wheezes, stridor, accessory muscle use or prolonged expiratory phase Cardiovascular Cardiovascular exam: Present regular rate, normal rhythm and other (Pulses equal symmetric in upper and lower extremities) Abdominal Exam Abdominal exam: Present soft; Absent distention, tenderness or pulsatile mass Extremities Exam Extremities exam: Absent edema Neurological Exam Neurological exam: Present alert, oriented X3 and CN II-XII intact; Absent motor sensory deficit Skin Skin exam: Present warm and dry; Absent diaphoresis or erythema Medical Decision Making Medical Records Medical records reviewed: Yes I reviewed the patient's medical records. Screening: Per USPSTF and CDC recommendations, given the prevalence of disease in our region, it is our hospital?s policy to screen for HIV and viral Hepatitis for all patients aged 18 and over and those with ongoing risk factors. Galileo Inquiry Pt receiving controlled substance: No Galileo was queried for this patient: No Vital Signs: 04/09/25 17:36 04/09/25 17:42 04/09/25 18:01 Temperature 98.7 F Temperature Source Oral Pulse Rate 73 Pulse Rate [Right] 79 Respiratory Rate 22 9 L 8 L Blood Pressure 139/93 H 124/84 Blood Pressure [Right Arm] 154/91 H Blood Pressure Mean [Right Arm] 112 02 Sat by Pulse Oximetry 100 99 Oxygen Delivery Method Room Air 04/09/25 18:30 Temperature Temperature Source Pulse Rate Pulse Rate [Right] Respiratory Rate 13 Blood Pressure 116/76 Blood Pressure [Right Arm] Blood Pressure Mean [Right Arm] 02 Sat by Pulse Oximetry Oxygen Delivery Method Lab Data Lab Results 04/09/25 17:58: WBC 8.6, RBC 4.53 L, Hgb 14.7, Hct 42.2, MCV 93.2, MCH 32.5 H, MCHC 34.8, RDW 12.0, Plt Count 195, MPV 10.6 H, Neut % (Auto) 51.5, Lymph % (Auto) 36.4, [place] % (Auto) 7.0, Eos % (Auto) 4.2, Baso % (Auto) 0.7, Neut # (Auto) 4.5, Lymph # (Auto) 3.1, [place] # (Auto) 0.6, Eos # (Auto) 0.4, Baso # (Auto) 0.1, Sodium 138, Potassium 3.9, Chloride 107, Carbon Dioxide 26, Anion Gap 8.9, BUN 15, Creatinine 1.10, Estimated Creat Clear 96, Estimated GFR 71, Est GFR ( Amer) 86, Glucose 143 H, Calcium 8.8, Magnesium 1.7, Total Bilirubin 0.4, AST 28, ALT 40, Alkaline Phosphatase 90, Troponin I < 0.01, Total Protein 6.7, Albumin 4.0, Globulin 2.7, Albumin/Globulin Ratio 1.5 04/09/25 17:58 04/09/25 17:58 Orders (Tests/Meds): ED MEDICATIONS Discontinued Medications Generic Name Dose Route Start Last Admin Trade Name Darin PRN Reason Stop Dose Admin Albuterol/Ipratropium 3 ml 04/09/25 17:51 04/09/25 18:01 Ipratropium/Albuterol 3 Ml Neb IH 04/09/25 17:52 3 ml ONCE ONE Administration Diazepam 2.5 mg 04/09/25 17:51 04/09/25 18:01 Diazepam 10mg/2ml Syringe IV 04/09/25 17:52 2.5 mg ONCE ONE Administration ORDERS Category Date Time Status CBC w/Auto Diff [Complete Blood Count Auto Diff] Stat Lab 04/09/25 17:58 Completed CMP [Comprehensive Metabolic Panel] Stat Lab 04/09/25 17:58 Completed MAG [Magnesium] Stat Lab 04/09/25 17:58 Completed Trop I [Troponin I] Stat Lab 04/09/25 17:58 Completed Troponin I Q3H Lab 04/09/25 21:00 Ordered Troponin I Q3H Lab 04/10/25 00:00 Ordered Medical Decision Narrative: 49-year-old male with history of hypertension, hyperlipidemia, CAD status post VT and V-fib arrest recently, see [facility]PD still smoking 1/2 pack/day presenting with palpitation. He states that he was sitting at home doing nothing particular when he felt a single palpitation. No chest pain, nausea, vomiting, diaphoresis, syncope, shortness of breath, or any other concerns. States that he started having a panic attack, took his blood pressure and states that he was told if the bottom number is over 100, call somebody or do something. He states that the bottom number was 97 that was too close for my liking, so he came to the emergency department. Patient openly admits that he feels that he is just wigged out, and having panic attack secondary to recent traumatic experience. This is also patient's first Mother's Day without his mother who last year. Patient also has numerous interpersonal and professional stressors. States that he is trying to cut back on smoking, has not been able to completely quit at this point. Not currently having any symptoms. Further talking to father, father states that patient takes his blood pressure 4-5 times throughout the day and gets himself worked up all day long. Also thinks this is related to acute anxiety/panic. History was obtained via conversation with patient and family. On arrival, patient hemodynamically stable, alert, oriented x4, appropriate, GCS 15, moving all extremities spontaneously, pupils equal and reactive to light. Full physical exam performed and significant for very anxious appearing male who is in no acute distress. Tremulous upper and lower extremities, rapid speech, intermittently laughing, intermittently tearful. Lungs with bilateral expiratory wheezes heard throughout expiration consistent with likely mild COPD exacerbation. No focal breath sounds. No murmurs gallops or rubs on cardiac exam, no lower extremity edema, pulses equal symmetric in upper and lower extremities. He is neurologically intact differential includes anxiety, panic, less likely be ACS, VT, PE, pneumothorax, among others. Initially was going to treat conservatively with oral Valium and EKG for reassurance. Patient would like to have labs drawn to make sure things are okay. I feel this is reasonable. DuoNeb offered, patient does not want to be any more anxious, so IV Valium to be administered at the same time. Patient placed on continuous cardiac monitoring and continuous pulse ox with initial blood pressure 154/91, heart rate 79, saturation 100% on room air. Repeat blood pressure just a couple minutes later 139/93, heart rate 73, 99% on room air. Independent interpretation of EKG shows sinus rhythm 79 bpm with no acute ischemic change. Nonspecific T wave inversions in aVL, but no reciprocal changes. Normal axis. GA 120, QRS 99, QTc 420. Patient was given DuoNebs and Valium for symptomatic management and correction of underlying abnormalities. Workup independently interpreted and significant for nonactionable CBC or chemistry. Magnesium normal, troponin negative. On reevaluation, patient blood pressure 116/76, states he feels much better and much more calm. Given patient presentation, workup, history, this most likely represents acute panic attack in the setting of PTSD. Because patient at baseline without signs or symptoms of clinical decompensation, deemed appropriate for discharge. Results were relayed to patient who voiced understanding and were agreeable to outpatient management and follow up. I discussed my clinical impression with patient and answered all questions. At this time, the evidence for any other entities in the differential is insufficient to warrant any further testing or ED observation. This was explained as well. Advisory was given that persistent or worsening symptoms require further evaluation. I confirmed the understanding of this discussion. Continuity Director disclaimer Much of this encounter note is an electronic jewelry consultant spoken language to printed text. Electronic jewelry consultant of the spoken language may permit errors. Although I have reviewed the note, some errors may still exist. Critical Care Critical Care Time Critical Care Time: No
[2025-04-09 18:01] VITALS: BP 124/84; RESP 8
[2025-04-09] MEDS: IPRATROPIUM/ALBUTEROL 3 ML NEB IH (18:01)
[2025-04-09] MEDS: diazePAM 10MG/2ML SYRINGE 2.5 MG IV (18:01)
[2025-04-09 18:06] LABS: Basophils # 0.1 K/mm3 (0-0.2); Basophils % 0.7 % (0.1-2.0); Eosinophils # 0.4 Kmm3 (0.0-0.4); Eosinophils % 4.2 % (0.1-12.0); Hematocrit 42.2 % (42.0-52.0); Hemoglobin 14.7 g/dL (14.1-18.0); Immature Granulocytes # 0.02 10^3uL; Immature Granulocytes % 0.2 %; Lymphocytes # 3.1 K/mm3 (0.7-4.5); Lymphocytes % 36.4 % (10-50); Mean Corpuscular HGB Conc 34.8 g/dL (31.8-35.4); Mean Corpuscular Hemoglobin 32.5 pg (27.0-31.2); Mean Corpuscular Volume 93.2 fl (80-94); Mean Platelet Volume 10.6 fl (7.4-10.4); Monocytes # 0.6 K/mm3 (0.1-1.0); Neutrophils # 4.5 K/mm3 (1.8-7.8); Neutrophils % 51.5 % (37.0-80.0); Nucleated Red Blood Cells # 0 10^3/uL; Nucleated Red Blood Cells % 0 %; Platelet Count 195 K/mm3 (142-424); Red Blood Count 4.53 M/mm3 (4.60-6.20); Red Cell Distribution Width-SD 41.1 fL; White Blood Count 8.6 K/mm3 (4.8-10.8)
[2025-04-09 18:12] LABS: Chloride 107 mmol/L (98-107); Potassium 3.9 mmoL/L (3.5-5.1); Sodium 138 mmol/L (136-145)
[2025-04-09 18:15] LABS: Alanine Aminotransferase 40 U/L (12-78); Albumin/Globulin Ratio 1.5 (1.1-1.8); Alkaline Phosphatase 90 U/L (38-126); Anion Gap 8.9 mEq/L (5-15); Aspartate Amino Transferase 28 U/L (17-59); Bilirubin,Total 0.4 mg/dl (0.2-1.3); Blood Urea Nitrogen 15 mg/dl (9-20); Calcium 8.8 mg/dl (8.4-10.2); Carbon Dioxide 26 mmol/L (22.0-30.0); Creatinine Clearance Estimated 96 mL/min (50-200); Estimated Glomerular Filt Rate 71 ml/min (>60); GFR (African American) 86 ML/MIN (>60); Globulin 2.7 g/dL (1.3-3.2); Glucose 143 mg/dl (74-100); Magnesium 1.7 mg/dl (1.6-2.3); Total Protein,Serum 6.7 g/dl (6.3-8.2)
[2025-04-09 18:30] VITALS: BP 116/76; RESP 13
[2025-04-09 18:32] LABS: Troponin I < 0.01 ng/ml (0.00-0.034)
[2025-04-09 18:59] VITALS: BP 116/76; PULSE 70; RESP 19; TEMP 36.7; O2SAT 98
== END 2025-04-09 19:00 | disposition home or self-care (01) ==
PROVIDERS: Emergency Provider Emergency Medicine; PCP Internal Medicine
DX: F41.0 Panic disorder [episodic paroxysmal anxiety] (principal); R06.2 Wheezing; R25.1 Tremor, unspecified; F43.10 Post-traumatic stress disorder, unspecified; I10 Essential (primary) hypertension; I25.10 Atherosclerotic heart disease of native coronary artery without angina pectoris; F17.210 Nicotine dependence, cigarettes, uncomplicated
CPT/HCPCS: 80053; 83735; 84484; 85025; 93005; 96374; 99284; J3360

== ENCOUNTER 2025-04-13 16:01 | Outpatient (CLI) | payer BC, SELFPAY | END 2025-04-13 23:59 | disposition home or self-care (01) | LOC: RT 16:03 | PROVIDERS: PCP Internal Medicine; Visit Provider Internal Medicine | DX: I47.10 Supraventricular tachycardia, unspecified (principal); F41.0 Panic disorder [episodic paroxysmal anxiety]; I51.9 Heart disease, unspecified; F43.10 Post-traumatic stress disorder, unspecified | CPT/HCPCS: 93225; 93227 ==

== ENCOUNTER 2025-05-20 15:59 | Emergency (ER) | payer BC, SELFPAY ==
--- OUTSIDE RECORDS SUMMARY | 2025-03-24 07:30 | XMS_ITS | Encounter Summary ---
Author Organization [facility] Address [address] [place] [phone] Phone [email or web address] Team Providers Care Pallet Stone Inserter Name Role Phone Anatoliy Evans Primary Care Provider Unavailabl e Reason for Visit * Reason Comments Return to Work / Duty Encounter Details Date Type Department Care Team (Latest Contact Info) Description 03/24/2025 7:30 AM EDT Office Visit [facility] [address] [facility] [address] [place] [address] Opal Jones, OFFICE ASSISTANT RECEPTIONIST [address] [place] [address] Encounter for other administrative examinations (Primary Dx); History of ST elevation myocardial infarction (STEMI); Hx-sudden cardiac arrest Social History Tobacco Use Types Packs/Day Years Used Date Smoking Tobacco: Every Day Cigarettes Smokeless Tobacco: Never Alcohol Use Standard Drinks/Week Comments Yes 0 (1 standard drink = 0.6 oz pur e alcohol) Intimate Partner Violence Answer Date R ecorded Insults You Not on file 03/12/2021 Threatens You Not on file 03/12/2021 Screams at You Not on file 03/12/2021 Physically Hurt Not on file 03/12/2021 Intimate Partner Violence Score Not on file 03/12/2021 Alcohol Use Answer Date Recorded Alcohol Use Status Yes 01/21/2024 Depression Answer Date Recorded PHQ Total Score 0 01/21/2024 Stress Answer Date Recorded Stress in your Life Not on file 10/02/2024 Dealing with Stress 3 10/02/2024 Sex and Gender Information Value Date Recorded Sex Assigned at Not on file Legal Sex Male 7:55 AM CDT Gender Identity Not on file Sexual Orientation Not on file documented as of this encounter Last Filed Vital Signs Vital Sign Reading Time Taken Comments Blood Pressure 119/84 03/24/2025 7:33 AM EDT Pulse 68 03/24/2025 7:33 AM EDT Temperature - - Respiratory Rate 18 03/24/2025 7:33 AM EDT Oxygen Saturation 97% 03/24/2025 7:33 AM EDT Inhaled Oxygen Concentration - - Weight - - Height - - Body Mass Index - - documented in this encounter Patient Instructions * Patient Instructions* Opal Jones NP - 03/24/2025 7:30 AM EDT RTW, no restrictions. Cont care per PCP/specialist. Encouraged counseling. F/u IHS PRN. documented in this encounter Progress Notes * pOal Jones NP - 03/24/2025 7:30 AM EDT Subjective Cordell Armando is a 49 y.o. male who presents for personal return to work after personal medical leave of absence for cardiac arrest, stent placement , life vest use. WD ID: [id number] Employer: [employer]: [employer] / (non production) Shift: 1 Full-time GL and #: Philippe Naj[facility] Medical Restrictions only. TM saw boat dispatcher(Dr Morataya) and was told life vest could be removed. TM states anomalies found while wearing and told everything looked great . TM started on nicotinepatches and Atarax for PTSD post GA. TM given information for 601 counselors. TM states no recent CP. TM states only concern is ANX. Triage nurse: ASC RN HPI As noted in CC. TM doing well. He was eval by cardiology yesterday and was told he had no events over the last month. LifeVest removed. He is continuing to decrease his amount of smoking and will be staring the nicotine patches and prn Hydroxyzine this weekend. Still anxious/PTSD. Discussion with TM re: online groups as well as available mental health resources @ [facility] and in the community. History Reviewed: Tobacco Allergies Meds Problems Med Hx Surg Hx Objective Visit Vitals BP 119/84 Pulse 68 Resp 18 SpO2 97% Smoking Status Every Day Review of Systems Constitutional: Negative. Respiratory: Negative for shortness of breath. Cardiovascular: Negative for chest pain and palpitations. Gastrointestinal: Negative for nausea. Skin: Negative for pallor. Neurological: Negative for dizziness. Psychiatric: Positive for anxiety. PHQ-9 Total Score: 0 (03/24/2025 7:31 AM) Physical Exam Vitals and nursing note reviewed. Constitutional: General: He is not in acute distress. Appearance: He is not diaphoretic. Cardiovascular: Rate and Rhythm: Normal rate and regular rhythm. Pulses: Normal pulses. Heart sounds: Normal heart sounds. Pulmonary: Effort: Pulmonary effort is normal. Breath sounds: Normal breath sounds. Skin: General: Skin is warm and dry. Capillary Refill: Capillary refill takes less than 2 seconds. Neurological: General: No focal deficit present. Mental Status: He is alert. Psychiatric: Mood and Affect: Mood normal. Behavior: Behavior normal. Assessment: ICD-10-CM ICD-9-CM 1. Encounter for other administrative examinations Z02.89 V68.[address] elevation myocardial infarction (STEMI) I25.2 412 3. Hx-sudden cardiac arrest Z86.74 V12.53 No orders of the defined types were placed in this encounter. Patient Instructions RTW, no restrictions. Cont care per PCP/specialist. Encouraged counseling. F/u IHS PRN. documented in this encounter Plan of Treatment Upcoming Encounters Date Type Department Care Team (Late st Contact Info) Description 05/22/2025 10:30 AM EDT Occ Treatment [facility] [address] [place] [address] Seven Curtis, OT [address] [place] [address] documented as of this encounter Visit Diagnoses Diagnosis Encounter for other administrative examinations- Primary History of ST elevation myocardial infarction (STEMI) Hx-sudden cardiac arrest Personal history of sudden cardiac arrest documented in this encounter Care Teams Pallet Stone Inserter Relationship Specialty [place] [address] PCP - General Porter Marina 11/11/19 documented as of this encounter
--- OUTSIDE RECORDS SUMMARY | 2025-04-13 09:00 | XMS_ITS | Encounter Summary ---
Author Organization [facility] Address [address] [place] [address] Phone [email or web address] Care Team Providers Care Microsoft Office Instructor Name Role Phone Anatoliy Evans Primary Care Provider Unavailabl e Reason for Visit * Reason Comments Follow Up Heart Issue Palpitations Encounter Details Date Type Department Care Team (Latest Contact Info) Description 04/13/2025 9:00 AM EDT Clinical Support [facility] [address] [place] [address] Norma Vargas MD [address] [place] [address] Palpitations (Primary Dx); History of ST elevation myocardial [...] Depression Answer Date Recorded PHQ Total Score 1 04/13/2025 Stress Answer Date Recorded Stress in your Life Not on file 10/02/2024 Dealing with Stress 3 10/02/2024 Sex and Gender Information Value Date Recorded Sex Assigned at Not on file Legal Sex Male 7:55 AM CDT Gender Identity Not on file Sexual Orientation Not on file documented as of this encounter Last Filed Vital Signs Vital Sign Reading Time Taken Comments Blood Pressure 139/81 04/13/2025 9:29 AM EDT Pulse 78 04/13/2025 9:29 AM EDT Temperature - - Respiratory Rate 14 04/13/2025 9:29 AM EDT Oxygen Saturation 100% 04/13/2025 9:29 AM EDT Inhaled Oxygen Concentration - - Weight - - Height - - Body Mass Index - - documented in this encounter Patient Instructions * Patient Instructions* Norma Vargas MD - 04/13/2025 9:00 AM EDT Home ROS. Will need someone to pick him up from the clinic and drive him to his PCP or home. RTC if released to full duty. documented in this encounter Progress Notes * Norma Vargas MD - 04/13/2025 9:00 AM EDT Subjective Cordell Armando is a 49 y.o. male. 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 Onset: 0815 Transported TM back to [facility] via [facility] without stretcher. Gait normal. Notes: count team member found sitting in Safety office in 250. 49 year old male with hx of Cardiac arrest in January and stent placement (02/14/25). Reports he has had recent palpitations, chest bounding several times ~ 0815. Reports now no palpitations or chest pain / pressure. Pulse regular, skin pink, warm and dry. VS - 150s/100. Denies recent illness. He went to ER d/t feeling anxious and palpitations on Thursday04/08/25. Treatment was at [facility]. Negative testing with labs, EKGs. No new meds. Told he had a panic attack. Has had recent anxiety post arrest , [facility]. Next appt is Thursday. He felt slight dizziness with incident today but no current CP/SOA or dizziness. TM denies need for dispatch for ambulance and does not feel he needsto return to ER. 12 lead done and TM taken to [facility] for monitoring and review with medical provider. Stable with transfer , had another episode of palpitations but no noted irregular beats on monitor. He used his hydroxyzine at 0500 today. FSBS 143 upon arrival. 12 lead done. Ate prior and had candy given to him by Safety. Feels he does not need ambulance/ Denies dispatch for ALS. VSS 130s/80s- 78, 02 sat 100% RA. Reports he was given albuterol at ER on Thursday d/t some wheezes. Report hx of smoker, has decreased to 10 cigarettes / day from 1. 5 packs. Called Meat Stock Clerk office at [facility] and told to follow up with PCP first. TM called PCP, scheduled for 2:15 pm appt today. AMA form reviewed and signed. Triage nurse: Edwige Cutler RN This was an emergency call with a disruption in patient care and scheduled clinic appointments. History Reviewed: Tobacco Allergies Meds Problems Med Hx Surg Hx HPI TM is a 49 y/o male who is known to have CAD, s/p cardiac arrest, s/p AMI with 2 stents placed ~ 2 months ago. TM returned to work on 02/22/25 and wore a life vest for 30 days. No arrhythmias detectedduring the 30 day period. He works in an [employer] job in [employer]. He reportedly felt his heart pounding and somewhat dizzy prior to the tones. He reportedly has been having similar episodes recently which was thought to be anxiety related. He went to his local ED 5 days ago for same symptoms. Had negative cardiac work up. No meds given. He takes Hydroxyzine for his anxiety. He still smokes cigarettes although down to 1/2 a PPD from 1 PPD. He denies any chest pain. He feels better and does not want to to the ED. He talked to cardiology office who recommended he see his PCP today. Review of Systems Constitutional: Negative. Respiratory: Negative for chest tightness and shortness of breath. Cardiovascular: Positive for palpitations. Negative for chest pain and leg swelling. Neurological: Negative for syncope, facial asymmetry and speech difficulty. PHQ-9 Total Score: 1 (04/13/2025 9:39 AM) Objective Vitals: 04/13/25 09 BP: 139/81 Patient Position: Sitting Pulse: 78 Resp: 14 SpO2: 100% Orthostatic Vitals: 04/13/25 0929 Patient Position: Sitting Results for orders placed or performed in visit on 04/13/25 POCT glucose Collection Time: 04/13/25 8:50 AM Result Value Ref Range Glucose, POC 143 (A) 65 - 99 mg/dL Glucose (Glucometer), POC IQC Yes, verified internal control performed correctly. Lot Number per Bed # 1 , ER Expiration Date per ER Bed # 1 Physical Exam Vitals and nursing note reviewed. Constitutional: General: He is not in acute distress. Appearance: Normal appearance. He is not ill-appearing or diaphoretic. Cardiovascular: Rate and Rhythm: Normal rate and regular rhythm. Pulses: Normal pulses. Heart sounds: Normal heart sounds. Pulmonary: Effort: Pulmonary effort is normal. Breath sounds: Normal breath sounds. Neurological: General: No focal deficit present. Mental Status: He is alert and oriented to person, place, and time. Gait: Gait normal. Psychiatric: Mood and Affect: Mood normal. Behavior: Behavior normal. ECG READING: sinus rhythm, no ST/T wave changes Assessment: ICD-10-CM ICD-9-CM 1. Palpitations R00.2 785.1 ECG 12 lead POCT glucose 2. History of ST elevation myocardial infarction (STEMI) I25.2 412 3. Hx-sudden cardiac arrest Z86.74 V12.53 Orders Placed This Encounter Procedures POCT glucose ECG 12 lead Patient Instructions Home ROS. Will need someone to pick him up from the clinic and drive him to his PCP or home. RTC if released to full duty. documented in this encounter Plan of Treatment Upcoming Encounters Date Type Department Care Team (Late st Contact Info) Description 05/22/2025 10:30 AM EDT Occ Treatment [facility] [address] [place] [address] Seven Curtis, OT [address] [facility] [address] documented as of this encounter Procedures Procedure Name Priority Date/Time Associated Diagnosis Comments ECG 12-LEAD Routine 04/13/2025 11:16 AM EDT Palpitations POCT GLUCOSE Routine 04/13/2025 8:50 AM EDT Palpitations documented in this encounter Results * ECG 12 lead (04/13/2025 11:16 AM EDT) Norma Gillespie MD - 04/13/2025 11:16 AM EDT sinus rhythm, no ST/T wave changes us Norma Vargas MD ECG ORDERABLES Final Res ult * (ABNORMAL) POCT glucose (04/13/2025 8:50 AM EDT) Glucose, POC 143(A) 65 - 99 mg/dL Glucose (Glucometer), POC IQC Yes, verified internal control performed correctly. Lot Number per Bed # 1 , ER Expiration Date per ER Bed # 1 Blood (Blood, Capillary) 04/13/2025 8:50 AM EDT Norma Vargas MD POINT OF CARE TEST ORDERA BLES Final Result documented in this encounter Visit Diagnoses Diagnosis Palpitations- Primary History of ST elevation myocardial infarction (STEMI) Hx-sudden cardiac arrest Personal history of sudden cardiac arrest documented in this encounter Care Teams Microsoft Office Instructor Relationship Specialty [place] [address] PCP - General Media Relations Coordinator 11/11/19 documented as of this encounter
--- OUTSIDE RECORDS SUMMARY | 2025-05-15 15:30 | XMS_ITS | Encounter Summary ---
Author Organization [facility] Address [address] [place] [address] Phone [email or web address] Care Team Providers Care Bulk Tank Car Unloader Name Role Phone Anatoliy Evans Primary Care Provider Unavailabl e Reason for Referral * Consultation (Routine) - Closed Specialty Diagnoses / Procedures Referred By Micheline arevalo Referred To Contact Physical Therapy Diagnoses Encounter for fitness for duty examination Kristen Downing PA [address] [place] [address] Phone: tel: fax: [facility] PT WC/WH [address] [place] [address] Phone: tel: fax: Referral ID Status Reason Start Date Expiration Date V isits Requested Visits Authorized [id number] Closed Consult & Treat 05/16/2025 11/12/2025 1 1 Reason for Visit * Reason Comments Return to Work / Duty Encounter Details Date Type Department Care Team (Late st Contact Info) Description 05/15/2025 3:30 PM EDT Office Visit [facility] [address] [place] [address] Kristen Downing PA [address] [place] [address] Encounter for fitness for duty examination (Primary Dx); Stress reaction Social History Tobacco Use Types Packs/Day Years Used Date Smoking Tobacco: Every Day Cigarettes Smokeless Tobacco: Never Tobacco Cessation:Ready to Q uit: Not Asked; Counseling Given: Not Answered Alcohol Use Standard Drinks/Week Comments Yes 0 [...] Answer Date Recorded PHQ Total Score 0 05/15/2025 Stress Answer Date Recorded Stress in your Life Not on file 10/02/2024 Dealing with Stress 3 10/02/2024 Sex and Gender Information Value Date Recorded Sex Assigned at Not on file Legal Sex Male 7:55 AM CDT Gender Identity Not on file Sexual Orientation Not on file documented as of this encounter Last Filed Vital Signs Vital Sign Reading Time Taken Comments Blood Pressure 112/78 05/15/2025 3:44 PM EDT Pulse 70 05/15/2025 3:44 PM EDT Temperature - - Respiratory Rate 14 05/15/2025 3:44 PM EDT Oxygen Saturation - - Inhaled Oxygen Concentration - - Weight - - Height - - Body Mass Index - - documented in this encounter Patient Instructions * Patient Instructions* LATASHA Alex - 05/15/2025 3:30 PM EDT 1. Duty status: RTW Regular Duty w/ Indefinite Restrictions 05/16/25. 2. Care per PCP/Specialist. 3. Referrals: * Addendum: Work hardening 1 week for change in job; start 05/22* 4. Follow up: with treating physician as needed. Will d/w Dr Vargas re: possible WH prior to new work area. (*See referral above.) 5. Call S @ [phone] for any questions/concerns/appointments. 6. Projected return to full rotation: 05/16 documented in this encounter Progress Notes * LATASHA Alex - 05/15/2025 3:30 PM EDT Subjective Cordell Armando is a 49 y.o. male who presents for personal return to work. WD ID: [id number] Employer: [employer]: [employer] / (non production)-- moving to [place] per update from [facility] today. 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 Previous/current indefinite restrictions? Yes- Revised August - see chart. LDW: 04/13/25 PCP : Dr. Evans, [facility] RELEASE: Regular duty 05/16/25 PMLOA. Currently on leave for stress/anxiety , palpitations. S/p Cardiac arrest 01/2025, stent placment. Had a life vest for 1 month with return to work , and cardiac rehab. Has had anxiety and some minor chest wall discomfort prior to medical leave. Has been on anti anxiety meds and feels he is ready to RTW. Has full duty release for 05/16/25, to walk in today. While off work he has been awarded job change d/t prior revised ind. Restrictions. He will be placed in [place] per [facility]. 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 TM has been in cardiac rehab and feels he can do WH and not Work conditioning. He will review with provider. Seeing Counselor at [facility] 1-2x/week, he has 2 visits left but feels he can use those prn. Smoking 1/2 pack per day. (He was 1-1 1/2 prior to cardiac arrest). Last panic attack has been 2.5 weeks. Using paxil but no recent use of hydroxyzine ( ~ 3 weeks). Triage nurse: Edwige Cutler RN See CC above TM is here for PRTW/PMLOA stress/anxiety. LDW 04/13/25. TM is released to RTW 05/16 by his PCP, Dr Anatoliy Evans. TM states he was referred by [facility] to his PCP at his last [facility] appt. TM states he has been doing Cardiac Rehab for a month. He states no panic attacks for 2 weeks. He did not like Paxil at higher dose due to side effect and has gone back to lower, 10mg, dose. TM has been seeing a Therapist also. He states no SI, Self Harm thoughts, no HI. TM states no Cp, no SOA, no palpitation. Not lightheaded/dizzy. No cardiac events while off this last time. F/u with Founder / Ceo is May. TM is moving from his off line [employer] position in [place] [employer] to [employer] with his Indefinite restrictions. TM is to start GPC training 06/05 per Samantha. History Reviewed: Tobacco Allergies Meds Problems Med Hx Surg Hx Objective Visit Vitals BP 112/78 (Patient Position: Sitting) Pulse 70 Resp 14 Smoking Status Every Day Review of Systems Respiratory: Negative for shortness of breath. Cardiovascular: Negative for chest pain and palpitations. Neurological: Negative for dizziness and light-headedness. Psychiatric/Behavioral: Negative for dysphoric mood, self-injury and suicidal ideas. The patient isnervous/anxious. PHQ-9 Total Score: 0 (05/15/2025 3:49 PM) Physical Exam Vitals and nursing note reviewed. Constitutional: General: He is not in acute distress. Appearance: Normal appearance. He is well-developed. He is not ill-appearing. HENT: Head: Normocephalic. Cardiovascular: Rate and Rhythm: Normal rate and regular rhythm. Pulses: Normal pulses. Heart sounds: Normal heart sounds. Pulmonary: Effort: Pulmonary effort is normal. No respiratory distress. Breath sounds: Normal breath sounds. Skin: General: Skin is warm and dry. Neurological: Mental Status: He is alert. Cranial Nerves: No cranial nerve deficit. Sensory: No sensory deficit. Motor: No abnormal muscle tone. Psychiatric: Mood and Affect: Mood normal. Behavior: Behavior normal. Thought Content: Thought content normal. Assessment: ICD-10-CM ICD-9-CM 1. Encounter for fitness for duty examination Z02.89 V70.5 Ambulatory referral to Work Conditioning/Hardening 2. Stress reaction F43.0 308.9 Orders Placed This Encounter Procedures Ambulatory referral to Work Conditioning/Hardening Patient Instructions 1. Duty status: RTW Regular Duty w/ Indefinite Restrictions 05/16/25. 2. Care per PCP/Specialist. 3. Referrals: * Addendum: Work hardening 1 week for change in job; start 05/22* 4. Follow up: with treating physician as needed. Will d/w Dr Vargas re: possible WH prior to new work area. (*See referral above.) 5. Call [facility] @ [phone] for any questions/concerns/appointments. 6. Projected return to full rotation: 05/16 documented in this encounter Miscellaneous Notes * Addendum Note - LATASHA Alex - 05/15/2025 3:30 PM EDTAddended by: KRISTEN DOWNING on: 05/16/2025 04:19 PM Modules accepted: Orders documented in this encounter Plan of Treatment Upcoming Encounters Date Type Department Care Team (Late st Contact Info) Description 05/22/2025 10:30 AM EDT Occ Treatment [facility] [address] [place] [address] Seven Curtis, OT [address] [place] [address] Scheduled Referrals Name Type Priority Associated Diagnoses Orde r Schedule Ambulatory referral to Work Conditioning/Hardeni ng Outpatient Referral Routine Encounter for fitness for duty examination Expected: 05/30/2025 (Approximate), Expires: 11/15/2025 documented as of this encounter Visit Diagnoses Diagnosis Encounter for fitness for duty examination- Primary Stress reaction Unspecified acute reaction to stress documented in this encounter Care Teams Bulk Tank Car Unloader Relationship Specialty [place] [address] PCP - General Ccie 11/11/19 documented as of this encounter
[2025-05-20] VITALS (8 sets, daily range): BP systolic 106–150; BP diastolic 64–93; PULSE 56–65; RESP 10–18; TEMP 36.6–36.9; O2SAT 94–99; BMI 25.1
--- OUTSIDE RECORDS SUMMARY | 2025-05-20 16:10 | XMS_ITS | Encounter Summary ---
Author Organization [facility] Address [address] [place] [address] Phone [email or web address] Care Team Providers Care Food Handler Name Role Phone Anatoliy Evans Primary Care Provider Unavailabl e Encounter Details Date Type Department Care Team ([facility] Contact Info) Description 05/16/[address] [place] [address] Edwige Cutler, RN [address] [place] [address] Social History Tobacco Use Types Packs/Day Years [...] on file documented as of this encounter Miscellaneous Notes * Telephone Encounter - Edwige Cutler RN - 05/16/2025 10:10 AM EDT Edwige, This patient is scheduled for a WH evaluation on 05/22/25, at 10:30 A.M. García Dowling, PT MPT I will call TM today to review date , time. Edwige Cutler RN documented in this encounter Plan of Treatment Upcoming Encounters Date Type Department Care Team (Late st Contact Info) Description 05/22/2025 10:30 AM EDT Occ Treatment [facility] PT [facility] [address] [place] [address] Seven Curtis OT [address] [place] [address] documented as of this encounter Visit Diagnoses Not on filedocumented in this encounter Care Teams Food Handler Relationship Specialty [place] [address] PCP - General Semiconductor Packages Platemaker 11/11/19 documented as of this encounter
--- OUTSIDE RECORDS SUMMARY | 2025-05-20 16:10 | XMS_ITS | Data Portability ---
Author Organization [facility] [place] [facility] Address [address] [place] [address] Care Team Providers Care Betting Agency Manager Name Role Phone ANATOLIY KUO Primary Care Provider MAIKEL GRIMES Director Of Agriculture Assessment Encounter Date Assessment Date Assessment LastModified [...] when he completes his work conditioning. CC: [employer] Seven Sotomayor MD [id number] Not available 12/05/2016 12:57:17 06/24/2021 06/24/2021 [...] By Organization Details Last Modified Time 12/04/2016 [id number] He has made a lot of progress. He has minimal low trap findings. He will be able to start and back into work conditioning and work hardening. [id number] Not available 12/05/2016 12:57:18 02/02/2019 [id number] work status report* slaha Not available 02/09/2019 07:58:41 05/24/2021 [id number] I recommend he continue the DIP gutter splint and maintain motion at his MP and PIP joints. Continue zeze-kml-ecnbfuy medicines as needed for pain. He is given work restrictions which are scanned into the chart. 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 [facility] [address], [place], [address], 03/03/2019 16:13:05 06/24/20 21 06/24/2021 XR, finge r(s) Lauri [place] [facility] Vonnie mt [address] [place] [address] Rebecca arevalo Name: SUBHA arevalo : 1974 Rebecca arevalo 8 Orderi ng Provid er: EDMUNDO Ma EXAM DATE: 2020 EXAM: XR RT FINGER [...] ly Signed By: Woodrow lundberg MD on 2:41 PM DBA_BACKFIL_ [facility] [place] [address] , [place], [address], 06/05/2022 03:50:21 Result Notes Documentation Provider Name and Address Organization Details Recorded Time Xr, Finger(s) : [facility] [place] [address] [place] [address] Patient Name: SUBHA ARMANDO Patient : 1975 Patient Ordering Provider: LAXMI DUMONT EXAM DATE: 06/24/2021 EXAM: XR RT FINGER(S) HISTORY: Followup of fracture. COMPARISON: None FINDINGS: There is a fracture of the tuft of the distal phalanx of the right fourth finger. There is minimal displacement. No other fracture is seen. IMPRESSION: 1. There is a fracture of the distal phalanx of the right fourth finger. Interpreted By: Ton Bowman MD I DUMNOT MD [address] [place], [address], [facility] 06/24/2021 16:12:28 Problems Name Problem SNOMED Code Status Onset Date Resolution Date Notes Provider Name and Address Organization Details Recorded Time Neck pain 37382275 Active 2015 From Automated Load;Provi olga lidia: Sathya Ng;Stat us: Active Not Available [facility] 6 09:31:19 William ation 511404137 Active 2015 From Automated Load;Provi olga lidia: Charleen Cervantes;Status : Active Not Available [facility] 7 06:08:12 Problem Notes None recorded. Procedures Surgical History Date Name Laterality Status Provider Name and Address Organization Details Recorded Time 6 PT Therapeutic Exercise completed PAMELA JAMES II, PT, DPT [address] [place], [address], [facility] 11/25/2016 13:40:12 6 PT Therapeutic Exercise completed PAMELA JAMES II, PT, DPT [address] [place], [address], [facility] 11/13/2016 13:40:59 Orthopedic Surgery completed [facility] 12/04/2016 14:16:09 Abdominal Surgery completed [facility] 12/04/2016 14:16:23 Imaging Results None recorded. Procedure Notes None recorded. Medical Equipment None [...] refills:0 Not Available Not Available Not Available Salomon DayQuil 60 mg-30 mg-650 mg/30 mL oral solution active Medicatio n Descripti on: acetamino phen/dext romethorp peralta/PSE; Route:ora l; refills:0 Not Available Not Available Not Available Vitals Date Recorded Body height Body weight Body mass index (BMI) Provider Name and Address Organization Details Last Updated DateTime 12/04/2016 177.8 cm 98611.66 g 25.1 kg/m2 Candi Murcia [facility] 12/04/2016 14:14:41 Date Recorded Body height Body mass index (BMI) Body weight Systolic blood pressure Diastolic blood pressure Provider Name and Address Organization Details Last Updated DateTime 02/02/2019 177.8 cm 26.5 kg/m2 79322.59 g 156 mm[Hg] 88 mm[Hg] Nghia Du [facility] 9 15:56:07 Date Recorded Body height Body mass index (BMI) Body weight Provider Name and Address Organization Details Last Updated DateTime 05/24/2021 177.8 cm 26.5 kg/m2 56952.59 g [facility] 05/24/2021 11:25:24 Date Recorded Body height Body mass index (BMI) Body weight Provider Name and Address Organization Details Last Updated DateTime 06/24/2021 177.8 cm 26.5 kg/m2 59003.59 g [facility] 06/24/2021 14:34:13 Social History Question Answer Notes LastModified by Organizat ion Details LastModified Time Tobacco Smoking Status Current Every Day Smoker Candihaley Murcia [facility] 12/04/2016 14:16:01 What Was The Date [...] History Condition Response Allergies/Hayfever Y Diabetes N Arthritis N Blood Thinners N Heart Conditions N Sleep Apnea N Anesthesia Complications N Asthma Y Pneumonia N Past Encounters Encounter ID Performer Location Encounter Start Date Encounter Closed Date Diagnosis/Indication Diagnosis SNOMED-CT Code Diagnosis ICD10 Code Diagnosis Note [id number] PAMELA JAMES II, PT, DPT PHYSICAL THERAPY / HAND THERAPY [facility] [address] [place] [address] 11/12/2016 14:10:56 11/13/2016 16:47:25 Muscular incoordination 10331433 R27.8 Muscle weakness 59901964 M62.81 Pain of ould region 87325476 M25.512 [id number] PAMELA JAMES II PT, DPT PHYSICAL THERAPY / HAND THERAPY [facility] [address] [place] [address] 11/25/2016 13:33:37 11/26/2016 08:25:23 Muscular incoordination 16459853 R27.8 Muscle weakness 06161239 M62.81 Pain of oulder region 09496513 M25.460 [id number] W MACHO CERVANTES MD ORTHOPEDI CS [facility] [address] [place] [address] 12/04/2016 14:06:22 12/04/2016 16:10:13 Scapulalgia 20846225 M89.8X1 [id number] BAO WEBSTER MD ORTHOPEDI CS [facility] [address] [place] [address] 02/02/2019 15:13:53 02/02/2019 16:21:09 Cervical radiculopathy 70262943 M54.12 Mr Armando has findings of acute exacerbati on of chronic cervical radiculopa thy. I recommend continued activity/w ork restrictio ns and MRI of the shoulder to evaluate for HNP. [id number] JOSE ANTONIO GRIMALDO PA-C ORTHOPEDI [facility] [address] [place] [address] 05/24/2021 11:21:14 05/24/2021 11:55:19 Closed fracture of distal phalanx of finger 13604553 S62.664A Subungual hematoma 09184 9004 L60.8 right ring finger [id number] LAXMI DUMONT MD ORTHOPEDI CS [facility] [address] [place] [address] 06/24/2021 14:14:28 06/24/2021 14:40:29 Closed fracture of distal phalanx of finger 22598069 S62.664A Tuft fracture, 6 weeks out. Subungual hematoma 96153 9004 L60.8 right ring finger Health Concerns Section Related Observation LastModified by Organization Detai ls LastModified Time None Recorded Concern Status LastModified by Organization Details LastModified Time None Recorded Advance Directives Directive None Recorded Payers Insurance Date Sequence Insurance Name Policy Number Policy Ruelas Covered Member ID Ruelas Member ID Guarantor Name 10/24/2020 [facility] Jose Antonio Armando 01/28/2019 [facility] Jose Antonio Armando 05/24/2021 [facility] Jose Antonio Armando Notes Date Note [...] going well. PAMELA JAMES II, PT, DPT [facility] [place], [address], [facility] 02/03/2017 12:37:49 12/04/2016 text/html He has been doin g very well in therapy. He has had improved strength and range of motion with minimal symptoms. Sanjay CERVANTES MD [address] [place], [address], [facility] 12/05/2016 13:49:49 02/02/2019 text/html Mr Armando [...] treatment from Dr Cervantes. BAO WEBSTER MD [address] [place] [address], [address], [facility] 02/06/2019 16:40:09 05/24/2021 text/html A 5-year-old whi te male who is here for evaluation of the right ring finger injury that happened on 05/13/2021. He was at work at [employer] and was using a wrench. The [...] Primary Care Physician: Anatoliy Kuo Hand dominance: Right Location: Right RF Pain level: 4 /10 Date of injury:05/13/21 Duration: 11 day(s) Recent Surgery: No Procedure: Date of surgery: Duration: In office procedure? No Previous upper extremity surgery? 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 Yes Is this injury associated with a Workers Compensation claim? Yes Patient arrived in: finger splint [employer] Program Coordinator Strength: right: left: Patient arrives after incident at work. He states that he was using a wrench and went to push the wrench down and missed the handle. Then slammed right RF down onto a piece of metal. He was seen by the doctors at [employer] for evaluation. JOSE ANTONIO GRIMALDO PA-C [address] [place], [address], [facility] 05/24/2021 15:03:21 06/24/2021 text/html Primary Care Physician: Anatoliy Kuo Hand dominance: Right Location: Right RF Pain level: Date of injury:05/13/21 Duration: 6 week(s) Recent Surgery: No Procedure: Date of surgery: Duration: In office procedure? No Previous upper extremity surgery? 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 Yes Is this injury associated with a Workers Compensation claim? Yes Patient arrived in: [employer] Program Coordinator Strength: right: left: Pt arrives for recheck of right RF. He states that he is doing alright, minimal pain. He states of more pain when he is in the splint. He states that his ROM is getting better. LAXMI DUMONT MD [address] [place] [address], [address], [facility] 06/24/2021 14:40:24
--- OUTSIDE RECORDS SUMMARY | 2025-05-20 16:10 | XMS_ITS | Encounter Summary ---
Author Organization [facility] Address [address] [place] [address] Phone CareEverywhereSuppor [email or web address] Care Team Providers Care Cook Specialty Name Role Phone Anatoliy Evans Primary Care Provider Unavailabl e Encounter Details Date Type Department Care Team ([facility] Contact Info) Description 05/15/2025 Telephone [facility] [address] [place] [address] [place] [address] Maryan Chance, EMT Social History Tobacco Use Types Packs/Day Years [...] on file documented as of this encounter Plan of Treatment Upcoming Encounters Date Type Department Care Team ([facility] Contact Info) Description 05/22/2025 10:30 AM EDT Occ Treatment [facility] PT WC/WH [address] [facility] [place] [address] Seven Curtis, OT [address] [place] [address] documented as of this encounter Visit Diagnoses Not on filedocumented in this encounter Care Teams Cook Specialty Relationship Specialty [place] [address] PCP - General Cap Maker 11/11/19 documented as of this encounter
--- OUTSIDE RECORDS SUMMARY | 2025-05-20 16:10 | XMS_ITS | Encounter Summary ---
Author Organization [facility] Address [address] [place] [address] Phone CareEverywhereSuppor [email or web address] Care Team Providers Care Quality Assurance Assistant Name Role Phone Anatoliy Evans Primary Care Provider Unavailabl e Reason for Visit * Reason Onset Date Comments Education Provided 05/08/2025 Line call Encounter Details Date Type Department Care Team (Late st Contact Info) Description 05/08/2025 Documentation [facility] Safety [facility]go [address] [place] [address] Ashish Hawkins [address] [place] [address] Social History Tobacco Use Types [...] on file documented as of this encounter Progress Notes * Ashish Hawkins - 05/08/2025 2:44 PM EDT See scanned report attached to member's chart. documented in this encounter Plan of Treatment Upcoming Encounters Date Type Department Care Team (Late st Contact Info) Description 05/22/2025 10:30 AM EDT Occ Treatment [facility] PT WC/WH [address] [place] [address] Seven Curtis OT [address] [place] [address] documented as of this encounter Visit Diagnoses Not on filedocumented in this encounter Care Teams Quality Assurance Assistant Relationship Specialty [place] [address] PCP - General Loss Prevention Officer 11/11/19 documented as of this encounter
--- OUTSIDE RECORDS SUMMARY | 2025-05-20 16:10 | XMS_ITS | Encounter Summary ---
Author Organization [facility] Address [address] [place] [address] Phone CareEverywhereSuppor [email or web address] Care Team Providers Care Research Professor Name Role Phone Anatoliy Evans Primary Care Provider Unavailabl e Encounter Details Date Type Department Care Team ([facility] Contact Info) Description 05/16/[address] [place] [address] Edwige Cutler, RN [address] [place] [address] Social History Tobacco Use Types [...] Miscellaneous Notes * Telephone Encounter - Edwige Cutelr RN - 05/16/2025 10:28 AM EDT Email from Work Hardening Dept. Edwige, This patient is scheduled for a WH evaluation on 05/22/25, at 10:30 A.M. García Dowling, PT MPT Physical Therapist [employer] [place] [address] [place] [address] [facility] and area coordinator , Farhad Zambrano have both been notified of [facility]. Recommend start next week per DR. Vargas. Request WH referral from provider today. Edwige Cutler RN documented in this encounter Plan of Treatment Upcoming Encounters Date Type Department Care Team (Late st Contact Info) Description 05/22/2025 10:30 AM EDT Occ Treatment [facility] PT WC/WH [address] [place] [address] Seven Curtis OT [address] [place] [address] documented as of this encounter Visit Diagnoses Not on filedocumented in this encounter Care Teams Research Professor Relationship Specialty [place] [address] PCP - General Shank Turner 11/11/19 documented as of this encounter
--- OUTSIDE RECORDS SUMMARY | 2025-05-20 16:10 | XMS_ITS | Encounter Summary ---
Author Organization [facility] Address [address] [place] [address] Phone CareEverywhereSuppor [email or web address] Care Team Providers Care Repairer Helper Name Role Phone Anatoliy Evans Primary Care Provider Unavailabl e Encounter Details Date Type Department Care Team ([facility] Contact Info) Description 05/15/[address] [place] [address] Edwige Cutler, RN [address] [place] [address] Social History Tobacco Use Types [...] Telephone Encounter - Edwige Cutler RN - 05/15/2025 2:47 PM EDT Cordell Armando calls clinic to discuss return to work after personal medical leave of absence for stress /anxiety/palpitations. WD ID: [id number] Employer: [employer]: [employer] / (non production)-- moving to [employer] per update from [facility] today. 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 Yes- Revised August - see chart. LDW: 04/13/25 PCP : RELEASE: Regular duty 05/16/25 Additional notes from phone call: Currently on leave for stress/anxiety , palpitations. S/p Cardiacarrest 01/2025. Had a life vest for 1 month and cardiac rehab. Has had anxiety and some minor chest wall discomfort. Has been on anti anxiety meds and feels he is ready to RTW. While off work he has been awarded job change d/t prior revised indef. Restrictions. He will be placed in [employer] per [facility]. 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 TM has been in cardiac rehab and feels he can do WH and not Work conditioning. He will review with provider. If WMLOA, still getting compensation from work comp? N/A If WMLOA, treatment for any personal medical condition during leave? No If PMLOA, work-related injury immediately before leave? No Same day occ or personal follow up scheduled? No Reviewed and/or scheduled for WC/WH? No [facility]? N/A-- email to be sent by [facility], she states he will return to [employer]. Edwige Cutler RN documented in this encounter Plan of Treatment Upcoming Encounters Date Type Department Care Team (Late st Contact Info) Description 05/22/2025 10:30 AM EDT Occ Treatment [facility] PT WC/WH [address] [place] [address] Seven Curtis, OT [address] [place] [address] documented as of this encounter Visit Diagnoses Not on filedocumented in this encounter Care Teams Repairer Helper Relationship Specialty Start Date End Date Anatoliy Evans [place] [address] PCP - General Dredge Runner 11/11/19 documented as of this encounter
--- OUTSIDE RECORDS SUMMARY | 2025-05-20 16:11 | XMS_ITS | Encounter Summary ---
Author Organization [facility] Address [address] [place] [address] Phone CareEverywhereSuppor [email or web address] Care Team Providers Care Darkroom Technician Name Role Phone Anatoliy Evans Primary Care Provider Unavailabl e Encounter Details Date Type Department Care Team ([facility] Contact Info) Description 05/04/[address] [place] [address] Edwige Cutler, RN [address] [place] [address] Social History Tobacco Use Types [...] Telephone Encounter - Edwige Cutler RN - 05/04/2025 2:37 PM EDT Update : WD ID: [id number] Employer: [employer] Center: [employer] / (non production) 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 Off thru PCP with treatment for anxiety post cardiac arrest this spring. He has been on medication with adjustments with dosage and now his MD wants him to have no panic attacks for 2 weeks prior to RTW. He has talked to therapist. He states he has had improvement. He reports no issues with STD. No mention of further work up or recommendations from cardiology. Hashad another ER visit last week d/t anxiety. Reviewed to contact [facility] once cleared to full duty, release from treating MD. Edwige Cutler RN documented in this encounter Plan of Treatment Upcoming Encounters Date Type Department Care Team (Late st Contact Info) Description 05/22/2025 10:30 AM EDT Occ Treatment [facility] PT WC/WH [address] [place] [address] Seven Curtis OT [address] [place] [address] documented as of this encounter Visit Diagnoses Not on filedocumented in this encounter Care Teams Darkroom Technician Relationship Specialty [place] [address] PCP - General Product Marketing Consultant 11/11/19 documented as of this encounter
--- OUTSIDE RECORDS SUMMARY | 2025-05-20 16:11 | XMS_ITS | Clinical Summary ---
Author Organization [facility] Address [address] [place], [place] [id number] Care Team Providers Care Sugar Cane Planter Machine Operator Name Role Phone Anatoliy Evans MD Primary Care Provider [phone] Allergies No known active allergies Active Problems Problem Noted Date Diagnosed Date Ureteral stone with hydronephrosis 10/04/2022 Overview (10/04/2022): Added automatically from request for surgery [id number] Social History Tobacco Use Types Packs/Day Years Used Date Smoking Tobacco: Never Assessed Sex and Gender Information Value Date Recorded Sex Assigned at Not on file Legal Sex Male 5:31 AM EDT Gender Identity Not on file Sexual Orientation Not on file Last Filed Vital Signs Vital Sign Reading Time Taken Comments Blood Pressure 140/96 10/04/2022 7:00 PM EDT Pulse 85 10/04/2022 8:15 PM EDT Temperature 36.6 C (97.9 F) 10/04/2022 7:00 PM EDT Respiratory Rate 17 10/04/2022 8:15 PM EDT Oxygen Saturation 96% 10/04/2022 8:15 PM EDT Inhaled Oxygen Concentration - - Weight 79.6 kg (175 lb 8.8 oz) 10/04/2022 6:40 P M EDT Height 177.8 cm (5' 10 ) 10/04/2022 6:40 PM EDT Body Mass Index 25.19 10/04/2022 6:40 PM EDT Plan of Treatment Health Maintenance Due Date Last Done Comments [facility]-Depression Screening 1975 [facility]-/Child/Adol SDOH Screenings 1975 [facility]-Obesity Intervention 1981 [facility]- SDOH Screenings 1993 [facility]-Adult SDOH Screenings 1993 [facility]-Hepatitis B Vaccines (1 of 3 - 19+ 3-dose series) 1994 CT Colonography 2020 Colonoscopy 2020 FIT-DNA 2020 FIT 2020 FOBT 2020 Sigmoidoscopy 2020 [facility]-Colorectal Cancer Screening 2020 [facility]-DTaP,Tdap,and Td Vaccine s (2 - Td or Tdap) 07/23/2022 07/23/2012 [id number] Vaccine (1 - 20 24-25 season) 2024 [facility]-Influenza Vaccine (Seaso n Ended) 2025 [facility]-Zoster Vaccines (1 of 2) 2025 [facility]-HIV Screening Completed 10/04/2022 [facility]-Hepatitis C Screening Completed 10/04/2022 HPV Vaccines Aged Out No longer eligi ble based on patient's age to complete this topic [facility]-HIB Vaccines Aged Out No longer e ligible based on patient's age to complete this topic [facility]-Hepatitis A Vaccines Aged Out No longer eligible based on patient's age to complete this topic [facility]-IPV Vaccines Aged Out No longer e ligible based on patient's age to complete this topic [facility]-Pneumococcal Vaccine: Pediatrics (0 to 5 Years) and At-Risk Patients (6 to 49 Years) Aged Out No long er eligible based on patient's age to complete this topic [facility]-Rotavirus Vaccines Aged Out No lo nger eligible based on patient's age to complete this topic Medical Devices Implanted Type Area Improvement Intern Device Identifier Shelf Expiration Date Model / Serial / Lot Stent Ureteral Double Pigtail Pos 6fr 24cm - S. - [id number] Implanted:Qty: 1 on 10/04/2022 by Ramses Mendenhall MD at [facility] Stent Left: [id number] 07/24/2024 [id number] / . / [id number] Procedures Procedure Name Priority Date/Time Associated Diagnosis Comments HEPATITIS C ANTIBODY - ED W/REFLEX TO HCV QUANT PCR STAT 10/04/2022 7:31 AM EDT HIV 1/2 ANTIBODY/ANTIGEN SCREEN WITH REFLEX TO HIV I/II DIFFERENTIATION STAT 10/04/2022 7:31 AM EDT from Last 3 Months or Most Recently Relevant to Health Maintenance Results * HIV 1 & 2 Antibody/Antigen Screen (10/04/2022 7:31 AM EDT) HIV 1 & 2 Antibody/Anti gen Screen Nonreactive Nonreactive 10/04/2022 1:58 PM EDT [facility] Blood Venous blood specimen / Unknown Venipuncture / Unknown 10/04/2022 7:31 AM EDT 10/04/2022 7:40 AM EDT us Nam Marques MD LAB BLOOD ORDERABLES Final Resul t Performing Organization Address City/[facility]/ZIP Co de Phone Number [facility] [address] [place] [address] * Hepatitis C Antibody - ED (10/04/2022 7:31 AM EDT) Hepatitis C Antibody Negative Negative 10/04/2022 1:50 PM EDT [facility]ALTHCARE [facility] Blood Venous blood specimen / Unknown Venipuncture / Unknown 10/04/2022 7:31 AM EDT 10/04/2022 7:40 AM EDT us Nam Marques MD LAB BLOOD ORDERABLES Final Resul t Performing Organization Address City/[facility]/ZIP Co de Phone Number [facility] [address] [place] [address] from Last 3 Months or Most Recently Relevant to Health Maintenance Insurance ANTH Advance Directives * Full Code (Latest Code Status on File) Date Activated Date Inactivated Comments 10/04/2022 12:18 PM 10/04/2022 11:56 PM Question Answer Comments Patient has decision-making capacity? Yes Care Teams Sugar Cane Planter Machine Operator Relationship Specialty Start Date End Date Anatoliy Evans MD [address] [place] [address] [address] [place] [address] PCP - General 10/04/22
--- OUTSIDE RECORDS SUMMARY | 2025-05-20 16:11 | XMS_ITS | Clinical Summary ---
Author Organization [facility] Address [address] [place] [phone] Phone Care Team Providers Care Crown Pouncer Name Role Phone Anatoliy Evans MD Primary Care Provider [phone] Allergies No known active allergies Medications ibuprofen (ADVIL;MOTRIN) 800 mg Take 1 Tab by mouth every 8 hours as needed for 21 doses. 21 Tab 0 12/04/2012 Active Medical History Medical History Date Comments Asthma Social History Tobacco Use Types Packs/Day Years Used Date Smoking Tobacco: Every Day Cigarettes Smokeless Tobacco: Never Alcohol Use Standard Drinks/Week Comments Yes 0 (1 standard drink = 0.6 oz pur e alcohol) on weekends Sex and Gender Information Value Date Recorded Sex Assigned at Not on file Legal Sex Male 7:04 AM EDT Gender Identity Not on file Sexual Orientation Not on file Obstetrics History Last Filed Vital Signs Vital Sign Reading Time Taken Comments Blood Pressure 121/63 12/04/2012 1:21 PM EST Pulse 88 12/04/2012 1:21 PM EST Temperature 36.8 C (98.2 F) 12/04/2012 1:21 PM EST Respiratory Rate 18 12/04/2012 1:21 PM EST Oxygen Saturation 99% 12/04/2012 1:21 PM EST Inhaled Oxygen Concentration - - Weight 77.1 kg (170 lb) 12/04/2012 1:21 PM EST Height 177.8 cm (5' 10 ) 12/04/2012 1:21 PM EST Body Mass Index 24.39 12/04/2012 1:21 PM EST Plan of Treatment Health Maintenance Due Date Last Done Comments Annual Wellness Exam 1978 DTaP/TDaP/Td (1 - Tdap) 1994 Hepatitis B Vaccine (1 of 3 - 19+ 3-dose series) 1994 Cologuard 2020 Colon Cancer Screening 2020 Colonoscopy 2020 FIT 2020 Sigmoidoscopy 2020 Virtual Colonography 2020 COVID-19 Vaccine (1 - 2023-2 5 season) 2024 Influenza Vaccine (Season Ended) 2025 Meningococcal B Vaccine Aged Out No l onger eligible based on patient's age to complete this topic Pneumococcal Vaccine 0-49 Aged Out No longer eligible based on patient's age to complete this topic Insurance Care Teams Crown Pouncer Relationship Specialty Start Date End Date Anatoliy Evans MD [address] [place] [address] PCP - General Internal Medicine 10/01/12
--- OUTSIDE RECORDS SUMMARY | 2025-05-20 16:11 | XMS_ITS | Data Portability ---
Author Organization [facility] [place] Address [address] [place] [address] Care Team Providers Care Manager Renewable Energy Name Role Phone MARIE KUO Primary Care Provider [phone] Assessment No assessment recorded. Plan of Treatment [...] ast No observ ation record ed. [email or web address] [address] [place], [address], 07/27/2023 09:26:15 Result Notes None recorded. Procedures Surgical History Date Name Laterality Status Provider Name and Address Organization Details Recorded Time total replacement of hip completed Paige Cason [facility] [place] 07/28/2023 13:30:46 ureterorenoscopy with fragmentation and removal of calculus of kidney completed Paige Cason [facility] [place] 07/28/2023 13:31:11 arthroscopic repair of rotator cuff completed Paige Cason [facility] [place] 07/28/2023 13:31:25 Imaging Results None recorded. Procedure Notes None [...] Updated DateTime 07/28/2023 177.8 cm 25.8 kg/m2 34445.63 g 97 [degF] Paige Cason [facility] [place] 07/28/2023 13:24:32 Social History Question Answer Notes LastModified by Organizat ion Details LastModified Time Tobacco Smoking Status Current Every Day Smoker Paige agarwal [facility] [place] 07/28/2023 13:24:40 Do You Have An Advance Directive? No [email or web address] Information not available 07/28/2023 Are You Blind Or Do You Have Difficulty Seeing? No [email or web address] Information not available 07/28/2023 What Was The Date Of Your Most Recent Tobacco Screening? 07/27/2023 [email or web address] Information not available 07/28/2023 How Much Tobacco Do You Smoke? 1 PPD [email or web address] Information not available 07/28/2023 How Many Years Have You Smoked Tobacco? 30 [email or web address] Information not available 07/28/2023 Sex: Unknown Functional Status Question Answer Note LastModified by Organizat ion Details LastModified Time Do you use any illicit or recreational drugs? No [email or web address] Information not available 07/28/2023 What is your level of alcohol consumption? Occasional [email or web address] Information not available 07/28/2023 Do you or have you ever used smokeless tobacco? [id number] Information n ot available 07/28/2023 What is your exercise level? None [email or web address] Information not available 07/28/2023 Mental Status Question Answer Note LastModified by Organization D etails LastModified Time Do you feel stressed (tense, restless, nervous, or anxious, or unable to sleep at night)? [id number] [email or web address] Information not available 07/28/2023 Family History Nothing Reported. Medical History Condition Response Kidney or Bladder Problems Y Past Encounters Encounter ID Performer Location Encounter Start Date Encounter Closed Date Diagnosis/Indication Diagnosis SNOMED-CT Code Diagnosis ICD10 Code Diagnosis Note [id number] Rui Suero M.D [facility] [address] [place] [phone] 07/28/2023 13:06:36 07/28/2023 13:52:15 Ureteric stone 47747043 N20.1 pt will call to decide about [...] Ruelas Member ID Guarantor Name 07/28/2023 1 [place] [id number] Cordell Armando [id number] Cordell Armando Notes Date Note Type Note Provider Name and Address Organization Details Recorded Time 07/28/2023 text/html pt is here for right prox stone ( 6mm). he was seen 07-23-23 with severe right flank pain. He went to the emergency room at [facility].. He then returned to ER in te evening , he has a h/o stone in the past ( [facility])he had ESWL and then ureteroscopy to remove fragmentshe is currently using flomax and percocetno blood in the urine Rui Suero M.D [address] [place] [address], [address], [place], [address], [facility] [place] [facility] [place] 07/28/2023 20:23:55
--- OUTSIDE RECORDS SUMMARY | 2025-05-20 16:11 | XMS_ITS | Clinical Summary ---
Author Organization [facility] Address [address] [place] [address] Phone [email or web address] Care Team Providers Care Paralegal Supervisor Name Role Phone Anatoliy Evans Primary Care Provider Unavailabl e Allergies No known active allergies Medications HYDROcodone-ac etaminophen (NORCO) 7.5-325 MG per tablet Take 1 tablet by mouth every 6 (six) hours if needed for moderate pain. Active cyclobenzaprin e (FLEXERIL) 5 MG tablet 01/01/20 Active Acetaminophen (TYLENOL PO) Take by mouth. Active oxyCODONE-acet aminophen (PERCOCET) 5-325 MG per tablet 10/10/20 22 Active ketorolac (TORADOL) 10 MG tablet Take 1 tablet every 6 hours by oral route. Active aspirin 81 MG chewable tablet Chew 81 mg 1 (one) time each day. Active metoprolol tartrate (LOPRESSOR) 25 MG tablet Take 25 mg by mouth in the morning and 25 mg in the evening. Active Brilinta 90 MG tablet 90 mg. 02/17/20 25 Active atorvastatin (LIPITOR) 40 MG tablet Take 40 mg by mouth 1 (one) time each day. Active irbesartan (AVAPRO) 75 MG tablet 02/17/20 25 Active pantoprazole (PROTONIX) 40 MG EC tablet 02/17/20 25 Active hydrOXYzine (ATARAX) 25 MG tablet 03/23/20 25 Active Nicotine Step 1 21 MG/24HR 03/23/20 25 Active Airsupra 90-80 MCG/ACT aerosol INHALE 2 PUFFS BY MOUTH 4 TIMES A DAY NEEDED FOR SHORTNESS OF BREATH OR wheezing 05/08/20 25 Active PARoxetine (PAXIL) 10 MG tablet Take 10 mg by mouth 1 (one) time each day. 04/14/20 25 Active meloxicam (MOBIC) 15 MG tablet 01/04/20 22 025 Discontinued pregabalin (LYRICA) 75 MG capsule 09/09/20 22 025 Discontinued traMADol (ULTRAM) 50 MG tablet 09/12/20 025 Discontinued Active Problems No known active problems Resolved Problems Problem Noted Date Diagnosed Date Resolved Date Health examination of defined subpopulation 01/02/2012 09/21/2018 Overview (04/28/2018): Encounters Date Type Department Care Team Description 05/16/2025 Telephone [facility] [address] [place] [address] Edwige Cutler, CHINEDU 05/16/2025 [address] [place] [address] Edwige Cutler RN 05/15/2025 3:30 PM EDT Office Visit [address] [place] [address] Dana Downing PA Encounter for fitness for duty examination (Primary Dx); Stress reaction 05/15/2025 Telephone [facility] [address] [place] [address] Edwige Cutlre, CHINEDU 05/15/2025 [address] [place] [address] Maryan Chance, HARMONY 05/08/2025 Documentation [facility] Safety [employer] [address] [place] [address] Ashish Hawkins 05/04/[address] [place] [address] Edwige Cutler, CHINEDU 04/13/2025 9:00 AM EDT Clinical Support [address] [place] [address] Norma Vargas MD Palpitations (Primary Dx); History of ST elevation myocardial infarction (STEMI); Hx-sudden cardiac arrest 04/13/[address] [place] [address] Edwige Cutler, CHINEDU 03/24/2025 7:30 AM EDT Office Visit [address] [place] [address] Opal Jones, JAYE Encounter for other administrative examinations (Primary Dx); History of ST elevation myocardial infarction (STEMI); Hx-sudden cardiac arrest 03/16/2025 [address] [place] [address] Edwige Cutler, CHINEDU 03/16/[address] [place] [address] Edwige Cutler, CHINEDU 02/22/2025 5:30 AM EDT Office Visit [address] [place] [address] Opal Jones, JAYE Encounter for other administrative examinations (Primary Dx); History of ST elevation myocardial infarction (STEMI); Hx-sudden cardiac arrest 02/21/[address] [place] [address] Edwige Cutler, CHINEDU 02/21/[address] [place] [address] Maryan Chance, EMT from Last 3 Months Immunizations Immunization Administration Dates Next Due Tdap (ADACEL BOOSTRIX) (CVX-115) 07/23/2012 Social History Tobacco Use Types Packs/Day Years [...] Pulse 70 05/15/2025 3:44 PM EDT Temperature 36.6 C (97.9 F) 09/02/2024 12:59 PM EDT Respiratory Rate 14 05/15/2025 3:44 PM EDT Oxygen Saturation 100% 04/13/2025 9:29 AM EDT Inhaled Oxygen Concentration - - Weight 87 kg (191 lb 12.8 oz) 09/02/2024 12:59 P M EDT Height 176 cm (5' 9.29 ) 09/02/2024 12:59 PM EDT Body Mass Index 28.09 09/02/2024 12:59 PM EDT Plan of Treatment Upcoming Encounters Date Type Department Care Team (Late st Contact Info) Description 05/22/2025 10:30 AM EDT Occ Treatment [facility] [address] [place] [address] Seven Curtis, OT [address] [place] [address] Health Maintenance Due Date Last Done Comments Dental Cleaning/Exam 1975 HIV Screening 1975 Hepatitis C Screening 1975 Asthma Spirometry 1980 Annual Preventive Exam 1993 Hep B Infection Screening - Triple Screen 1993 Hepatitis B Immunization (1 of 3 - 19+ 3-dose series) 1994 Pneumococcal: Ped (0 to 5 Yr s) and At-Risk Member (6 to 64 Yrs) (1 of 2 - PCV) 1994 Colorectal Cancer Screening 2005 Tetanus Diphtheria and Pertu ssis Immunization (2 - Td or Tdap) 07/23/2022 07/23/2012 Covid-19 Immunization (1 - 2 -25 season) 2024 Influenza Immunization (Seas on Ended) 2025 HIB Immunization Aged Out No longer e ligible based on patient's age to complete this topic HPV Immunization Aged Out No longer e ligible based on patient's age to complete this topic Hepatitis A Immunization Aged Out No longer eligible based on patient's age to complete this topic Polio Immunization Aged Out No longer eligible based on patient's age to complete this topic Procedures Procedure Name Priority Date/Time Associated Diagnosis Comments ECG 12-LEAD Routine 04/13/2025 11:16 AM EDT Palpitations POCT GLUCOSE Routine 04/13/2025 8:50 AM EDT Palpitations ECG 12-LEAD Routine 02/22/2025 7:[address] elevation myocardial infarction (STEMI) Hx-sudden cardiac arrest from Last 3 Months Results * ECG 12 lead (04/13/2025 11:16 AM EDT) Only the most recent of2 resultswithin the time period is included. Norma Gillespie MD - 04/13/2025 11:16 AM [...] OF CARE TEST ORDERA BLES Final Result from Last 3 Months Insurance OPT OUT NO COPAY NB Care Teams Paralegal Supervisor Relationship Specialty [place] [address] PCP - General Case Checker 11/11/19
--- OUTSIDE RECORDS SUMMARY | 2025-05-20 16:11 | XMS_ITS | Encounter Summary ---
Author Organization [facility] Address [address] [place] [address] Phone [email or web address] Care Team Providers Care Grounds Manager Name Role Phone Anatoliy Evans Primary Care Provider Unavailabl e Encounter Details Date Type Department Care Team ([facility] Contact Info) Description 04/13/[address] [place] [address] Edwige Cutler, RN [address] [place] [address] Social History Tobacco Use Types [...] Telephone Encounter - Edwige Cutler RN - 04/13/2025 4:02 PM EDT Call from head orthopedic team physician after his PCP appt. He has recommendations for antidepressant medication , holter monitor and to be off work for several weeks. He will go to bankruptcy law specialist thru his PCP office and he will also go up to see Leann at 601 next week until adjusted with new bankruptcy law specialist. He will contact [facility]. 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 He thanked our office for help today. Edwige Cutler RN documented in this encounter Plan of Treatment Upcoming Encounters Date Type Department Care Team (Late st Contact Info) Description 05/22/2025 10:30 AM EDT Occ Treatment [facility] [address] [place] [address] Seven Curtis OT [address] [place] [address] documented as of this encounter Visit Diagnoses Not on filedocumented in this encounter Care Teams Grounds Manager Relationship Specialty [place] [address] PCP - General Speech And Language Specialist 11/11/19 documented as of this encounter
--- NOTE | 2025-05-20 16:17 | ECG_ITS ---
APPROVED REPORT Exam: Resting ECG HR:56 bpm ECG Measurements Heart Rate 56 AXES DC 165 P 73 QRSd 99 QRS 75 QT 405 T 70 QTc 398 Conclusion SINUS BRADYCARDIA BORDERLINE ECG No STEMI Electronically signed by : GUERO BARNES, 05/20/2025 22:45:37
--- NOTE | 2025-05-20 16:19 | ED_ITS ---
<Statement entered by Shanti Skinner DO - 05/20/25 21:58> I was consulted by the MYKE, and we discussed the complexity of the problems being addressed. I approved the treatment and management plan for this patient's care in the emergency department, thus performing a substantive portion of the medical decision making. Shanti Skinner DO Discharge Plan Disposition Patient Disposition: Home, Self-Care Prescriptions Prescriptions: No Action paroxetine HCl 20 mg tablet 10 mg PO DAILY hydroxyzine HCl 25 mg tablet 25 mg PO HS Qty: 60 0RF Rx Instructions: one or two tablets QHS nicotine 21-14-7 mg/24 hr patch, TD daily, sequential 1 patch transdermal Q24H Qty: 56 0RF Rx Instructions: Start with the 21 mg Nicotine Patch for 14 Days 14 mg patch for 14 days 7 mg patch for 7 days Brilinta 90 mg tablet 90 mg PO BID Qty: 60 11RF atorvastatin 40 mg tablet 40 mg PO HS Qty: 30 5RF irbesartan 75 mg tablet 75 mg PO DAILY Qty: 30 5RF metoprolol succinate 25 mg tablet extended release 24 hr 25 mg PO DAILY Qty: 30 5RF pantoprazole 40 mg tablet,delayed release (DR/EC) 40 mg PO HS Qty: 30 5RF cyclobenzaprine 5 mg tablet 5 mg PO TID PRN (Reason: muscle spasm) Qty: 30 0RF hydrocodone-acetaminophen 5-325 mg tablet 1 tab PO Q4-6H PRN (Reason: pain) Qty: 10 0RF methylprednisolone 4 mg tablets,dose pack See Rx Instructions PO PER PKG DIR Qty: 21 0RF Rx Instructions: PO PER PKG DIR amoxicillin 500 mg capsule 1,000 mg PO BID Qty: 40 0RF albuterol-budesonide 90-80 mcg/actuation HFA aerosol inhaler 2 inh inhalation QID PRN (Reason: Shortness of air or wheezing) Qty: 10.7 2RF aspirin 81 mg tablet,delayed release (DR/EC) 81 mg PO DAILY 30 Days Qty: 30 2RF Referrals Follow up/Referrals: Anatoliy Evans MD [Primary Care Provider, Medical] - See instructions Activity Restrictions/Add. Instructions Additional Instructions/Restrictions: Today you were evaluated in the emergency department, both cardiac enzymes were negative. Please follow-up with your PCP. Please return to the ED for any worsening of your condition. Clinical Impressions Clinical Impression: Chest pain Qualifiers: Chest pain type: unspecified Qualified Code(s): R07.9 - Chest pain, unspecified Instructions Patient Instructions: DI for Chest Pain Print Language Print Language: Mauritanian Discharge ED Provider: Shanti Skinner General Adult HPI <Dee Mckeon APRN - Last Filed: 05/20/25 20:24> General Chief complaint: Recheck/Abnormal Lab/Rx Stated complaint: b/p Time Seen by Provider: 05/20/25 16:04 Mode of Arrival: Ambulatory Source of Information: Patient Description of Symptoms (Recalled from ER Triage Doc. by RN): PT presents tot he ED for evaluation of BP. PT checked BP at home with a cuff monitor reported it was 140/96. PT has a hx of HTN. Denies headache/floaters. PT stated he had a heart attack 4 months and had 2 stents placed. PT said he just had a moment of a weird feeling . Denies chest pain or SOA. PT has hx of anxiety. PT stated he was working hard today with moving lumbar PT took a Hydrocodone 5 earlier today. History of Present Illness HPI narrative: patient is a 49-year-old male PMHx MA, cardiac arrest, CAD, HTN, HLD, anxiety, history of panic attacks who presents to the ED for initial concern of blood pressure. Patient states he woke up from his nap at home, felt something that may or may not have been there, per patient's statement, over his chest that may have went down his arms. Patient admits that he has severe anxiety about having a heart attack after his cardiac arrest a few months ago. Related Data Home Medications ?Medication ?Instructions ?Recorded ?Confirmed paroxetine HCl 20 mg tablet 10 mg PO DAILY 05/01/25 Previous Rx's ?Medication ?Instructions ?Recorded aspirin 81 mg tablet,delayed 81 mg PO DAILY 30 days #3 0 tabs 03/15/25 release hydrocodone 5 mg-acetaminophen 325 1 tab PO Q4-6H PRN pain #10 tabs 03/22/25 mg tablet atorvastatin 40 mg tablet 40 mg PO HS #30 tabs 5 hydroxyzine HCl 25 mg tablet 25 mg PO HS #60 tabs 03/01 03/24 irbesartan 75 mg tablet 75 mg PO DAILY #30 tabs 03/01 03/24 metoprolol succinate 25 mg 25 mg PO DAILY #30 tabs tablet,extended release 24 hr nicotine 1 patch transdermal Q24H #56 03/23/25 21mg/24hr-14mg/24hr-7mg/24hr daily patches transderm patches,sequentl pantoprazole 40 mg tablet,delayed 40 mg PO HS #30 tabs 03/23/25 release ticagrelor 90 mg tablet (Brilinta) 90 mg PO BID #60 ta bs 03/23/25 cyclobenzaprine 5 mg tablet 5 mg PO TID PRN muscle spa sm #30 03/27/25 tabs albuterol 90 mcg-budesonide 80 2 inh inhalation QID LA N Shortness 05/08/25 mcg/actuation HFA aerosol inhaler of air or wheezing # 10.7 grams amoxicillin 500 mg capsule 1,000 mg (2 x 500 mg) PO BI D #40 05/08/25 caps methylprednisolone 4 mg tablets in See Rx Instructions PO PER PKG DIR 05/08/25 a dose pack #21 tabs Allergies Allergy/AdvReac Type Severity Reaction Status Date / Time No Known Allergies Allergy Verified 05/15/25 13:29 [facility] <Dee Mckeon APRN - Last Filed: 05/20/25 20:24> [facility] Disclaimer: The information contained in this section may have been updated after the patient was seen, as this information can be updated by other users. Medical History Calculus, ureteral Renal colic on left side Kidney stones Surgical History S/P hip replacement right Family History Mother Hypertension Kidney stone Father Hypertension Other No significant family history Social History Smoking Status: Current every day smoker tobacco type: cigarettes packs per day: 0 years smoked: 30 alcohol intake: current alcohol intake frequency: a few times a month substance use type: denies use current occupational status: employed and other Travel in the last 8 weeks?: None household members: other housing: other caffeine: No Have you lived/traveled outside US in past 30 days?: No Contact w/someone who lives/traveled outside US past 30 days?: No Exposure to someone with infectious disease in past 14 days?: No Do you have a fever (greater than 100.4 F or 38 C)?: No Have you tested positive for COVID-19?: No Exposed to someone with COVID-19 in past 14 days?: No Do you have a sore throat?: No Do you have a cough?: No Do you have any weakness?: No Do you have any diarrhea?: No Are you experiencing any unusual bleeding?: No Do you have any muscle aches/pain?: No Do you have any abdominal pain?: No Are you experiencing loss of taste or smell?: No Other Medical History Have you received the Flu Vaccine for this season: No Have you received the Pneumonia Vaccine: No <Dee Mckeon APRN - Last Filed: 05/20/25 20:24> ROS Obtained: Yes Systems reviewed as appropriate & no additional complaints except as documented Physical Exam <Dee Mckeon APRN - Last Filed: 05/20/25 20:24> General General appearance: alert and in no apparent distress Head Head exam: atraumatic and normocephalic Eye Eye exam: Present normal appearance and PERRL ENT ENT exam: Present normal exam Neck Neck exam: Present normal inspection Chest Chest inspection: Present normal inspection, symmetric chest wall rise and tenderness (right sided chest wall tenderness ) Respiratory Respiratory exam: Present normal lung sounds bilaterally Cardiovascular Cardiovascular exam: Present regular rate Abdominal Exam Abdominal exam: Present soft and normal bowel sounds; Absent tenderness Extremities Exam Extremities exam: Present normal inspection and full ROM Back Exam Back exam: Present normal inspection and full ROM Neurological Exam Neurological exam: Present alert and oriented X3 Psychiatric Psychiatric exam: Present normal affect and normal mood Skin Skin exam: Present warm and dry Medical Decision Making <Dee Mckeon APRN - Last Filed: 05/20/25 20:24> Medical Records Screening: Per USPSTF and CDC recommendations, given the prevalence of disease in our region, it is our hospital?s policy to screen for HIV and viral Hepatitis for all patients aged 18 and over and those with ongoing risk factors. [place] Inquiry Pt receiving controlled substance: No Vital Signs: 05/20/25 16:08 05/20/25 16:44 05/20/25 17:00 Temperature 97.8 F Temperature Source Oral Pulse Rate 60 Pulse Rate [Left] 56 L 65 Respiratory Rate 18 18 Blood Pressure 134/92 H Blood Pressure [Left Arm] 128/79 146/72 H Blood Pressure Mean 112 Blood Pressure Mean [Left Arm] 95 96 02 Sat by Pulse Oximetry 98 94 L 99 Oxygen Delivery Method Room Air Room Air 05/20/25 17:30 05/20/25 17:37 05/20/25 18:00 Temperature Temperature Source Pulse Rate 57 L 65 Pulse Rate [Left] 56 L Respiratory Rate 18 13 15 Blood Pressure 150/93 H 142/92 H Blood Pressure [Left Arm] 150/93 H Blood Pressure Mean 106 115 Blood Pressure Mean [Left Arm] 112 02 Sat by Pulse Oximetry 99 98 97 Oxygen Delivery Method Room Air 05/20/25 19:07 Temperature Temperature Source Pulse Rate Pulse Rate [Left] 58 L Respiratory Rate 11 L Blood Pressure Blood Pressure [Left Arm] 113/64 Blood Pressure Mean Blood Pressure Mean [Left Arm] 80 02 Sat by Pulse Oximetry 97 Oxygen Delivery Method Room Air Lab Data Lab Results 05/20/25 16:28: Sodium 140, Potassium 4.2, Chloride 107, Carbon Dioxide 28, Anion Gap 9.2, BUN 19, Creatinine 0.90, Estimated Creat Clear 111, Estimated GFR 90, Est GFR ( Amer) 109, Glucose 100, Calcium 9.5, Total Bilirubin 0.7, AST 29, ALT 36, Alkaline Phosphatase 88, Troponin I < 0.01, Total Protein 7.4, Albumin 4.3, Globulin 3.1, Albumin/Globulin Ratio 1.4 05/20/25 17:10: WBC 10.4, RBC 4.32 L, Hgb 13.9 L, Hct 41.2 L, MCV 95.4 H, MCH 32.2 H, MCHC 33.7, RDW 12.4, Plt Count 196, MPV 10.4, Neut % (Auto) 54.7, Lymph % (Auto) 32.4, Camas % (Auto) 8.3, Eos % (Auto) 3.6, Baso % (Auto) 0.8, Neut # (Auto) 5.7, Lymph # (Auto) 3.4, Camas # (Auto) 0.9, Eos # (Auto) 0.4, Baso # (Auto) 0.1 05/20/25 19:30: Troponin I < 0.01 05/20/25 17:10 05/20/25 16:28 Orders (Tests/Meds): ORDERS Category Date Time Status CXR --portable [XR chest portable] Stat Exams 05/20/25 16:24 Taken CBC w/Auto Diff [Complete Blood Count Auto Diff] Stat Lab 05/20/25 17:10 Completed CMP [Comprehensive Metabolic Panel] Stat Lab 05/20/25 16:28 Completed Trop I [Troponin I] Stat Lab 05/20/25 16:28 Completed Troponin I Q3H Lab 05/20/25 19:30 Completed Troponin I Q3H Lab 05/20/25 22:30 Ordered EKG Request [ECG Request] Stat Y 05/20/25 16:24 Ordered Medical Decision Narrative: In summary, patient is a 49-year-old male PMHx MA, cardiac arrest, CAD, HTN, HLD, anxiety, history of panic attacks who presents to the ED for initial concern of blood pressure. Patient states he woke up from his nap at home, felt something that may or may not have been there, per patient's statement, over his chest that may have went down his arms. Patient admits that he has severe anxiety about having a heart attack after his cardiac arrest a few months ago. He states he is currently in therapy for this but continues to have anxiety about chest pain. He states that after this episode that lasted maybe 10 minutes, he checked his blood pressure and his systolic was 140. Patient states he became very worried and came to the ED immediately. Upon arrival, he is not having any pain, upon initial evaluation he is having right sided chest wall tenderness, he states he was doing a lot of heavy lifting today. Denies fever, chills, back pain, shortness of breath, headache, visual disturbances, current chest pain, nausea, vomiting. Discussed with patient that we will do EKG, labs and chest x-ray for further evaluation. He is agreeable this plan of care at this time. Hematologic labs reviewed. CBC unremarkable for any leukocytosis, stable H&H. CMP overall unremarkable. First troponin < 0.01. Second trop < 0.01. Informal read of the chest x-ray unremarkable for any acute findings. Upon reassessment, patient states he has not had any chest pain while in the ED. He is hemodynamically stable. Discussed that he will need to follow-up with his PCP, discussed that he needs to return to the ED for any worsening of his condition. He verbalized understanding. <Shanti Skinner, DO - Last Filed: 05/20/25 16:45> Vital Signs: 05/20/25 16:08 05/20/25 16:44 05/20/25 17:00 Temperature 97.8 F Temperature Source Oral Pulse Rate 60 Pulse Rate [Left] 56 L 65 Respiratory Rate 18 18 Blood Pressure 134/92 H Blood Pressure [Left Arm] 128/79 146/72 H Blood Pressure Mean 112 Blood Pressure Mean [Left Arm] 95 96 02 Sat by Pulse Oximetry 98 94 L 99 Oxygen Delivery Method Room Air Room Air 05/20/25 17:30 05/20/25 17:37 05/20/25 18:00 Temperature Temperature Source Pulse Rate 57 L 65 Pulse Rate [Left] 56 L Respiratory Rate 18 13 15 Blood Pressure 150/93 H 142/92 H Blood Pressure [Left Arm] 150/93 H Blood Pressure Mean 106 115 Blood Pressure Mean [Left Arm] 112 02 Sat by Pulse Oximetry 99 98 97 Oxygen Delivery Method Room Air 05/20/25 19:07 Temperature Temperature Source Pulse Rate Pulse Rate [Left] 58 L Respiratory Rate 11 L Blood Pressure Blood Pressure [Left Arm] 113/64 Blood Pressure Mean Blood Pressure Mean [Left Arm] 80 02 Sat by Pulse Oximetry 97 Oxygen Delivery Method Room Air Lab Data Lab Results 05/20/25 16:28: Sodium 140, Potassium 4.2, Chloride 107, Carbon Dioxide 28, Anion Gap 9.2, BUN 19, Creatinine 0.90, Estimated Creat Clear 111, Estimated GFR 90, Est GFR ( Amer) 109, Glucose 100, Calcium 9.5, Total Bilirubin 0.7, AST 29, ALT 36, Alkaline Phosphatase 88, Troponin I < 0.01, Total Protein 7.4, Albumin 4.3, Globulin 3.1, Albumin/Globulin Ratio 1.4 05/20/25 17:10: WBC 10.4, RBC 4.32 L, Hgb 13.9 L, Hct 41.2 L, MCV 95.4 H, MCH 32.2 H, MCHC 33.7, RDW 12.4, Plt Count 196, MPV 10.4, Neut % (Auto) 54.7, Lymph % (Auto) 32.4, Camas % (Auto) 8.3, Eos % (Auto) 3.6, Baso % (Auto) 0.8, Neut # (Auto) 5.7, Lymph # (Auto) 3.4, Camas # (Auto) 0.9, Eos # (Auto) 0.4, Baso # (Auto) 0.1 05/20/25 19:30: Troponin I < 0.01 Orders (Tests/Meds): ORDERS Category Date Time Status CXR --portable [XR chest portable] Stat Exams 05/20/25 16:24 Taken CBC w/Auto Diff [Complete Blood Count Auto Diff] Stat Lab 05/20/25 17:10 Completed CMP [Comprehensive Metabolic Panel] Stat Lab 05/20/25 16:28 Completed Trop I [Troponin I] Stat Lab 05/20/25 16:28 Completed Troponin I Q3H Lab 05/20/25 19:30 Completed Troponin I Q3H Lab 05/20/25 22:30 Ordered EKG Request [ECG Request] Stat Y 05/20/25 16:24 Ordered ECG Data Tracing #1: I reviewed this ECG and interpreted as documented below: Sinus bradycardia with a ventricular to [address] changes concerning for STEMI. Normal intervals. No significant interval change from prior EKG. ECG initial impression date: 05/20/25 ECG initial impression time: 16:20 Critical Care <Dee Mckeon APRN - Last Filed: 05/20/25 20:24> Critical Care Time Critical Care Time: No
--- NOTE | 2025-05-20 16:24 | XR_ITS ---
PROCEDURE INFORMATION: Exam: XR Chest Exam date and time: 05/20/2025 4:53 PM Age: 49 years old Clinical indication: Pain; Chest pressure; Additional info: Elevated BP TECHNIQUE: Imaging protocol: Radiologic exam of the chest. Views: 1 view. COMPARISON: CR XR CHEST PORTABLE 02/14/2025 12:52 AM FINDINGS: Lungs: Unremarkable. No consolidation. Pleural spaces: Unremarkable. No pleural effusion. No pneumothorax. Heart/Mediastinum: Unremarkable. No cardiomegaly. Bones/joints: Unremarkable. IMPRESSION: No acute findings.
--- NOTE | 2025-05-20 16:28 | PC.NURSE ---
pt brought back to Rm 7 for cardiac monitoring.
[2025-05-20 17:19] LABS: Alanine Aminotransferase 36 U/L (12-78); Albumin Level 4.3 g/dl (3.5-5.0); Albumin/Globulin Ratio 1.4 (1.1-1.8); Alkaline Phosphatase 88 U/L (38-126); Anion Gap 9.2 mEq/L (5-15); Aspartate Amino Transferase 29 U/L (17-59); Bilirubin,Total 0.7 mg/dl (0.2-1.3); Blood Urea Nitrogen 19 mg/dl (9-20); Calcium 9.5 mg/dl (8.4-10.2); Carbon Dioxide 28 mmol/L (22.0-30.0); Chloride 107 mmol/L (98-107); Creatinine Clearance Estimated 111 mL/min (50-200); Estimated Glomerular Filt Rate 90 ml/min (>60); GFR (African American) 109 ML/MIN (>60); Globulin 3.1 g/dL (1.3-3.2); Glucose 100 mg/dl (74-100); Potassium 4.2 mmoL/L (3.5-5.1); Sodium 140 mmol/L (136-145); Total Protein,Serum 7.4 g/dl (6.3-8.2)
[2025-05-20 17:28] LABS: Basophils # 0.1 K/mm3 (0-0.2); Basophils % 0.8 % (0.1-2.0); Eosinophils # 0.4 Kmm3 (0.0-0.4); Eosinophils % 3.6 % (0.1-12.0); Hematocrit 41.2 % (42.0-52.0); Hemoglobin 13.9 g/dL (14.1-18.0); Immature Granulocytes # 0.02 10^3uL; Immature Granulocytes % 0.2 %; Lymphocytes # 3.4 K/mm3 (0.7-4.5); Lymphocytes % 32.4 % (10-50); Mean Corpuscular HGB Conc 33.7 g/dL (31.8-35.4); Mean Corpuscular Hemoglobin 32.2 pg (27.0-31.2); Mean Corpuscular Volume 95.4 fl (80-94); Mean Platelet Volume 10.4 fl (7.4-10.4); Monocytes # 0.9 K/mm3 (0.1-1.0); Monocytes % 8.3 % (1.7-9.3); Neutrophils # 5.7 K/mm3 (1.8-7.8); Neutrophils % 54.7 % (37.0-80.0); Nucleated Red Blood Cells # 0 10^3/uL; Nucleated Red Blood Cells % 0 %; Platelet Count 196 K/mm3 (142-424); Red Blood Count 4.32 M/mm3 (4.60-6.20); Red Cell Distribution Width 12.4 % (11.5-17.5); Red Cell Distribution Width-SD 43.7 fL; White Blood Count 10.4 K/mm3 (4.8-10.8)
[2025-05-20 17:31] LABS: Troponin I < 0.01 ng/ml (0.00-0.034)
[2025-05-20 20:20] LABS: Troponin I < 0.01 ng/ml (0.00-0.034)
== END 2025-05-20 20:27 | disposition home or self-care (01) ==
PROVIDERS: Nurse Practitioner; Emergency Provider Emergency Medicine; PCP Internal Medicine
DX: R07.9 Chest pain, unspecified (principal); R00.1 Bradycardia, unspecified; I10 Essential (primary) hypertension; Z86.79 Personal history of other diseases of the circulatory system
CPT/HCPCS: 71045; 80053; 84484; 85025; 93005; 99284

== ENCOUNTER 2025-06-24 07:49 | Outpatient (CLI) | payer BC, SELFPAY ==
--- OUTSIDE RECORDS SUMMARY | 2025-05-15 15:30 | XMS_ITS | Encounter Summary ---
Author Organization [facility] Address [address] [place] [address] Phone [email or web address] Care Team Providers Care Lease Operator Name Role Phone Anatoliy Evans Primary Care Provider Unavailabl e Reason for Referral * Consultation (Routine) - Closed Specialty Diagnoses / Procedures Referred By Micheline arevalo Referred To Contact Physical Therapy Diagnoses Encounter for fitness for duty examination Kristen Downing PA [address] [place] [address] Phone: tel: fax: [facility] PT [facility] [address] [place] [address] Phone: tel: fax: Referral ID Status Reason Start Date Expiration Date V isits Requested Visits Authorized [id number] Closed Consult & Treat 05/16/2025 11/12/2025 1 1 Reason for Visit * Reason Comments Return to Work / Duty Encounter Details Date Type Department Care Team (Late st Contact Info) Description 05/15/2025 3:30 PM EDT Office Visit [facility] [address] [place] [address] Kristen Downing PA [address] [place] [address] Encounter for fitness for duty [...] (*See referral above.) 5. Call S @ [phone] for any questions/concerns/appointments. 6. Projected return to full rotation: 05/16 documented in this encounter Progress Notes * LATASHA Alex - 05/15/2025 3:30 PM EDT Subjective Cordell Armando is a 49 y.o. male who presents for personal return to work. WD ID: [id number] Employer: [employer]: [employer] / (non production)-- moving to [place] per update from [facility] today. 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 Previous/current indefinite restrictions? Yes- Revised August - see chart. LDW: 04/13/25 PCP : Dr. Evans, [facility] RELEASE: Regular duty 05/16/25 PMLOA. Currently on [...] He will be placed in [place] per [facility]. She states he can start his GPC [...] while off this last time. F/u with [employer] Consultant is May. TM is moving from his off line [employer] position in [place] [employer] to [employer] with his Indefinite [...] (*See referral above.) 5. Call S @ [phone] for any questions/concerns/appointments. 6. Projected return to full rotation: 05/16 documented in this encounter Miscellaneous Notes * Addendum Note - LATASHA Alex - 05/15/2025 3:30 PM EDTAddended by: KRISTEN DOWNING on: 05/16/2025 04:19 PM Modules accepted: Orders documented in this encounter Plan of Treatment Scheduled Referrals Name Type Priority Associated Diagnoses Orde r Schedule Ambulatory referral to Work Conditioning/Hardeni ng Outpatient Referral Routine Encounter for fitness for duty examination Expected: 05/30/2025 (Approximate), Expires: 11/15/2025 documented as of this encounter Visit Diagnoses Diagnosis Encounter for fitness for duty examination- Primary Stress reaction Unspecified acute reaction to stress documented in this encounter Care Teams Lease Operator Relationship Specialty [place] [address] PCP - General Software Development Leader 11/11/19 documented as of this encounter
--- OUTSIDE RECORDS SUMMARY | 2025-06-24 07:52 | XMS_ITS | Encounter Summary ---
Author Organization [facility] Address [address] [place] [id number] Phone CareEverywhereSuppor Care Team Providers Care Glueline Worker Name Role Phone Anatoliy Evans Primary Care Provider Unavailabl e Encounter Details Date Type Department Care Team ([facility] Contact Info) Description 05/16/[address] [place] [address] Edwige Cutler, RN [address] [place] [address] Social History Tobacco Use Types [...] documented in this encounter Plan of Treatment Not on file documented as of this encounter Visit Diagnoses Not on filedocumented in this encounter Care Teams Glueline Worker Relationship Specialty [place] [address] PCP - General Finish Mender 11/11/19 documented as of this encounter
--- OUTSIDE RECORDS SUMMARY | 2025-06-24 07:52 | XMS_ITS | Clinical Summary ---
Author Organization [facility] Address [address] [place] [address] Phone [email or web address] [email or web address] Care Team Providers Care Principal Bioinformatics Specialist Name Role Phone Anatoliy Evans Primary Care Provider Unavailabl e Allergies No known active allergies Medications HYDROcodone-mónica taminophen (NORCO) 7.5-325 MG per tablet Take 1 tablet by mouth every 6 (six) hours if needed for moderate pain. Active cyclobenzaprine (FLEXERIL) 5 MG tablet 2 Active Acetaminophen (TYLENOL PO) Take by mouth. Ac tive oxyCODONE-aceta minophen (PERCOCET) 5-325 MG per tablet 2 Active ketorolac (TORADOL) 10 MG tablet Take 1 tablet every 6 hours by oral route. Active aspirin 81 MG chewable tablet Chew 81 mg 1 (one) time each day. Active metoprolol tartrate (LOPRESSOR) 25 MG tablet Take 25 mg by mouth in the morning and 25 mg in the evening. Active Brilinta 90 MG tablet 90 mg. 5 Active atorvastatin (LIPITOR) 40 MG tablet Take 40 mg by mouth 1 (one) time each day. Active irbesartan (AVAPRO) 75 MG tablet 5 Active pantoprazole (PROTONIX) 40 MG EC tablet 5 Active hydrOXYzine (ATARAX) 25 MG tablet 5 Active Nicotine Step 1 21 MG/24HR 5 Active Airsupra 90-80 MCG/ACT aerosol INHALE 2 PUFFS BY MOUTH 4 TIMES A DAY NEEDED FOR SHORTNESS OF BREATH OR wheezing 5 Active PARoxetine (PAXIL) 10 MG tablet Take 10 mg by mouth 1 (one) time each day. 5 Active Active Problems No known active problems Resolved Problems Problem Noted Date Diagnosed Date Resolved Date Health examination of defined subpopulation 01/02/2012 09/21/2018 Overview (04/28/2018): Encounters Date Type Department Care Team Description 05/16/[address] [place] [address] Edwige Cutler, CHINEDU 05/16/[address] [place] [address] Edwige Cutler, CHINEDU 05/15/2025 3:30 PM EDT Office Visit [address] [place] [address] Dana Downing PA Encounter for fitness for duty examination (Primary Dx); Stress reaction 05/15/[address] [place] [address] Edwige Cutler, CHINEDU 05/15/[address] [place] [address] Maryan Chance, HARMONY 05/08/2025 Documentation [facility] [address] [place] [address] Ashish Hawkins 05/04/[address] [place] [address] Edwige Cutler, CHINEDU 04/13/2025 9:00 AM EDT Clinical Support [address] [place] [address] Norma Vargas MD Palpitations (Primary Dx); History of ST elevation myocardial infarction (STEMI); Hx-sudden cardiac arrest 04/13/2025 Telephone [facility] [address] [place] [address] Edwige Cutler RN from Last 3 Months Immunizations Immunization Administration [...] 09/02/2024 12:59 PM EDT Plan of Treatment Health Maintenance [...] 07/23/2022 07/23/2012 Covid-19 Immunization (1 - 2 - season) 2024 Influenza Immunization (#1) 2025 HIB Immunization Aged Out No longer [...] GLUCOSE Routine 04/13/2025 8:50 AM EDT Palpitations from Last 3 Months Results * ECG [...] OPT OUT NO COPAY NB Care Teams Principal Bioinformatics Specialist Relationship Specialty [place] [address] PCP - General Correctional Officer Lieutenant 11/11/19
--- OUTSIDE RECORDS SUMMARY | 2025-06-24 07:52 | XMS_ITS | Encounter Summary ---
Author Organization [facility] Address [address] [place] [address] Phone [email or web address] [email or web address] Care Team Providers Care Director Custom Name Role Phone Anatoliy Evans Primary Care Provider Unavailabl e Encounter Details Date Type Department Care Team ([facility] Contact Info) Description 05/15/[address] [place] [address] Edwige Cutler, RN [address] [place] [address] Social History Tobacco Use Types [...] of absence for stress /anxiety/palpitations. 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 Shift: 1 Full-time GL and #: [...] He will be placed in [employer] per [facility]. She states he can start his GPC [...] scheduled for WC/WH? No Request sent to confirm [facility]? N/A-- email to be sent by [facility], she states he will return to [employer]. Edwige Cutler RN documented in this encounter Plan of Treatment Not on file documented as of this encounter Visit Diagnoses Not on filedocumented in this encounter Care Teams Director Custom Relationship Specialty [place] [address] PCP - General Stippler 11/11/19 documented as of this encounter
--- OUTSIDE RECORDS SUMMARY | 2025-06-24 07:52 | XMS_ITS | Encounter Summary ---
Author Organization [facility] Address [address] [place] [address] Phone [email or web address] [email or web address] Care Team Providers Care Teacher Vocal Name Role Phone Anatoliy Evans Primary Care Provider Unavailabl e Reason for Visit * Reason Onset Date Comments Education Provided 05/08/2025 Line call Encounter Details Date Type Department Care Team (Late st Contact Info) Description 05/08/2025 Documentation [facility] Safety Ergo [address] [place] [address] Ashish Hawkins [address] [place] [address] Social History Tobacco Use Types [...] on filedocumented in this encounter Care Teams Teacher Vocal Relationship Specialty [place] [address] PCP - General Mingler Operator 11/11/19 documented as of this encounter
--- OUTSIDE RECORDS SUMMARY | 2025-06-24 07:52 | XMS_ITS | Data Portability ---
Author Organization [facility] [place] Address [address] [place] [address] Care Team Providers Care Assistant Athletic Trainer Name Role Phone ANATOLIY KUO Primary Care Provider MAIKEL GRIMES Train Driver Assessment Encounter Date Assessment Date Assessment LastModified [...] when he completes his work conditioning. CC: [employer] Seven Sotomayor MD [id number] Not available 12/05/2016 12:57:17 06/24/2021 06/24/2021 [...] By Organization Details Last Modified Time 12/04/2016 [id number] He has made a lot of progress. He has minimal low trap findings. He will be able to start and back into work conditioning and work hardening. [id number] Not available 12/05/2016 12:57:18 02/02/2019 [id number] work status report* slaha Not available 02/09/2019 07:58:41 05/24/2021 [id number] I recommend he continue the DIP gutter splint and maintain motion at his MP and PIP joints. Continue fpch-bye-[id number] medicines as needed for pain. He is given work restrictions which are scanned into the chart. 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 [facility] [address], [place], [address], 03/03/2019 16:13:05 06/24/20 21 06/24/2021 XR, finge r(s) Lauri solorio [facility] [address] [place] [address] Rebecca arevalo Name: SUBHA arevalo : 1974 [...] Woodrow lundberg MD on 2:41 PM DBA_BACKFIL_ [facility] [place] [address] , [place], [address], 06/05/2022 03:50:21 Result Notes Documentation Provider Name and Address Organization Details Recorded Time Xr, Finger(s) : [facility] [place] [address] [place] [address] Patient Name: SUBHA ARMANDO Patient : 1975 [...] finger. Interpreted By: Ton Bowman MD I DUMONT MD [address] [place] [address], [phone], [facility] 06/24/2021 16:12:28 Problems Name Problem SNOMED Code Status Onset Date Resolution Date Notes Provider Name and Address Organization Details Recorded Time Neck pain 08207368 Active 2015 From Automated Load;Provi olga lidia: Sathya Ng;Stat us: Active Not Available Count includes the [facility] 6 09:31:19 William murrell [id number] Active 2015 From Automated Load;Provi olga lidia: Charleen Cervantes;Status : Active Not Available Count includes the [facility] 7 06:08:12 Problem Notes None recorded. Procedures Surgical History Date Name Laterality Status Provider Name and Address Organization Details Recorded Time 6 PT Therapeutic Exercise completed PAMELA JAMES II, PT, DPT [address] [place], [address], [facility] 11/25/2016 13:40:12 6 PT Therapeutic Exercise completed PAMELA JAMES II, PT, DPT [address] [place], [address], [facility] 11/13/2016 13:40:59 Orthopedic Surgery completed [facility] 12/04/2016 14:16:09 Abdominal Surgery completed [facility] 12/04/2016 14:16:23 Imaging Results None recorded. Procedure [...] Details Last Updated DateTime 12/04/2016 177.8 cm 20629.66 g 25.1 kg/m2 Candihaley Murcia [facility] 12/04/2016 14:14:41 Date Recorded Body height Body mass index (BMI) Body weight Systolic And Diastolic Provider Name and Address Organization Details Last Updated DateTime 02/02/2019 177.8 cm 26.5 kg/m2 40967.59 g 156/88 mm[Hg] Nghia Du [facility] 02/02/2019 15:56:07 Date Recorded Body height Body mass index (BMI) Body weight Provider Name and Address Organization Details Last Updated DateTime 05/24/2021 177.8 cm 26.5 kg/m2 82168.59 g Nona [facility] 05/24/2021 11:25:24 Date Recorded Body height Body mass index (BMI) Body weight Provider Name and Address Organization Details Last Updated DateTime 06/24/2021 177.8 cm 26.5 kg/m2 72799.59 g [facility] 06/24/2021 14:34:13 Social History Question Answer Notes LastModified by Organizat ion Details LastModified Time Tobacco Smoking Status Current Every Day Smoker Candihaley Murcia [facility] 12/04/2016 14:16:01 What Was The Date Of [...] SNOMED-CT Code Diagnosis ICD10 Code Diagnosis Note [id number] PAMELA JAMES II, PT, DPT PHYSICAL THERAPY / HAND THERAPY [facility] [address] [place] [address] 11/12/2016 14:10:56 11/13/2016 16:47:25 Muscular incoordination 35797370 R27.8 Muscle weakness 16716145 M62.81 Pain of ould region 16588459 M25.512 [id number] PAMELA JAMES II PT, DPT PHYSICAL THERAPY / HAND THERAPY [facility] [address] [place] [address] 11/25/2016 13:33:37 11/26/2016 08:25:23 Muscular incoordination 46155555 R27.8 Muscle weakness 71482053 M62.81 Pain of oulder region 82389297 M25.661 [id number] W MACHO CERVANTES MD ORTHOPEDI CS [facility] [address] [place] [address] 12/04/2016 14:06:22 12/04/2016 16:10:13 Scapulalgia 34587643 M89.8X1 [id number] BAO WEBSTER MD [facility]THOPEDI [facility] [address] [place] [address] 02/02/2019 15:13:53 02/02/2019 16:21:09 Cervical radiculopathy 81847283 M54.12 Mr Armando has findings of acute exacerbati on of chronic cervical radiculopa thy. I recommend continued activity/w ork restrictio ns and MRI of the shoulder to evaluate for HNP. [id number] JOSE ANTONIO GRIMALDO PA-C [facility] [address] [place] [address] 05/24/2021 11:21:14 05/24/2021 11:55:19 Closed fracture of distal phalanx of finger 91626701 S62.664A Subungual hematoma 20920 9004 L60.8 right ring finger [id number] LAXMI DUMONT MD ORTHOPEDI CS [facility] [address] [place] [address] 06/24/2021 14:14:28 06/24/2021 14:40:29 Closed fracture of distal phalanx of finger 48281886 S62.664A Tuft fracture, 6 weeks out. Subungual hematoma 01657 9004 L60.8 right ring finger Health Concerns Section Related Observation LastModified by Organization Detai ls LastModified Time None Recorded Concern Status LastModified by Organization Details LastModified Time None Recorded Advance Directives Directive None Recorded Payers Insurance Date Sequence Insurance Name Policy Number Policy Ruelas Covered Member ID Ruelas Member ID Guarantor Name 10/24/2020 [facility] Jose Antonio Armando 01/28/2019 [facility] Jose Antonio Armando 05/24/2021 [facility] Jose Antonio Armando Notes Date Note [...] going well. PAMELA JAMES II, PT, DPT [facility] [place], [address], [facility] 02/03/2017 12:37:49 12/04/2016 text/html He has been doing very well in therapy. He has had improved strength and range of motion with minimal symptoms. Sanjay CERVANTES MD [address] [place], [address], [facility] 12/05/2016 13:49:49 02/02/2019 text/html Mr Armando [...] treatment from Dr Cervantes. BAO WEBSTER MD [address] [place] [address], [phone], [facility] 02/06/2019 16:40:09 05/24/2021 text/html A 5-year-old white male who is here for evaluation of the right ring finger injury that happened on 05/13/2021. He was at work at [employer] and was using a wrench. 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 Yes Is this injury associated with a Workers Compensation claim? Yes Patient arrived in: finger splint Facilities Manager Strength: right: left: Patient arrives after incident at work. He states that he was using a wrench and went to push the wrench down and missed the handle. Then slammed right RF down onto a piece of metal. He was seen by the doctors at [employer] for evaluation. JOSE ANTONIO GRIMALDO PA-C [facility] [place], [address], [facility] 05/24/2021 15:03:21 06/24/2021 text/html Primary Care Physician: Anatoliy Kuo Hand dominance: Right Location: Right RF Pain level: Date of injury:05/13/21 Duration: 6 week(s) Recent Surgery: No Procedure: Date of surgery: Duration: In office procedure? No Previous upper extremity surgery? 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 Yes Is this injury associated with a Workers Compensation claim? Yes Patient arrived in: Facilities Manager Strength: right: left: Pt arrives for recheck of right RF. He states that he is doing alright, minimal pain. He states of more pain when he is in the splint. He states that his ROM is getting better. LAXMI DUMONT MD [address] [place] [address], [phone], [facility] 06/24/2021 14:40:24
--- OUTSIDE RECORDS SUMMARY | 2025-06-24 07:52 | XMS_ITS | Clinical Summary ---
Author Organization [facility] Address [address] [place] [address] Phone Care Team Providers Care Fountain Server Name Role Phone Anatoliy Evans MD Primary Care Provider [phone] Allergies No known active allergies Medications ibuprofen [...] - 2023-2 5 season) 2024 Influenza Vaccine (#1) 2025 Meningococcal B Vaccine Aged Out No l onger eligible based on patient's age to complete this topic Pneumococcal Vaccine 0-49 Aged Out No longer eligible based on patient's age to complete this topic Insurance Care Teams Fountain Server Relationship Specialty Start Date End Date Anatoliy Evans MD [address] [place] [address] PCP - General Internal Medicine 10/01/12
--- OUTSIDE RECORDS SUMMARY | 2025-06-24 07:52 | XMS_ITS | Encounter Summary ---
Author Organization [facility] Address [address] [place] [address] Phone [email or web address] [email or web address] Care Team Providers Care Baggage Agent Supervisor Name Role Phone Anatoliy Evans Primary Care Provider Unavailabl e Encounter Details Date Type Department Care Team ([facility] Contact Info) Description 05/04/[address] [place] [address] Edwige Cutler, RN [address] [place] [address] Social History Tobacco Use Types [...] 2:37 PM EDT Update : WD ID: [id number] Employer: [employer]: [employer] / (non production) Shift: 1 [...] on filedocumented in this encounter Care Teams Baggage Agent Supervisor Relationship Specialty [place] [address] PCP - General Ward Maid 11/11/19 documented as of this encounter
--- OUTSIDE RECORDS SUMMARY | 2025-06-24 07:52 | XMS_ITS | Encounter Summary ---
Author Organization [facility] Address [address] [place] [address] Phone [email or web address] [email or web address] Care Team Providers Care Grain Cleaner Name Role Phone Anatoliy Evans Primary Care Provider Unavailabl e Encounter Details Date Type Department Care Team ([facility] Contact Info) Description 05/15/[address] [address] Maryan Chance, EMT Social History Tobacco [...] as of this encounter Plan of Treatment Not on file documented as of this encounter Visit Diagnoses Not on filedocumented in this encounter Care Teams Grain Cleaner Relationship Specialty Start Date End Date Anatoliy Evans [place] [address] PCP - General Lockstitch Shoulder Joiner 12/13/19 documented as of this encounter
--- OUTSIDE RECORDS SUMMARY | 2025-06-24 07:52 | XMS_ITS | Encounter Summary ---
Author Organization [facility] Address [address] [place] [address] Phone [email or web address] [email or web address] Care Team Providers Care Territory Sales Executive Name Role Phone Anatoliy Evans Primary Care Provider Unavailabl e Encounter Details Date Type Department Care Team ([facility] Contact Info) Description 05/16/[address] [place] [address] Edwige Cutler, RN [address] [place] [address] Social History Tobacco Use Types [...] Encounter - Edwige Cutler RN - 05/16/2025 10:28 AM EDT Email from Work Hardening Dept. Edwige, This patient is scheduled for a [facility] evaluation on 05/22/25, at 10:30 A.M. García Dowling, PT MPT Physical Therapist [employer] [address] [place] [address] and technical training coordinator , Farhad Zambrano have both been notified of start date for [facility]. Recommend start next week per DR. Vargas. Request [facility] referral from provider today. Edwige Cutler RN documented in this encounter Plan of Treatment Not on file documented as of this encounter Visit Diagnoses Not on filedocumented in this encounter Care Teams Territory Sales Executive Relationship Specialty [place] [address] PCP - General Watch Crystal Edge Grinder 11/11/19 documented as of this encounter
--- OUTSIDE RECORDS SUMMARY | 2025-06-24 07:52 | XMS_ITS | Data Portability ---
Author Organization [facility] [place], [facility] [place] Address [address] [place] [address] Care Team Providers Care Document Imaging Specialist Name Role Phone JOSE KUOT Primary Care Provider Assessment No assessment recorded. [...] ast No observ ation record ed. [email or web address] [address] [place], [address], 07/27/2023 09:26:15 Result Notes None recorded. Procedures Surgical History Date Name Laterality Status Provider Name and Address Organization Details Recorded Time total replacement of hip completed Paige Cason [facility] [place] 07/28/2023 13:30:46 ureterorenoscopy with fragmentation and removal of calculus of kidney completed Paige Cason [facility] [place] 07/28/2023 13:31:11 arthroscopic repair of rotator cuff completed Paige Cason [facility] [place] 07/28/2023 13:31:25 Imaging Results None recorded. Procedure [...] Updated DateTime 07/28/2023 177.8 cm 25.8 kg/m2 83424.63 g 97 [degF] Paige Cason [facility] [place] 07/28/2023 13:24:32 Social History Question Answer Notes LastModified by Organizat ion Details LastModified Time Tobacco Smoking Status Current Every Day Smoker [facility] [place] 07/28/2023 13:24:40 Do You Have An Advance Directive? No [email or web address] Information not available 07/28/2023 Are You Blind Or Do You Have Difficulty Seeing? No [email or web address] Information not available 07/28/2023 What Was The Date Of Your Most Recent Tobacco Screening? 07/27/2023 Information not available 07/28/2023 How Much Tobacco Do You Smoke? 1 PPD [email or web address] Information not available 07/28/2023 How Many Years Have You Smoked Tobacco? 30 [email or web address] Information not available 07/28/2023 Sex: Unknown Functional Status Question Answer Note LastModified by Organizat ion Details LastModified Time Do you use any illicit or recreational drugs? No [email or web address] Information not available 07/28/2023 What is your level of alcohol consumption? Occasional Information not available 07/28/2023 Do you or have you ever used smokeless tobacco? [id number] [email or web address] Information n ot available 07/28/2023 What is your exercise level? None [email or web address] Information not available 07/28/2023 Mental Status Question Answer Note LastModified by Organization D etails LastModified Time Do you feel stressed (tense, restless, nervous, or anxious, or unable to sleep at night)? [id number] [email or web address] Information not available 07/28/2023 Family History Nothing Reported. Medical History Condition Response Kidney or Bladder Problems Y Past Encounters Encounter ID Performer Location Encounter Start Date Encounter Closed Date Diagnosis/Indication Diagnosis SNOMED-CT Code Diagnosis ICD10 Code Diagnosis Note [id number] Rui Suero M.D [facility] [address] [place] [address] 07/28/2023 13:06:36 07/28/2023 13:52:15 Ureteric stone [id number] N20.1 pt will call to decide about [...] ID Guarantor Name 07/28/2023 1 [employer] [id number] Cordell Armando [id number] 78 Cordell Armando Notes Date Note Type Note Provider Name and Address Organization Details Recorded Time 07/28/2023 text/html pt is here for right prox stone ( 6mm). he was seen 07-23-23 with severe right flank pain. He went to the emergency room at [facility].. He then returned to ER in te evening , he has a h/o stone in the past ( [place])he had ESWL 11-2022 and then ureteroscopy to remove fragmentshe is currently using flomax and percocetno blood in the urine Rui Suero M.D [address] [place] [address], [address], [place], [address], [facility] [place] 07/28/2023 20:23:55
--- OUTSIDE RECORDS SUMMARY | 2025-06-24 07:52 | XMS_ITS | Clinical Summary ---
Author Organization [facility] Address [address] [place], [place] [address] Care Team Providers Care Lump Machine Operator Name Role Phone Anatoliy Evans MD Primary Care Provider [phone] Allergies No known active allergies Active Problems Problem Noted Date Diagnosed Date Ureteral stone with hydronephrosis 10/04/2022 Overview (10/04/2022): Added automatically from request for surgery [id number] Social History Tobacco Use Types Packs/Day Years [...] (2 - Td or Tdap) 07/23/2022 07/23/2012 [id number] Vaccine (1 - 20 24-25 season) 2024 [facility]-Influenza Vaccine (#1) 2025 [facility]-Zoster Vaccines (1 of 2) 2025 [...] this topic Medical Devices Implanted Type Area Cell Assembly Pinner Device Identifier Shelf Expiration Date Model / Serial / Lot Stent Ureteral Double Pigtail Pos 6fr 24cm - S. - [id number] Implanted:Qty: 1 on 10/04/2022 by Ramses Mendenhall MD at [facility] Stent Left: [id number] 07/24/2024 [id number] / . / [id number] Procedures Procedure Name Priority Date/Time Associated Diagnosis [...] 7:31 AM EDT 10/04/2022 7:40 AM EDT Nam Marques MD LAB BLOOD ORDERABLES Final Resul t Performing Organization Address City/[facility] [address]/ZIP Co de Phone Number [facility] [address] [place] [address] * Hepatitis C Antibody - ED (10/04/2022 7:31 AM EDT) Hepatitis C Antibody Negative Negative 10/04/2022 1:50 PM EDT HEALTHCARE LAB Blood Venous blood specimen / Unknown Venipuncture / Unknown 10/04/2022 7:31 AM EDT 10/04/2022 7:40 AM EDT Nam Marques MD LAB BLOOD ORDERABLES Final Resul t Performing Organization Address City/[facility] [address]/ZIP Co de Phone Number [facility] [address] [place] [address] from Last 3 Months or Most Recently Relevant to Health Maintenance Insurance Advance Directives * Full Code (Latest Code Status on File) Date Activated Date Inactivated Comments 10/04/2022 12:18 PM 10/04/2022 11:56 PM Question Answer Comments Patient has decision-making capacity? Yes Care Teams Lump Machine Operator Relationship Specialty Start Date End Date Anatoliy Evans MD [address] [place] [address] [address] [place] [address] PCP - General 10/04/22
[2025-06-24 09:16] LABS: Hematocrit 43.8 % (42.0-52.0); Hemoglobin 14.9 g/dL (14.1-18.0); Immature Granulocytes % 0.2 %; Mean Corpuscular HGB Conc 34.0 g/dL (31.8-35.4); Mean Corpuscular Hemoglobin 32.3 pg (27.0-31.2); Mean Corpuscular Volume 94.8 fl (80-94); Nucleated Red Blood Cells % 0 %; Platelet Count 211 K/mm3 (142-424); Red Blood Count 4.62 M/mm3 (4.60-6.20); Red Cell Distribution Width-SD 43.4 fL; White Blood Count 9.6 K/mm3 (4.8-10.8)
[2025-06-24 09:55] LABS: Alanine Aminotransferase 31 U/L (12-78); Albumin Level 3.9 g/dl (3.5-5.0); Alkaline Phosphatase 100 U/L (38-126); Anion Gap 11.4 mEq/L (5-15); Aspartate Amino Transferase 26 U/L (17-59); Bilirubin,Direct 0.1 mg/dl (0.0-0.4); Bilirubin,Indirect 0.4 mg/dL (0.0-0.9); Bilirubin,Total 0.5 mg/dl (0.2-1.3); Bilirubin,Unconjugated 0.4 mg/dL (0.0-1.1); Blood Urea Nitrogen 18 mg/dl (9-20); Calcium 9.8 mg/dl (8.4-10.2); Carbon Dioxide 25 mmol/L (22.0-30.0); Chloride 109 mmol/L (98-107); Cholesterol 106 mg/dl (140-200); Creatinine,Serum 0.80 mg/dl (0.66-1.25); Estimated Glomerular Filt Rate 103 ml/min (>60); GFR (African American) 124 ML/MIN (>60); Glucose 95 mg/dl (74-100); HDL Cholesterol 29 mg/dl (40-60); Magnesium 2.2 mg/dl (1.6-2.3); Potassium 4.4 mmoL/L (3.5-5.1); Sodium 141 mmol/L (136-145); Total Protein,Serum 6.7 g/dl (6.3-8.2); Triglycerides 125 mg/dl (30-150)
[2025-06-24 10:11] LABS: Free T4 (Free Thyroxine) 1.26 ng/dl (0.78-2.19)
[2025-06-24 10:25] LABS: Thyroid Stimulating Hormone 0.56 uIU/mL (0.465-4.68)
== END 2025-06-24 23:59 | disposition home or self-care (01) ==
LOC: LAB 07:50
PROVIDERS: PCP Internal Medicine; Visit Provider Physician Assistant
DX: I25.110 Atherosclerotic heart disease of native coronary artery with unstable angina pectoris (principal); I10 Essential (primary) hypertension
CPT/HCPCS: 36415; 80048; 80061; 80076; 83735; 84439; 84443; 85025

== ENCOUNTER 2025-10-24 14:34 | Outpatient (CLI) | payer BC, SELFPAY ==
--- NOTE | 2025-10-24 14:36 | XR_ITS ---
FINAL REPORT CLINICAL HISTORY: anterior Chest wall pain. no known trauma COMPARISON: 05/20/2025 FINDINGS: PA and lateral views of the chest were obtained. The cardiac and mediastinal silhouettes are within normal limits. There is evidence of granulomatous disease. The lungs are otherwise clear. There is no pleural effusion or pneumothorax. No acute osseous abnormality is identified. IMPRESSION: No radiographic evidence of acute cardiac or pulmonary disease. Reviewed, Interpreted and Dictated by Kierra Callejas MD Transcribed by Juhi Brooke Authenticated and [facility]
--- OUTSIDE RECORDS SUMMARY | 2025-10-24 14:41 | XMS_ITS | Clinical Summary ---
Author Organization [facility] Address [address] [place], [place] [address] Care Team Providers Care Cold Press Operator Name Role Phone Anatoliy Evans MD Primary Care Provider [phone] Allergies No known active allergies Active Problems Problem Noted Date Diagnosed Date Ureteral stone with hydronephrosis 10/04/2022 Overview (10/04/2022): Added automatically from request for surgery [id number] Social History Tobacco Use Types Packs/Day Years [...] [facility]-Depression Screening 1975 [facility]-/Child/Adol SDOH Screenings 1975 [facility]- SDOH Screenings 1993 [facility]-Adult SDOH Screenings 1993 [facility]-Hepatitis B Vaccines (1 of 3 - 19+ 3-dose series) 1994 CT Colonography 2020 Colonoscopy 2020 FIT-DNA 2020 FIT 2020 FOBT 2020 Sigmoidoscopy 2020 [facility]-Colorectal Cancer Screening 2020 [facility]-DTaP,Tdap,and Td Vaccine s (2 - Td or Tdap) 07/23/2022 07/23/2012 [id number] Vaccine (1 - 20 25-26 season) 2025 [facility]-Influenza Vaccine (#1) 2025 [facility]-Pneumococcal Vaccine: 50 + Years (1 of 1 - PCV) 2025 [facility]-Zoster Vaccines (1 of 2) 2025 HPV Vaccines Aged Out No longer eligi [...] this topic Medical Devices Implanted Type Area Dev Manager Device Identifier Shelf Expiration Date Model / Serial / Lot Stent Ureteral Double Pigtail Pos 6fr 24cm - S. - [id number] Implanted:Qty: 1 on 10/04/2022 by Ramses Mendenhall MD at [facility] Stent Left: [id number] 07/24/2024 [id number] / . / [id number] Insurance [employer] Advance Directives * Full Code (Latest Code Status on File) Date Activated Date Inactivated Comments 10/04/2022 12:18 PM 10/04/2022 11:56 PM Question Answer Comments Patient has decision-making capacity? Yes Care Teams Cold Press Operator Relationship Specialty Start Date End Date Anatoliy Evans MD [address] [place] [address] [address] [place] [address] PCP - General 10/04/22
--- OUTSIDE RECORDS SUMMARY | 2025-10-24 14:41 | XMS_ITS | Clinical Summary ---
Author Organization [facility] , [facility] Address [address] [place] [address] Phone Care Team Providers Care Aircraft Maintenance Technician Name Role Phone Romulo GOLDEN, Tyler Loya Unavailable [phone] AYAAN GOLDEN, MARIE Mario Primary Care Provider [phone] Reason for Visit and Chief Complaint [facility] Problems Includes: Problems addressed during this encounter and other active Problems All Visits Onset Date Resolved Date Provider Condition S tatus Lower Back Pain 08/12/2023 SUBHA SMITH PA-C Active Last Documented On 3 3:56PM ; [facility] Soft Tissue Pain Hand Unilaterally Left 07/21/2023 Tyler Sebastian MD Active Last Documented On 3 4:02PM ; [facility] Joint Pain Hip Right 04/29/2022 Brent kelley MD Active Last Documented On 2 8:32AM ; [facility] Joint Pain Shoulder Bilateral 01/04/2022 Ian Jasso PA-C Active Last Documented On 2 10:10AM ; [facility] Right Upper Back Pain Along Inner Edge of Shoulder Blade 08/11/2016 Seven Sotomayor MD Active Last Documented On 6 3:26PM ; [facility] Neck Pain 10/31/2015 Cricket Weber MD Active Last Documented On 5 1:03PM ; [facility] Plan of Treatment No Plan of Treatment [...] On 4 3:07PM By Gail Piper ; [facility] Ondansetron 4 MG Oral Tablet Disintegrating 07/16/2024 Provider: Diagnosis: Last Documented On 4 3:07PM By Gail Piper ; [facility] Ketorolac Tromethamine 10 MG Oral Tablet 07/16/2024 Provider: Diagnosis: Last Documented On 4 3:07PM By Gail Piper ; [facility] HYDROcodone-Acetaminophen 5-325 MG Oral Tablet 023 Provider: MARIE KUO MD Diagnosis: Last Documented On 3 3:58PM By Stella Carrillo ; [facility] Cyclobenzaprine HCl 5 MG Oral Tablet 03/05/2022 Prov ider: MARIE KUO MD Diagnosis: Last Documented On 2 1:56PM By Sherice Gordon ; [facility] Tylenol 325 MG Oral Capsule 01/04/2022 Provider: Diagnosis: Last Documented On 2 10:24AM By Erin Duarte ; [facility] Medications Administered Includes: Administered Medications [...] Location Date Check-In Time Check-Out Time Diagnosis [facility] Tyler Sebastian MD Surgery 4 8:29AM 11:59PM Insurance Includes: Active Insurance Policies Plan Name Member ID Group # Subscriber Relationship Effect amina Dates 1 - [facility] [place] [id number] Subha Armando Self 11/30/2021 - Unknown Clinical Notes Includes: Clinical Notes from this encounter No Clinical Notes Recorded
--- OUTSIDE RECORDS SUMMARY | 2025-10-24 14:41 | XMS_ITS ---
Author Organization [facility] , [facility] Address [address] [place] [address] Phone Care Team Providers Care Hide Salter Name Role Phone Romulo GOLDEN, Tyler Loya Unavailable [phone] AYAAN GOLDEN, MARIE E Primary Care Provider [phone] Reason for Referral Date Encounter Description Provider [...] Active Last Documented On 3 3:56PM ; [facility] Soft Tissue Pain Hand Unilaterally Left 07/21/2023 Tyler Sebastian MD Active Last Documented On 3 4:02PM ; [facility] Joint Pain Hip Right 04/29/2022 Brent kelley MD Active Last Documented On 2 8:32AM ; [facility] Joint Pain Shoulder Bilateral 01/04/2022 Rociogin reena Wei Jasso PA-C Active Last Documented On 2 10:10AM ; [facility] Right Upper Back Pain Along Inner Edge of Shoulder Blade 08/11/2016 Seven Sotomayor MD Active Last Documented On 6 3:26PM ; [facility] Neck Pain 10/31/2015 Cricket Weber MD Active Last Documented On 5 1:03PM ; [facility] Plan of Treatment Pending Tests Order Diagnosis Results Due Ordering Elo rovider Radiology - MRI MRI Shoulder 01/28/22 Mary aJsso PA-C Last Documented On 2 9:17AM ; [facility] Radiology - MRI MRI Lumbar Spine Low back pain, unspecified 08/26/23 SUBHA SMITH PA-C Last Documented On 3 3:56PM ; [facility] Referrals To Diagnosis Consult with Orthopedic Note: 2nd opinion with dr. Marielle dillard scapular sprain Last Documented On 6 11:54AM ; [facility] Consult with Orthopedic SBUHA SMITH PA-C Note: IHR per KD for L side radiculapothy07/21/23 @ 3:00pm Last Documented On 3 10:57AM ; [facility] Consult with Orthopedic Doc Nicole MD Note: IHR per KD for L middl e trigger finger07/23/23 @ 2:45pm Last Documented On 3 10:57AM ; [facility] Consult with Orthopedic Overweig ht Note: IHR per KD for L side radiculopathy9.13.23 @ 1:30p Last Documented On 3 12:23PM ; [facility] Consult with Chief Console Operator Note: per JF ref to Rhuemato logy [...] ssation Last Documented On 6 2:22PM ; [facility] Health seminar on smoking ce ssation Last Documented On 6 2:43PM ; [facility] Health seminar on smoking ce ssation Last Documented On 5 5:08PM ; [facility] Health seminar on smoking ce ssation Last Documented On 5 1:22PM ; [facility] Medical Equipment - Implanted Devices Includes: Current and historical Devices No Medical Equipment Recorded Medications Includes: Current and historical Medications Current Medications (continue as prescribed) oxyCODONE HCl 5 MG Oral Tablet 07/18/2024 Provider: MARIE KUO MD Diagnosis: Last Documented On 4 3:07PM By Gail Piper ; [facility] Ondansetron 4 MG Oral Tablet Disintegrating 07/16/2024 Provider: Diagnosis: Last Documented On 4 3:07PM By Gail Piper ; [facility] Ketorolac Tromethamine 10 MG Oral Tablet 07/16/2024 Provider: Diagnosis: Last Documented On 4 3:07PM By Gail Piper ; [facility] HYDROcodone-Acetaminophen 5-325 MG Oral Tablet 023 Provider: MARIE KUO MD Diagnosis: Last Documented On 3 3:58PM By Stella Carrillo ; [facility] Cyclobenzaprine HCl 5 MG Oral Tablet 03/05/2022 Prov ider: MARIE KUO MD Diagnosis: Last Documented On 2 1:56PM By Sherice Gordon ; [facility] Tylenol 325 MG Oral Capsule 01/04/2022 Provider: Diagnosis: Last Documented On 2 10:24AM By Erin Duarte ; [facility] Past Medications on file Naproxen 500 MG Oral Tablet 03/11/2024 - 04/10/2024 Pr ovider: Tyler Sebastian MD Diagnosis: take one tablet twice a day prn following surger y Last Documented On 4 8:18AM By Dr. Sebastian ; [facility] Vitamin C 1000 MG Oral Tablet 03/11/2024 - 05/10/2024 Provider: Tyler mclaughlin MD Diagnosis: once a day take 1 tablet once daily post surgery Last Documented On 4 8:18AM By Dr. Sebastian ; [facility] Medrol 4 MG Oral Tablet Therapy Pack 01/21/2024 - 01/28/2024 Provider: Tyler mclaughlin MD Diagnosis: use as directed Last Documented On 4 2:41PM By Dr. Sebastian ; [facility] Gabapentin 300 MG Oral Capsule 06/29/2023 - 07/29/2023 Provider: Brent Nelson MD Diagnosis: 1 capsule, twice a day as needed Last Documented On 3 3:10PM By Brent Rivera ; [facility] oxyCODONE HCl 5 MG Oral Tablet 09/12/2022 - 06/29/2023 Provider: Brent Nelson MD Diagnosis: Take 1 tablet by mouth every 4-6hrs for moderate pain Last Documented On 3 2:28PM By Sonia Garcia ; [facility] traMADol HCl 50 MG Oral Tablet 09/12/2022 - 06/29/2023 Provider: Bernt Nelson MD Diagnosis: 2 tablets every 6 hours for break through pain Last Documented On 3 2:28PM By Sonia Garcia ; [facility] Pregabalin 75 MG Oral Capsule 09/09/2022 - 06/29/2023 Provider: Brent Nelson MD Diagnosis: 1-2 tabs daily as needed Last Documented On 3 2:28PM By Sonia Garcia ; [facility] oxyCODONE HCl 5 MG Oral Tablet 08/11/2022 - 06/29/2023 Provider: Brent Nelson MD Diagnosis: Take 1 tablet by mouth every 4-6hrs for moderate pain Last Documented On 3 2:28PM By Sonia Garcia ; [facility] traMADol HCl 50 MG Oral Tablet 08/11/2022 - 06/29/2023 Provider: Brent Nelson MD Diagnosis: 2 tablets every 6 hours for break through pain Last Documented On 3 2:28PM By Sonia Garcia ; [facility] oxyCODONE HCl 5 MG Oral Tablet 07/14/2022 - 06/29/2023 Provider: Brent Nelson MD Diagnosis: Take 1 tablet by mouth every 4-6hrs for moderate pain Last Documented On 3 2:28PM By Sonia Garcia ; [facility] traMADol HCl 50 MG Oral Tablet 07/14/2022 - 06/29/2023 Provider: Brent Nelson MD Diagnosis: 2 tablets every 6 hours for break through pain Last Documented On 3 2:28PM By Sonia Garcia ; [facility] Gabapentin 300 MG Oral Capsule 07/08/2022 - 06/29/2023 Provider: Brent Nelson MD Diagnosis: Take 1 capsule by mouth at bedtime Last Documented On 3 2:28PM By Sonia Garcia ; [facility] Amoxicillin 500 MG Oral Tablet 07/04/2022 - 06/29/2023 Provider: rBent Nelson MD Diagnosis: Take 4 Capsules by mouth 1 hour before procedure Last Documented On 3 2:28PM By Sonia Garcia ; [facility] Aspirin EC 81 MG Oral Tablet Delayed Release 06/20/2022 - 06/29/2023 Provider: Brent Rivera MD Diagnosis: Take 1 tablet by mouth every 12 hours for 42 days post op Last Documented On 3 2:28PM By Sonia Garcia ; [facility] Acetaminophen 500 MG Oral Tablet 06/20/2022 - 06/29/2023 Provider: Brent Nelson MD Diagnosis: Take 2 tablets by mouth every 8 hours Last Documented On 3 2:28PM By Sonia Garcia ; [facility] oxyCODONE HCl 5 MG Oral Tablet 06/20/2022 - 06/29/2023 Provider: Brent Nelson MD Diagnosis: Take 1 tablet by mouth every 4-6hrs for moderate pain Last Documented On 3 2:27PM By Sonia Garcia ; [facility] Vitamin D3 50 MCG (1999) Oral Tablet 06/20/2022 - 06/29/2023 Provider: Brent Nelson MD Diagnosis: Take 1 tablet by mouth daily Last Documented On 3 2:27PM By Sonia Garcia ; [facility] Ondansetron HCl 4 MG Oral Tablet 06/20/2022 - 06/29/2023 Provider: Brent Nelson MD Diagnosis: 1 po q 6h prn nausea Last Documented On 3 2:27PM By Sonia Garcia ; [facility] Colace 100 MG Oral Capsule 06/20/2022 - 06/29/2023 Pro vider: Brent Rivera MD Diagnosis: Take 1-2 capsules daily as needed Last Documented On 3 2:28PM By Sonia Garcia ; [facility] traMADol HCl 50 MG Oral Tablet 06/20/2022 - 06/29/2023 Provider: Brent Nelson MD Diagnosis: 2 tablets every 6 hours for break through pain Last Documented On 3 2:27PM By Sonia Garica ; [facility] Meloxicam 15 MG Oral Tablet 06/20/2022 - 06/29/2023 Pr ovider: Brent Rivera MD Diagnosis: once a day Last Documented On 3 2:27PM By Sonia Garcia ; [facility] Cefadroxil 500 MG Oral Capsule 06/20/2022 - 06/29/2023 Provider: Brent Nelson MD Diagnosis: Take 1 capsule by mouth every 12 hours for 7 day s Last Documented On 3 2:27PM By Sonia Garcia ; [facility] Vitamin D3 50 MCG (1999) Oral Tablet 06/09/2022 - 06/29/2023 Provider: Anjelica PAGAN Diagnosis: once a day Last Documented On 3 2:27PM By Sonia Garcia ; [facility] Meloxicam 7.5 MG Oral Tablet 04/29/2022 - 06/05/2022 Provider: Brent Nelson MD Diagnosis: once a day Take 1 tablet by mouth daily Last Documented On 2 10:05AM By Farheen Belle ; [facility] HYDROcodone-Acetaminophen 5- 325 MG Oral Tablet 03/05/2022 - 06/29/2023 Provider: MARIE KUO MD Diagnosis: Last Documented On 3 2:37PM By Sonia Garcia ; [facility] Meloxicam 15 MG Oral Tablet 01/04/2022 - 03/14/2022 Pr ovider: Mary Jasso PA-C Diagnosis: Last Documented On 2 1:56PM By Sherice Grodon ; [facility] Mobic 15 MG Oral Tablet 01/04/2022 - 06/29/2023 Provid er: Mary Jasso PA-C Diagnosis: once a day Last Documented On 3 2:27PM By Sonia Garcia ; [facility] Ibuprofen 200 MG Oral Capsule 01/04/2022 - 022 Provider: Diagnosis: Last Documented On 2 10:20AM By Erika Urena ; [facility] Cyclobenzaprine HCl 5 MG Ora l Tablet 01/01/2022 - 03/14/2022 Provider: MARIE King Diagnosis: Last Documented On 2 1:56PM By Sherice Gordon ; [facility] methylPREDNISolone 4 MG Oral Tablet Therapy Pack 12/10/2021 - 03/14/2022 Provider: Norma Vargas MD Diagnosis: Last Documented On 2 1:56PM By Sherice Gordon ; [facility] Skelaxin 800 MG Tablet 08/11/2016 - 06/29/2023 Provider: Seven Sotomayor MD Diagnosis: Strain of musc/t end the rotator cuff of left shoulder, subs three times a day Last Documented On 3 2:27PM By Sonia Garcia ; [facility] TraMADol HCl 50 MG Tablet 08/11/2016 - 06/29/2023 Provider: Seven Sotomayor MD Diagnosis: Strain of musc/t end the rotator cuff of left shoulder, subs 1 every 6 hours prn pain Last Documented On 3 2:26PM By Sonia Garcia ; [facility] Naprosyn 500 MG Tablet 07/22/2016 - 06/29/2023 Provide r: Srinivas Conway MD Diagnosis: twice a day Last Documented On 3 2:26PM By Sonia Garcia ; [facility] Bern 5-325 MG Tablet 05/05/2016 - 06/29/2023 Provider: Seven holly MD Diagnosis: Strain of musc/t end the rotator cuff of left shoulder, init 1 po q 6 to 8 hrs prn pain Last Documented On 3 2:27PM By Sonia Garcia ; [facility] Bern 5-325 MG Tablet 03/24/2016 - 06/29/2023 Provider: Seven holly MD Diagnosis: Strain of musc/t end the rotator cuff of left shoulder, init 1 po q 6 to 8 hrs prn pain Last Documented On 3 2:26PM By Sonia Garcia ; [facility] Bern 5-325 MG Tablet 02/08/2016 - 06/29/2023 Provider : Seven Sotomayor MD Diagnosis: 1 po q 6 to 8 hrs prn pain Last Documented On 3 2:27PM By Sonia Garcia ; [facility] Bern 5-325 MG Tablet 01/11/2016 - 06/29/2023 Provider: Seven holly MD Diagnosis: Strain of musc/t end the rotator cuff of left shoulder, subs 1-2 po q 4-6h prn pain Last Documented On 3 2:27PM By Sonia Garcia ; [facility] Bern 5-325 MG Tablet 01/02/2016 - 06/29/2023 Provider: Seven holly MD Diagnosis: Strain of musc/t end the rotator cuff of left shoulder, subs 1-2 po q 4-6h prn pain Last Documented On 3 2:26PM By Sonia Garcia ; [facility] Bern 5-325 MG Tablet 12/03/2015 - 06/29/2023 Provider: Seven holly MD Diagnosis: Sprain of left r otator cuff capsule, initial encounter 1-2 po q 4-6h prn pain Last Documented On 3 2:26PM By Sonia Garcia ; [facility] Hydrocodone-Acetaminophen 10-325 MG Tablet 10/31/2015 - 01/11/2016 Provider: Diagnosis: Last Documented On 6 2:22PM By Denise Byod ; [facility] Diclofenac Sodium 75 MG Tablet, enteric coated 1 01/01/2015 - 01/04/2022 Provider: Diagnosis: Last Documented On 2 10:23AM By Erin Duarte ; [facility] Cyclobenzaprine HCl 10 MG Tablet 10/31/2015 - 01/04/20 Provider: Diagnosis: Last Documented On 2 10:23AM By Erin Duarte ; [facility] Medications Administered Includes: Administered Medications in patient's chart No Administered Medications Recorded Results Includes: Results from 10/24/2024 through 10/24/2025 No Results Recorded For Specified Dates History of Present Illness History of Present Illness not supported for this document type No History of Present Illness Recorded Social History Description Last Updated Is a smoker 07/08/2022 Last Documented On 2 2:48PM ; [facility] Smoker 1 pack/day 07/08/2022 Last Documented On 2 2:48PM ; [facility] Alcohol use 01/14/2022 Last Documented On 2 10:50AM ; [facility] Caffeine use 01/14/2022 Last Documented On 2 10:50AM ; [facility] No recent change in diet 01/14/2022 Last Documented On 2 10:50AM ; [facility] Not exercising regularly 01/14/2022 Last Documented On 2 10:50AM ; [facility] Not using drugs 01/14/2022 Last Documented On 2 10:50AM ; [facility] Yes, current smoker. 01/14/2022 Last Documented On 2 10:50AM ; [facility] Current smoker 11/05/2015 Last Documented On 5 8:45AM ; [facility] No recent change in diet 11/05/2015 Last Documented On 5 8:45AM ; [facility] Smoking status : Current everyday smoker 11/05/2015 Last Documented On 5 8:45AM ; [facility] Tobacco use 11/05/2015 Last Documented On 5 8:45AM ; [facility] Procedures and Surgical History Surgical History Last Updated History of History of Arthroscopy LEFT S ULDER 201501/14/2022 Last Documented On 2 10:50AM ; [facility] Medical History Includes: Medical History in patient's chart Description Last Updated KIDNEY STONES 01/14/2022 Last Documented On 2 10:50AM ; [facility] History of asthma 01/14/2022 Last Documented On 2 10:50AM ; [facility] No recent immunization for flu 2 Last Documented On 2 10:50AM ; [facility] No recent immunization for pneumococcal pneumonia 01/14/2022 Last Documented On 2 10:50AM ; [facility] History of depression 11/05/2015 Last Documented On 5 8:45AM ; [facility] Family History Includes: Family History in patient's chart Description Last Updated Diabetes mellitus 01/31/2022 Last Documented On 2 9:01AM ; [facility] Family history of heart disease 02/01/20 22 Last Documented On 2 9:01AM ; [facility] Family history of rheumatoid arthritis 0 01/31/2022 Last Documented On 2 9:01AM ; [facility] No significant family history 01/14/2022 Last Documented On 2 10:50AM ; [facility] Maternal history of diabetes mellitus Last Documented On 5 8:45AM ; [facility] Maternal history of family history of he art disease 11/05/2015 Last Documented On 5 8:45AM ; [facility] Maternal history of rheumatoid arthritis 11/05/2015 Last Documented On 5 8:45AM ; [facility] Review of Systems Review of Systems not [...] 1 05/28/2022 Complete (Refused - Patient objection) [facility] Last Documented On 2 2:07PM ; [facility] PCV (Pneumovax 23) 1 05/28/2022 Complete (Refused - Patient objection) [facility] Last Documented On 2 2:07PM ; [facility] Td 1 05/28/2022 Complete (Refused - Patient objection) [facility] Last Documented On 2 2:07PM ; [facility] Allergies Includes: Active, inactive, and resolved Allergies No Known Allergies Insurance Includes: Active Insurance Policies Plan Name Member ID Group # Subscriber Relationship Effect amina Dates 1 - [facility] [id number] Subha Armando Self 11/30/2021 - Unknown Clinical Notes Includes: Signed Clinical Notes starting from 11/13/2022 No Clinical Notes Recorded
--- OUTSIDE RECORDS SUMMARY | 2025-10-24 14:41 | XMS_ITS | Clinical Summary ---
Author Organization [facility] Address [address] [place] [phone] Phone Care Team Providers Care Irrigation System Installer Name Role Phone Anatoliy Evans MD Primary Care Provider [phone] Allergies No known active allergies Medications ibuprofen [...] Virtual Colonography 2020 COVID-19 Vaccine (1 - 2024-2 6 season) 2025 Influenza Vaccine (#1) 2025 Meningococcal B Vaccine Aged Out No l onger eligible based on patient's age to complete this topic Pneumococcal Vaccine 0-49 Aged Out No longer eligible based on patient's age to complete this topic Insurance Care Teams Irrigation System Installer Relationship Specialty Start Date End Date Anatoliy Evans MD [address] [place] [address] PCP - General Internal Medicine 10/01/12
--- OUTSIDE RECORDS SUMMARY | 2025-10-24 14:41 | XMS_ITS | Clinical Summary ---
Author Organization [facility] Address [address] [place] [address] Phone Care Team Providers Care Top Icer Name Role Phone Romulo GOLDEN, Tyler Loya Unavailable [phone] AYAAN GOLDEN, MARIE E Primary Care Provider [phone] Reason for Referral Date Encounter Description Provider [...] Active Last Documented On 3 3:56PM ; [facility] Past Visits Onset Date Resolved Date Provider Condition Status Soft Tissue Pain Hand Unilaterally Left 07/21/2023 Tyler Sebastian MD Active Last Documented On 3 4:02PM ; [facility] Joint Pain Hip Right 04/29/2022 Brent kelley MD Active Last Documented On 2 8:32AM ; [facility] Joint Pain Shoulder Bilateral 01/04/2022 Ian Jasso PA-C Active Last Documented On 2 10:10AM ; [facility] Right Upper Back Pain Along Inner Edge of Shoulder Blade 08/11/2016 Seven Sotomayor MD Active Last Documented On 6 3:26PM ; [facility] Neck Pain 10/31/2015 Cricket Weber MD Active Last Documented On 5 1:03PM ; [facility] Plan of Treatment Instructions to patient Intervention and counseling on cessation of tobacco use Last Documented On 4 3:06PM ; [facility] Lose weight Last Documented On 4 3:06PM ; [facility] Assessments Includes: Assessments from this encounter Findings - Overweight - Last Documented On 06/24/2024 9:50AM ; [facility] 48 year old male status post right total hip arthroplasty performed on 06/23/2022. He appears well healed he has normal exam no pain with range of motion of his hip some light sensitivities over the skin but I have no restrictions on him he can return to work with full duties - Last Documented On 06/24/2024 9:50AM ; [facility] We did reinforce antibiotics prior to any dental procedures and 5 year follow up for routine x-rays - Last Documented On 06/24/2024 9:50AM ; [facility] Instructions Includes: Instructions from this encounter Instructions to patient Intervention and counseling on cessation of tobacco use Last Documented On 4 3:06PM ; [facility], [facility] Lose weight Last Documented On 4 3:06PM ; [facility] Medical Equipment - Implanted Devices Includes: Current Devices No Medical Equipment Recorded Medications Includes: Medications discussed during this encounter and other current Medications Current Medications (continue as prescribed) oxyCODONE HCl 5 MG Oral Tablet 07/18/2024 Provider: MARIE KUO MD Diagnosis: Last Documented On 4 3:07PM By Gail Piper ; [facility], [facility] Ondansetron 4 MG Oral Tablet Disintegrating 07/16/2024 Provider: Diagnosis: Last Documented On 4 3:07PM By Gail Piper ; [facility], [facility] Ketorolac Tromethamine 10 MG Oral Tablet 07/16/2024 Provider: Diagnosis: Last Documented On 4 3:07PM By Gail Piper ; [facility], [facility] HYDROcodone-Acetaminophen 5-325 MG Oral Tablet 023 Provider: MAIRE KUO MD Diagnosis: Last Documented On 3 3:58PM By Stella Carrillo ; [facility] Cyclobenzaprine HCl 5 MG Oral Tablet 03/05/2022 Prov ider: MARIE KUO MD Diagnosis: Last Documented On 2 1:56PM By Sherice Gordon ; [facility] Tylenol 325 MG Oral Capsule 01/04/2022 Provider: Diagnosis: Last Documented On 2 10:24AM By Erin Duarte ; [facility] Past Medications on file Naproxen 500 MG Oral Tablet 03/11/2024 - 04/10/2024 Pr ovider: Tyler Sebastian MD Diagnosis: take one tablet twice a day prn following surger y Last Documented On 4 8:18AM By Dr. Sebastian ; [facility] Vitamin C 1000 MG Oral Tablet 03/11/2024 - 05/10/2024 Provider: Tyler mclaughlin MD Diagnosis: once a day take 1 tablet once daily post surgery Last Documented On 4 8:18AM By Dr. Sebastian ; [facility] Medrol 4 MG Oral Tablet Therapy Pack 01/21/2024 - 01/28/2024 Provider: Tyler mclaughlin MD Diagnosis: use as directed Last Documented On 4 2:41PM By Dr. Sebastian ; [facility] Gabapentin 300 MG Oral Capsule 06/29/2023 - 07/29/2023 Provider: Brent Nelson MD Diagnosis: 1 capsule, twice a day as needed Last Documented On 3 3:10PM By Brent Rivera ; [facility] Medications Administered Includes: Administered Medications from this encounter No Administered Medications Recorded Vital Signs Includes: Vital Signs from this encounter Vital Name 06/21/2024 03:37P Height (in) 70 Weight (lb) 191.8 Body Mass Index 27.5 Body Surface Area 2.1 Note: ab Last Documented: On 06/21/2024 3:37PM ; [facility] Results Includes: Results discussed during this [...] 07/08/2022 Last Documented On 4 3:06PM ; [facility] Smoker 1 pack/day 07/08/2022 Last Documented On 4 3:06PM ; [facility] Alcohol use 01/14/2022 Last Documented On 4 3:06PM ; [facility] Caffeine use 01/14/2022 Last Documented On 4 3:06PM ; [facility] No recent change in diet 01/14/2022 Last Documented On 4 3:06PM ; [facility] Not exercising regularly 01/14/2022 Last Documented On 4 3:06PM ; [facility] Not using drugs 01/14/2022 Last Documented On 4 3:06PM ; [facility] Yes, current smoker. 01/14/2022 Last Documented On 4 3:06PM ; [facility] Current smoker 11/05/2015 Last Documented On 4 3:06PM ; [facility], [facility] No recent change in diet 11/05/2015 Last Documented On 4 3:06PM ; [facility] Smoking status : Current everyday smoker 11/05/2015 Last Documented On 4 3:06PM ; [facility] Tobacco use 11/05/2015 Last Documented On 4 3:06PM ; [facility] Procedures and Surgical History Includes: Procedures from this encounter Procedures Code Diagnosis Performing Provider Service L ocation Service Date intervention and counseling on cessation of tobacco use 4000F Last Documented On 4 3:06PM ; [facility] use of tobacco assessment performed 1000F Last Documented On 4 3:06PM ; [facility] review of medications documented 1160F Last Documented On 4 3:06PM ; [facility] follow-up visit in one month Last Documented On 4 3:06PM ; [facility] referral to physician Last Documented On 4 3:06PM ; [facility] referral to physician Last Documented On 4 3:06PM ; [facility] clinical consultation report Last Documented On 4 3:06PM ; [facility] Surgical History Last Updated History of History of Arthroscopy LEFT S [facility] 201501/14/2022 Last Documented On 4 3:06PM ; [facility] Medical History Includes: Medical History addressed during this encounter Description Last Updated KIDNEY STONES 01/14/2022 Last Documented On 4 3:06PM ; [facility] History of asthma 01/14/2022 Last Documented On 4 3:06PM ; [facility] No recent immunization for flu 2 Last Documented On 4 3:06PM ; [facility] No recent immunization for pneumococcal pneumonia 01/14/2022 Last Documented On 4 3:06PM ; [facility] History of depression 11/05/2015 Last Documented On 4 3:06PM ; [facility] Family History Includes: Family History addressed during this encounter Description Last Updated Diabetes mellitus 01/31/2022 Last Documented On 4 3:06PM ; [facility] Family history of heart disease 02/01/20 Last Documented On 4 3:06PM ; [facility] Family history of rheumatoid arthritis 0 01/31/2022 Last Documented On 4 3:06PM ; [facility] No significant family history 01/14/2022 Last Documented On 4 3:06PM ; [facility] Maternal history of diabetes mellitus Last Documented On 4 3:06PM ; [facility] Maternal history of family history of he art disease 11/05/2015 Last Documented On 4 3:06PM ; [facility] Maternal history of rheumatoid arthritis 11/05/2015 Last Documented On 4 3:06PM ; [facility] Review of Systems Includes: Review of Systems [...] Time Diagnosis Follow Up Brent Rivera MD [facility] 4 2:59PM 4:05PM Overweight Insurance Includes: Active Insurance Policies Plan Name Member ID Group # Subscriber Relationship Effect amina Dates 1 - [facility] [id number] Subha Armando Self 11/30/2021 - Unknown Clinical Notes Includes: Clinical Notes from this encounter * Progress note Date Encounter Last Documented by 06/21/2024 Follow Up Last documented on 06/24/2024; 9:50 AM, Brent Rivera MD; [facility], [facility] Active Problems & Conditions - Joint [...] Surgical: - History of Arthroscopy LEFT SHOULDER 2015 Social History Yes, current smoker. Current diet: [...] Care Team - MARIE KUO MD - GAMING TABLE OPERATOR
--- OUTSIDE RECORDS SUMMARY | 2025-10-24 14:41 | XMS_ITS ---
Care Plan - [facility] Created on: October 24, 2025 Cordell Armando : 1975 Sex: Male Author Organization [facility] Address [address] [place] [address] Phone Care Team Providers Care Methodologist Name Role Phone Romulo GOLDEN, Tyler Loya Unavailable [phone] AYAAN GOLDEN, MARIE Mario Primary Care Provider [phone]
--- OUTSIDE RECORDS SUMMARY | 2025-10-24 14:41 | XMS_ITS | Clinical Summary ---
Author Organization [facility] Address [address] [place] [address] Phone Care Team Providers Care Home Care Giver Name Role Phone Romulo GOLDEN, Tyler KUO MD, MARIE E Primary Care Provider [phone] Reason for Referral Date Encounter Description Provider [...] Active Last Documented On 3 3:56PM ; [facility] Past Visits Onset Date Resolved Date Provider Condition Status Soft Tissue Pain Hand Unilaterally Left 07/21/2023 Tyler Sebastian MD Active Last Documented On 3 4:02PM ; [facility] Joint Pain Hip Right 04/29/2022 Brent kelley MD Active Last Documented On 2 8:32AM ; [facility] Joint Pain Shoulder Bilateral 01/04/2022 Ian Jasso PA-C Active Last Documented On 2 10:10AM ; [facility] Right Upper Back Pain Along Inner Edge of Shoulder Blade 08/11/2016 Seven Sotomayor MD Active Last Documented On 6 3:26PM ; [facility] Neck Pain 10/31/2015 Cricket Weber MD Active Last Documented On 5 1:03PM ; [facility] Plan of Treatment Instructions to patient Intervention and counseling on cessation of tobacco use Last Documented On 4 3:07PM ; [facility] Lose weight Last Documented On 4 3:07PM ; [facility] Assessments Includes: Assessments from this encounter No Assessments Recorded Instructions Includes: Instructions from this encounter Instructions to patient Intervention and counseling on cessation of tobacco use Last Documented On 4 3:07PM ; [facility] Lose weight Last Documented On 4 3:07PM ; [facility] Medical Equipment - Implanted Devices Includes: Current Devices No Medical Equipment Recorded Medications Includes: Medications discussed during this encounter and other current Medications Current Medications (continue as prescribed) oxyCODONE HCl 5 MG Oral Tablet 07/18/2024 Provider: MARIE KUO MD Diagnosis: Last Documented On 4 3:07PM By Gail Piper ; [facility], [facility] Ondansetron 4 MG Oral Tablet Disintegrating 07/16/2024 Provider: Diagnosis: Last Documented On 4 3:07PM By Gail Piper ; [facility] Ketorolac Tromethamine 10 MG Oral Tablet 07/16/2024 Provider: Diagnosis: Last Documented On 4 3:07PM By Gail Piper ; [facility] HYDROcodone-Acetaminophen 5-325 MG Oral Tablet 023 Provider: MARIE KUO MD Diagnosis: Last Documented On 3 3:58PM By Stella Carrillo ; [facility] Cyclobenzaprine HCl 5 MG Oral Tablet 03/05/2022 Prov ider: MARIE KUO MD Diagnosis: Last Documented On 2 1:56PM By Sherice Gordon ; [facility] Tylenol 325 MG Oral Capsule 01/04/2022 Provider: Diagnosis: Last Documented On 2 10:24AM By Erin Duarte ; [facility] Past Medications on file Naproxen 500 MG Oral Tablet 03/11/2024 - 04/10/2024 Pr ovider: Tyler Sebastian MD Diagnosis: take one tablet twice a day prn following surger y Last Documented On 4 8:18AM By Dr. Sebastian ; [facility], [facility] Vitamin C 1000 MG Oral Tablet 03/11/2024 - 05/10/2024 Provider: Tyler mclaughlin MD Diagnosis: once a day take 1 tablet once daily post surgery Last Documented On 4 8:18AM By Dr. Sebastian ; [facility], [facility] Medrol 4 MG Oral Tablet Therapy Pack 01/21/2024 - 01/28/2024 Provider: Tyler mclaughlin MD Diagnosis: use as directed Last Documented On 4 2:41PM By Dr. Sebastian ; [facility], [facility] Gabapentin 300 MG Oral Capsule 06/29/2023 - 07/29/2023 Provider: Brent Nelson MD Diagnosis: 1 capsule, twice a day as needed Last Documented On 3 3:10PM By Brent Rivera ; [facility], [facility] Medications Administered Includes: Administered Medications from this encounter No Administered Medications Recorded Vital Signs Includes: Vital Signs from this encounter Vital Name 08/31/2024 03:07P Height (in) 70 Weight (lb) 189 Body Mass Index 27.1 Body Surface Area 2 Note: cg Last Documented: On 08/31/2024 3:07PM ; [facility] Results Includes: Results discussed during this [...] 07/08/2022 Last Documented On 4 3:07PM ; [facility] Smoker 1 pack/day 07/08/2022 Last Documented On 4 3:07PM ; [facility] Alcohol use 01/14/2022 Last Documented On 4 3:07PM ; [facility] Caffeine use 01/14/2022 Last Documented On 4 3:07PM ; [facility] No recent change in diet 01/14/2022 Last Documented On 4 3:07PM ; [facility] Not exercising regularly 01/14/2022 Last Documented On 4 3:07PM ; [facility] Not using drugs 01/14/2022 Last Documented On 4 3:07PM ; [facility] Yes, current smoker. 01/14/2022 Last Documented On 4 3:07PM ; [facility] Current smoker 11/05/2015 Last Documented On 4 3:07PM ; [facility] No recent change in diet 11/05/2015 Last Documented On 4 3:07PM ; [facility] Smoking status : Current everyday smoker 11/05/2015 Last Documented On 4 3:07PM ; [facility] Tobacco use 11/05/2015 Last Documented On 4 3:07PM ; [facility] Procedures and Surgical History Includes: Procedures from this encounter Procedures Code Diagnosis Performing Provider Service L ocation Service Date intervention and counseling on cessation of tobacco use 4000F Last Documented On 4 3:07PM ; [facility] use of tobacco assessment performed 1000F Last Documented On 4 3:07PM ; [facility] no influenza immunization patient refuse d Last Documented On 4 3:07PM ; [facility] follow-up visit in one month with PCP fo r elevated BP Last Documented On 4 3:07PM ; [facility] referral to physician SEE PCP FOR BP Last Documented On 4 3:07PM ; [facility] an X-ray was performed [id number] Last Documented On 4 3:07PM ; [facility] an MRI was performed [id number] Last Documented On 4 3:07PM ; [facility] Surgical History Last Updated History of History of Arthroscopy LEFT S [facility] 201501/14/2022 Last Documented On 4 3:07PM ; [facility] Medical History Includes: Medical History addressed during this encounter Description Last Updated KIDNEY STONES 01/14/2022 Last Documented On 4 3:07PM ; [facility] History of asthma 01/14/2022 Last Documented On 4 3:07PM ; [facility] No recent immunization for flu 2 Last Documented On 4 3:07PM ; [facility] No recent immunization for pneumococcal pneumonia 01/14/2022 Last Documented On 4 3:07PM ; [facility] History of depression 11/05/2015 Last Documented On 4 3:07PM ; [facility], [facility] Family History Includes: Family History addressed during this encounter Description Last Updated Diabetes mellitus 01/31/2022 Last Documented On 4 3:07PM ; [facility] Family history of heart disease 02/01/20 22 Last Documented On 4 3:07PM ; [facility] Family history of rheumatoid arthritis 0 01/31/2022 Last Documented On 4 3:07PM ; [facility] No significant family history 01/14/2022 Last Documented On 4 3:07PM ; [facility] Maternal history of diabetes mellitus Last Documented On 4 3:07PM ; [facility] Maternal history of family history of he art disease 11/05/2015 Last Documented On 4 3:07PM ; [facility] Maternal history of rheumatoid arthritis 11/05/2015 Last Documented On 4 3:07PM ; [facility] Review of Systems Includes: Review of [...] Time Diagnosis Follow Up Blayne Carmichael PA-C [facility] 4 2:54PM 3:29PM Insurance Includes: Active Insurance Policies Plan Name Member ID Group # Subscriber Relationship Effect amina Dates 1 - [facility] [id number] Subha Armando Self 11/30/2021 - Unknown Clinical Notes Includes: Clinical Notes from this encounter * Progress note Date Encounter Last Documented by 08/31/2024 Follow Up Last documented on 08/31/2024; 3:43 PM, Blayne Carmichael PA-C; [facility] Active Problems & Conditions - Joint [...] Care Team - MARIE KUO MD - INSTALLATION TECH
--- OUTSIDE RECORDS SUMMARY | 2025-10-24 14:42 | XMS_ITS | Clinical Summary ---
Author Organization [facility] Address [address] [place] [address] Phone [email or web address] Care Team Providers Care Surgical Endoscopist Name Role Phone Anatoliy Evans Primary Care [...] day. Active irbesartan (AVAPRO) 75 MG tablet Take 75 mg by mouth every night. Active Active Problems No known active problems Resolved Problems Problem Noted Date Diagnosed Date Resolved Date Health examination of defined subpopulation 01/02/2012 09/21/2018 Overview (04/28/2018): Immunizations Immunization Administration Dates Next Due Tdap [...] Sign Reading Time Taken Comments Blood Pressure 121/82 08/02/2025 7:13 AM EDT Pulse 75 08/02/2025 7:13 AM EDT Temperature 36.6 C (97.9 F) 09/02/2024 12:59 PM EDT Respiratory Rate 14 05/15/2025 3:44 PM EDT Oxygen Saturation 97% 08/02/2025 7:13 AM EDT Inhaled Oxygen Concentration - - Weight 73.9 kg (162 lb 14.4 oz) 08/02/2025 7:13 AM EDT Height 177.8 cm (5' 10 ) 08/02/2025 7:13 AM EDT Body Mass Index 23.37 08/02/2025 7:13 AM EDT Plan of Treatment Health Maintenance Due Date Last Done Comments CT Colonography 1975 Colonoscopy 1975 Colorectal Cancer Screening Combo 1975 DNA Cologuard 1975 Dental Cleaning/Exam 1975 FIT or FOBT Test 1975 HIV Screening 1975 Hepatitis C Screening 1975 Sigmoidoscopy 1975 Asthma Spirometry 1980 Annual Preventive Exam 1993 Hep B Infection Screening - Triple Screen 1993 Hepatitis B Immunization (1 of 3 - 19+ 3-dose series) 1994 Pneumococcal: 50+ Years (1 o f 2 - PCV) 1994 Tetanus Diphtheria and Pertu ssis Immunization (2 - Td or Tdap) 07/23/2022 07/23/2012 Covid-19 Immunization (1 - 2 025-26 season) 2025 Influenza Immunization (#1) 2025 Zoster Immunization (1 of 2) 2025 HIB Immunization Aged Out No longer [...] patient's age to complete this topic Insurance OPT OUT NO COPAY NB Care Teams Surgical Endoscopist Relationship Specialty Start Date End [place] [address] 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
--- OUTSIDE RECORDS SUMMARY | 2025-10-24 14:42 | XMS_ITS | Clinical Summary ---
Author Organization [facility] Address [address] [place] [address] Phone Care Team Providers Care Winding Inspector Name Role Phone Romulo GOLDEN, Tyler Loya Unavailable [phone] AYAAN GOLDEN, MARIE E Primary Care Provider [phone] Reason for Visit and Chief Complaint The Chief Complaint is: left hand pain Problems Includes: Problems addressed during this encounter and other active Problems Current Visit Onset Date Resolved Date Provider Conditio n Status Lower Back Pain 08/12/2023 SUBHA SMITH PA-C Active Last Documented On 3 3:56PM ; [facility], [facility] Past Visits Onset Date Resolved Date Provider Condition Status Soft Tissue Pain Hand Unilaterally Left 07/21/2023 Tyler Sebastian MD Active Last Documented On 3 4:02PM ; [facility], [facility] Joint Pain Hip Right 04/29/2022 Brent kelley MD Active Last Documented On 2 8:32AM ; [facility], [facility] Joint Pain Shoulder Bilateral 01/04/2022 Ian Jasso PA-C Active Last Documented On 2 10:10AM ; [facility], [facility] Right Upper Back Pain Along Inner Edge of Shoulder Blade 08/11/2016 Seven Sotomayor MD Active Last Documented On 6 3:26PM ; [facility], [facility] Neck Pain 10/31/2015 Cricket Weber MD Active Last Documented On 5 1:03PM ; [facility], [facility] Plan of Treatment 1. He will continue with daily scar massage until it's been 6 months from the day of surgery. 2. 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 3. He may use his left [...] weight Last Documented On 4 3:37PM ; [facility] Assessments Includes: Assessments from this encounter Findings - Overweight - Last Documented On 04/12/2024 3:47PM ; [facility] s/p release left trigger thumb and release left long trigger finger - Last Documented On 04/12/2024 3:47PM ; [facility] Instructions Includes: Instructions from this encounter Instructions to patient Intervention and counseling on cessation of tobacco use Last Documented On 4 3:37PM ; [facility] Intervention and counseling on cessation of tobacco use Last Documented On 4 3:37PM ; [facility] Lose weight Last Documented On 4 3:37PM ; [facility] Medical Equipment - Implanted Devices Includes: Current Devices No Medical Equipment Recorded Medications Includes: Medications discussed during this encounter and other current Medications Current Medications (continue as prescribed) oxyCODONE HCl 5 MG Oral Tablet 07/18/2024 Provider: MARIE KUO MD Diagnosis: Last Documented On 4 3:07PM By Gail Piper ; [facility], [facility] Ondansetron 4 MG Oral Tablet Disintegrating 07/16/2024 Provider: Diagnosis: Last Documented On 4 3:07PM By Gail Piper ; [facility] Ketorolac Tromethamine 10 MG Oral Tablet 07/16/2024 Provider: Diagnosis: Last Documented On 4 3:07PM By Gail Piper ; [facility] HYDROcodone-Acetaminophen 5-325 MG Oral Tablet 023 Provider: MARIE KUO MD Diagnosis: Last Documented On 3 3:58PM By Stella Carrillo ; [facility], [facility] Cyclobenzaprine HCl 5 MG Oral Tablet 03/05/2022 Prov ider: MARIE KUO MD Diagnosis: Last Documented On 2 1:56PM By Sherice Gordon ; [facility], [facility] Tylenol 325 MG Oral Capsule 01/04/2022 Provider: Diagnosis: Last Documented On 2 10:24AM By Erin Duarte ; [facility], [facility] Past Medications on file Naproxen 500 MG Oral Tablet 03/11/2024 - 04/10/2024 Pr ovider: Tyler Sebastian MD Diagnosis: take one tablet twice a day prn following surger y Last Documented On 4 8:18AM By Dr. Sebastian ; [facility], [facility] Vitamin C 1000 MG Oral Tablet 03/11/2024 - 05/10/2024 Provider: Tyler mclaughlin MD Diagnosis: once a day take 1 tablet once daily post surgery Last Documented On 4 8:18AM By Dr. Sebastian ; [facility], [facility] Medrol 4 MG Oral Tablet Therapy Pack 01/21/2024 - 01/28/2024 Provider: Tyler mclaughlin MD Diagnosis: use as directed Last Documented On 4 2:41PM By Dr. Sebastian ; [facility], [facility] Gabapentin 300 MG Oral Capsule 06/29/2023 - 07/29/2023 Provider: Brent Nelson MD Diagnosis: 1 capsule, twice a day as needed Last Documented On 3 3:10PM By Brent Rivera ; [facility], [facility] Medications Administered Includes: Administered Medications from this encounter No Administered Medications Recorded Vital Signs Includes: Vital Signs from this encounter Vital Name 04/12/2024 03:37P Height (in) 70 Weight (lb) 180 Body Mass Index 25.8 Body Surface Area 2 Note: [facility] Last Documented: On 04/12/2024 3:37PM ; [facility], [facility] Results Includes: Results discussed during this encounter [...] 07/08/2022 Last Documented On 4 3:36PM ; [facility] Smoker 1 pack/day 07/08/2022 Last Documented On 4 3:36PM ; [facility] Alcohol use 01/14/2022 Last Documented On 4 3:36PM ; [facility] Caffeine use 01/14/2022 Last Documented On 4 3:36PM ; [facility] No recent change in diet 01/14/2022 Last Documented On 4 3:36PM ; [facility] Not exercising regularly 01/14/2022 Last Documented On 4 3:36PM ; [facility] Not using drugs 01/14/2022 Last Documented On 4 3:36PM ; [facility] Yes, current smoker. 01/14/2022 Last Documented On 4 3:36PM ; [facility] Current smoker 11/05/2015 Last Documented On 4 3:36PM ; [facility] No recent change in diet 11/05/2015 Last Documented On 4 3:36PM ; [facility] Smoking status : Current everyday smoker 11/05/2015 Last Documented On 4 3:36PM ; [facility] Tobacco use 11/05/2015 Last Documented On 4 3:36PM ; [facility] Procedures and Surgical History Includes: Procedures from this encounter Procedures Code Diagnosis Performing Provider Service L ocation Service Date intervention and counseling on cessation of tobacco use 4000F Last Documented On 4 3:37PM ; [facility] use of tobacco assessment performed 1000F Last Documented On 4 3:37PM ; [facility], [facility] review of medications documented 1160F Last Documented On 4 3:37PM ; [facility], [facility] Surgical History Last Updated History of History of Arthroscopy LEFT S JEFFREY 2016 01/14/2022 Last Documented On 4 3:36PM ; [facility], [facility] Medical History Includes: Medical History addressed during this encounter Description Last Updated KIDNEY STONES 01/14/2022 Last Documented On 4 3:36PM ; [facility], [facility] History of asthma 01/14/2022 Last Documented On 4 3:36PM ; [facility], [facility] No recent immunization for flu 2 Last Documented On 4 3:36PM ; [facility], [facility] No recent immunization for pneumococcal pneumonia 01/14/2022 Last Documented On 4 3:36PM ; [facility], [facility] History of depression 11/05/2015 Last Documented On 4 3:36PM ; [facility], [facility] Family History Includes: Family History addressed during this encounter Description Last Updated Diabetes mellitus 01/31/2022 Last Documented On 4 3:36PM ; [facility], [facility] Family history of heart disease 02/01/20 22 Last Documented On 4 3:36PM ; [facility], [facility] Family history of rheumatoid arthritis 0 01/31/2022 Last Documented On 4 3:36PM ; [facility], [facility] No significant family history 01/14/2022 Last Documented On 4 3:36PM ; [facility], [facility] Maternal history of diabetes mellitus Last Documented On 4 3:36PM ; [facility], [facility] Maternal history of family history of he art disease 11/05/2015 Last Documented On 4 3:36PM ; [facility], [facility] Maternal history of rheumatoid arthritis 11/05/2015 Last Documented On 4 3:36PM ; [facility], [facility] Review of Systems Includes: Review of Systems [...] Time Diagnosis Post Op Daniella Brown APRN [facility] 4 3:26PM 3:44PM Overweight Insurance Includes: Active Insurance Policies Plan Name Member ID Group # Subscriber Relationship Effect amina Dates 1 - [facility] [id number] Subha Armando Self 11/30/2021 - Unknown Clinical Notes Includes: Clinical Notes from this encounter * Progress note Date Encounter Last Documented by 04/12/2024 Post Op Last documented on 04/12/2024; 3:47 PM, Daniella Brown APRN; [facility], [facility] Active Problems & Conditions - Joint Pain [...] Findings - Vitals taken 04/12/2024 03:37 pm [facility] Height 70 in Weight 180 lbs Body [...] 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 3. He may use his left hand for all regular activity with no restrictions. 4. He is released from our care to follow up as needed. Notes This dictation was done with voice recognition software and may contain errors and omissions. Practice Management Use of tobacco assessment performed Review of medications documented. Care Team - MARIE KUO MD - PROFESSOR OF EDUCATION
--- OUTSIDE RECORDS SUMMARY | 2025-10-24 14:42 | XMS_ITS | Clinical Summary ---
Author Organization [facility] Address [address] [place] [address] Phone Care Team Providers Care Funding Coordinator Name Role Phone Romulo GOLDEN, Tyler Loya Unavailable [phone] AYAAN GOLDEN, MARIE E Primary Care Provider [phone] Reason for Visit and Chief Complaint The Chief Complaint is: left hand pain Problems Includes: Problems addressed during this encounter and other active Problems Current Visit Onset Date Resolved Date Provider Conditio n Status Lower Back Pain 08/12/2023 SUBHA SMITH PA-C Active Last Documented On 3 3:56PM ; [facility], [facility] Past Visits Onset Date Resolved Date Provider Condition Status Soft Tissue Pain Hand Unilaterally Left 07/21/2023 Tyler Sebastian MD Active Last Documented On 3 4:02PM ; [facility] Joint Pain Hip Right 04/29/2022 Brent kelley MD Active Last Documented On 2 8:32AM ; [facility], [facility] Joint Pain Shoulder Bilateral 01/04/2022 Ian Jasso PA-C Active Last Documented On 2 10:10AM ; [facility], [facility] Right Upper Back Pain Along Inner Edge of Shoulder Blade 08/11/2016 Seven Sotomayor MD Active Last Documented On 6 3:26PM ; [facility] Neck Pain 10/31/2015 Cricket Weber MD Active Last Documented On 5 1:03PM ; [facility], [facility] Plan of Treatment 1. Patient is to [...] Last Documented On 02/16/2024 3:42PM ; [facility], [facility] Instructions to patient Intervention and counseling on cessation of tobacco use Last Documented On 4 3:15PM ; [facility] Lose weight Last Documented On 4 3:15PM ; [facility] Assessments Includes: Assessments from this encounter Findings - Overweight - Last Documented On 02/16/2024 3:42PM ; [facility] 1. Left trigger thumb - Last Documented On 02/16/2024 3:42PM ; [facility] 2. Left long trigger finger - Last Documented On 02/16/2024 3:42PM ; [facility] Instructions Includes: Instructions from this encounter Instructions to patient Intervention and counseling on cessation of tobacco use Last Documented On 4 3:15PM ; [facility] Lose weight Last Documented On 4 3:15PM ; [facility], [facility] Medical Equipment - Implanted Devices Includes: Current Devices No Medical Equipment Recorded Medications Includes: Medications discussed during this encounter and other current Medications Current Medications (continue as prescribed) oxyCODONE HCl 5 MG Oral Tablet 07/18/2024 Provider: MARIE KUO MD Diagnosis: Last Documented On 4 3:07PM By Gail Piper ; [facility] Ondansetron 4 MG Oral Tablet Disintegrating 07/16/2024 Provider: Diagnosis: Last Documented On 4 3:07PM By Gail Piper ; [facility] Ketorolac Tromethamine 10 MG Oral Tablet 07/16/2024 Provider: Diagnosis: Last Documented On 4 3:07PM By Gail Piper ; [facility] HYDROcodone-Acetaminophen 5-325 MG Oral Tablet 023 Provider: MARIE KUO MD Diagnosis: Last Documented On 3 3:58PM By Stella Carrillo ; [facility], [facility] Cyclobenzaprine HCl 5 MG Oral Tablet 03/05/2022 Prov ider: MARIE KUO MD Diagnosis: Last Documented On 2 1:56PM By Sherice Gordon ; [facility], [facility] Tylenol 325 MG Oral Capsule 01/04/2022 Provider: Diagnosis: Last Documented On 2 10:24AM By Erin Duarte ; [facility], [facility] Past Medications on file Naproxen 500 MG Oral Tablet 03/11/2024 - 04/10/2024 Pr ovider: Tyler Sebastian MD Diagnosis: take one tablet twice a day prn following surger y Last Documented On 4 8:18AM By Dr. Sebastian ; [facility], [facility] Vitamin C 1000 MG Oral Tablet 03/11/2024 - 05/10/2024 Provider: Tyler mclaughlin MD Diagnosis: once a day take 1 tablet once daily post surgery Last Documented On 4 8:18AM By Dr. Sebastian ; [facility], [facility] Medrol 4 MG Oral Tablet Therapy Pack 01/21/2024 - 01/28/2024 Provider: Tyler mclaughlin MD Diagnosis: use as directed Last Documented On 4 2:41PM By Dr. Sebastian ; [facility], [facility] Gabapentin 300 MG Oral Capsule 06/29/2023 - 07/29/2023 Provider: Brent Nelson MD Diagnosis: 1 capsule, twice a day as needed Last Documented On 3 3:10PM By Brent Rivera ; [facility], [facility] Medications Administered Includes: Administered Medications from this encounter No Administered Medications Recorded Vital Signs Includes: Vital Signs from this encounter Vital Name 02/16/2024 03:15P Height (in) 70 Weight (lb) 180 Body Mass Index 25.8 Body Surface Area 2 Note: [facility] Last Documented: On 02/16/2024 3:15PM ; [facility], [facility] Results Includes: Results [...] 07/08/2022 Last Documented On 4 3:15PM ; [facility] Smoker 1 pack/day 07/08/2022 Last Documented On 4 3:15PM ; [facility] Alcohol use 01/14/2022 Last Documented On 4 3:15PM ; [facility] Caffeine use 01/14/2022 Last Documented On 4 3:15PM ; [facility] No recent change in diet 01/14/2022 Last Documented On 4 3:15PM ; [facility] Not exercising regularly 01/14/2022 Last Documented On 4 3:15PM ; [facility] Not using drugs 01/14/2022 Last Documented On 4 3:15PM ; [facility] Yes, current smoker. 01/14/2022 Last Documented On 4 3:15PM ; [facility] Current smoker 11/05/2015 Last Documented On 4 3:15PM ; [facility] No recent change in diet 11/05/2015 Last Documented On 4 3:15PM ; [facility] Smoking status : Current everyday smoker 11/05/2015 Last Documented On 4 3:15PM ; [facility] Tobacco use 11/05/2015 Last Documented On 4 3:15PM ; [facility] Procedures and Surgical History Includes: Procedures from this encounter Procedures Code Diagnosis Performing Provider Service L ocation Service Date intervention and counseling on cessation of tobacco use 4000F Last Documented On 4 3:15PM ; [facility] use of tobacco assessment performed 1000F Last Documented On 4 3:15PM ; [facility] review of medications documented 1160F Last Documented On 4 3:15PM ; [facility] Surgical History Last Updated History of History of Arthroscopy LEFT Louise MURPHY 2016 01/14/2022 Last Documented On 4 3:15PM ; [facility], [facility] Medical History Includes: Medical History addressed during this encounter Description Last Updated KIDNEY STONES 01/14/2022 Last Documented On 4 3:15PM ; [facility], [facility] History of asthma 01/14/2022 Last Documented On 4 3:15PM ; [facility], [facility] No recent immunization for flu 2 Last Documented On 4 3:15PM ; [facility], [facility] No recent immunization for pneumococcal pneumonia 01/14/2022 Last Documented On 4 3:15PM ; [facility], [facility] History of depression 11/05/2015 Last Documented On 4 3:15PM ; [facility], [facility] Family History Includes: Family History addressed during this encounter Description Last Updated Diabetes mellitus 01/31/2022 Last Documented On 4 3:15PM ; [facility], [facility] Family history of heart disease 02/01/20 Last Documented On 4 3:15PM ; [facility], [facility] Family history of rheumatoid arthritis 0 01/31/2022 Last Documented On 4 3:15PM ; [facility], [facility] No significant family history 01/14/2022 Last Documented On 4 3:15PM ; [facility], [facility] Maternal history of diabetes mellitus Last Documented On 4 3:15PM ; [facility], [facility] Maternal history of family history of he art disease 11/05/2015 Last Documented On 4 3:15PM ; [facility], [facility] Maternal history of rheumatoid arthritis 11/05/2015 Last Documented On 4 3:15PM ; [facility], [facility] Review of Systems Includes: [...] Time Diagnosis Follow Up Daniella Brown APRN [facility] 4 3:02PM 3:46PM Overweight Insurance Includes: Active Insurance Policies Plan Name Member ID Group # Subscriber Relationship Effect amina Dates 1 - [facility] [id number] Subha Armando Self 11/30/2021 - Unknown Clinical Notes Includes: Clinical Notes from this encounter * Progress note Date Encounter Last Documented by 02/16/2024 Follow Up Last documented on 02/16/2024; 3:42 PM, Daniella Brown APRN; [facility], [facility] Active Problems & Conditions [...] Findings - Vitals taken 02/16/2024 03:15 pm [address] Height 70 in Weight 180 [...] Care Team - MARIE KUO MD - FRAME STRIPPER
== END 2025-10-24 23:59 ==
LOC: RAD 14:35
PROVIDERS: PCP Internal Medicine; Visit Provider Internal Medicine
DX: J84.10 Pulmonary fibrosis, unspecified (principal)
CPT/HCPCS: 71046